=== PATIENT | female | born 1975 | race Caucasian/White ===

== ENCOUNTER 2016-03-24 10:02 | Outpatient (RCR) | payer MEDICARE, MEDICAID ==
[~2016-03-24 10:02] MED LIST: ALPR1T; ALPR1T PO; ASP81CT PO; ASPI-84; ASPI-983 PO; ATOR20TA66 PO; BUPR-168; CARI350T27; CEFD300C3 PO; CPR500T; CRS350T PO; DICY20TA57 PO; DIPH1TAB45; ENXP40I.4 SC; ESCI20TA2 PO; ESCI20TA45 PO; FAMO20TA13; FAMO20TA13 PO; FAMO20TA17; FAMO20TA5 PO; FLC1T; FLC1T PO; FOLI0.4T2 PO; HYDR-34 PO; LACT1CAP45 PO; LEVO750T9 PO; LISI-552 PO; LOVA20TA2; LVST20T PO; METO-333; METO-333 PO; METO25TA2; METO25TA2 PO; MTP25TSR; MULT-608 PO; OMG1KC PO; OXYC-471 PO; PHEN100C11 PO; PHN100C PO; PRM25T; PRX10T; PRX20T; TPR25T PO; VNL75T; WARF-48 PO; WARF7.5T; WARF7.5T PO; WRF5T; WRF5T PO; ZPR20C PO; [UNRECOGNIZED DRUG - CODE]
--- OUTSIDE RECORDS SUMMARY | 2016-03-24 10:07 | XMS REPORT | Continuity of Care Document ---
Author Author [facility] Organization [facility] Address Unknown Phone Unavailable Care Team Providers Care Order Desk Clerk Name Role Phone Lauren Cortez PCP [phone] Source Comments Some departments are not documenting in the electronic medical record. If you do not see the information that you expected, contact Release of Information in the Health Information Management department at [phone] for further assistance in locating additional records.[facility] Active Allergies and Adverse Reactions Allergen Noted Date Severity Reactions Comments Aripiprazole 07/14/2007 Panic attacks Prochlorperazine 07/14/2007 SHORTNESS OF BREATH, Edisylate SWELLING Current Medications Prescription Sig. Disp. Refills Start End Date Status Date COUMADIN PO 07/14/19 Active 08 METOPROLOL TARTRATE PO 07/14/19 Active 08 LOVASTATIN PO 07/14/19 Active 08 LEXAPRO PO 07/14/19 Active 08 PEPCID PO 07/14/19 Active 08 aspirin 81 mg chew tablet 07/14/19 Active 08 FOLIC ACID PO 07/14/19 Active 08 M-VIT PO 07/14/19 Active 08 escitalopram (LEXAPRO) 10 Take 1 Tab by mouth 30 0 07/19/19 Active mg tablet Daily. 08 escitalopram (LEXAPRO) 10 Take 1 Tab by mouth 30 0 20 Active mg tablet Daily. 08 mirtazapine (REMERON) 15 Take 1 Tab by mouth At 30 0 20 Active mg tablet Bedtime Daily. 08 Active Problems Problem Noted Date Generalized anxiety disorder 07/14/2007 Social History Tobacco Use Types Packs/Day Years Used Date Never Smoker Alcohol Use Drinks/Week oz/Week Comments Yes rare Last Filed Vital Signs Vital Sign Reading Time Taken Blood Pressure 121/71 07/19/2007 11:00 AM BENCH LOOM WEAVER Pulse 54 07/19/2007 11:00 AM BENCH LOOM WEAVER Temperature 36.6 C (97.9 F) 07/19/2007 11:00 AM BENCH LOOM WEAVER Respiratory Rate - - Height 1.62 m (5' 3.78") 07/14/2007 11:00 PM BENCH LOOM WEAVER Weight 77 kg (169 lb 12.1 oz) 07/14/2007 11:00 PM BENCH LOOM WEAVER Body Mass Index 29.34 07/14/2007 11:00 PM BENCH LOOM WEAVER Oxygen Saturation 97% 07/14/2007 6:15 PM BENCH LOOM WEAVER Plan of Care Health Maintenance Due Date Last Done Comments Physical (Comprehensive) 09/26/1983 Exam Pertussis Vaccine 09/26/1987 Tetanus Vaccine 1993 Cervical Cancer Screening 1997 Influenza Vaccine 01/24/2016 Results from Last 3 Months Not on file
[2016-03-24 10:18] LABS: INR 2.4 (0.8-1.4); PROTHROMBIN TIME PATIENT 26.3 SEC (12.2-14.7)
[2016-04-14] MEDS ORDERED: PHEN100C11 PO (10:54)
[2016-04-15] MEDS ORDERED: ASPI-983 PO (08:57)
[2016-04-15] MEDS ORDERED: APIX5TAB PO (08:57)
[2016-04-15] MEDS ORDERED: LEVE500T6 PO (08:57)
== END 2016-06-22 | disposition home or self-care (01) ==
LOC: LAB 10:02
PROVIDERS: ATTEND Internal Medicine Cardiovascular Disease
DX: D68.2 Hereditary deficiency of other clotting factors (principal); Z79.01 Long term (current) use of anticoagulants; Z79.899 Other long term (current) drug therapy
CPT/HCPCS: 36415; 85610

== ENCOUNTER 2016-08-03 09:39 | Emergency (ER) | payer MEDICARE, MEDICAID ==
[~2016-08-03] VITALS: Ht 157.5 cm; Wt 66.2 kg
[~2016-08-03 09:39] MED LIST changes: +APIX5TAB PO; +LEVE500T6 PO
--- OUTSIDE RECORDS SUMMARY | 2016-08-03 09:44 | XMS REPORT | Continuity of Care Document ---
Author Author [facility] Organization [facility] Address Unknown Phone Unavailable Care Team Providers Care Desolderer Name Role Phone Lauren Cortez PCP [phone] Source Comments Some departments are not documenting in the electronic medical record. If you do not see the information that you expected, contact Release of Information in the Health Information Management department at [phone] for further assistance in locating additional records.[facility] Active Allergies and Adverse Reactions Allergen [...] Taken Blood Pressure 121/71 07/19/2007 11:00 AM FOOD PHOTOGRAPHER Pulse 54 07/19/2007 11:00 AM FOOD PHOTOGRAPHER Temperature 36.6 C (97.9 F) 07/19/2007 11:00 AM FOOD PHOTOGRAPHER Respiratory Rate - - Height 1.62 m (5' 3.78") 07/14/2007 11:00 PM FOOD PHOTOGRAPHER Weight 77 kg (169 lb 12.1 oz) 07/14/2007 11:00 PM FOOD PHOTOGRAPHER Body Mass Index 29.34 07/14/2007 11:00 PM FOOD PHOTOGRAPHER Oxygen Saturation 97% 07/14/2007 6:15 PM FOOD PHOTOGRAPHER Plan of Care Health Maintenance Due Date Last Done Comments Physical (Comprehensive) 09/26/1983 Exam Pertussis Vaccine 09/26/1987 Tetanus Vaccine 1993 Cervical Cancer Screening 1997 Influenza Vaccine 01/24/2016 Results from Last 3 Months Not on file
[2016-08-03] MEDS ORDERED: ONDANSETRON 4 MG/2 ML (SDV) Z0FRAN IVP ONE ×2 (09:45→10:30)
[2016-08-03] MEDS ORDERED: ONDANSETRON 4 MG (ZOFRAN) ORAL DISSOLVE TAB ONE (09:58)
--- NOTE | 2016-08-03 09:58 | ED Headache ---
General Stated Complaint: HEADACHE/NAUSEA Source: patient, EMS History of Present Illness Time seen by provider: 09:41 Initial Comments PT ARRIVES VIA EMS FROM HOME PT STATES SHE FELT FINE WHEN SHE WOKE UP, THEN WAS HAVING A BOWEL MOVEMENT AND BEGAN TO HAVE A SEVERE HEADACHE FOLLOWED BY NAUSEA AND VOMITING--BEGAN APPROXIMATELY 1 HOUR AGO EMS REPORT ELEVATED BP AT 171/100 TOOK A CLONIDINE JUST PRIOR TO ARRIVAL HAS NOT TAKEN ANYTHING FOR HEADACHE NO DIZZINESS NO VISION CHANGES NO PARESTHESIAS OR MOTOR DEFICITS NO PALPITATIONS NO CHEST PAIN NO SHORTNESS OF BREATH NO HISTORY OF FREQUENT HEADACHES, BUT OCCASIONALLY HAS HAD HEADACHES LIKE THIS WITH BM'S AND HAD VASOVAGAL REACTION WITH SYNCOPE IN THE PAST. ALSO HAD SIMILAR WITH CT, BUT THIS IS DIFFERENT THAN WITH CT IN THAT SHE HAD OTHER SYMPTOMS WITH CT PT HAS HX OF HTN, CT, DVT AND IS CURRENTLY TAKING ELIQUIS. PCP: DR. BOOKER Allergies and Home Medications Allergies Coded Allergies: prochlorperazine (Unverified Allergy, Severe, TONGUE SWELLS, 07/10/06) metoclopramide (Verified Allergy, Unknown, 01/29/09) topiramate (Unverified Allergy, Unknown, 11/18/15) causes metabolic acidosis Home Medications Alprazolam 1 Mg Tablet 1 MG PO TID PRN PRN ANXIETY (Reported) TAKES 1/2 TO 1 (1MG) TABLET Apixaban 5 Mg Tablet #60 5 MG PO BID Prescribed by: ADELAIDA BOOKER on 04/15/16 0857 Atorvastatin Calcium 20 Mg Tablet 20 MG PO HS (Reported) Carisoprodol 350 Mg Tablet 350 MG PO BID PRN PRN MUSCLE SPASMS (Reported) Escitalopram Oxalate 20 Mg Tablet 20 MG PO HS (Reported) Famotidine 20 Mg Tablet 20 MG PO HS (Reported) Folic Acid 1 Mg Tablet 1 MG PO HS (Reported) Lamotrigine 100 Mg Tab.er.24 #30 (Reported) Levetiracetam 500 Mg Tablet #60 500 MG PO BID Prescribed by: ADELAIDA BOOKER on 04/15/16 0857 Metoprolol Tartrate 25 Mg Tablet 25 MG PO HS (Reported) Oxycodone HCl/Acetaminophen 1 Each Tablet 1 TAB PO Q6H PRN PRN SEVERE PAIN ( Reported) Constitutional: no symptoms reported Eyes: No Symptoms Reported Ears, Nose, Mouth, Throat: no symptoms reported Respiratory: no symptoms reported Cardiovascular: no symptoms reported Gastrointestinal: see HPI nausea vomiting Genitourinary: no symptoms reported Musculoskeletal: no symptoms reported Skin: no symptoms reported Psychiatric/Neurological: See HPI Headache Past Tsazomd-Aqruix-Lkxuyl Hx Patient Social History Alcohol Use: Occasionally Uses Recreational Drug Use: Yes Drug of Choice: MARIJUANA Smoking Status: Current Everyday Smoker (1 PPD) Type Used: Cigarettes 2nd Hand Smoke Exposure: Yes Recent Hopitalizations: Yes (just discharged 2 days ago for supratherapeutic INR) Immunizations Up To Date Tetanus Booster (TDap): Less than 5yrs Seasonal Allergies Seasonal Allergies: No Surgeries HX Surgeries: Yes (CARDIAC CATH X 2--2006 & 2010--NO INTERVENTION; LEFT SALPINGO-OOPHORECTOMY FOR TORSION; BILATERAL HERNIA SURGERY CHILD) Surgeries: Abdominal, Adenoidectomy, Cardiac, Oophorectomy, Tonsillectomy Respiratory Hx Respiratory Disorders: Yes Respiratory Disorders: Pneumonia Cardiovascular Hx Cardiac Disorders: Yes (hx blood clots; CT X 2-PER PT. CARDIAC CATHS X2 -- NO INTERVENTION) Cardiac Disorders: Coronary Artery Disease, Deep Vein Thrombosis, Heart Attack , Hypertension Neurological Hx Neurological Disorders: Yes Neurological Disorders: Seizure Disorder Reproductive System Hx Reproductive Disorders: Yes (HPV; 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) Female Reproductive Disorders: Polycystic Ovarian Dis Genitourinary Hx Genitourinary Disorders: Yes (uti) Genitourinary Disorders: Bladder Infection Gastrointestinal Hx Gastrointestinal Disorders: Yes (GI BLEED 04/13/16, ALL OTHER DISORDERS A CHILD) Gastrointestinal Disorders: Abdominal Hernia, Gastroesophageal Reflux, Gastrointestinal Bleed, Hepatitis Musculoskeletal Hx Musculoskeletal Disorders: Yes (STENOSIS) Musculoskeletal Disorders: Scoliosis, Chronic Back Pain Endocrine Hx Endocrine Disorders: No HEENT HX ENT Disorders: No Loss of Vision: Denies Hearing Impairment: Denies Cancer Hx Cancer: No Psychosocial Hx Psychiatric Problems: Yes Behavioral Health Disorders: Anxiety, Depression Integumentary HX Skin/Integumentary Disorder: No (BRUISING) Blood Transfusions Hx Blood Disorders: Yes (DVT; FACTOR 5 LEIDEN) Family Medical History Significant Family History: Heart Disease, Cancer, Hypertension Family Medial History: Family history: Cardiovascular disease 03 FATHER Family history: Coronary thrombosis 03 FATHER Family history: Diabetes mellitus 03 MOTHER Heart disease 03 FATHER History of - disorder 03 FATHER (FACTOR FIVE LEIDEN) Psychotic disorder 03 MOTHER (DEPRESSION) Physical Exam Vital Signs Vital Sign - Last 12Hours 08/03/16 09:39 Temp 96.2 Pulse 58 Resp 18 B/P 161/82 Pulse Ox 96 O2 Delivery Room Air Capillary Refill : General Appearance: WD/WN no apparent distress (RETCHING AND ANXIOUS ON ARRIVAL ) other (RETCHING, LOOKS UNCOMFORTABLE, ANXIOUS) HEENT: PERRL/EOMI normal ENT inspection Neck: non-tender full range of motion supple normal inspectionNo carotid bruit Cardiovascular: regular rate, rhythm no murmur Respiratory: normal breath sounds no respiratory distress no accessory muscle use Gastrointestinal: normal bowel sounds non tender soft no organomegaly Extremities: normal range of motion non-tender normal inspection no pedal edema no calf tenderness normal capillary refill Psychiatric: alert oriented x 3 Crainal Nerves: normal hearing normal speech PERRL Motor/Sensory: no motor deficit no sensory deficit no pronator drift Skin: normal color warm/dry Progress/Results/Core Measures Results/Orders Lab Results Laboratory Tests Test 08/03/16 10:15 Range/Units Activated Partial Thromboplast Time < 20 L 24-35 SEC Alanine Aminotransferase (ALT/SGPT) 14 0-55 U/L Albumin 4.0 3.2-4.5 G/DL Alkaline Phosphatase 69 40-136 U/L Amylase Level 47 25-125 U/L Anion Gap 14 5-14 MMOL/L Aspartate Amino Transf (AST/SGOT) 17 5-34 U/L BUN/Creatinine Ratio 12 Basophils # (Auto) 0.0 0.0-0.1 10^3/uL Basophils (%) (Auto) 0 0-10 % Blood Urea Nitrogen 10 7-18 MG/DL Calcium Level 9.0 8.5-10.1 MG/DL Carbon Dioxide Level 16 L 21-32 MMOL/L Chloride Level 112 H 98-107 MMOL/L Creatinine 0.81 0.60-1.30 MG/DL Eosinophils # (Auto) 0.1 0.0-0.3 10^3/uL Eosinophils (%) (Auto) 1 0-10 % Estimat Glomerular Filtration Rate > 60 Glucose Level 137 H 70-105 MG/DL Hematocrit 45 35-52 % Hemoglobin 15.4 11.5-16.0 G/DL INR Comment 1.0 0.8-1.4 Lipase 35 8-78 U/L Lymphocytes # (Auto) 1.9 1.0-4.0 X 10^3 Lymphocytes (%) (Auto) 18 12-44 % Magnesium Level 1.7 L 1.8-2.4 MG/DL Mean Corpuscular Hemoglobin 33 25-34 PG Mean Corpuscular Hemoglobin Concent 35 32-36 G/DL Mean Corpuscular Volume 94 80-99 FL Mean Platelet Volume 10.9 H 7.4-10.4 FL Monocytes # (Auto) 0.5 0.0-1.0 X 10^3 Monocytes (%) (Auto) 5 0-12 % Neutrophils # (Auto) 7.9 H 1.8-7.8 X 10^3 Neutrophils (%) (Auto) 76 H 42-75 % Platelet Count 217 130-400 10^3/uL Potassium Level 3.7 3.6-5.0 MMOL/L Prothrombin Time 12.4 12.2-14.7 SEC Red Blood Count 4.73 4.35-5.85 10^6/uL Red Cell Distribution Width 12.6 10.0-14.5 % Serum Test, Qualitative NEGATIVE NEGATIVE Sodium Level 142 135-145 MMOL/L Total Bilirubin 0.6 0.1-1.0 MG/DL Total Protein 7.1 6.4-8.2 G/DL Troponin I < 0.30 <0.30 NG/ML White Blood Count 10.4 4.3-11.0 10^3/uL My Orders Orders-KINGS FITZGERALD DO Saline Lock/Iv-Start (08/03/16 09:42) Ekg Tracing (08/03/16 09:42) Monitor-Rhythm Ecg Trace Only (08/03/16 09:42) Ct Head Wo (08/03/16 09:42) Amylase (08/03/16 09:42) Cbc With Automated Diff (08/03/16 09:42) Comprehensive Metabolic Panel (08/03/16 09:42) Hcg,Qualitative Serum (08/03/16 09:42) Lipase (08/03/16 09:42) Magnesium (08/03/16 09:42) Protime With Inr (08/03/16 09:42) Partial Thromboplastin Time (08/03/16 09:42) Troponin I (08/03/16 09:42) Ondansetron Injection (Zofran Injectio (08/03/16 09:45) Ondansetron Oral Dissolve Tab (Zofran (08/03/16 10:00) Ondansetron Oral Dissolve Tab (Zofran (08/03/16 09:58) Chest Pa/Lat (2 View) (08/03/16 10:18) Ondansetron Injection (Zofran Injectio (08/03/16 10:30) Fentanyl Injection (Sublimaze Injection (08/03/16 10:48) Medications Given in ED Current Medications Medications Dose Ordered Sig/Gerald Route Start Time Stop Time Status Last Admin Dose Admin Ondansetron HCl 4 mg ONCE ONCE IVP 08/03/16 10:30 08/03/16 10:31 DC 08/03/16 10:27 4 MG Ondansetron HCl 8 mg ONCE ONCE PO 08/03/16 10:00 08/03/16 10:01 DC 08/03/16 10:00 8 MG Vital Signs/I&O Vital Sign - Last 12Hours 08/03/16 08/03/16 09:39 10:58 Temp 96.2 Pulse 58 77 Resp 18 18 B/P 161/82 146/79 Pulse Ox 96 96 O2 Delivery Room Air Room Air Progress Note : Progress Note SYMPTOMS IMPROVING EVEN PRIOR TO BEING GIVEN ANY MEDICATIONS HEADACHE AND NAUSEA MUCH BETTER EVEN BEFORE GOING TO CT, ABLE TO SIT UP NOW-- COULD NOT SIT UP INITIALLY IT CAUSED HER HEAD TO HURT WORSE. ON RETURN FROM CT, PT IS SITTING UP AND SMILING, AND TALKATIVE, AND CONTINUES TO FEEL BETTER SYMPTOMS COMPLETELY RESOLVED AT DISMISSAL ECG Initial ECG Impression Time: 09:08 Initial ECG Rate: 51 Initial ECG Rhythm: Normal Sinus Initial ECG Impression: Normal Initial ECG Comparisson: Unchanged (EXCEPT T-WAVES NOW PROMINENT) Diagnostic Imaging Comments CXR--NO ACUTE PROCESS, PER RADIOLOGIST REPORT @ 1049 CT HEAD--NO ACUTE PROCESS, PER RADIOLOGIST REPORT @ 1053 Reviewed: Reviewed by Me Departure Communication Progress Notes 1105--DR. LOPEZ HERE TO SEE PT. HE DOES NOT FEEL THAT PT HAS ANY CARDIAC CONCERNS AT THIS TIME. HE WILL SEE PT IN OFFICE TOMORROW. PT AND FAMILY COMFORTABLE WITH THIS PLAN. Impression Impression: Primary Impression: Headache Disposition: 01 HOME, SELF-CARE Condition: Improved Departure-Patient Inst. Referrals: ADELAIDA BOOKER MD (PCP/Family) Primary Care Physician ARIEL LOPEZ MD Patient Instructions: Headache, Adult (DC) Add. Discharge Instructions: HOME, REST LOTS OF CLEAR LIQUIDS TAKE YOUR MEDICATIONS PRESCRIBED TYLENOL AND MOTRIN NEEDED FOR PAIN TAKE YOUR HOME ZOFRAN NEEDED FOR NAUSEA FOLLOW UP WITH DR. LOPEZ TOMORROW RETURN TO ER IF SYMPTOMS RETURN. KINGS FITZGERALD DO Aug 03, 2016 09:57
[2016-08-03] MEDS ORDERED: ONDANSETRON 4 MG (ZOFRAN) ORAL DISSOLVE TAB PO ONE (10:00)
[2016-08-03] MEDS ORDERED: LAMO100T65 (10:21)
[2016-08-03 10:26] LABS: BASOPHILS % (AUTO) 0 % (0-10); EOSINOPHILS # (AUTO) 0.1 10^3/uL (0.0-0.3); EOSINOPHILS % (AUTO) 1 % (0-10); LYMPHOCYTES # (AUTO) 1.9 X 10^3 (1.0-4.0); LYMPHOCYTES % (AUTO) 18 % (12-44); MEAN CORPUSCULAR HEMOGLOBIN 33 PG (25-34); MEAN CORPUSCULAR HGB CONC 35 G/DL (32-36); MEAN CORPUSCULAR VOLUME 94 FL (80-99); MEAN PLATELET VOLUME 10.9 FL (7.4-10.4); MONOCYTES # (AUTO) 0.5 X 10^3 (0.0-1.0); MONOCYTES % (AUTO) 5 % (0-12); NEUTROPHILS # (AUTO) 7.9 X 10^3 (1.8-7.8); NEUTROPHILS % (AUTO) 76 % (42-75); PLATELET COUNT 217 10^3/uL (130-400); RED BLOOD COUNT 4.73 10^6/uL (4.35-5.85); RED CELL DISTRIBUTION WIDTH 12.6 % (10.0-14.5); WHITE BLOOD COUNT 10.4 10^3/uL (4.3-11.0)
[2016-08-03 10:36] LABS: PARTIAL THROMBOPLASTIN TIME < 20 SEC (24-35); PROTHROMBIN TIME PATIENT 12.4 SEC (12.2-14.7)
[2016-08-03 10:44] LABS: ALANINE AMINOTRANSFERASE 14 U/L (0-55); AMYLASE 47 U/L (25-125); ANION GAP 14 MMOL/L (5-14); ASPARTATE AMINO TRANSFERASE 17 U/L (5-34); BILIRUBIN,TOTAL 0.6 MG/DL (0.1-1.0); BLOOD UREA NITROGEN 10 MG/DL (7-18); BUN/CREATININE RATIO 12; CARBON DIOXIDE 16 MMOL/L (21-32); CHLORIDE 112 MMOL/L (98-107); CREATININE SERUM 0.81 MG/DL (0.60-1.30); GFR ESTIMATED > 60; GLUCOSE 137 MG/DL (70-105); LIPASE 35 U/L (8-78); MAGNESIUM 1.7 MG/DL (1.8-2.4); POTASSIUM 3.7 MMOL/L (3.6-5.0); SODIUM 142 MMOL/L (135-145); TOTAL PROTEIN 7.1 G/DL (6.4-8.2)
--- NOTE | 2016-08-03 10:47 | Diagnostic Imaging Report ---
INDICATION: Nausea, headache, hypertension.. TECHNIQUE: Two view chest 10:57 AM CORRELATION STUDY: 04/13/2016 FINDINGS: The heart size, mediastinal configuration and pulmonary vasculature are within normal limits. The lungs are clear with no consolidating infiltrate. There is no significant pleural effusion or pneumothorax. Visualized osseous structures are unremarkable. IMPRESSION: 1. Negative two-view chest. Dictated by: Dictated on workstation # [id number]
[2016-08-03] MEDS ORDERED: fentaNYL INJECTION 100 MCG/2 ML AMP IVP STA (10:48)
[2016-08-03 10:49] LABS: TROPONIN I < 0.30 NG/ML (<0.30)
--- NOTE | 2016-08-03 10:49 | Diagnostic Imaging Report ---
PROCEDURE: CT head without contrast. TECHNIQUE: Multiple contiguous axial images were obtained through the brain without the use of intravenous contrast. INDICATION: Headache and nausea. test was negative. CT brain without contrast 08/03/2016. COMPARISON: 04/16/2016. FINDINGS: There is no evidence for acute hemorrhage or infarct. The brain is stable in appearance with no mass, mass effect or midline shift. There is no hydrocephalus. The calvarium is intact. No acute sinus disease appreciated. IMPRESSION: 1. No acute process. Dictated by: Dictated on workstation # [id number]
[2016-08-03 10:58] VITALS: BP 146/79
[2016-08-03 12:09] VITALS: BP 149/86
== END 2016-08-03 11:56 | disposition home or self-care (01) ==
LOC: EDUNIT# 09:39 → ER 09:40
DX: R51 Headache (principal); R11.2 Nausea with vomiting, unspecified; I10 Essential (primary) hypertension; I25.10 Atherosclerotic heart disease of native coronary artery without angina pectoris; I25.2 Old myocardial infarction; F17.210 Nicotine dependence, cigarettes, uncomplicated; Z79.899 Other long term (current) drug therapy
CPT/HCPCS: 36415; 70450; 71020; 80053; 82150; 83690; 83735; 84484; 84703; 85025; 85610; 85730; 93005; 93041; 96374; 96375

== ENCOUNTER → 2016-09-03 | Outpatient (CLI) | payer MEDICARE, MEDICAID ==
[~2016-09-03] MED LIST changes: +LAMO100T65
--- NOTE | 2016-09-04 08:41 | ECHOCARDIOGRAPHY REPORT ---
PROCEDURE PHYSICIAN: ARIEL LOPEZ DATE OF PROCEDURE: 09/03/2016 TWO DIMENSIONAL ECHOCARDIOGRAM REPORT PRIMARY PHYSICIAN: OTHER PHYSICIAN: REFERRING PHYSICIAN: Dr. Gibson ORDERING PHYSICIAN: INDICATION FOR THE PROCEDURE: Chest pain. MEASUREMENTS DERIVED VALUES LV DIAMETER (LAX) NORMALS NORMALS Diastolic 4.4 (3.6-5.2) Eject. Fract. 60% (60%+/-6%) Systolic (2.3-3.9) Diastolic Vol. % Shortening (0.22-0.42) Systolic Vol. Aortic Root IVS THICKNESS Diastolic 0.9 (0.6-1.1) LVPW THICKNESS Diastolic 0.9 (0.6-1.1) LA DIAMETER Systolic 2.9 (2.1-3.7) FINDINGS: 1. Technical quality is good. 2. The left ventricle is normal in size with normal contractility. Systolic function appeared to be normal. Estimated ejection fraction 60%. 3. The left atrium is normal in size. No clot or thrombus were seen within the left atrium. 4. The right atrium and right ventricle are normal in size. No clot or thrombus were seen within the right side. 5. Mitral valve is normal in morphology with mild mitral regurgitation noted by color Doppler flow. No mitral valve prolapse. No mitral valve stenosis. 6. Aortic valve is trileaflet with normal opening and closing pattern. No significant aortic stenosis or regurgitation was seen. 7. Tricuspid valve is normal in morphology with mild tricuspid regurgitation noted by color Doppler flow. Doppler across tricuspid valve estimated pulmonary artery pressure of 32+ right atrial pressure. 8. Pulmonic valve is functioning normally. 9. No pericardial effusion. IN CONCLUSION: 1. Normal left ventricular size and systolic function. Estimated ejection fraction 60%. 2. Mild mitral and tricuspid regurgitation. 3. Estimated pulmonary artery pressure of 40 mmHg. Job ID: [id number] Dictated Date: 09/03/2016 16:33:45 Equipment Hire Manager Date: 09/04/2016 08:37:49 / tbk
--- NOTE | 2016-09-04 08:47 | STRESS TEST ---
PROCEDURE PHYSICIAN: ARIEL LOPEZ DATE OF PROCEDURE: 09/03/2016 EXERCISE STRESS ECHOCARDIOGRAM REPORT: INDICATION: 1. Coronary artery disease. 2. Chest pain. BASELINE HEART RATE: 58 BASELINE BLOOD PRESSURE: 140/81 BASELINE EKG: Sinus rhythm with no ischemic changes. IN SUMMARY: The patient started exercising with a baseline heart rate, blood pressure, EKG mentioned above. Heart rate was increasing appropriately with her exercise. She was able to exercise for a total of 9 minutes and 30 seconds on standard Tenzin protocol, achieving maximum heart rate of 170, which is 94% of maximum expected heart rate. With peak exercise level, her blood pressure was 214/83. Early in recovery, within 30 seconds of recovery, the patient had a transient episode of bradycardia alternating with sinus tachycardia. Heart rate was ranging between 150 then dropping suddenly to 80. The patient had a short episode of junctional rhythm with heart rate 72. She felt extremely tired and continued to have transient episode of atrial versus sinus tachycardia. At minute 2 and 30 seconds, the patient had another episode of heart rate of 60 then she recovered. At the end of the test, her heart rate was 71. Blood pressure 170/88. She was feeling better. Echocardiographic images were reviewed acquired in the apical 4 chamber, apical 2 chamber, parasternal long axis, and parasternal short axis views. Review of the images showed normal left ventricular size with normal contractility with no ischemic changes. IN CONCLUSION: 1. Excellent exercise tolerance a total of 9 minutes 30 seconds on standard Tenzin protocol. Total of 10.1 METs, achieving 94% of maximum expected heart rate. Sudden drop in heart rate during recovery after 30 seconds of recovery with the heart rate dropping from 170 to 70 with the patient feeling tired, but no dizziness or lightheadedness. Continued to have alternating sinus bradycardia and sinus tachycardia early in recovery then continued with sinus rhythm. Had transient episode of escape junctional rhythm. 2. Hypertensive response to exercise returned to baseline during recovery. 3. The patient was instructed to discontinuing metoprolol and continue on lisinopril and monitoring her symptoms. Job ID: [id number] Dictated Date: 09/03/2016 16:37:06 Press Officer Date: 09/04/2016 08:41:36 / tbk
== END ==
LOC: CARD 08:35
PROVIDERS: ATTEND Internal Medicine Cardiovascular Disease
DX: I25.10 Atherosclerotic heart disease of native coronary artery without angina pectoris (principal); I65.23 Occlusion and stenosis of bilateral carotid arteries; D68.51 Activated protein C resistance; I10 Essential (primary) hypertension; E78.2 Mixed hyperlipidemia
CPT/HCPCS: 93306; 93351

== ENCOUNTER 2016-12-29 11:15 | Outpatient (RCR) | payer MEDICARE, MEDICAID | END 2017-02-05 11:59 | disposition home or self-care (01) | PROVIDERS: ATTEND Family Medicine | DX: M54.5 Low back pain (principal); M54.6 Pain in thoracic spine ==

== ENCOUNTER → 2017-01-30 | Outpatient (CLI) | payer MEDICARE, MEDICAID ==
--- NOTE | 2017-01-30 17:34 | Diagnostic Imaging Report ---
INDICATION: Chest pain. TECHNIQUE: PA and lateral views of the chest are obtained. COMPARISON: Comparison is made to study of 08/03/2016. FINDINGS: Heart size and pulmonary vascularity are within normal limits, and the lungs are clear, bilaterally. IMPRESSION: Unremarkable chest. Dictated on workstation # [id number]
== END ==
LOC: RAD 16:55
PROVIDERS: ATTEND Nurse Practitioner Family
DX: R07.89 Other chest pain (principal)
CPT/HCPCS: 71020

== ENCOUNTER → 2017-03-18 | Outpatient (CLI) | payer MEDICARE, MEDICAID ==
[2017-03-18 10:27] LABS: BASOPHILS % (AUTO) 1 % (0-10); EOSINOPHILS # (AUTO) 0.1 10^3/uL (0.0-0.3); EOSINOPHILS % (AUTO) 2 % (0-10); LYMPHOCYTES # (AUTO) 2.3 X 10^3 (1.0-4.0); LYMPHOCYTES % (AUTO) 29 % (12-44); MEAN CORPUSCULAR HEMOGLOBIN 34 PG (25-34); MEAN CORPUSCULAR HGB CONC 35 G/DL (32-36); MEAN CORPUSCULAR VOLUME 97 FL (80-99); MEAN PLATELET VOLUME 10.2 FL (7.4-10.4); MONOCYTES # (AUTO) 0.6 X 10^3 (0.0-1.0); MONOCYTES % (AUTO) 8 % (0-12); NEUTROPHILS # (AUTO) 4.7 X 10^3 (1.8-7.8); NEUTROPHILS % (AUTO) 60 % (42-75); PLATELET COUNT 246 10^3/uL (130-400); RED BLOOD COUNT 4.58 10^6/uL (4.35-5.85); RED CELL DISTRIBUTION WIDTH 12.5 % (10.0-14.5); WHITE BLOOD COUNT 7.8 10^3/uL (4.3-11.0)
[2017-03-18 10:48] LABS: ALANINE AMINOTRANSFERASE 12 U/L (0-55); ALBUMIN 4.4 GM/DL (3.2-4.5); ANION GAP 9 MMOL/L (5-14); ASPARTATE AMINO TRANSFERASE 18 U/L (5-34); BILIRUBIN,TOTAL 1.1 MG/DL (0.1-1.0); BLOOD UREA NITROGEN 8 MG/DL (7-18); BUN/CREATININE RATIO 10; CALCIUM 9.4 MG/DL (8.5-10.1); CARBON DIOXIDE 19 MMOL/L (21-32); CHLORIDE 110 MMOL/L (98-107); CHOLESTEROL 139 MG/DL (< 200); DIRECT LDL 73 MG/DL (1-129); GFR ESTIMATED > 60; GLUCOSE 100 MG/DL (70-105); POTASSIUM 4.2 MMOL/L (3.6-5.0); SODIUM 138 MMOL/L (135-145); TOTAL PROTEIN 8.1 GM/DL (6.4-8.2); TRIGLYCERIDES 118 MG/DL (<150); VLDL CHOLESTEROL 24 MG/DL (5-40)
== END ==
LOC: LAB 09:59
PROVIDERS: ATTEND Family Medicine
DX: I10 Essential (primary) hypertension (principal); Z79.899 Other long term (current) drug therapy
CPT/HCPCS: 36415; 80053; 80061; 84443; 85025

== ENCOUNTER 2017-04-05 13:15 | Emergency (ER) | payer MEDICARE, MEDICAID ==
[~2017-04-05] VITALS: Ht 157.5 cm; Wt 63.5 kg
--- OUTSIDE RECORDS SUMMARY | 2017-04-05 13:19 | XMS REPORT | Clinical Summary ---
Author Author [facility] Organization [facility] Address Unknown Phone Unavailable Care Team Providers Care Data Warehousing Engineer Name Role Phone PCP Unavailable Source Comments Some departments are not documenting in the electronic medical record. If you do not see the information that you expected, contact Release of Information in the Health Information Management department at [phone] for further assistance in locating additional records.[facility] Allergies Active Allergy Reactions Severity Noted Date Comments Aripiprazole 07/14/2007 Panic attacks Prochlorperazine SHORTNESS OF BREATH, 07/14/2007 Edisylate SWELLING Current Medications Prescription Sig. Disp. [...] 0 20 Active mg tablet Daily. 08 escitalopram (LEXAPRO) 10 Take 1 Tab by mouth 30 0 20 Active mg tablet Daily. 08 mirtazapine (REMERON) 15 Take 1 Tab by mouth At 30 0 20 Active mg tablet Bedtime Daily. 08 Active Problems Problem Noted Date Generalized anxiety disorder 07/14/2007 Family History Medical History Relation Name Comments Depression Maternal Grandfather Depression Mother Depression Sister Relation Name Status Comments Maternal Grandfather Mother Sister Social History Tobacco Use Types Packs/Day Years Used Date Never Smoker Alcohol Use Drinks/Week oz/Week Comments Yes rare Sex Assigned at Date Recorded Not on file Last Filed Vital Signs Vital Sign Reading Time Taken Blood Pressure 121/71 07/19/2007 11:00 AM PHLEBOTOMY SERVICES TECHNICIAN Pulse 54 07/19/2007 11:00 AM PHLEBOTOMY SERVICES TECHNICIAN Temperature 36.6 C (97.9 F) 07/19/2007 11:00 AM PHLEBOTOMY SERVICES TECHNICIAN Respiratory Rate - - Oxygen Saturation 97% 07/14/2007 6:15 PM PHLEBOTOMY SERVICES TECHNICIAN Inhaled Oxygen - - Concentration Weight 77 kg (169 lb 12.1 oz) 07/14/2007 11:00 PM PHLEBOTOMY SERVICES TECHNICIAN Height 162 cm (5' 3.78") 07/14/2007 11:00 PM PHLEBOTOMY SERVICES TECHNICIAN Body Mass Index 29.34 07/14/2007 11:00 PM PHLEBOTOMY SERVICES TECHNICIAN Plan of Treatment Health Maintenance Due Date Last Done Comments PHYSICAL (COMPREHENSIVE) 09/26/1983 EXAM PERTUSSIS VACCINE 09/26/1987 TETANUS VACCINE 1993 CERVICAL CANCER SCREENING 2006 BREAST CANCER SCREENING 2016 INFLUENZA VACCINE 12/23/2016 Results Not on filefrom Last 3 Months
--- OUTSIDE RECORDS SUMMARY | 2017-04-05 13:20 | XMS REPORT ---
Author Author EBONIE MORALES Organization [facility] Address [address] [place] [address] Care Team Providers Care Cage Fighter Name Role Phone EBONIE MORALES Unavailable PROBLEMS Type Condition ICD9-CM Code [id number] Code Onset Dates Condition Status SNOMED Code Problem Dysthymic disorder F34.1 Active 53516370 Problem Need for prophylactic vaccination and inoculation, Influenza V04.81 Active 931331403 Problem DTAP TEST V06.1 Active ALLERGIES Unknown Allergies SOCIAL HISTORY No smoking Hx information available PLAN OF CARE VITAL SIGNS MEDICATIONS Medication Instructions Dosage Frequency Start Date End Date Duration Status Multivitamin Multiple Vitamins 1 tablet by Oral route 1 time per day May, Active Folic Acid 1 mg 1 time per day May, Active Soma 350 mg May, Active Metoprolol Tartrate 25 mg take 1/2 tablet qAM and 1 tablet qPM Jan, Active Famotidine by Oral route Feb, Active Lexapro 20 mg 1 tablet by Oral route 1 time per day Dec, Active Ativan Active Lovastatin 10 mg 1 time per day May, Active Eliquis Active Lamictal Active RESULTS No Results PROCEDURES Procedure Date Ordered Related Diagnosis Body Site [facility] VISIT MENTAL HEALTH ESTAB PT Jun 16, 2016 Psychotherapy, patient &/family, 30 minutes, established patient Jun 16, 2016 IMMUNIZATIONS No Known Immunizations
--- NOTE | 2017-04-05 13:29 | ED Abdominal Pain ---
General Chief Complaint: Abdominal/GI Problems Stated Complaint: L SIDE ABD PAIN Source of Information: Patient Exam Limitations: No Limitations History of Present Illness Time Seen By Provider: 13:26 Initial Comments To ER with left-sided abdominal pain. This is been present since yesterday. No known injury or precipitating event. She did have a low-grade fever last night and does have chills today. No cough. Pain is worsened by deep breathing. No dysuria. No bowel changes. 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 Timing/Duration: 1-2 Days Severity/Quality: Moderate Location: [facility] Radiation: Chest Activities at Onset: None Allergies and Home Medications Allergies Coded Allergies: prochlorperazine (Unverified Allergy, Severe, TONGUE SWELLS, 07/10/06) metoclopramide (Verified Allergy, Unknown, 01/29/09) topiramate (Unverified Allergy, Unknown, 11/18/15) causes metabolic acidosis Home Medications Alprazolam 1 Mg Tablet, 1 MG PO TID PRN for ANXIETY, (Reported) TAKES 1/2 TO 1 (1MG) TABLET Apixaban 5 Mg Tablet, 5 MG PO BID, #60 Ref 11 Prescribed by: ADELAIDA GIBSON on 04/15/16 0857 Atorvastatin Calcium 20 Mg Tablet, 20 MG PO HS, (Reported) Carisoprodol 350 Mg Tablet, 350 MG PO BID PRN for MUSCLE SPASMS, (Reported) Escitalopram Oxalate 20 Mg Tablet, 20 MG PO HS, (Reported) Famotidine 20 Mg Tablet, 20 MG PO HS, (Reported) Folic Acid 1 Mg Tablet, 1 MG PO HS, (Reported) Lamotrigine 100 Mg Tab.er.24, #30 (Reported) Levetiracetam 500 Mg Tablet, 500 MG PO BID, #60 Ref 11 Prescribed by: ADELAIDA GIBSON on 04/15/16 0857 Metoprolol Tartrate 25 Mg Tablet, 25 MG PO HS, (Reported) Oxycodone HCl/Acetaminophen 1 Each Tablet, 1 TAB PO Q6H PRN for SEVERE PAIN, ( Reported) Review of Systems Constitutional: see HPI, chills, No fever EENTM: No Symptoms Reported Respiratory: See HPI Cardiovascular: See HPI, Chest Pain Gastrointestinal: No Symptoms Reported Genitourinary: No Symptoms Reported Musculoskeletal: no symptoms reported Skin: no symptoms reported Endocrine: No Symptoms Reported Past Dzqzfbl-Zmykfv-Hdtqot Hx Patient Social History Drug of Choice: MARIJUANA Type Used: Cigarettes 2nd Hand Smoke Exposure: Yes Recent Foreign Travel: No Contact w/Someone Who Travel: No Recent Hopitalizations: Yes (just discharged 2 days ago for supratherapeutic INR) Immunizations Up To Date Tetanus Booster (TDap): Less than 5yrs Seasonal Allergies Seasonal Allergies: No Surgeries Surgeries: Abdominal, Adenoidectomy, Cardiac, Oophorectomy, Tonsillectomy Respiratory Respiratory Disorders: Pneumonia Currently Using CPAP: No Currently Using BIPAP: No Cardiovascular Cardiac Disorders: Coronary Artery Disease, Deep Vein Thrombosis, Heart Attack , Hypertension Neurological Neurological Disorders: Seizure Disorder Reproductive System Hx Reproductive Disorders: Yes (HPV; 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) Female Reproductive Disorders: Polycystic Ovarian Dis Genitourinary Genitourinary Disorders: Bladder Infection Gastrointestinal Gastrointestinal Disorders: Abdominal Hernia, Gastroesophageal Reflux, Gastrointestinal Bleed, Hepatitis Musculoskeletal Musculoskeletal Disorders: Scoliosis, Chronic Back Pain HEENT Loss of Vision: Denies Hearing Impairment: Denies Psychosocial Behavioral Health Disorders: Anxiety, Depression Family Medical History Significant Family History: Heart Disease, Cancer, Hypertension Family Medial History: Family history: Cardiovascular disease 03 FATHER Family history: Coronary thrombosis 03 FATHER Family history: Diabetes mellitus 03 MOTHER Heart disease 03 FATHER History of - disorder 03 FATHER (FACTOR FIVE LEIDEN) Psychotic disorder 03 MOTHER (DEPRESSION) Physical Exam Vital Signs VS - Last 72 Hours, by Label 04/05/17 13:17 Temp 98.8 Pulse 66 Resp 18 B/P (MAP) 131/82 Pulse Ox 97 Capillary Refill : General Appearance: WD/WN, no apparent distress HEENT: PERRL/EOMI, normal ENT inspection Neck: non-tender, full range of motion Respiratory: normal breath sounds, no respiratory distress, no accessory muscle use Cardiovascular: regular rate, rhythm, no murmur Gastrointestinal: normal bowel sounds, soft, tenderness (ttp luq/llq) Extremities: normal range of motion, non-tender Neurologic/Psychiatric: alert, normal mood/affect, oriented x 3 Skin: normal color, warm/dry Progress/Results/Core Measures Results/Orders Lab Results Laboratory Tests Test 04/05/17 13:25 04/05/17 14:07 Range/Units White Blood Count 4.9 4.3-11.0 10^3/uL Red Blood Count 4.51 4.35-5.85 10^6/uL Hemoglobin 15.2 11.5-16.0 G/DL Hematocrit 43 35-52 % Mean Corpuscular Volume 95 80-99 FL Mean Corpuscular Hemoglobin 34 25-34 PG Mean Corpuscular Hemoglobin Concent 36 32-36 G/DL Red Cell Distribution Width 11.7 10.0-14.5 % Platelet Count 182 130-400 10^3/uL Mean Platelet Volume 10.1 7.4-10.4 FL Neutrophils (%) (Auto) 46 42-75 % Lymphocytes (%) (Auto) 37 12-44 % Monocytes (%) (Auto) 12 0-12 % Eosinophils (%) (Auto) 3 0-10 % Basophils (%) (Auto) 3 0-10 % Neutrophils # (Auto) 2.2 1.8-7.8 X 10^3 Lymphocytes # (Auto) 1.8 1.0-4.0 X 10^3 Monocytes # (Auto) 0.6 0.0-1.0 X 10^3 Eosinophils # (Auto) 0.2 0.0-0.3 10^3/uL Basophils # (Auto) 0.1 0.0-0.1 10^3/uL Sodium Level 138 135-145 MMOL/L Potassium Level 4.2 3.6-5.0 MMOL/L Chloride Level 106 98-107 MMOL/L Carbon Dioxide Level 20 L 21-32 MMOL/L Anion Gap 12 5-14 MMOL/L Blood Urea Nitrogen 10 7-18 MG/DL Creatinine 0.72 0.60-1.30 MG/DL Estimat Glomerular Filtration Rate > 60 BUN/Creatinine Ratio 14 Glucose Level 93 70-105 MG/DL Calcium Level 9.3 8.5-10.1 MG/DL Total Bilirubin 0.6 0.1-1.0 MG/DL Aspartate Amino Transf (AST/SGOT) 26 5-34 U/L Alanine Aminotransferase (ALT/SGPT) 17 0-55 U/L Alkaline Phosphatase 61 40-136 U/L Troponin I < 0.30 <0.30 NG/ML Total Protein 8.3 H 6.4-8.2 GM/DL Albumin 4.2 3.2-4.5 GM/DL Lipase 30 8-78 U/L Urine Color YELLOW Urine Clarity CLEAR Urine pH 6.5 5-9 Urine Specific [place] 1.015 L 1.016-1.022 Urine Protein 2+ H NEGATIVE Urine Glucose (UA) NEGATIVE NEGATIVE Urine Ketones 3+ H NEGATIVE Urine Nitrite NEGATIVE NEGATIVE Urine Bilirubin 1+ H NEGATIVE Urine Urobilinogen 4 H NORMAL MG/DL Urine Leukocyte Esterase 1+ H NEGATIVE Urine RBC (Auto) 1+ H NEGATIVE Urine RBC NONE /HPF Urine WBC 5-10 H /HPF Urine Squamous Epithelial Cells 5-10 /HPF Urine Crystals NONE /LPF Urine Bacteria TRACE /HPF Urine Casts NONE /LPF Urine Mucus SMALL H /LPF Urine Culture Indicated NO My Orders Orders - ALESSIA ANDERS APRN Cbc With Automated Diff (04/05/17 13:25) Comprehensive Metabolic Panel (04/05/17 13:25) Lipase (04/05/17 13:25) Ua Culture If Indicated (04/05/17 13:25) Saline Lock/Iv-Start (04/05/17 13:25) Chest Pa/Lat (2 View) (04/05/17 13:25) Ketorolac Injection (Toradol Injection) (04/05/17 13:30) Troponin I (04/05/17 13:29) Ct Chest/Abdomen/Pelvis W (04/05/17 14:32) Iohexol Injection (Omnipaque 350 Mg/Ml 1 (04/05/17 14:45) Ns (Ivpb) (Sodium Chloride 0.9% Ivpb Bag (04/05/17 14:45) Medications Given in ED Current Medications Medications Dose Ordered Sig/Gerald Route Start Time Stop Time Status Last Admin Dose Admin Iohexol 100 ml ONCE ONCE IV 04/05/17 14:45 04/05/17 14:46 DC 04/05/17 14:41 100 ML Ketorolac Tromethamine 30 mg ONCE ONCE IVP 04/05/17 13:30 04/05/17 13:31 DC 04/05/17 13:38 30 MG Sodium Chloride 100 ml ONCE ONCE IV 04/05/17 14:45 04/05/17 14:46 DC 04/05/17 14:41 80 ML Vital Signs/I&O Vital Sign - Last 12Hours 04/05/17 13:17 Temp 98.8 Pulse 66 Resp 18 B/P (MAP) 131/82 Pulse Ox 97 Diagnostic Imaging Diagonstic Imaging: Xray Plain Films/CT/US/NM/MRI: chest Comments NAME: MARLEE GUTIERREZ [facility] REC#: [id number] PT STATUS: REG ER : 1975 PHYSICIAN: ALESSIA ANDERS APRN ADMIT DATE: 04/05/17/ER Draft Date of Exam:04/05/17 CHEST PA/LAT (2 VIEW) CLINICAL INDICATION: Patient with pain radiating from left shoulder into back approximately three days. EXAM: Chest x-ray PA and lateral views. COMPARISONS: Chest x-ray dated 01/30/2017. FINDINGS: Lungs/pleura: Lungs are clear. There is no pneumothorax. There is no pleural effusion. Mediastinum: Unremarkable. Pulmonary vasculature: Unremarkable. Heart: Unremarkable. Bones/extrathoracic soft tissue: There are degenerative spurs involving the thoracic spine. IMPRESSION: There is no radiographic evidence of acute cardiopulmonary process. Dictated on workstation # [id number] Dict: 04/05/17 1355 Trans: 04/05/17 1403 AS6 [id number] Interpreted by: ANTONY LAL MD Electronically signed by: Departure Impression Impression: Primary Impression: Urinary tract infection Disposition: HOME, SELF-CARE Condition: Stable Departure-Patient Inst. Decision time for Depature: 15:04 Referrals: ADELAIDA GIBSON MD (PCP/Family) Primary Care Physician Patient Instructions: Urinary Tract Infection, Adult (DC) Add. Discharge Instructions: . Antibiotics as directed 2. Return to ER for any concerns 3. Follow-up with Dr. Gibson next week All discharge instructions reviewed with patient and/or family. Voiced understanding. Scripts Sulfamethoxazole/Trimethoprim (Bactrim Ds Tablet) 1 Each Tablet 1 EACH PO BID, #10 TAB Prov: ALESSIA ANDERS APRN 04/05/17 Images Torso/Trunk 1 - Tenderness ALESSIA ANDERS APRN Apr 05, 2017 13:29
[2017-04-05] MEDS ORDERED: KETOROLAC 30 MG/ML VIAL IVP ONE (13:30)
[2017-04-05 13:35] LABS: BASOPHILS # (AUTO) 0.1 10^3/uL (0.0-0.1); BASOPHILS % (AUTO) 3 % (0-10); EOSINOPHILS # (AUTO) 0.2 10^3/uL (0.0-0.3); EOSINOPHILS % (AUTO) 3 % (0-10); LYMPHOCYTES # (AUTO) 1.8 X 10^3 (1.0-4.0); LYMPHOCYTES % (AUTO) 37 % (12-44); MEAN CORPUSCULAR HEMOGLOBIN 34 PG (25-34); MEAN CORPUSCULAR HGB CONC 36 G/DL (32-36); MEAN CORPUSCULAR VOLUME 95 FL (80-99); MEAN PLATELET VOLUME 10.1 FL (7.4-10.4); MONOCYTES # (AUTO) 0.6 X 10^3 (0.0-1.0); MONOCYTES % (AUTO) 12 % (0-12); NEUTROPHILS # (AUTO) 2.2 X 10^3 (1.8-7.8); NEUTROPHILS % (AUTO) 46 % (42-75); PLATELET COUNT 182 10^3/uL (130-400); RED BLOOD COUNT 4.51 10^6/uL (4.35-5.85); RED CELL DISTRIBUTION WIDTH 11.7 % (10.0-14.5); WHITE BLOOD COUNT 4.9 10^3/uL (4.3-11.0)
[2017-04-05 13:55] LABS: ALANINE AMINOTRANSFERASE 17 U/L (0-55); ALBUMIN 4.2 GM/DL (3.2-4.5); ANION GAP 12 MMOL/L (5-14); ASPARTATE AMINO TRANSFERASE 26 U/L (5-34); BILIRUBIN,TOTAL 0.6 MG/DL (0.1-1.0); BLOOD UREA NITROGEN 10 MG/DL (7-18); BUN/CREATININE RATIO 14; CALCIUM 9.3 MG/DL (8.5-10.1); CARBON DIOXIDE 20 MMOL/L (21-32); CHLORIDE 106 MMOL/L (98-107); CREATININE SERUM 0.72 MG/DL (0.60-1.30); GFR ESTIMATED > 60; GLUCOSE 93 MG/DL (70-105); LIPASE 30 U/L (8-78); POTASSIUM 4.2 MMOL/L (3.6-5.0); SODIUM 138 MMOL/L (135-145); TOTAL PROTEIN 8.3 GM/DL (6.4-8.2)
[2017-04-05 14:01] LABS: TROPONIN I < 0.30 NG/ML (<0.30)
--- NOTE | 2017-04-05 14:03 | Diagnostic Imaging Report ---
CLINICAL INDICATION: Patient with pain radiating from left shoulder into back approximately three days. EXAM: Chest x-ray PA and lateral views. COMPARISONS: Chest x-ray dated 01/30/2017. FINDINGS: Lungs/pleura: Lungs are clear. There is no pneumothorax. There is no pleural effusion. Mediastinum: Unremarkable. Pulmonary vasculature: Unremarkable. Heart: Unremarkable. Bones/extrathoracic soft tissue: There are degenerative spurs involving the thoracic spine. IMPRESSION: There is no radiographic evidence of acute cardiopulmonary process. Dictated by: Dictated on workstation # [id number]
[2017-04-05 14:12] LABS: KETONES,URINE 3+ (NEGATIVE); LEUKOCYTE ESTERASE ,URINE 1+ (NEGATIVE); NITRITE,URINE NEGATIVE (NEGATIVE); PH,URINE 6.5 (5-9); PROTEIN,URINE 2+ (NEGATIVE); UROBILINOGEN,URINE 4 MG/DL (NORMAL)
[2017-04-05 14:29] LABS: BILIRUBIN,URINE 1+ (NEGATIVE)
[2017-04-05] MEDS ORDERED: NS 100 ML (IVPB) BAG IV ONE (14:45)
[2017-04-05] MEDS ORDERED: IOHEXOL 350 MG/ML 100 ML (OMNIPAQUE 350) VIAL IV ONE (14:45)
[2017-04-05] MEDS ORDERED: SULF1TAB35 PO (15:05)
--- NOTE | 2017-04-05 15:28 | Diagnostic Imaging Report ---
PROCEDURE: CT chest, abdomen, and pelvis with contrast. TECHNIQUE: Multiple contiguous axial images were obtained through the chest, abdomen, and pelvis after the administration of intravenous contrast. INDICATION: Back pain, abdominal pain, left shoulder pain. Chills and night sweats. COMPARISON is made with a chest radiograph from earlier the same day and with prior CT abdomen and pelvis from April 13, 2016. CORRELATION is also made with CT from April 07, 2016. FINDINGS: The lungs demonstrate no focal pulmonary infiltrates or evidence of consolidation. There is no effusion or pneumothorax. There is a small degree of residual parenchymal distortion near the left hilum with some associated calcifications which are significantly improved from the prior examination and suggest a prior post inflammatory process. There is no longer evidence of a significant left lower lobe bronchial narrowing. There are a few small calcifications present within the mediastinum which are stable from the prior examination. There is no recurrent mediastinal adenopathy. The aorta appears normal in caliber without aneurysm or dissection. On this nondedicated exam, there is no filling defect within the central pulmonary arteries. The liver demonstrates no evidence of a focal intrahepatic abnormality. The liver is of low density suggesting a component of steatosis. The main portal vein is patent. The gallbladder is nondistended. There is no radiodense gallstone or biliary dilatation. The spleen appears normal in size. The pancreas is unremarkable. There is no adrenal mass. The kidneys enhance normally and appear nonobstructed. The small and large bowel are normal in caliber without evidence of obstruction. There is moderate stool demonstrated throughout the colon. There is no abnormal small or large bowel mucosal thickening. There are no findings to suggest an appendicitis. The uterus is unremarkable. The right adnexa again demonstrates low-density lesions which appear different than on the prior examination and are likely new rather than persistence of the prior findings. The largest apparent cyst measures 2 cm. The left ovary is not evident. The urinary bladder is unremarkable. There are tiny perirectal of lymph nodes demonstrated near the mesorectal fascia. These are nonspecific. No other abnormal lymph nodes within the abdomen and pelvis are evident. There is no acute or suspicious osseous abnormality demonstrated. IMPRESSION: 1. Other than minimal scarring adjacent to the left hilum, the lungs now appear clear. Mediastinal and left hilar calcifications are unchanged from previous examination. This may reflect sequela of a previous granulomatous process. There is no recurrent pulmonary mass or mediastinal adenopathy evident. No acute process within the chest demonstrated. 2. CT of the abdomen and pelvis is remarkable only for small lymph nodes demonstrated within the fat about the rectum. While nonspecific, these are likely on an inflammatory basis. I would however, recommend followup and reassessment and if a persistent finding, colonoscopy may need to be considered. 3. There is no free air, free fluid or abscess. 4. Low-density right ovarian lesion is smaller than on previous examination and is most compatible with a right ovarian cyst. This measures 2 cm. Dictated by: Dictated on workstation # [id number]
[2017-04-05 15:42] VITALS: BP 127/72
== END 2017-04-05 15:42 | disposition home or self-care (01) ==
LOC: EDUNIT# 13:15 → ER 13:16
DX: N39.0 Urinary tract infection, site not specified (principal); I25.10 Atherosclerotic heart disease of native coronary artery without angina pectoris; I25.2 Old myocardial infarction; G40.909 Epilepsy, unspecified, not intractable, without status epilepticus; K21.9 Gastro-esophageal reflux disease without esophagitis; I10 Essential (primary) hypertension; M41.20 Other idiopathic scoliosis, site unspecified; F41.9 Anxiety disorder, unspecified; F32.9 Major depressive disorder, single episode, unspecified; Z82.49 Family history of ischemic heart disease and other diseases of the circulatory system; Z87.19 Personal history of other diseases of the digestive system; Z86.718 Personal history of other venous thrombosis and embolism; Z87.448 Personal history of other diseases of urinary system; Z79.01 Long term (current) use of anticoagulants; Z77.22 Contact with and (suspected) exposure to environmental tobacco smoke (acute) (chronic); Z90.89 Acquired absence of other organs; Z87.01 Personal history of pneumonia (recurrent)
CPT/HCPCS: 36415; 71020; 71260; 74177; 80053; 81000; 83690; 84484; 85025; 99282

== ENCOUNTER 2017-08-11 14:15 | Outpatient (RCR) | payer MEDICARE, MEDICAID ==
[~2017-08-11 14:15] MED LIST changes: +SULF1TAB35 PO
== END 2017-08-11 16:23 | disposition home or self-care (01) ==
PROVIDERS: ATTEND Family Medicine
DX: M25.512 Pain in left shoulder (principal)

== ENCOUNTER → 2017-09-17 | Outpatient (CLI) | payer MEDICARE, MEDICAID ==
--- NOTE | 2017-09-17 16:02 | Diagnostic Imaging Report ---
INDICATION: Chronic right pelvic pain. TECHNIQUE: Transabdominal and transvaginal pelvic sonography was performed. FINDINGS: The uterus measures 5.6 x 3.4 x 2.9 cm. No uterine mass is identified. The endometrium is 5 mm in thickness. The right ovary measures 3.1 x 2.1 x 1.7 cm. There is normal blood flow to the right ovary. The left ovary is surgically absent. No adnexal mass or free fluid is seen. IMPRESSION: Unremarkable transabdominal and transvaginal pelvic sonography. Dictated by: Dictated on workstation # [id number]
--- NOTE | 2017-09-17 19:29 | Diagnostic Imaging Report ---
INDICATION: Routine screening. COMPARISON: No prior mammograms are available for comparison. This is a baseline study. TECHNIQUE: Bilateral 3D digital tomographic views were obtained with [employer] and reviewed on a [employer] workstation. In addition, CAD - computer aided detection was utilized. FINDINGS: Scattered fibroglandular densities are identified bilaterally. There is a slightly nodular irregular density in the superior right breast at fey-ug-anvusebny depth. No corresponding density on the CC view is seen. Additional views are recommended. There are benign calcifications on the left. The axillae are unremarkable. IMPRESSION: Right breast density. Additional views including spot compression and mediolateral views are recommended for further evaluation. ACR BI-RADS Category 0: Incomplete. (Needs additional imaging evaluation). Result letter will be mailed to the patient. Note: At least 10% of breast cancer is not imaged by mammography. Dictated by: Dictated on workstation # [id number]
== END ==
LOC: RAD 14:27
PROVIDERS: ATTEND Obstetrics & Gynecology
DX: Z12.31 Encounter for screening mammogram for malignant neoplasm of breast (principal); N92.1 Excessive and frequent menstruation with irregular cycle
CPT/HCPCS: 76830; 76856; 77067

== ENCOUNTER → 2017-10-07 | Outpatient (CLI) | payer MEDICARE, MEDICAID ==
--- NOTE | 2017-10-07 19:39 | Diagnostic Imaging Report ---
INDICATION: Right breast density. The patient presents for additional views. Correlation is made with recent screening study from 09/17/2017. 2-D and 3-D unilateral right diagnostic mammography was performed. This included spot compression CC and mediolateral views as well as conventional mediolateral view. The current study was also evaluated with a Computer Aided Detection (CAD) system. Additional views show some persistent mild nodularity in the upper outer right breast approximately 7 cm from the nipple. Further evaluation of this area with ultrasound is recommended. No suspicious calcifications are seen. Remainder of the right breast is unremarkable. IMPRESSION: Persistent mild nodularity and increased density in upper outer right breast posterior depth. Further evaluation with ultrasound is recommended. ACR BI-RADS Category 0: Incomplete. (Needs additional imaging evaluation). Result letter will be mailed to the patient. Note: At least 10% of breast cancer is not imaged by mammography. Dictated by: Dictated on workstation # [id number]
--- NOTE | 2017-10-07 19:46 | Diagnostic Imaging Report ---
INDICATION: Asymmetry in the upper-outer right breast on recent mammogram. The study is performed for further evaluation. Correlation is made with diagnostic mammogram earlier the same day. FINDINGS: Sonographic interrogation of the upper-outer right breast was performed. No solid or cystic masses are seen. No sonographic abnormality is detected. IMPRESSION: No sonographic abnormality is seen. Even so, follow-up right mammogram in six months is recommended to confirm stability of the area of asymmetry in the upper-outer right breast. ACR BI-RADS Category 3: Probably benign findings. Dictated by: Dictated on workstation # [id number]
== END ==
LOC: RAD 14:09
PROVIDERS: ATTEND Obstetrics & Gynecology
DX: N63.11 Unspecified lump in the right breast, upper outer quadrant (principal)

== ENCOUNTER 2017-12-01 09:05 | Outpatient (CLI) | payer MEDICARE, MEDICAID ==
[~2017-12-01] VITALS: Ht 157.5 cm; Wt 63.0 kg
[~2017-12-01 09:05] MED LIST changes: -LAMO100T65; +LAMO100T65 PO
[2017-12-01] MEDS ORDERED: FLUV50TA3 PO (09:22)
[2017-12-01 09:23] VITALS: BP 100/60
[2017-12-01] MEDS ORDERED: LORA2TAB PO (09:50)
[2017-12-01] MEDS ORDERED: AMLO5TAB2 PO (09:50)
[2017-12-01] MEDS ORDERED: APIX2.5T PO (09:50)
[2017-12-01] MEDS ORDERED: LISI10TA2 PO (09:50)
== END 2017-12-01 10:00 | disposition home or self-care (01) ==
LOC: PREOP 09:05
PROVIDERS: ATTEND Obstetrics & Gynecology
DX: Z01.818 Encounter for other preprocedural examination (principal)
CPT/HCPCS: 87081

== ENCOUNTER 2017-12-10 06:02 | Day surgery (SDC) | payer MEDICARE, MEDICAID ==
[~2017-12-10] VITALS: Ht 157.5 cm; Wt 61.7 kg
[~2017-12-10 06:02] MED LIST changes: +AMLO5TAB2 PO; +APIX2.5T PO; +FLUV50TA3 PO; +LISI10TA2 PO; +LORA2TAB PO
[2017-12-10] MEDS ORDERED: LACTATED RINGERS 1,000 ML IV ONE (06:09)
--- OUTSIDE RECORDS SUMMARY | 2017-12-10 06:14 | XMS REPORT | Clinical Summary ---
Author Author [facility] Organization [facility] Address Unknown Phone Unavailable Care Team Providers Care Sample Shoe Inspector And Reworker Name Role Phone Lauren Cortez MD PCP Ashley Arguello RN Unavailable Unavailable Isaac Swan MD Unavailable Unavailable Source Comments Some departments are not documenting in the electronic medical record. If you do not see the information that you expected, contact Release of Information in the Health Information Management department at [phone] for further assistance in locating additional records.[facility] Allergies Active Allergy Reactions Severity Noted [...] Taken Blood Pressure 121/71 07/19/2007 11:00 AM SYSTEMS TEST ENGINEER Pulse 54 07/19/2007 11:00 AM SYSTEMS TEST ENGINEER Temperature 36.6 C (97.9 F) 07/19/2007 11:00 AM SYSTEMS TEST ENGINEER Respiratory Rate - - Oxygen Saturation 97% 07/14/2007 6:15 PM SYSTEMS TEST ENGINEER Inhaled Oxygen - - Concentration Weight 77 kg (169 lb 12.1 oz) 07/14/2007 11:00 PM SYSTEMS TEST ENGINEER Height 162 cm (5' 3.78") 07/14/2007 11:00 PM SYSTEMS TEST ENGINEER Body Mass Index 29.34 07/14/2007 11:00 PM SYSTEMS TEST ENGINEER Plan of Treatment Health Maintenance Due Date Last Done Comments PHYSICAL (COMPREHENSIVE) 09/26/1983 EXAM PERTUSSIS VACCINE 09/26/1987 HIV SCREENING 09/26/1991 TETANUS VACCINE 1993 CERVICAL CANCER SCREENING 2006 BREAST CANCER SCREENING 2016 INFLUENZA VACCINE 02/22/2018 Results Not on filefrom Last 3 Months
[2017-12-10 06:15] VITALS: BP 92/48
[2017-12-10] MEDS ORDERED: metroNIDAZOLE 500MG/100ML IVPB 100 ML IV ONE (06:15)
[2017-12-10] MEDS ORDERED: ceFAZolin INJECTION 1,000 MG in NS (IVPB) 50 ML IV ONE (06:15)
--- OUTSIDE RECORDS SUMMARY | 2017-12-10 06:16 | XMS REPORT | CCD ---
Author Author Virginia Aguilera MD, [facility] Address [address] [place] [address] Phone Care Team Providers Care Weight Tester Name Role Phone PP Unavailable CCM Unavailable Summary Purpose Interface Exchange Insurance Providers Payer name Policy type / Coverage type Covered republican ID Effective Begin Date Effective End Date WPS Medicare Part B Medicare Part B [id number] Unknown Unknown [employer] [facility] Medicare Part B [id number] Unknown Unknown Family history Mother Diagnosis Age At Onset kidney disease Unknown Depression Unknown Father Diagnosis Age At Onset Coronary Artery Disease Unknown Hyperlipidemia Unknown Bleeding disorders Unknown Hypertension Unknown Social History Social History Element Codes Description Effective Dates Marital status Unknown Single 10/26/2014 Number of children Unknown 0 10/26/[address]: 9956382 Former smoker 10/26/[address]: 700537042 Never drinks alcohol 10/26/2014 Allergies, Adverse Reactions, Alerts Allergies, Adverse Reactions, Alerts data not found Past Medical History Illness Codes Condition Status Onset Date Resolved Date Encounter for immunization ICD-9: V04.81 ICD-10: Z23 Active 03/11/2017 Unknown Essential (primary) hypertension ICD-9: 401.1 ICD-10: I10 Active 01/22/2016 Unknown Generalized anxiety disorder ICD-9: 300.00 ICD-10: F41.1 Active 10/25/2014 Unknown Low back pain ICD-9: 724.2 ICD-10: M54.5 Active 01/18/2015 Unknown Other depressive episodes ICD-9: 311 ICD-10: F32.8 Active 10/25/2014 Unknown Other generalized epilepsy and epileptic syndromes, not intractable, without status epilepticus ICD -9: 345.90 ICD-10: G40.409 Active 10/25/2014 Unknown Encounter for screening mammogram for malignant neoplasm of breast ICD-9: V76.12 ICD-10: Z12.31 Active 11/10/2016 Unknown Pain in thoracic spine ICD-9: 724.1 ICD-10: M54.6 Active 04/25/2015 Unknown Essential (primary) hypertension ICD-9: 401.9 ICD-10: I10 Active 10/25/2014 Unknown Restlessness and agitation ICD-9: 307.9 ICD-10: R45.1 Active 04/17/2016 Unknown Localized swelling, mass and lump, trunk ICD-9: 786.6 ICD-10: R22.2 Active 03/25/2016 Unknown Cough ICD-9: 786.2 ICD-10: R05 Active 03/18/2016 Unknown Pleurisy ICD-9: 511.0 ICD-10: R09.1 Active 03/18/2016 Unknown Cervicalgia ICD-9: 723.1 ICD-10: M54.2 Active 01/22/2016 Unknown Radiculopathy, cervicothoracic region ICD-9: 723.4 ICD-10: M54.13 Active 01/22/2016 Unknown Rash and other nonspecific skin eruption ICD-9: 782.1 ICD-10: R21 Active 10/22/2015 Unknown Generalized abdominal pain ICD-9: 789.07 ICD-10: R10.84 Active 06/14/2015 Unknown Gross hematuria ICD-9 : 599.71 ICD-10: R31.0 Active 06/14/2015 Unknown intermediate (current) use of antithrombotics/antiplatelets ICD-9: V58.63 ICD-10: Z79.02 Active 06/14/2015 Unknown Urinary tract infection, site not specified ICD-9: 599.0 ICD-10: N39.0 Active 06/14/2015 Unknown Lumbar spine pain ICD- 9: 724.2 Active 01/18/2015 Unknown Plantar fasciitis of right foot ICD-9: 728.71 Active 2014 Unknown Right knee pain ICD-9 : 719.46 Active 01/18/2015 Unknown Depression Unknown Active 10/26/2014 Unknown Factor V Unknown Active 10/26/2014 Unknown Hypertension Unknown Active 10/26/2014 Unknown Seizures Unknown Active 10/26/2014 Unknown Anxiety ICD-9: 300.00 Active 10/25/2014 Unknown Depression ICD-9: 311 Active 10/25/2014 Unknown ESSENTIAL HYPERTENSION ICD-9: 401.9 Active 10/25/2014 Unknown Factor 5 Leiden mutation, heterozygous ICD-9: 289.81 Active 07/2014 Unknown Seizure disorder ICD-9 : 345.90 Active 10/25/2014 Unknown Problems Condition Codes Effective Dates Condition Status Encounter for immunization ICD-9: V04.81 ICD-10: Z23 03/11/2017 Active Essential (primary) hypertension ICD-9: 401.1 ICD-10: I10 01/22/2016 Active Generalized anxiety disorder ICD-9: 300.00 ICD-10: F41.1 10/25/2014 Active Low back pain ICD-9: 724.2 ICD-10: M54.5 01/18/2015 Active Other depressive episodes ICD-9: 311 ICD-10: F32.8 10/25/2014 Active Other generalized epilepsy and epileptic syndromes, not intractable, without status epilepticus ICD -9: 345.90 ICD-10: G40.409 10/25/2014 Active Encounter for screening mammogram for malignant neoplasm of breast ICD-9: V76.12 ICD-10: Z12.31 11/10/2016 Active Pain in thoracic spine ICD-9: 724.1 ICD-10: M54.6 04/25/2015 Active Essential (primary) hypertension ICD-9: 401.9 ICD-10: I10 10/25/2014 Active Restlessness and agitation ICD-9: 307.9 ICD-10: R45.1 04/17/2016 Active Localized swelling, mass and lump, trunk ICD-9: 786.6 ICD-10: R22.2 03/25/2016 Active Cough ICD-9: 786.2 ICD-10: R05 03/18/2016 Active Pleurisy ICD-9: 511.0 ICD-10: R09.1 03/18/2016 Active Cervicalgia ICD-9: 723.1 ICD-10: M54.2 01/22/2016 Active Radiculopathy, cervicothoracic region ICD-9: 723.4 ICD-10: M54.13 01/22/2016 Active Rash and other nonspecific skin eruption ICD-9: 782.1 ICD-10: R21 10/22/2015 Active Generalized abdominal pain ICD-9: 789.07 ICD-10: R10.84 06/14/2015 Active Gross hematuria ICD-9 : 599.71 ICD-10: R31.0 06/14/2015 Active intermediate (current) use of antithrombotics/antiplatelets ICD-9: V58.63 ICD-10: Z79.02 06/14/2015 Active Urinary tract infection, site not specified ICD-9: 599.0 ICD-10: N39.0 06/14/2015 Active Lumbar spine pain ICD- 9: 724.2 01/18/2015 Active Plantar fasciitis of right foot ICD-9: 728.71 01/18/2015 Active Right knee pain ICD-9 : 719.46 01/18/2015 Active Depression Unknown 10/26/2014 Active Factor V Unknown 10/26/2014 Active Hypertension Unknown 10/26/2014 Active Seizures Unknown 10/26/2014 Active Anxiety ICD-9: 300.00 10/25/2014 Active Depression ICD-9: 311 10/25/2014 Active ESSENTIAL HYPERTENSION ICD-9: 401.9 10/25/2014 Active Factor 5 Leiden mutation, heterozygous ICD-9: 289.81 10/25/2014 Active Seizure disorder ICD-9 : 345.90 10/25/2014 Active Medications Medication Codes Instructions Start Date Stop Date Status Fill Instructions Lexapro 20 mg tablet RxNorm: 646304 TAKE ONE TABLET BY MOUTH DAILY 06/11/2017 12/07/2017 Active Ativan 1 mg tablet RxNorm: 623178 1-2 Tablet(s) PO TID as needed 06/02/2017 06/21/2017 Active Percocet 5 mg-325 mg tablet RxNorm: 2482409 1-2 Tablet(s) PO Q6 as needed for back pain 05/13/2017 05/23/2017 Inactive Percocet 5 mg-325 mg tablet RxNorm: 7143645 1-2 Tablet(s) PO Q6 as needed for back pain 04/08/2017 04/18/2017 Inactive Percocet 5 mg-325 mg tablet RxNorm: 9936104 1-2 Tablet(s) PO Q6 as needed for back pain 02/24/2017 03/06/2017 Inactive Lexapro 20 mg tablet RxNorm: 236821 TAKE ONE TABLET BY MOUTH DAILY 02/16/2017 06/10/2017 Inactive Percocet 5 mg-325 mg tablet RxNorm: 6745413 1-2 Tablet(s) PO Q6 as needed for back pain 01/07/2017 01/14/2017 Inactive Percocet 5 mg-325 mg tablet RxNorm: 6250846 1-2 Tablet(s) PO Q6 as needed for back pain 11/26/2016 12/03/2016 Inactive famotidine 20 mg tablet RxNorm: 510415 1 Tablet(s) PO daily No Stop Date Active Percocet 5 mg-325 mg tablet RxNorm: 5026670 1 Tablet(s) PO Q6 as needed for back pain 11/03/2016 11/10/2016 Inactive Ativan 1 mg tablet RxNorm: 149252 1-2 Tablet(s) PO TID as needed 09/22/2016 09/30/2016 Inactive Percocet 5 mg-325 mg tablet RxNorm: 5814658 1 Tablet(s) PO Q6 as needed for back pain 09/22/2016 09/29/2016 Inactive Lexapro 20 mg tablet RxNorm: 466451 TAKE ONE TABLET BY MOUTH DAILY 09/12/2016 02/08/2017 Inactive Percocet 5 mg-325 mg tablet RxNorm: 0756109 1 Tablet(s) PO Q6 as needed for back pain 08/21/2016 09/21/2016 Inactive Percocet 5 mg-325 mg tablet RxNorm: 8236077 1 Tablet(s) PO Q6 as needed for pain 07/21/2016 07/28/2016 Inactive Ativan 1 mg tablet RxNorm: 303763 1-2 Tablet(s) PO TID 201609/21/2016 Inactive Lamictal 25 mg tablet RxNorm: 803448 1 Tablet(s) PO BID 201606/15/2016 Inactive Flonase Allergy Relief 50 mcg/actuation nasal spray, suspension RxNorm: 7780427 1 [place] NASAL BID 05/27/20162016 Inactive Lamictal XR 50 mg tablet,extended release RxNorm: 305140 TAKE ONE TABLET BY MOUTH TWICE A DAY 05/20/2016 05/26/2016 Inactive Lamictal XR 25 mg tablet,extended release RxNorm: 321482 1 Tablet(s) PO BID 04/23/2016 05/26/2016 Inactive Trokendi XR 50 mg capsule, extended release RxNorm: 8284123 1 Capsule(s) PO daily 04/18/2016 04/17/2016 Inactive Lamictal XR 50 mg tablet,extended release RxNorm: 045193 1 Tablet(s) PO daily 04/18/2016 04/22/2016 Inactive Trokendi XR 50 mg capsule, extended release RxNorm: 3268401 1 Capsule(s) PO daily 04/18/2016 04/18/2016 Inactive Lamictal XR 50 mg tablet,extended release RxNorm: 202656 1 Tablet(s) PO daily 04/18/2016 04/17/2016 Inactive Ativan 1 mg tablet RxNorm: 020989 1-2 Tablet(s) PO TID 201506/01/2017 Inactive Lexapro 20 mg tablet RxNorm: 607416 Tablet(s) TAKE ONE TABLET BY MOUTH DAILY 04/16/2016 09/11/2016 Inactive Diflucan 150 mg tablet RxNorm: 053775 1 Tablet(s) PO daily 11/201504/06/2016 Inactive Diflucan 150 mg tablet RxNorm: 952467 1 Tablet(s) PO daily 11/201503/30/2016 Inactive Zofran 4 mg tablet RxNorm: 529448 1 Tablet(s) PO TID as needed nausea 03/26/2016 04/24/2016 Inactive Percocet 5 mg-325 mg tablet RxNorm: 5243348 1 Tablet(s) PO Q6 as needed for pain 03/19/2016 07/20/2016 Inactive clonidine HCl 0.1 mg tablet RxNorm: 204498 1 Tablet(s) PO BID 01/23/2016 01/23/2016 Inactive Percocet 5 mg-325 mg tablet RxNorm: 9828490 1-2 Tablet(s) PO Q6 as needed for pain 12/13/2015 12/27/2015 Inactive clonidine HCl 0.1 mg tablet RxNorm: 284666 1 Tablet(s) PO BID 11/22/2015 12/21/2015 Inactive Lexapro 20 mg tablet RxNorm: 540483 TAKE ONE TABLET BY MOUTH DAILY 11/06/2015 04/03/2016 Inactive Kenalog 40 mg/mL suspension for injection RxNorm: 4113033 Milliliter(s) Inj 10/23/2015 10/23/2015 Inactive Dilantin Kapseal 100 mg capsule RxNorm: 762926 TAKE THREE CAPSULES BY MOUTH EVERY NIGHT AT BEDTIME 08/08/2015 04/17/2016 Inactive Keflex 500 mg capsule RxNorm: 199823 1 Capsule(s) PO TID 201506/21/2015 Inactive Lexapro 20 mg tablet RxNorm: 606171 TAKE ONE TABLET BY MOUTH DAILY 05/07/2015 11/02/2015 Inactive metoprolol tartrate 25 mg tablet RxNorm: 860078 1 Tablet(s) PO BID 04/26/2015 11/09/2016 Inactive warfarin 5 mg tablet RxNorm: 952501 m and w; all other days takes 7.5 Tablet(s) PO daily 04/26/2015 04/22/2016 Inactive tramadol 50 mg tablet RxNorm: 453997 1-2 Tablet(s) PO Q6 as needed 04/09/2015 03/25/2016 Inactive Soma 350 mg tablet RxNorm: 281122 1 Tablet(s) PO Q6 as needed 04/04/2015 No Stop Date Active Xanax 1 mg tablet RxNorm: 438198 Tablet(s) PO daily as needed 01/09/2015 11/09/2016 Inactive Lexapro 20 mg tablet RxNorm: 085572 1 Tablet(s) PO daily 201404/06/2015 Inactive Dilantin Kapseal 100 mg capsule RxNorm: 518646 3 Capsule(s) PO QHS 12/04/2014 06/01/2015 Inactive Eliquis 5 mg tablet RxNorm: 9085432 1 Tablet(s) PO BID No Start Date Active lisinopril 10 mg tablet RxNorm: 904119 1 Tablet(s) PO daily No Start Date Active folic acid 1 mg tablet RxNorm: 932056 1 Tablet(s) PO BID No Start Date Active Norvasc 5 mg tablet RxNorm: 289365 1 Tablet(s) PO QAM No Start Date Active Lamictal XR 100 mg tablet,extended release RxNorm: 036126 1 Tablet(s) PO QHS - Started by Dr. New No Start Date Active warfarin 5 mg tablet RxNorm: 200927 m-f all other days takes 7.2 Tablet(s) PO No Start Date 04/25/2015 Inactive lisinopril 20 mg tablet RxNorm: 529266 1 Tablet(s) PO daily No Start Date 03/10/2017 Inactive tramadol 50 mg tablet RxNorm: 320114 1-2 Tablet(s) PO Q6 as needed No Start Date 04/08/2015 Inactive Soma 350 mg tablet RxNorm: 665121 1 Tablet(s) PO as needed No Start Date 04/03/2015 Inactive famotidine 20 mg tablet RxNorm: 564666 1 Tablet(s) PO BID No Start Date 11/09/2016 Inactive aspirin, buffered 81 mg tablet RxNorm: 375394 1 Tablet(s) PO daily No Start Date 03/10/2017 Inactive Xanax 1 mg tablet RxNorm: 225017 Tablet(s) PO as needed No Start Date 01/08/2015 Inactive metoprolol tartrate 25 mg tablet RxNorm: 742568 1/2 in am a 1 in pm Tablet(s) PO BID No Start Date 04/25/2015 Inactive Dilantin Kapseal 100 mg capsule RxNorm: 258628 3 Capsule(s) PO daily No Start Date 12/03/2014 Inactive lovastatin 20 mg tablet RxNorm: 058442 1 Tablet(s) PO daily No Start Date 03/10/2017 Inactive Lexapro 20 mg tablet RxNorm: 021120 1 Tablet(s) PO daily No Start Date 12/07/2014 Inactive Percocet 5 mg-325 mg tablet RxNorm: 1540702 1 Tablet(s) PO Q6 as needed for back pain No Start Date 08/20/2016 Inactive Medication Administered Medication Codes Instructions Start Date Status Kenalog 40 mg/mL suspension for injection RxNorm: 0353549 Milliliter 10/23/2015 No longer Active Immunizations Vaccine Codes Date Status Influenza CVX: 141 03/11/2017 completed Influenza CVX: 141 05/25/2014 completed Pneumococcal CVX: 33 05/25/2014 completed Assessments Condition Codes Effective Dates Other depressive episodes ICD-10: F32.8 ICD-9: 311 03/11/2017 Other generalized epilepsy and epileptic syndromes, not intractable, without status epilepticus ICD-10: G40.409 ICD-9: 345.90 03/11/2017 Low back pain ICD-10: M54.5 ICD-9: 724.2 03/11/2017 Encounter for immunization ICD-10: Z23 ICD-9: V04.81 03/11/2017 Essential (primary) hypertension ICD-10: I10 ICD-9: 401.1 03/11/2017 Generalized anxiety disorder ICD-10: F41.1 ICD-9: 300.00 03/11/2017 Pain in thoracic spine ICD-10: M54.6 ICD-9: 724.1 11/10/2016 Encounter for screening mammogram for malignant neoplasm of breast ICD-10: Z12.31 ICD-9: V76.12 11/10/2016 Essential (primary) hypertension ICD-10: I10 ICD-9: 401.9 04/23/2016 Restlessness and agitation ICD-10: R45.1 ICD-9: 307.9 04/18/2016 Localized swelling, mass and lump, trunk ICD-10: R22.2 ICD-9: 786.6 03/26/2016 Pleurisy ICD-10: R09.1 ICD-9: 511.0 03/19/2016 Cough ICD-10: R05 ICD-9: 786.2 03/19/2016 Radiculopathy, cervicothoracic region ICD-10: M54.13 ICD-9: 723.4 01/23/2016 Cervicalgia ICD-10: M54.2 ICD-9: 723.1 01/23/2016 Rash and other nonspecific skin eruption ICD-10: R21 ICD-9: 782.1 10/23/2015 intermediate (current) use of antithrombotics/antiplatelets ICD -10: Z79.02 ICD-9: V58.63 06/15/2015 Gross hematuria ICD-10: R31.0 ICD-9: 599.71 06/15/2015 Generalized abdominal pain ICD-10: R10.84 ICD-9: 789.07 06/15/2015 Urinary tract infection, site not specified ICD-10: N39.0 ICD-9: 599.0 06/15/2015 Plantar fasciitis of right foot ICD-9: 728.71 01/19/2015 Right knee pain ICD-9: 719.46 01/19/2015 Lumbar spine pain ICD-9: 724.2 2014 Seizure disorder ICD-9: 345.90 2014 Anxiety ICD-9: 300.00 10/26/2014 Factor 5 Leiden mutation, heterozygous ICD-9: 289.81 10/26/2014 ESSENTIAL HYPERTENSION ICD-9: 401.9 10/26 Depression ICD-9: 311 10/26/2014 Reason For Visit Reason For Visit Effective Dates Notes back pain 03/11/2017 thoracic pain that wraps around to rib pain. back pain 11/10/2016 thoracic pain that wraps around to rib pain. medication follow up 05/27/2016 back pain 04/23/2016 anxiety 04/18/2016 Hospital Follow Up 03/26/2016 chest pain/pressure 03/19/2016 hypertension 01/23/2016 Hospital Follow Up 11/22/2015 back pain 10/23/2015 pelvic pain 07/23/2015 pelvic pain 06/15/2015 back pain 04/26/2015 back pain 03/29/2015 foot pain 01/19/2015 depression 10/26/2014 she uses xanax prn. Results Observation Observation Code Item Item Code Result Date Urine Culture Ucult Preliminary No Growth Day 1 06/18/2015 Urine Culture Ucult Complete No Growth Day 2 06/18/2015 Dilantin Ord7 DILANTIN 6.9 UG/ML 06/15/2015 Cbc With Differential Ord2 WBC 8.06 K/ul 06/15/2015 Cbc With Differential Ord2 RBC 4.69 M/ul 06/15/2015 Cbc With Differential Ord2 HGB 15.6 g/dl 06/15/2015 Cbc With Differential Ord2 HCT 44.2 % 06/15/2015 Cbc With Differential Ord2 Neut% 58.7 % 06/15/2015 Cbc With Differential Ord2 Lymph% 30.0 % 06/15/2015 Cbc With Differential Ord2 MCV 94.2 fl 06/15/2015 Cbc With Differential Ord2 MCH 33.3 pg 06/15/2015 Cbc With Differential Ord2 [place]% 7.8 % 06/15/2015 Cbc With Differential Ord2 Eos% 3.3 % 06/15/2015 Cbc With Differential Ord2 MCHC 35.3 pg 06/15/2015 Cbc With Differential Ord2 PLT 292 K/ul 06/15/2015 Cbc With Differential Ord2 Baso% 0.2 % 06/15/2015 Cbc With Differential Ord2 RDW 12.8 % 06/15/2015 Cbc With Differential Ord2 Neut ABS# 4.72 K/ul 06/15/2015 Cbc With Differential Ord2 Lymph ABS# 2.42 K/ul 06/15/2015 Cbc With Differential Ord2 [place] ABS# 0.6 K/ul 06/15/2015 Cbc With Differential Ord2 Eos ABS# 0.3 K/ul 06/15/2015 Cbc With Differential Ord2 Baso ABS# 0.0 K/ul 06/15/2015 Cbc With Differential Ord2 New Analyzer Notice Please note new ref ranges starting 06-06-2015 due to implemntation of new five part differential hematolgy analyzer. 06/15/2015 Pt [id number] PT 26.0 seconds 06/15/2015 Pt [id number] INR 2.5 06/15/2015 Pt [id number] Low Intensity - 1.5-2.0 06/15/2015 Pt [id number] Mod intensity - 2.0-3.0 06/15/2015 Pt [id number] Hi intensity - 3.0-4.0 06/15/2015 Comp Metabolic You841 NA 136 mEq/L 06/15/2015 Comp Metabolic Eod937 K 4.1 mEq/L 06/15/2015 Comp Metabolic Qab225 CL 103 mEq/L 06/15/2015 Comp Metabolic Wxr653 CO2 23.0 mEq/L 06/15/2015 Comp Metabolic Sfm048 ANION GAP 14 06/15/2015 Comp Metabolic Yym924 GLUCOSE 88 mg/dL 06/15/2015 Comp Metabolic Raa931 Creat 0.6 mg/dL 06/15/2015 Comp Metabolic Qhn225 eGFR 114 ml/min/1.73m2 06/15/2015 Comp Metabolic Row234 BUN 10 mg/dL 06/15/2015 Comp Metabolic Icx281 B/C Ratio 16.1 Ratio 06/15/2015 Comp Metabolic Hhe238 CALCIUM 8.7 mg/dL 06/15/2015 Comp Metabolic Hil817 ALK PHOS 98 U/L 06/15/2015 Comp Metabolic Pct052 AST(SGOT) 20 U/L 06/15/2015 Comp Metabolic Znp391 ALT(SGPT) 21 U/L 06/15/2015 Comp Metabolic Yle510 BILI T 0.5 mg/dL 06/15/2015 Comp Metabolic Hug960 ALBUMIN 4.1 g/dL 06/15/2015 Comp Metabolic Gcn003 TPRO 7.0 g/dL 06/15/2015 Comp Metabolic Voi248 GLOB 2.9 g/dL 06/15/2015 Comp Metabolic Qag684 A/G Ratio 1.4 Ratio 06/15/2015 Comp Metabolic Dym185 Osmo 270 mOsmo 06/15/2015 Review of Systems System Result Effective Dates Constitutional No recent illness 2016 Constitutional No anorexia 03/11/2017 Constitutional No night sweats 2016 Constitutional No chills 03/11/2017 Constitutional No diaphoresis 03/11/2017 Constitutional No fatigue 03/11/2017 Constitutional No fever 03/11/2017 Constitutional No insomnia 03/11/2017 Constitutional No malaise 03/11/2017 Eyes No eye discharge 03/11/2017 Eyes No eye erythema 03/11/2017 Ears/Nose/Throat/Neck No dizziness 2016 Ears/Nose/Throat/Neck No headache 2016 Cardiovascular No chest pain/pressure Respiratory No cough 03/11/2017 Gastrointestinal No abdominal pain 2016 Gastrointestinal No constipation 2016 Gastrointestinal No diarrhea 03/11/2017 Genitourinary/Nephrology No dysuria 03/11 Musculoskeletal back pain 03/11/2017 Dermatologic No rash 03/11/2017 Neurologic No alteration of consciousness 03/11/2017 Neurologic neck pain 03/11/2017 Neurologic paresthesia 03/11/2017 Psychiatric No anxiety 03/11/2017 Psychiatric No depression 03/11/2017 Constitutional recent illness 11/10/2016 Constitutional No anorexia 11/10/2016 Constitutional No night sweats 2016 Constitutional No chills 11/10/2016 Constitutional No diaphoresis 11/10/2016 Constitutional fatigue 11/10/2016 Constitutional No fever 11/10/2016 Constitutional No insomnia 11/10/2016 Constitutional No malaise 11/10/2016 Eyes No eye discharge 11/10/2016 Eyes No eye erythema 11/10/2016 Ears/Nose/Throat/Neck No dizziness 2016 Ears/Nose/Throat/Neck No headache 2016 Cardiovascular No chest pain/pressure Respiratory cough 11/10/2016 Gastrointestinal No abdominal pain 2016 Gastrointestinal No constipation 2016 Gastrointestinal No diarrhea 11/10/2016 Genitourinary/Nephrology No dysuria 11/10 Musculoskeletal back pain 11/10/2016 Musculoskeletal neck pain 11/10/2016 Dermatologic No rash 11/10/2016 Neurologic No alteration of consciousness 11/10/2016 Neurologic neck pain 11/10/2016 Psychiatric anxiety 11/10/2016 Psychiatric depression 11/10/2016 Psychiatric disturbances of emotion 11/10 Constitutional recent illness 05/27/2016 Constitutional No anorexia 05/27/2016 Constitutional No night sweats 2016 Constitutional No chills 05/27/2016 Constitutional No diaphoresis 05/27/2016 Constitutional fatigue 05/27/2016 Constitutional No fever 05/27/2016 Constitutional No insomnia 05/27/2016 Constitutional No malaise 05/27/2016 Eyes No eye discharge 05/27/2016 Eyes No eye erythema 05/27/2016 Ears/Nose/Throat/Neck No dizziness 2016 Ears/Nose/Throat/Neck No headache 2016 Cardiovascular No chest pain/pressure 07/2016 Respiratory cough 05/27/2016 Gastrointestinal No abdominal pain 2016 Gastrointestinal No constipation 2016 Gastrointestinal No diarrhea 05/27/2016 Genitourinary/Nephrology No dysuria 05/27 Musculoskeletal back pain 05/27/2016 Musculoskeletal neck pain 05/27/2016 Dermatologic No rash 05/27/2016 Neurologic No alteration of consciousness 05/27/2016 Neurologic neck pain 05/27/2016 Psychiatric anxiety 05/27/2016 Psychiatric depression 05/27/2016 Psychiatric disturbances of emotion 05/27 Constitutional recent illness 04/23/2016 Constitutional No anorexia 04/23/2016 Constitutional No night sweats 2015 Constitutional No chills 04/23/2016 Constitutional No diaphoresis 04/23/2016 Constitutional fatigue 04/23/2016 Constitutional No fever 04/23/2016 Constitutional No insomnia 04/23/2016 Constitutional No malaise 04/23/2016 Eyes No eye discharge 04/23/2016 Eyes No eye erythema 04/23/2016 Ears/Nose/Throat/Neck No dizziness 2015 Ears/Nose/Throat/Neck No headache 2015 Cardiovascular No chest pain/pressure Respiratory cough 04/23/2016 Gastrointestinal No abdominal pain 2015 Gastrointestinal No constipation 2015 Gastrointestinal No diarrhea 04/23/2016 Genitourinary/Nephrology No dysuria 04/23 Musculoskeletal back pain 04/23/2016 Musculoskeletal neck pain 04/23/2016 Dermatologic No rash 04/23/2016 Neurologic No alteration of consciousness 04/23/2016 Neurologic neck pain 04/23/2016 Psychiatric anxiety 04/23/2016 Psychiatric depression 04/23/2016 Psychiatric disturbances of emotion 04/23 Constitutional recent illness 04/18/2016 Eyes No eye erythema 04/18/2016 Respiratory No cough 04/18/2016 Psychiatric anxiety 04/18/2016 Psychiatric depression 04/18/2016 Psychiatric psychosis 04/18/2016 Psychiatric disturbances of thinking Psychiatric disturbances of emotion 04/18 Constitutional recent illness 03/26/2016 Constitutional No anorexia 03/26/2016 Constitutional No night sweats 2015 Constitutional No chills 03/26/2016 Constitutional No diaphoresis 03/26/2016 Constitutional fatigue 03/26/2016 Constitutional No fever 03/26/2016 Constitutional No insomnia 03/26/2016 Constitutional No malaise 03/26/2016 Eyes No eye discharge 03/26/2016 Eyes No eye erythema 03/26/2016 Ears/Nose/Throat/Neck No dizziness 2015 Ears/Nose/Throat/Neck No headache 2015 Cardiovascular No chest pain/pressure 06/2015 Respiratory cough 03/26/2016 Gastrointestinal No abdominal pain 2015 Gastrointestinal No constipation 2015 Gastrointestinal No diarrhea 03/26/2016 Genitourinary/Nephrology No dysuria 03/26 Musculoskeletal back pain 03/26/2016 Musculoskeletal neck pain 03/26/2016 Dermatologic No rash 03/26/2016 Neurologic No alteration of consciousness 03/26/2016 Neurologic neck pain 03/26/2016 Psychiatric No anxiety 03/26/2016 Psychiatric No depression 03/26/2016 Constitutional recent illness 03/19/2016 Eyes No eye discharge 03/19/2016 Eyes No eye erythema 03/19/2016 Cardiovascular chest pain/pressure 2015 Respiratory cough 03/19/2016 Neurologic No alteration of consciousness 03/19/2016 Neurologic No mental status change 2015 Ears/Nose/Throat/Neck No nasal discharge 03/19/2016 Respiratory chest tightness 03/19/2016 Constitutional No recent illness 2015 Constitutional No anorexia 01/23/2016 Constitutional No night sweats 2015 Constitutional No chills 01/23/2016 Constitutional No diaphoresis 01/23/2016 Constitutional No fatigue 01/23/2016 Constitutional No fever 01/23/2016 Constitutional No insomnia 01/23/2016 Constitutional No malaise 01/23/2016 Eyes No eye discharge 01/23/2016 Eyes No eye erythema 01/23/2016 Ears/Nose/Throat/Neck No dizziness 2015 Ears/Nose/Throat/Neck No headache 2015 Cardiovascular No chest pain/pressure Respiratory No cough 01/23/2016 Gastrointestinal No abdominal pain 2015 Gastrointestinal No constipation 2015 Gastrointestinal No diarrhea 01/23/2016 Genitourinary/Nephrology No dysuria 01/22 Musculoskeletal back pain 01/23/2016 Musculoskeletal neck pain 01/23/2016 Dermatologic No rash 01/23/2016 Neurologic No alteration of consciousness 01/23/2016 Neurologic neck pain 01/23/2016 Psychiatric No anxiety 01/23/2016 Psychiatric No depression 01/23/2016 Constitutional No fever 11/22/2015 Eyes No eye discharge 11/22/2015 Eyes No eye erythema 11/22/2015 Cardiovascular No chest pain/pressure Respiratory No cough 11/22/2015 Neurologic No alteration of consciousness 11/22/2015 Psychiatric No anxiety 11/22/2015 Psychiatric No depression 11/22/2015 Constitutional No recent illness 2015 Ears/Nose/Throat/Neck No nasal allergies 11/22/2015 Ears/Nose/Throat/Neck No nasal discharge 11/22/2015 Cardiovascular No dyspnea 11/22/2015 Respiratory No dyspnea 11/22/2015 Dermatologic No rash 11/22/2015 Neurologic No mental status change 2015 Constitutional No recent illness 2015 Constitutional No anorexia 10/23/2015 Constitutional No night sweats 2015 Constitutional No chills 10/23/2015 Constitutional No diaphoresis 10/23/2015 Constitutional No fatigue 10/23/2015 Constitutional No fever 10/23/2015 Constitutional No insomnia 10/23/2015 Constitutional No malaise 10/23/2015 Eyes No eye discharge 10/23/2015 Eyes No eye erythema 10/23/2015 Ears/Nose/Throat/Neck No dizziness 2015 Ears/Nose/Throat/Neck No headache 2015 Cardiovascular No chest pain/pressure Respiratory No cough 10/23/2015 Gastrointestinal No abdominal pain 2015 Gastrointestinal No constipation 2015 Gastrointestinal No diarrhea 10/23/2015 Genitourinary/Nephrology No dysuria 10/22 Genitourinary/Nephrology pelvic pain Dermatologic No rash 10/23/2015 Neurologic No alteration of consciousness 10/23/2015 Neurologic neck pain 10/23/2015 Neurologic paresthesia 10/23/2015 Psychiatric No anxiety 10/23/2015 Psychiatric No depression 10/23/2015 Musculoskeletal back pain 10/23/2015 Constitutional No recent illness 2015 Constitutional No anorexia 07/23/2015 Constitutional No night sweats 2015 Constitutional No chills 07/23/2015 Constitutional No diaphoresis 07/23/2015 Constitutional No fatigue 07/23/2015 Constitutional No fever 07/23/2015 Constitutional No insomnia 07/23/2015 Constitutional No malaise 07/23/2015 Eyes No eye discharge 07/23/2015 Eyes No eye erythema 07/23/2015 Ears/Nose/Throat/Neck No dizziness 2015 Ears/Nose/Throat/Neck No headache 2015 Cardiovascular No chest pain/pressure Respiratory No cough 07/23/2015 Gastrointestinal No abdominal pain 2015 Gastrointestinal No constipation 2015 Gastrointestinal No diarrhea 07/23/2015 Genitourinary/Nephrology No dysuria Musculoskeletal back pain 07/23/2015 Musculoskeletal neck pain 07/23/2015 Dermatologic No rash 07/23/2015 Neurologic No alteration of consciousness 07/23/2015 Neurologic neck pain 07/23/2015 Neurologic paresthesia 07/23/2015 Psychiatric No anxiety 07/23/2015 Psychiatric No depression 07/23/2015 Genitourinary/Nephrology pelvic pain Genitourinary/Nephrology No urinary frequency 06/15/2015 Genitourinary/Nephrology No urinary incontinence 06/15/2015 Genitourinary/Nephrology No urinary retention/hesitancy 06/15/2015 Genitourinary/Nephrology No urinary urgency 06/15/2015 Genitourinary/Nephrology dysuria 2015 Genitourinary/Nephrology hematuria 2015 Constitutional No recent illness 2015 Constitutional No anorexia 06/15/2015 Constitutional No night sweats 2015 Constitutional No chills 06/15/2015 Constitutional No diaphoresis 06/15/2015 Constitutional fatigue 06/15/2015 Constitutional No fever 06/15/2015 Constitutional No insomnia 06/15/2015 Constitutional No malaise 06/15/2015 Constitutional No weight loss 06/15/2015 Constitutional No weight gain 06/15/2015 Constitutional No obesity 06/15/2015 Gastrointestinal nausea 06/15/2015 Gastrointestinal vomiting 06/15/2015 Cardiovascular near-syncope/dizziness Gastrointestinal constipation 06/15/2015 Gastrointestinal No diarrhea 06/15/2015 Respiratory No dyspnea 06/15/2015 Respiratory No dyspnea on exertion 2015 Respiratory No daytime hypersomnolence Respiratory No cough 06/15/2015 Ears/Nose/Throat/Neck headache 2015 Dermatologic rash 06/15/2015 Dermatologic No sores 06/15/2015 Psychiatric anxiety 06/15/2015 Psychiatric depression 06/15/2015 Eyes No vision change 06/15/2015 Musculoskeletal myalgias 06/15/2015 Musculoskeletal No muscle weakness 2015 Musculoskeletal No joint complaint 2015 Constitutional No recent illness 2014 Constitutional No anorexia 04/26/2015 Constitutional No night sweats 2014 Constitutional No chills 04/26/2015 Constitutional No diaphoresis 04/26/2015 Constitutional No fatigue 04/26/2015 Constitutional No fever 04/26/2015 Constitutional No insomnia 04/26/2015 Constitutional No malaise 04/26/2015 Eyes No eye discharge 04/26/2015 Eyes No eye erythema 04/26/2015 Ears/Nose/Throat/Neck No dizziness 2014 Ears/Nose/Throat/Neck No headache 2014 Cardiovascular No chest pain/pressure 07/2014 Respiratory No cough 04/26/2015 Gastrointestinal No abdominal pain 2014 Gastrointestinal No constipation 2014 Gastrointestinal No diarrhea 04/26/2015 Genitourinary/Nephrology No dysuria 04/26 Musculoskeletal back pain 04/26/2015 Musculoskeletal neck pain 04/26/2015 Dermatologic No rash 04/26/2015 Neurologic No alteration of consciousness 04/26/2015 Neurologic neck pain 04/26/2015 Neurologic paresthesia 04/26/2015 Dermatologic No rash 03/29/2015 Neurologic No alteration of consciousness 03/29/2015 Neurologic neck pain 03/29/2015 Neurologic paresthesia 03/29/2015 Musculoskeletal back pain 03/29/2015 Musculoskeletal neck pain 03/29/2015 Constitutional No recent illness 2014 Constitutional No anorexia 03/29/2015 Constitutional No night sweats 2014 Constitutional No chills 03/29/2015 Constitutional No diaphoresis 03/29/2015 Constitutional No fatigue 03/29/2015 Constitutional No fever 03/29/2015 Constitutional No insomnia 03/29/2015 Constitutional No malaise 03/29/2015 Constitutional No weight loss 03/29/2015 Constitutional No weight gain 03/29/2015 Eyes No eye discharge 03/29/2015 Eyes No eye erythema 03/29/2015 Ears/Nose/Throat/Neck No dizziness 2014 Ears/Nose/Throat/Neck No headache 2014 Cardiovascular No chest pain/pressure 09/2014 Respiratory No cough 03/29/2015 Gastrointestinal No abdominal pain 2014 Gastrointestinal No constipation 2014 Gastrointestinal No diarrhea 03/29/2015 Genitourinary/Nephrology No dysuria 03/29 Constitutional No recent illness 2014 Constitutional No anorexia 01/19/2015 Constitutional No night sweats 2014 Constitutional No chills 01/19/2015 Constitutional No diaphoresis 01/19/2015 Constitutional No fatigue 01/19/2015 Constitutional No fever 01/19/2015 Constitutional No insomnia 01/19/2015 Constitutional No malaise 01/19/2015 Constitutional No weight loss 01/19/2015 Constitutional No weight gain 01/19/2015 Constitutional No recent illness 2014 Constitutional No anorexia 10/26/2014 Constitutional No night sweats 2014 Constitutional No chills 10/26/2014 Constitutional No weight gain 10/26/2014 Constitutional No weight loss 10/26/2014 Constitutional No malaise 10/26/2014 Constitutional No insomnia 10/26/2014 Constitutional No fever 10/26/2014 Constitutional fatigue 10/26/2014 Constitutional No diaphoresis 10/26/2014 Eyes No eye discharge 10/26/2014 Eyes No eye erythema 10/26/2014 Ears/Nose/Throat/Neck dizziness 2014 Ears/Nose/Throat/Neck headache 2014 Ears/Nose/Throat/Neck No nasal discharge 10/26/2014 Cardiovascular No chest pain/pressure 08/2014 Cardiovascular No edema 10/26/2014 Cardiovascular No dyspnea 10/26/2014 Respiratory No chest congestion 2014 Respiratory No cough 10/26/2014 Gastrointestinal No abdominal pain 2014 Gastrointestinal No constipation 2014 Gastrointestinal No diarrhea 10/26/2014 Gastrointestinal No vomiting 10/26/2014 Gastrointestinal No nausea 10/26/2014 Genitourinary/Nephrology No dysuria 10/26 Genitourinary/Nephrology pelvic pain 08/2014 Musculoskeletal No joint complaint 2014 Dermatologic No rash 10/26/2014 Neurologic No alteration of consciousness 10/26/2014 Neurologic seizure 10/26/2014 Psychiatric anxiety 10/26/2014 Psychiatric depression 10/26/2014 Endocrine No dry or coarse skin 2014 Hematologic/Lymphatic abnormal bleeding and bruising 10/26/2014 Physical Exam Exam Name System Name Item Name Status Result Effective Dates Notes Full Exam - General 1994 Constitutional general appearance Development: well developed 03/11/2017 None Full Exam - General 1994 Constitutional general appearance Development: appears stated age 1003/11/2017 None Full Exam - General 1994 Constitutional general appearance Overall: well developed 03/11/2017 None Full Exam - General 1994 Constitutional general appearance Overall: in no acute distress 03/11/2017 None Full Exam - General 1994 Constitutional general appearance Overall: well nourished 03/11/2017 None Full Exam - General 1994 Constitutional general appearance Hygiene/Attention to Grooming: good hygiene 03/11/2017 None Full Exam - General 1994 Eyes conjunctiva /eyelids Overall: conjunctiva clear 03/11/2017 None Full Exam - General 1994 Eyes conjunctiva /eyelids Overall: cornea clear 03/11/2017 None Full Exam - General 1994 Eyes conjunctiva /eyelids Overall: eyelids normal 03/11/2017 None Full Exam - General 1994 Eyes pupils and irises Overall: pupils equal, round, reactive to light and accomodation 03/11/2017 None Full Exam - General 1994 Ears/Nose/Throat otoscopic exam Overall: external auditory canals clear 03/11/2017 None Full Exam - General 1994 Ears/Nose/Throat otoscopic exam Overall: tympanic membranes clear 03/11/2017 None Full Exam - General 1994 Ears/Nose/Throat lips/teeth/gingiva Overall: benign lips 03/11/2017 None Full Exam - General 1994 Ears/Nose/Throat lips/teeth/gingiva Overall: normal dentition 03/11/2017 None Full Exam - General 1994 Ears/Nose/Throat oral cavity/pharynx/larynx Overall: oral mucosa clear 03/11/2017 None Full Exam - General 1994 Ears/Nose/Throat oral cavity/pharynx/larynx Overall: oropharyngeal mucosa clear 03/11/2017 None Full Exam - General 1994 Ears/Nose/Throat oral cavity/pharynx/larynx Overall: hypopharynx benign 03/11/2017 None Full Exam - General 1994 Ears/Nose/Throat oral cavity/pharynx/larynx Overall: no masses 03/11/2017 None Full Exam - General 1994 Respiratory auscultation Overall: breath sounds clear bilaterally 03/11/2017 None Full Exam - General 1994 Respiratory respiratory effort/rhythm Overall: no retractions 03/11/2017 None Full Exam - General 1994 Respiratory respiratory effort/rhythm Overall: normal rate 03/11/2017 None Full Exam - General 1994 Cardiovascular extremities Overall: no clubbing 03/11/2017 None Full Exam - General 1994 Cardiovascular auscultation of heart Overall: regular rate 03/11/2017 None Full Exam - General 1994 Cardiovascular auscultation of heart Overall: normal heart sounds 03/11/2017 None Full Exam - General 1994 Abdomen abdominal exam Overall: no tenderness 03/11/2017 None Full Exam - General 1994 Abdomen abdominal exam Overall: normal bowel sounds 03/11/2017 None Full Exam - General 1994 Musculoskeletal lower extremity Palpation - knee: no effusion 03/11/2017 None Full Exam - General 1994 Musculoskeletal lower extremity Inspection - lower leg: normal appearance 03/11/2017 None Full Exam - General 1994 Musculoskeletal lower extremity Palpation - lower leg: normal on palpation 03/11/2017 None Full Exam - General 1994 Musculoskeletal spine, ribs and pelvis Posture: kyphosis 03/11/2017 None Full Exam - General 1994 Musculoskeletal spine, ribs and pelvis Spine: tender @ cervical spine 03/11/2017 None Full Exam - General 1994 Musculoskeletal gait and station Overall: normal gait 03/11/2017 None Full Exam - General 1994 Musculoskeletal gait and station Overall: normal station 03/11/2017 None Full Exam - General 1994 Integument inspection of skin Overall: few scattered moles, no gross abnormalities 03/11/2017 None Full Exam - General 1994 Neurologic deep tendon reflexes Overall: deep tendon reflexes intact 03/11/2017 None Full Exam - General 1994 Neurologic cranial nerves Overall: crainial nerves 2 - 12 grossly intact 03/11/2017 None Full Exam - General 1994 Psychiatric orientation/consciousness Overall: oriented to person, place and time 03/11/2017 None Full Exam - General 1994 Psychiatric mood and affect Overall: normal mood and affect 03/11/2017 None Full Exam - General 1994 Constitutional general appearance Development: well developed 11/10/2016 None Full Exam - General 1994 Constitutional general appearance Development: appears stated age 0611/10/2016 None Full Exam - General 1994 Constitutional general appearance Overall: well developed 11/10/2016 None Full Exam - General 1994 Constitutional general appearance Overall: in no acute distress 11/10/2016 None Full Exam - General 1994 Constitutional general appearance Overall: well nourished 11/10/2016 None Full Exam - General 1994 Constitutional general appearance Hygiene/Attention to Grooming: good hygiene 11/10/2016 None Full Exam - General 1994 Eyes conjunctiva /eyelids Overall: conjunctiva clear 11/10/2016 None Full Exam - General 1994 Eyes conjunctiva /eyelids Overall: cornea clear 11/10/2016 None Full Exam - General 1994 Eyes conjunctiva /eyelids Overall: eyelids normal 11/10/2016 None Full Exam - General 1994 Eyes pupils and irises Overall: pupils equal, round, reactive to light and accomodation 11/10/2016 None Full Exam - General 1994 Ears/Nose/Throat otoscopic exam Overall: external auditory canals clear 11/10/2016 None Full Exam - General 1994 Ears/Nose/Throat otoscopic exam Overall: tympanic membranes clear 11/10/2016 None Full Exam - General 1994 Ears/Nose/Throat lips/teeth/gingiva Overall: benign lips 11/10/2016 None Full Exam - General 1994 Ears/Nose/Throat lips/teeth/gingiva Overall: normal dentition 11/10/2016 None Full Exam - General 1994 Ears/Nose/Throat oral cavity/pharynx/larynx Overall: oral mucosa clear 11/10/2016 None Full Exam - General 1994 Ears/Nose/Throat oral cavity/pharynx/larynx Overall: oropharyngeal mucosa clear 11/10/2016 None Full Exam - General 1994 Ears/Nose/Throat oral cavity/pharynx/larynx Overall: hypopharynx benign 11/10/2016 None Full Exam - General 1994 Ears/Nose/Throat oral cavity/pharynx/larynx Overall: no masses 11/10/2016 None Full Exam - General 1994 Respiratory auscultation Overall: breath sounds clear bilaterally 11/10/2016 None Full Exam - General 1994 Respiratory respiratory effort/rhythm Overall: no retractions 11/10/2016 None Full Exam - General 1994 Respiratory respiratory effort/rhythm Overall: normal rate 11/10/2016 None Full Exam - General 1994 Cardiovascular extremities Overall: no clubbing 11/10/2016 None Full Exam - General 1994 Cardiovascular auscultation of heart Overall: regular rate 11/10/2016 None Full Exam - General 1994 Cardiovascular auscultation of heart Overall: normal heart sounds 11/10/2016 None Full Exam - General 1994 Abdomen abdominal exam Overall: no tenderness 11/10/2016 None Full Exam - General 1994 Abdomen abdominal exam Overall: normal bowel sounds 11/10/2016 None Full Exam - General 1994 Neurologic cranial nerves Overall: crainial nerves 2 - 12 grossly intact 11/10/2016 None Full Exam - General 1994 Psychiatric orientation/consciousness Overall: oriented to person, place and time 11/10/2016 None Full Exam - General 1994 Psychiatric mood and affect Mood: flat 11/10/2016 None Full Exam - General 1994 Psychiatric mood and affect Affect: flat 11/10/2016 None Full Exam - General 1994 Musculoskeletal spine, ribs and pelvis Spine: tender @ thoracic spine 11/10/2016 None Full Exam - General 1994 Musculoskeletal spine, ribs and pelvis Spine: tender @ lumbar spine 11/10/2016 None Full Exam - General 1994 Musculoskeletal spine, ribs and pelvis Spine: decreased extension 11/10/2016 None Full Exam - General 1994 Constitutional general appearance Development: well developed 05/27/2016 None Full Exam - General 1994 Constitutional general appearance Development: appears stated age 0105/27/2016 None Full Exam - General 1994 Constitutional general appearance Overall: well developed 05/27/2016 None Full Exam - General 1994 Constitutional general appearance Overall: in no acute distress 05/27/2016 None Full Exam - General 1994 Constitutional general appearance Overall: well nourished 05/27/2016 None Full Exam - General 1994 Constitutional general appearance Hygiene/Attention to Grooming: good hygiene 05/27/2016 None Full Exam - General 1994 Eyes conjunctiva /eyelids Overall: conjunctiva clear 05/27/2016 None Full Exam - General 1994 Eyes conjunctiva /eyelids Overall: cornea clear 05/27/2016 None Full Exam - General 1994 Eyes conjunctiva /eyelids Overall: eyelids normal 05/27/2016 None Full Exam - General 1994 Eyes pupils and irises Overall: pupils equal, round, reactive to light and accomodation 05/27/2016 None Full Exam - General 1994 Ears/Nose/Throat otoscopic exam Overall: external auditory canals clear 05/27/2016 None Full Exam - General 1994 Ears/Nose/Throat otoscopic exam Overall: tympanic membranes clear 05/27/2016 None Full Exam - General 1994 Ears/Nose/Throat lips/teeth/gingiva Overall: benign lips 05/27/2016 None Full Exam - General 1995 Ears/Nose/Throat lips/teeth/gingiva Overall: normal dentition 05/27/2016 None Full Exam - General 1994 Ears/Nose/Throat oral cavity/pharynx/larynx Overall: oral mucosa clear 05/27/2016 None Full Exam - General 1994 Ears/Nose/Throat oral cavity/pharynx/larynx Overall: oropharyngeal mucosa clear 05/27/2016 None Full Exam - General 1994 Ears/Nose/Throat oral cavity/pharynx/larynx Overall: hypopharynx benign 05/27/2016 None Full Exam - General 1994 Ears/Nose/Throat oral cavity/pharynx/larynx Overall: no masses 05/27/2016 None Full Exam - General 1994 Respiratory auscultation Overall: breath sounds clear bilaterally 05/27/2016 None Full Exam - General 1994 Respiratory respiratory effort/rhythm Overall: no retractions 05/27/2016 None Full Exam - General 1994 Respiratory respiratory effort/rhythm Overall: normal rate 05/27/2016 None Full Exam - General 1994 Cardiovascular extremities Overall: no clubbing 05/27/2016 None Full Exam - General 1994 Cardiovascular auscultation of heart Overall: regular rate 05/27/2016 None Full Exam - General 1994 Cardiovascular auscultation of heart Overall: normal heart sounds 05/27/2016 None Full Exam - General 1994 Abdomen abdominal exam Overall: no tenderness 05/27/2016 None Full Exam - General 1994 Abdomen abdominal exam Overall: normal bowel sounds 05/27/2016 None Full Exam - General 1994 Neurologic cranial nerves Overall: crainial nerves 2 - 12 grossly intact 05/27/2016 None Full Exam - General 1994 Psychiatric orientation/consciousness Overall: oriented to person, place and time 05/27/2016 None Full Exam - General 1994 Psychiatric mood and affect Mood: flat 05/27/2016 None Full Exam - General 1994 Psychiatric mood and affect Affect: flat 05/27/2016 None Full Exam - General 1994 Constitutional general appearance Development: well developed 04/23/2016 None Full Exam - General 1994 Constitutional general appearance Development: appears stated age 1104/23/2016 None Full Exam - General 1994 Constitutional general appearance Overall: well developed 04/23/2016 None Full Exam - General 1994 Constitutional general appearance Overall: in no acute distress 04/23/2016 None Full Exam - General 1994 Constitutional general appearance Overall: well nourished 04/23/2016 None Full Exam - General 1994 Constitutional general appearance Hygiene/Attention to Grooming: good hygiene 04/23/2016 None Full Exam - General 1994 Eyes conjunctiva /eyelids Overall: conjunctiva clear 04/23/2016 None Full Exam - General 1994 Eyes conjunctiva /eyelids Overall: cornea clear 04/23/2016 None Full Exam - General 1994 Eyes conjunctiva /eyelids Overall: eyelids normal 04/23/2016 None Full Exam - General 1994 Eyes pupils and irises Overall: pupils equal, round, reactive to light and accomodation 04/23/2016 None Full Exam - General 1994 Ears/Nose/Throat otoscopic exam Overall: external auditory canals clear 04/23/2016 None Full Exam - General 1994 Ears/Nose/Throat otoscopic exam Overall: tympanic membranes clear 04/23/2016 None Full Exam - General 1994 Ears/Nose/Throat lips/teeth/gingiva Overall: benign lips 04/23/2016 None Full Exam - General 1994 Ears/Nose/Throat lips/teeth/gingiva Overall: normal dentition 04/23/2016 None Full Exam - General 1994 Ears/Nose/Throat oral cavity/pharynx/larynx Overall: oral mucosa clear 04/23/2016 None Full Exam - General 1994 Ears/Nose/Throat oral cavity/pharynx/larynx Overall: oropharyngeal mucosa clear 04/23/2016 None Full Exam - General 1994 Ears/Nose/Throat oral cavity/pharynx/larynx Overall: hypopharynx benign 04/23/2016 None Full Exam - General 1994 Ears/Nose/Throat oral cavity/pharynx/larynx Overall: no masses 04/23/2016 None Full Exam - General 1994 Respiratory auscultation Overall: breath sounds clear bilaterally 04/23/2016 None Full Exam - General 1994 Respiratory respiratory effort/rhythm Overall: no retractions 04/23/2016 None Full Exam - General 1994 Respiratory respiratory effort/rhythm Overall: normal rate 04/23/2016 None Full Exam - General 1994 Cardiovascular extremities Overall: no clubbing 04/23/2016 None Full Exam - General 1994 Cardiovascular auscultation of heart Overall: regular rate 04/23/2016 None Full Exam - General 1994 Cardiovascular auscultation of heart Overall: normal heart sounds 04/23/2016 None Full Exam - General 1994 Abdomen abdominal exam Overall: no tenderness 04/23/2016 None Full Exam - General 1994 Abdomen abdominal exam Overall: normal bowel sounds 04/23/2016 None Full Exam - General 1994 Neurologic cranial nerves Overall: crainial nerves 2 - 12 grossly intact 04/23/2016 None Full Exam - General 1994 Psychiatric orientation/consciousness Overall: oriented to person, place and time 04/23/2016 None Full Exam - General 1994 Psychiatric mood and affect Mood: flat 04/23/2016 None Full Exam - General 1994 Psychiatric mood and affect Affect: flat 04/23/2016 None Full Exam - General 1994 Constitutional general appearance Evidence of Distress: in acute distress 04/18/2016 None Full Exam - General 1994 Constitutional general appearance Evidence of Distress: agitated 04/18/2016 None Full Exam - General 1994 Constitutional general appearance Evidence of Distress: anxious 04/18/2016 None Full Exam - General 1994 Neurologic gait Overall: no ataxia, no unsteadiness 04/18/2016 None Full Exam - General 1994 Psychiatric orientation/consciousness Overall: oriented to person, place and time 04/18/2016 None Full Exam - General 1994 Psychiatric behavior/psychomotor activity Behavior: agitation/restlessness 04/18/2016 None Full Exam - General 1994 Psychiatric mood and affect Mood: irritable 04/18/2016 None Full Exam - General 1994 Psychiatric mood and affect Mood: angry 04/18/2016 None Full Exam - General 1994 Psychiatric mood and affect Mood: labile mood 04/18/2016 None Full Exam - General 1994 Psychiatric mood and affect Appropriateness: inappropriate emotional responses 04/18/2016 None Full Exam - General 1994 Constitutional general appearance Development: well developed 03/26/2016 None Full Exam - General 1994 Constitutional general appearance Development: appears stated age 1103/26/2016 None Full Exam - General 1994 Constitutional general appearance Overall: well developed 03/26/2016 None Full Exam - General 1994 Constitutional general appearance Overall: in no acute distress 03/26/2016 None Full Exam - General 1994 Constitutional general appearance Overall: well nourished 03/26/2016 None Full Exam - General 1994 Constitutional general appearance Hygiene/Attention to Grooming: good hygiene 03/26/2016 None Full Exam - General 1994 Eyes conjunctiva /eyelids Overall: conjunctiva clear 03/26/2016 None Full Exam - General 1994 Eyes conjunctiva /eyelids Overall: cornea clear 03/26/2016 None Full Exam - General 1994 Eyes conjunctiva /eyelids Overall: eyelids normal 03/26/2016 None Full Exam - General 1994 Eyes pupils and irises Overall: pupils equal, round, reactive to light and accomodation 03/26/2016 None Full Exam - General 1994 Ears/Nose/Throat otoscopic exam Overall: external auditory canals clear 03/26/2016 None Full Exam - General 1994 Ears/Nose/Throat otoscopic exam Overall: tympanic membranes clear 03/26/2016 None Full Exam - General 1994 Ears/Nose/Throat lips/teeth/gingiva Overall: benign lips 03/26/2016 None Full Exam - General 1994 Ears/Nose/Throat lips/teeth/gingiva Overall: normal dentition 03/26/2016 None Full Exam - General 1994 Ears/Nose/Throat oral cavity/pharynx/larynx Overall: oral mucosa clear 03/26/2016 None Full Exam - General 1994 Ears/Nose/Throat oral cavity/pharynx/larynx Overall: oropharyngeal mucosa clear 03/26/2016 None Full Exam - General 1994 Ears/Nose/Throat oral cavity/pharynx/larynx Overall: hypopharynx benign 03/26/2016 None Full Exam - General 1994 Ears/Nose/Throat oral cavity/pharynx/larynx Overall: no masses 03/26/2016 None Full Exam - General 1994 Respiratory auscultation Overall: breath sounds clear bilaterally 03/26/2016 None Full Exam - General 1994 Respiratory respiratory effort/rhythm Overall: no retractions 03/26/2016 None Full Exam - General 1994 Respiratory respiratory effort/rhythm Overall: normal rate 03/26/2016 None Full Exam - General 1994 Cardiovascular extremities Overall: no clubbing 03/26/2016 None Full Exam - General 1994 Cardiovascular auscultation of heart Overall: regular rate 03/26/2016 None Full Exam - General 1994 Cardiovascular auscultation of heart Overall: normal heart sounds 03/26/2016 None Full Exam - General 1994 Abdomen abdominal exam Overall: no tenderness 03/26/2016 None Full Exam - General 1994 Abdomen abdominal exam Overall: normal bowel sounds 03/26/2016 None Full Exam - General 1994 Musculoskeletal spine, ribs and pelvis Posture: kyphosis 03/26/2016 None Full Exam - General 1994 Musculoskeletal gait and station Overall: normal gait 03/26/2016 None Full Exam - General 1994 Musculoskeletal gait and station Overall: normal station 03/26/2016 None Full Exam - General 1994 Neurologic cranial nerves Overall: crainial nerves 2 - 12 grossly intact 03/26/2016 None Full Exam - General 1994 Psychiatric orientation/consciousness Overall: oriented to person, place and time 03/26/2016 None Full Exam - General 1994 Psychiatric mood and affect Overall: normal mood and affect 03/26/2016 None Full Exam - General 1994 Constitutional general appearance Overall: well developed 03/19/2016 None Full Exam - General 1994 Constitutional general appearance Overall: well nourished 03/19/2016 None Full Exam - General 1994 Eyes conjunctiva /eyelids Overall: conjunctiva clear 03/19/2016 None Full Exam - General 1994 Eyes conjunctiva /eyelids Overall: cornea clear 03/19/2016 None Full Exam - General 1994 Eyes conjunctiva /eyelids Overall: eyelids normal 03/19/2016 None Full Exam - General 1994 Ears/Nose/Throat lips/teeth/gingiva Overall: benign lips 03/19/2016 None Full Exam - General 1994 Ears/Nose/Throat lips/teeth/gingiva Overall: normal dentition 03/19/2016 None Full Exam - General 1994 Respiratory auscultation Overall: breath sounds clear bilaterally 03/19/2016 None Full Exam - General 1994 Respiratory respiratory effort/rhythm Overall: no retractions 03/19/2016 None Full Exam - General 1994 Respiratory respiratory effort/rhythm Overall: normal rate 03/19/2016 None Full Exam - General 1994 Cardiovascular extremities Overall: no clubbing 03/19/2016 None Full Exam - General 1994 Cardiovascular auscultation of heart Overall: regular rate 03/19/2016 None Full Exam - General 1994 Cardiovascular auscultation of heart Overall: normal heart sounds 03/19/2016 None Full Exam - General 1994 Musculoskeletal spine, ribs and pelvis Posture: kyphosis 03/19/2016 None Full Exam - General 1994 Neurologic cranial nerves Overall: crainial nerves 2 - 12 grossly intact 03/19/2016 None Full Exam - General 1994 Psychiatric orientation/consciousness Overall: oriented to person, place and time 03/19/2016 None Full Exam - General 1994 Psychiatric mood and affect Overall: normal mood and affect 03/19/2016 None Full Exam - General 1994 Respiratory auscultation Diffuse: diminished 03/19/2016 None Full Exam - General 1994 Constitutional general appearance Development: well developed 01/23/2016 None Full Exam - General 1994 Constitutional general appearance Development: appears stated age 0801/23/2016 None Full Exam - General 1994 Constitutional general appearance Overall: well developed 01/23/2016 None Full Exam - General 1994 Constitutional general appearance Overall: in no acute distress 01/23/2016 None Full Exam - General 1994 Constitutional general appearance Overall: well nourished 01/23/2016 None Full Exam - General 1994 Constitutional general appearance Hygiene/Attention to Grooming: good hygiene 01/23/2016 None Full Exam - General 1994 Eyes conjunctiva /eyelids Overall: conjunctiva clear 01/23/2016 None Full Exam - General 1994 Eyes conjunctiva /eyelids Overall: cornea clear 01/23/2016 None Full Exam - General 1994 Eyes conjunctiva /eyelids Overall: eyelids normal 01/23/2016 None Full Exam - General 1994 Eyes pupils and irises Overall: pupils equal, round, reactive to light and accomodation 01/23/2016 None Full Exam - General 1994 Ears/Nose/Throat otoscopic exam Overall: external auditory canals clear 01/23/2016 None Full Exam - General 1994 Ears/Nose/Throat otoscopic exam Overall: tympanic membranes clear 01/23/2016 None Full Exam - General 1994 Ears/Nose/Throat lips/teeth/gingiva Overall: benign lips 01/23/2016 None Full Exam - General 1994 Ears/Nose/Throat lips/teeth/gingiva Overall: normal dentition 01/23/2016 None Full Exam - General 1994 Ears/Nose/Throat oral cavity/pharynx/larynx Overall: oral mucosa clear 01/23/2016 None Full Exam - General 1994 Ears/Nose/Throat oral cavity/pharynx/larynx Overall: oropharyngeal mucosa clear 01/23/2016 None Full Exam - General 1994 Ears/Nose/Throat oral cavity/pharynx/larynx Overall: hypopharynx benign 01/23/2016 None Full Exam - General 1994 Ears/Nose/Throat oral cavity/pharynx/larynx Overall: no masses 01/23/2016 None Full Exam - General 1994 Respiratory auscultation Overall: breath sounds clear bilaterally 01/23/2016 None Full Exam - General 1994 Respiratory respiratory effort/rhythm Overall: no retractions 01/23/2016 None Full Exam - General 1994 Respiratory respiratory effort/rhythm Overall: normal rate 01/23/2016 None Full Exam - General 1994 Cardiovascular extremities Overall: no clubbing 01/23/2016 None Full Exam - General 1994 Cardiovascular auscultation of heart Overall: regular rate 01/23/2016 None Full Exam - General 1994 Cardiovascular auscultation of heart Overall: normal heart sounds 01/23/2016 None Full Exam - General 1994 Abdomen abdominal exam Overall: no tenderness 01/23/2016 None Full Exam - General 1994 Abdomen abdominal exam Overall: normal bowel sounds 01/23/2016 None Full Exam - General 1994 Musculoskeletal lower extremity Palpation - knee: no effusion 01/23/2016 None Full Exam - General 1994 Musculoskeletal lower extremity Inspection - lower leg: normal appearance 01/23/2016 None Full Exam - General 1994 Musculoskeletal lower extremity Palpation - lower leg: normal on palpation 01/23/2016 None Full Exam - General 1994 Musculoskeletal spine, ribs and pelvis Posture: kyphosis 01/23/2016 None Full Exam - General 1994 Musculoskeletal spine, ribs and pelvis Spine: tender @ cervical spine 01/23/2016 None Full Exam - General 1994 Musculoskeletal gait and station Overall: normal gait 01/23/2016 None Full Exam - General 1994 Musculoskeletal gait and station Overall: normal station 01/23/2016 None Full Exam - General 1994 Integument inspection of skin Overall: few scattered moles, no gross abnormalities 01/23/2016 None Full Exam - General 1994 Neurologic deep tendon reflexes Overall: deep tendon reflexes intact 01/23/2016 None Full Exam - General 1994 Neurologic cranial nerves Overall: crainial nerves 2 - 12 grossly intact 01/23/2016 None Full Exam - General 1994 Psychiatric orientation/consciousness Overall: oriented to person, place and time 01/23/2016 None Full Exam - General 1994 Psychiatric mood and affect Overall: normal mood and affect 01/23/2016 None Full Exam - General 1994 Constitutional general appearance Overall: well developed 11/22/2015 None Full Exam - General 1994 Constitutional general appearance Overall: in no acute distress 11/22/2015 None Full Exam - General 1994 Constitutional general appearance Overall: well nourished 11/22/2015 None Full Exam - General 1994 Constitutional general appearance Hygiene/Attention to Grooming: good hygiene 11/22/2015 None Full Exam - General 1994 Eyes conjunctiva /eyelids Overall: conjunctiva clear 11/22/2015 None Full Exam - General 1994 Eyes conjunctiva /eyelids Overall: cornea clear 11/22/2015 None Full Exam - General 1994 Eyes conjunctiva /eyelids Overall: eyelids normal 11/22/2015 None Full Exam - General 1994 Eyes pupils and irises Overall: pupils equal, round, reactive to light and accomodation 11/22/2015 None Full Exam - General 1994 Ears/Nose/Throat lips/teeth/gingiva Overall: benign lips 11/22/2015 None Full Exam - General 1994 Ears/Nose/Throat lips/teeth/gingiva Overall: normal dentition 11/22/2015 None Full Exam - General 1994 Ears/Nose/Throat oral cavity/pharynx/larynx Overall: oral mucosa clear 11/22/2015 None Full Exam - General 1994 Respiratory auscultation Overall: breath sounds clear bilaterally 11/22/2015 None Full Exam - General 1994 Respiratory respiratory effort/rhythm Overall: no retractions 11/22/2015 None Full Exam - General 1994 Respiratory respiratory effort/rhythm Overall: normal rate 11/22/2015 None Full Exam - General 1994 Cardiovascular extremities Overall: no clubbing 11/22/2015 None Full Exam - General 1994 Cardiovascular auscultation of heart Overall: regular rate 11/22/2015 None Full Exam - General 1994 Cardiovascular auscultation of heart Overall: normal heart sounds 11/22/2015 None Full Exam - General 1994 Musculoskeletal spine, ribs and pelvis Posture: kyphosis 11/22/2015 None Full Exam - General 1994 Musculoskeletal gait and station Overall: normal gait 11/22/2015 None Full Exam - General 1994 Musculoskeletal gait and station Overall: normal station 11/22/2015 None Full Exam - General 1994 Neurologic cranial nerves Overall: crainial nerves 2 - 12 grossly intact 11/22/2015 None Full Exam - General 1994 Psychiatric orientation/consciousness Overall: oriented to person, place and time 11/22/2015 None Full Exam - General 1994 Psychiatric mood and affect Overall: normal mood and affect 11/22/2015 None Full Exam - General 1994 Constitutional general appearance Development: well developed 10/23/2015 None Full Exam - General 1994 Constitutional general appearance Development: appears stated age 0510/23/2015 None Full Exam - General 1994 Constitutional general appearance Overall: well developed 10/23/2015 None Full Exam - General 1994 Constitutional general appearance Overall: in no acute distress 10/23/2015 None Full Exam - General 1994 Constitutional general appearance Overall: well nourished 10/23/2015 None Full Exam - General 1994 Constitutional general appearance Hygiene/Attention to Grooming: good hygiene 10/23/2015 None Full Exam - General 1994 Eyes conjunctiva /eyelids Overall: conjunctiva clear 10/23/2015 None Full Exam - General 1994 Eyes conjunctiva /eyelids Overall: cornea clear 10/23/2015 None Full Exam - General 1994 Eyes conjunctiva /eyelids Overall: eyelids normal 10/23/2015 None Full Exam - General 1994 Eyes pupils and irises Overall: pupils equal, round, reactive to light and accomodation 10/23/2015 None Full Exam - General 1994 Ears/Nose/Throat otoscopic exam Overall: external auditory canals clear 10/23/2015 None Full Exam - General 1994 Ears/Nose/Throat otoscopic exam Overall: tympanic membranes clear 10/23/2015 None Full Exam - General 1994 Ears/Nose/Throat lips/teeth/gingiva Overall: benign lips 10/23/2015 None Full Exam - General 1994 Ears/Nose/Throat lips/teeth/gingiva Overall: normal dentition 10/23/2015 None Full Exam - General 1994 Ears/Nose/Throat oral cavity/pharynx/larynx Overall: oral mucosa clear 10/23/2015 None Full Exam - General 1994 Ears/Nose/Throat oral cavity/pharynx/larynx Overall: oropharyngeal mucosa clear 10/23/2015 None Full Exam - General 1994 Ears/Nose/Throat oral cavity/pharynx/larynx Overall: hypopharynx benign 10/23/2015 None Full Exam - General 1994 Ears/Nose/Throat oral cavity/pharynx/larynx Overall: no masses 10/23/2015 None Full Exam - General 1994 Respiratory auscultation Overall: breath sounds clear bilaterally 10/23/2015 None Full Exam - General 1994 Respiratory respiratory effort/rhythm Overall: no retractions 10/23/2015 None Full Exam - General 1994 Respiratory respiratory effort/rhythm Overall: normal rate 10/23/2015 None Full Exam - General 1994 Cardiovascular extremities Overall: no clubbing 10/23/2015 None Full Exam - General 1994 Cardiovascular auscultation of heart Overall: regular rate 10/23/2015 None Full Exam - General 1994 Cardiovascular auscultation of heart Overall: normal heart sounds 10/23/2015 None Full Exam - General 1994 Abdomen abdominal exam Overall: no tenderness 10/23/2015 None Full Exam - General 1994 Abdomen abdominal exam Overall: normal bowel sounds 10/23/2015 None Full Exam - General 1994 Musculoskeletal lower extremity Palpation - knee: no effusion 10/23/2015 None Full Exam - General 1994 Musculoskeletal lower extremity Inspection - lower leg: normal appearance 10/23/2015 None Full Exam - General 1994 Musculoskeletal lower extremity Palpation - lower leg: normal on palpation 10/23/2015 None Full Exam - General 1994 Musculoskeletal spine, ribs and pelvis Posture: kyphosis 10/23/2015 None Full Exam - General 1994 Musculoskeletal spine, ribs and pelvis Spine: tender @ cervical spine 10/23/2015 None Full Exam - General 1994 Musculoskeletal gait and station Overall: normal gait 10/23/2015 None Full Exam - General 1994 Musculoskeletal gait and station Overall: normal station 10/23/2015 None Full Exam - General 1994 Integument inspection of skin Overall: few scattered moles, no gross abnormalities 10/23/2015 None Full Exam - General 1994 Neurologic deep tendon reflexes Overall: deep tendon reflexes intact 10/23/2015 None Full Exam - General 1994 Neurologic cranial nerves Overall: crainial nerves 2 - 12 grossly intact 10/23/2015 None Full Exam - General 1994 Psychiatric orientation/consciousness Overall: oriented to person, place and time 10/23/2015 None Full Exam - General 1994 Psychiatric mood and affect Overall: normal mood and affect 10/23/2015 None Full Exam - General 1994 Constitutional general appearance Development: well developed 07/23/2015 None Full Exam - General 1994 Constitutional general appearance Development: appears stated age 0207/23/2015 None Full Exam - General 1994 Constitutional general appearance Overall: well developed 07/23/2015 None Full Exam - General 1994 Constitutional general appearance Overall: in no acute distress 07/23/2015 None Full Exam - General 1994 Constitutional general appearance Overall: well nourished 07/23/2015 None Full Exam - General 1994 Constitutional general appearance Hygiene/Attention to Grooming: good hygiene 07/23/2015 None Full Exam - General 1994 Eyes conjunctiva /eyelids Overall: conjunctiva clear 07/23/2015 None Full Exam - General 1994 Eyes conjunctiva /eyelids Overall: cornea clear 07/23/2015 None Full Exam - General 1994 Eyes conjunctiva /eyelids Overall: eyelids normal 07/23/2015 None Full Exam - General 1994 Eyes pupils and irises Overall: pupils equal, round, reactive to light and accomodation 07/23/2015 None Full Exam - General 1994 Ears/Nose/Throat otoscopic exam Overall: external auditory canals clear 07/23/2015 None Full Exam - General 1994 Ears/Nose/Throat otoscopic exam Overall: tympanic membranes clear 07/23/2015 None Full Exam - General 1994 Ears/Nose/Throat lips/teeth/gingiva Overall: benign lips 07/23/2015 None Full Exam - General 1994 Ears/Nose/Throat lips/teeth/gingiva Overall: normal dentition 07/23/2015 None Full Exam - General 1994 Ears/Nose/Throat oral cavity/pharynx/larynx Overall: oral mucosa clear 07/23/2015 None Full Exam - General 1994 Ears/Nose/Throat oral cavity/pharynx/larynx Overall: oropharyngeal mucosa clear 07/23/2015 None Full Exam - General 1994 Ears/Nose/Throat oral cavity/pharynx/larynx Overall: hypopharynx benign 07/23/2015 None Full Exam - General 1994 Ears/Nose/Throat oral cavity/pharynx/larynx Overall: no masses 07/23/2015 None Full Exam - General 1994 Respiratory auscultation Overall: breath sounds clear bilaterally 07/23/2015 None Full Exam - General 1994 Respiratory respiratory effort/rhythm Overall: no retractions 07/23/2015 None Full Exam - General 1994 Respiratory respiratory effort/rhythm Overall: normal rate 07/23/2015 None Full Exam - General 1994 Cardiovascular extremities Overall: no clubbing 07/23/2015 None Full Exam - General 1994 Cardiovascular auscultation of heart Overall: regular rate 07/23/2015 None Full Exam - General 1994 Cardiovascular auscultation of heart Overall: normal heart sounds 07/23/2015 None Full Exam - General 1994 Abdomen abdominal exam Overall: no tenderness 07/23/2015 None Full Exam - General 1994 Abdomen abdominal exam Overall: normal bowel sounds 07/23/2015 None Full Exam - General 1994 Musculoskeletal lower extremity Palpation - knee: no effusion 07/23/2015 None Full Exam - General 1994 Musculoskeletal lower extremity Inspection - lower leg: normal appearance 07/23/2015 None Full Exam - General 1994 Musculoskeletal lower extremity Palpation - lower leg: normal on palpation 07/23/2015 None Full Exam - General 1994 Musculoskeletal spine, ribs and pelvis Posture: kyphosis 07/23/2015 None Full Exam - General 1994 Musculoskeletal spine, ribs and pelvis Spine: tender @ cervical spine 07/23/2015 None Full Exam - General 1994 Musculoskeletal gait and station Overall: normal gait 07/23/2015 None Full Exam - General 1994 Musculoskeletal gait and station Overall: normal station 07/23/2015 None Full Exam - General 1994 Integument inspection of skin Overall: few scattered moles, no gross abnormalities 07/23/2015 None Full Exam - General 1994 Neurologic deep tendon reflexes Overall: deep tendon reflexes intact 07/23/2015 None Full Exam - General 1994 Neurologic cranial nerves Overall: crainial nerves 2 - 12 grossly intact 07/23/2015 None Full Exam - General 1994 Psychiatric orientation/consciousness Overall: oriented to person, place and time 07/23/2015 None Full Exam - General 1994 Psychiatric mood and affect Overall: normal mood and affect 07/23/2015 None Full Exam - General 1994 Constitutional general appearance Overall: well developed 06/15/2015 None Full Exam - General 1994 Constitutional general appearance Overall: in no acute distress 06/15/2015 None Full Exam - General 1994 Constitutional general appearance Overall: well nourished 06/15/2015 None Full Exam - General 1994 Eyes conjunctiva /eyelids Overall: conjunctiva clear 06/15/2015 None Full Exam - General 1994 Eyes pupils and irises Overall: pupils equal, round, reactive to light and accomodation 06/15/2015 None Full Exam - General 1994 Ears/Nose/Throat otoscopic exam Overall: external auditory canals clear 06/15/2015 None Full Exam - General 1994 Ears/Nose/Throat otoscopic exam Overall: tympanic membranes clear 06/15/2015 None Full Exam - General 1994 Ears/Nose/Throat oral cavity/pharynx/larynx Overall: oral mucosa clear 06/15/2015 None Full Exam - General 1994 Respiratory auscultation Overall: breath sounds clear bilaterally 06/15/2015 None Full Exam - General 1994 Respiratory respiratory effort/rhythm Overall: no retractions 06/15/2015 None Full Exam - General 1994 Respiratory respiratory effort/rhythm Overall: normal rate 06/15/2015 None Full Exam - General 1994 Cardiovascular extremities Overall: no clubbing 06/15/2015 None Full Exam - General 1994 Cardiovascular auscultation of heart Overall: regular rate 06/15/2015 None Full Exam - General 1994 Cardiovascular auscultation of heart Overall: normal heart sounds 06/15/2015 None Full Exam - General 1994 Cardiovascular auscultation of heart Overall: no murmurs 06/15/2015 None Full Exam - General 1994 Abdomen abdominal exam Overall: no tenderness 06/15/2015 None Full Exam - General 1994 Abdomen abdominal exam Overall: normal bowel sounds 06/15/2015 None Full Exam - General 1994 Lymphatic neck nodes Overall: anterior cervical chain benign 06/15/2015 None Full Exam - General 1994 Lymphatic neck nodes Overall: posterior cervical chain benign 06/15/2015 None Full Exam - General 1994 Musculoskeletal gait and station Overall: normal gait 06/15/2015 None Full Exam - General 1994 Musculoskeletal gait and station Overall: normal station 06/15/2015 None Full Exam - General 1994 Integument inspection of skin Overall: no rash, lesions 06/15/2015 None Full Exam - General 1994 Neurologic cranial nerves Overall: crainial nerves 2 - 12 grossly intact 06/15/2015 None Full Exam - General 1994 Psychiatric orientation/consciousness Overall: oriented to person, place and time 06/15/2015 None Full Exam - General 1994 Psychiatric mood and affect Mood: anxious 06/15/2015 tearful Full Exam - General 1994 Constitutional general appearance Overall: well developed 04/26/2015 None Full Exam - General 1994 Constitutional general appearance Overall: in no acute distress 04/26/2015 None Full Exam - General 1994 Constitutional general appearance Overall: well nourished 04/26/2015 None Full Exam - General 1994 Respiratory auscultation Overall: breath sounds clear bilaterally 04/26/2015 None Full Exam - General 1994 Respiratory respiratory effort/rhythm Overall: no retractions 04/26/2015 None Full Exam - General 1994 Respiratory respiratory effort/rhythm Overall: normal rate 04/26/2015 None Full Exam - General 1994 Cardiovascular auscultation of heart Overall: regular rate 04/26/2015 None Full Exam - General 1994 Cardiovascular auscultation of heart Overall: normal heart sounds 04/26/2015 None Full Exam - General 1994 Musculoskeletal lower extremity Palpation - knee: no effusion 04/26/2015 None Full Exam - General 1994 Musculoskeletal lower extremity Inspection - lower leg: normal appearance 04/26/2015 None Full Exam - General 1994 Musculoskeletal lower extremity Palpation - lower leg: normal on palpation 04/26/2015 None Full Exam - General 1994 Musculoskeletal spine, ribs and pelvis Posture: kyphosis 04/26/2015 None Full Exam - General 1994 Musculoskeletal spine, ribs and pelvis Spine: tender @ cervical spine 04/26/2015 None Full Exam - General 1994 Musculoskeletal gait and station Overall: normal gait 04/26/2015 None Full Exam - General 1994 Musculoskeletal gait and station Overall: normal station 04/26/2015 None Full Exam - General 1994 Psychiatric orientation/consciousness Overall: oriented to person, place and time 04/26/2015 None Full Exam - General 1994 Constitutional general appearance Development: appears stated age 1204/26/2015 None Full Exam - General 1994 Constitutional general appearance Development: well developed 04/26/2015 None Full Exam - General 1994 Constitutional general appearance Hygiene/Attention to Grooming: good hygiene 04/26/2015 None Full Exam - General 1994 Eyes conjunctiva /eyelids Overall: conjunctiva clear 04/26/2015 None Full Exam - General 1994 Eyes conjunctiva /eyelids Overall: cornea clear 04/26/2015 None Full Exam - General 1994 Eyes conjunctiva /eyelids Overall: eyelids normal 04/26/2015 None Full Exam - General 1994 Eyes pupils and irises Overall: pupils equal, round, reactive to light and accomodation 04/26/2015 None Full Exam - General 1994 Ears/Nose/Throat otoscopic exam Overall: external auditory canals clear 04/26/2015 None Full Exam - General 1994 Ears/Nose/Throat otoscopic exam Overall: tympanic membranes clear 04/26/2015 None Full Exam - General 1994 Ears/Nose/Throat lips/teeth/gingiva Overall: benign lips 04/26/2015 None Full Exam - General 1994 Ears/Nose/Throat lips/teeth/gingiva Overall: normal dentition 04/26/2015 None Full Exam - General 1994 Ears/Nose/Throat oral cavity/pharynx/larynx Overall: hypopharynx benign 04/26/2015 None Full Exam - General 1994 Ears/Nose/Throat oral cavity/pharynx/larynx Overall: no masses 04/26/2015 None Full Exam - General 1994 Ears/Nose/Throat oral cavity/pharynx/larynx Overall: oral mucosa clear 04/26/2015 None Full Exam - General 1994 Ears/Nose/Throat oral cavity/pharynx/larynx Overall: oropharyngeal mucosa clear 04/26/2015 None Full Exam - General 1994 Cardiovascular extremities Overall: no clubbing 04/26/2015 None Full Exam - General 1994 Abdomen abdominal exam Overall: no tenderness 04/26/2015 None Full Exam - General 1994 Abdomen abdominal exam Overall: normal bowel sounds 04/26/2015 None Full Exam - General 1994 Integument inspection of skin Overall: few scattered moles, no gross abnormalities 04/26/2015 None Full Exam - General 1994 Neurologic deep tendon reflexes Overall: deep tendon reflexes intact 04/26/2015 None Full Exam - General 1994 Neurologic cranial nerves Overall: crainial nerves 2 - 12 grossly intact 04/26/2015 None Full Exam - General 1994 Psychiatric mood and affect Overall: normal mood and affect 04/26/2015 None Full Exam - General 1994 Constitutional general appearance Overall: well developed 03/29/2015 None Full Exam - General 1994 Constitutional general appearance Overall: in no acute distress 03/29/2015 None Full Exam - General 1994 Constitutional general appearance Overall: well nourished 03/29/2015 None Full Exam - General 1994 Respiratory auscultation Overall: breath sounds clear bilaterally 03/29/2015 None Full Exam - General 1994 Respiratory respiratory effort/rhythm Overall: no retractions 03/29/2015 None Full Exam - General 1994 Respiratory respiratory effort/rhythm Overall: normal rate 03/29/2015 None Full Exam - General 1994 Cardiovascular auscultation of heart Overall: regular rate 03/29/2015 None Full Exam - General 1994 Cardiovascular auscultation of heart Overall: normal heart sounds 03/29/2015 None Full Exam - General 1994 Musculoskeletal lower extremity Palpation - knee: no effusion 03/29/2015 None Full Exam - General 1994 Musculoskeletal lower extremity Inspection - lower leg: normal appearance 03/29/2015 None Full Exam - General 1994 Musculoskeletal lower extremity Palpation - lower leg: normal on palpation 03/29/2015 None Full Exam - General 1994 Musculoskeletal gait and station Overall: normal gait 03/29/2015 None Full Exam - General 1994 Musculoskeletal gait and station Overall: normal station 03/29/2015 None Full Exam - General 1994 Psychiatric orientation/consciousness Overall: oriented to person, place and time 03/29/2015 None Full Exam - General 1994 Musculoskeletal spine, ribs and pelvis Posture: kyphosis 03/29/2015 None Full Exam - General 1994 Musculoskeletal spine, ribs and pelvis Spine: tender @ cervical spine 03/29/2015 None Full Exam - General 1994 Constitutional general appearance Overall: well developed 01/19/2015 None Full Exam - General 1994 Constitutional general appearance Overall: in no acute distress 01/19/2015 None Full Exam - General 1994 Constitutional general appearance Overall: well nourished 01/19/2015 None Full Exam - General 1994 Psychiatric orientation/consciousness Overall: oriented to person, place and time 01/19/2015 None Full Exam - General 1994 Respiratory auscultation Overall: breath sounds clear bilaterally 01/19/2015 None Full Exam - General 1994 Respiratory respiratory effort/rhythm Overall: no retractions 01/19/2015 None Full Exam - General 1994 Respiratory respiratory effort/rhythm Overall: normal rate 01/19/2015 None Full Exam - General 1994 Cardiovascular auscultation of heart Overall: regular rate 01/19/2015 None Full Exam - General 1994 Cardiovascular auscultation of heart Overall: normal heart sounds 01/19/2015 None Full Exam - General 1994 Musculoskeletal spine, ribs and pelvis Overall: spine benign 01/19/2015 None Full Exam - General 1994 Musculoskeletal gait and station Overall: normal gait 01/19/2015 None Full Exam - General 1994 Musculoskeletal gait and station Overall: normal station 01/19/2015 None Full Exam - General 1994 Musculoskeletal lower extremity Palpation - knee: no effusion 01/19/2015 None Full Exam - General 1994 Musculoskeletal lower extremity Inspection - lower leg: normal appearance 01/19/2015 None Full Exam - General 1994 Musculoskeletal lower extremity Palpation - lower leg: normal on palpation 01/19/2015 None Full Exam - General 1994 Musculoskeletal lower extremity Palpation - lower leg: tenderness at the calcaneus 01/19/2015 None Full Exam - General 1994 Musculoskeletal lower extremity Inspection - foot: callus 01/19/2015 None Full Exam - General 1994 Constitutional general appearance Overall: in no acute distress 10/26/2014 None Full Exam - General 1994 Constitutional general appearance Overall: well developed 10/26/2014 None Full Exam - General 1994 Constitutional general appearance Overall: well nourished 10/26/2014 None Full Exam - General 1994 Psychiatric orientation/consciousness Overall: oriented to person, place and time 10/26/2014 None Full Exam - General 1994 Psychiatric mood and affect Mood: anxious 10/26/2014 tearful Full Exam - General 1994 Neurologic cranial nerves Overall: crainial nerves 2 - 12 grossly intact 10/26/2014 None Full Exam - General 1994 Integument inspection of skin Overall: no rash, lesions 10/26/2014 None Full Exam - General 1994 Musculoskeletal gait and station Overall: normal station 10/26/2014 None Full Exam - General 1994 Musculoskeletal gait and station Overall: normal gait 10/26/2014 None Full Exam - General 1994 Lymphatic neck nodes Overall: anterior cervical chain benign 10/26/2014 None Full Exam - General 1994 Lymphatic neck nodes Overall: posterior cervical chain benign 10/26/2014 None Full Exam - General 1994 Abdomen abdominal exam Overall: no tenderness 10/26/2014 None Full Exam - General 1994 Abdomen abdominal exam Overall: normal bowel sounds 10/26/2014 None Full Exam - General 1994 Cardiovascular auscultation of heart Overall: regular rate 10/26/2014 None Full Exam - General 1994 Cardiovascular auscultation of heart Overall: normal heart sounds 10/26/2014 None Full Exam - General 1994 Cardiovascular auscultation of heart Overall: no murmurs 10/26/2014 None Full Exam - General 1994 Cardiovascular extremities Overall: no clubbing 10/26/2014 None Full Exam - General 1994 Respiratory auscultation Overall: breath sounds clear bilaterally 10/26/2014 None Full Exam - General 1994 Respiratory respiratory effort/rhythm Overall: normal rate 10/26/2014 None Full Exam - General 1994 Respiratory respiratory effort/rhythm Overall: no retractions 10/26/2014 None Full Exam - General 1994 Ears/Nose/Throat otoscopic exam Overall: external auditory canals clear 10/26/2014 None Full Exam - General 1994 Ears/Nose/Throat otoscopic exam Overall: tympanic membranes clear 10/26/2014 None Full Exam - General 1994 Ears/Nose/Throat oral cavity/pharynx/larynx Overall: oral mucosa clear 10/26/2014 None Full Exam - General 1994 Eyes conjunctiva /eyelids Overall: conjunctiva clear 10/26/2014 None Full Exam - General 1994 Eyes pupils and irises Overall: pupils equal, round, reactive to light and accomodation 10/26/2014 None Procedures Procedure Codes Date FLU VAC NO PRSV 4 SAMANTHA 3 YRS+ CPT-4: 08913 03/11/2017 ADMIN INFLUENZA VIRUS VAC CPT-4: G0008 03/11/2017 TRIAMCINOLONE ACET INJ NOS CPT-4: J3301 10/23/2015 THER/PROPH/DIAG INJ SC/IM CPT-4: 42765 10/23/2015 Vital Signs Date Vital 03/11/2017 Blood Pressure 1: 110/66 Code : 8480-6 BMI: 25.7 Code : 16933-2 Heart Rate 1 : 81 bpm Height: 5'3" SpO2: 97% Weight: 145 lbs 11/10/2016 Blood Pressure 1: 124/70 Code : 8480-6 BMI: 25.2 Code : 73766-0 Heart Rate 1 : 87 bpm Height: 5'3" SpO2: 97% Weight: 142 lbs 05/27/2016 Blood Pressure 1: 160/94 Code : 8480-6 Blood Pressure 1: 136/74 Code: 8480-6 BMI: 25.5 Code: 72884-8 Heart Rate 1: 80 bpm Height: 5'3" SpO2: 98% Weight: 144 lbs 04/23/2016 Blood Pressure 1: 122/78 Code : 8480-6 BMI: 25.9 Code : 22567-4 Heart Rate 1 : 107 bpm Height: 5'3" SpO2: 98% Weight: 146 lbs 04/18/2016 Height: Weight: 03/26/2016 Blood Pressure 1: 112/68 Code : 8480-6 BMI: 26.7 Code : 10793-5 Heart Rate 1 : 62 bpm Height: 5'3" SpO2: 94% Weight: 151 lbs 03/19/2016 Blood Pressure 1: 120/64 Code : 8480-6 BMI: 26.7 Code : 34155-8 Heart Rate 1 : 77 bpm Height: 5'3" SpO2: 97% Temperature: 36.7 (C) / 98.1 (F) Weight: 151 lbs 01/23/2016 Blood Pressure 1: 118/80 Code : 8480-6 BMI: 27.8 Code : 18359-1 Heart Rate 1 : 80 bpm Height: 5'3" SpO2: 98% Weight: 157 lbs 11/22/2015 Blood Pressure 1: 180/106 Code: 8480-6 BMI: 27.1 Code: 69913-0 Heart Rate 1: 98 bpm Height: 5'3" SpO2: 98% Weight: 153 lbs 10/23/2015 Blood Pressure 1: 132/88 Code : 8480-6 BMI: 31.0 Code : 96600-6 Heart Rate 1 : 75 bpm Height: 5' SpO2: 97% Weight: 158 lbs 8 oz 07/23/2015 Blood Pressure 1: 136/80 Code : 8480-6 BMI: 32.1 Code : 17053-6 Heart Rate 1 : 78 bpm Height: 5' SpO2: 97% Weight: 164 lbs 8 oz 06/15/2015 Blood Pressure 1: 142/94 Code : 8480-6 BMI: 32.4 Code : 58120-9 Heart Rate 1 : 100 bpm Height: 5' SpO2: 98% Weight: 166 lbs 04/26/2015 Blood Pressure 1: 120/80 Code : 8480-6 BMI: 34.2 Code : 84878-7 Heart Rate 1 : 68 bpm Height: 5' SpO2: 98% Weight: 175 lbs 03/29/2015 Blood Pressure 1: 138/70 Code : 8480-6 BMI: 34.4 Code : 77196-3 Heart Rate 1 : 61 bpm Height: 5' SpO2: 97% Weight: 176 lbs 01/19/2015 Blood Pressure 1: 122/82 Code : 8480-6 BMI: 34.6 Code : 85684-3 Heart Rate 1 : 62 bpm Height: 5' SpO2: 96% Weight: 177 lbs 10/26/2014 Blood Pressure 1: 132/88 Code : 8480-6 BMI: 32.1 Code : 32888-9 Heart Rate 1 : 68 bpm Height: 5'3" SpO2: 97% Weight: 181 lbs Functional Status No Functional Status data History of Present Illness Symptom Name Status Result Effective Date Notes back pain Location thoracic spine 03/11/2017 None back pain Location Cervical spine 03/11/2017 as the day goes on back pain Onset and Resolution ongoing 03/11/2017 None back pain Onset of Symptom years ago 03/11/2017 None back pain Limitation on Activities moderately limits activities 03/11/2017 None back pain Severity severe 03/11/2017 None back pain Pertinent Findings extremity numbness 03/11/2017 None back pain Pertinent Findings extremity weakness 03/11/2017 None back pain Pertinent Findings sleep disturbance 03/11/2017 None back pain Pertinent Findings weakness 03/11/2017 None hypertension Onset and Resolution ongoing 03/11/2017 None hypertension Onset of Symptom during adulthood 03/11/2017 None hypertension Alleviating Factors medication 03/11/2017 None hypertension Pertinent Findings Denies dizziness 03/11/2017 None hypertension Pertinent Findings Denies dyspnea 03/11/2017 None hypertension Pertinent Findings edema 03/11/2017 if she eats salty foods hypertension Quality primary hypertension 03/11/2017 None hypertension Blood Pressure Values not checking blood pressure at home 03/11/2017 None back pain Quality constant 03/11/2017 None hypertension Quality stable 03/11/2017 None back pain Location thoracic spine 11/10/2016 None back pain Location Cervical spine 11/10/2016 None back pain Quality intermittent 11/10/2016 None back pain Onset and Resolution ongoing 11/10/2016 None back pain Onset of Symptom years ago 11/10/2016 None back pain Limitation on Activities moderately limits activities 11/10/2016 None back pain Triggers no known associated factors 11/10/2016 None back pain Severity severe 11/10/2016 None back pain Pertinent Findings extremity numbness 11/10/2016 None back pain Pertinent Findings extremity weakness 11/10/2016 None back pain Pertinent Findings sleep disturbance 11/10/2016 None back pain Pertinent Findings weakness 11/10/2016 None hypertension Onset and Resolution ongoing 11/10/2016 None hypertension Onset of Symptom during adulthood 11/10/2016 None hypertension Blood Pressure Values patient checking blood pressure at home - did not bring in readings 11/10/2016 None hypertension Alleviating Factors medication 11/10/2016 None hypertension Pertinent Findings dizziness 11/10/2016 intermittently hypertension Pertinent Findings Denies dyspnea 11/10/2016 None hypertension Pertinent Findings Denies edema 11/10/2016 None medication follow up Location oral intake 05/27/2016 None medication follow up Additional Comments medication use 05/27/2016 None back pain Location thoracic spine 04/23/2016 None back pain Location Cervical spine 04/23/2016 None back pain Quality intermittent 04/23/2016 None back pain Onset and Resolution ongoing 04/23/2016 None back pain Onset of Symptom years ago 04/23/2016 None back pain Limitation on Activities moderately limits activities 04/23/2016 None back pain Triggers no known associated factors 04/23/2016 None back pain Severity severe 04/23/2016 None back pain Pertinent Findings extremity numbness 04/23/2016 None back pain Pertinent Findings extremity weakness 04/23/2016 None back pain Pertinent Findings sleep disturbance 04/23/2016 None back pain Pertinent Findings weakness 04/23/2016 None hypertension Onset and Resolution ongoing 04/23/2016 None hypertension Onset of Symptom during adulthood 04/23/2016 None hypertension Alleviating Factors medication 04/23/2016 None hypertension Pertinent Findings dizziness 04/23/2016 intermittently hypertension Pertinent Findings Denies dyspnea 04/23/2016 None hypertension Blood Pressure Values patient checking blood pressure at home - did not bring in readings 04/23/2016 None hypertension Pertinent Findings Denies edema 04/23/2016 None Hospital Follow Up Quality acute 04/23/2016 None anxiety Quality acute 04/18/2016 None anxiety Quality agitation 04/18/2016 None anxiety Quality worsening 04/18/2016 None anxiety Onset and Resolution sudden in onset 04/18/2016 None anxiety Limitation on Activities is incapacitating 04/18/2016 None anxiety Exacerbating Factors medication 04/18/2016 None Hospital Follow Up _ pneumonia 03/26/2016 None Hospital Follow Up Frequency of Episodes 1 weeks 03/26/2016 None Hospital Follow Up Alleviating Factors rest 03/26/2016 None Hospital Follow Up Alleviating Factors medication 03/26/2016 None Hospital Follow Up Pertinent Findings Denies fever 03/26/2016 None chest pain/pressure Location stabbing 03/19/2016 None chest pain/pressure Location on the left side of on the chest 03/19/2016 None chest pain/pressure Quality aching 03/19/2016 None chest pain/pressure Quality constant 03/19/2016 None chest pain/pressure Onset and Resolution sudden in onset 03/19/2016 None chest pain/pressure Onset of Symptom 5 days ago 03/19/2016 None cough Location in the throat 03/19/2016 None cough Quality dry None cough Quality constant 03/19/2016 None cough Onset and Resolution sudden in onset 03/19/2016 None cough Onset of Symptom 5 days ago 03/19/2016 None hypertension Quality constant 01/23/2016 None hypertension Onset and Resolution ongoing 01/23/2016 None hypertension Blood Pressure Values patient checking blood pressure at home - did not bring in readings 01/23/2016 None hypertension Pertinent Findings Denies dizziness 01/23/2016 None hypertension Pertinent Findings Denies dyspnea 01/23/2016 None hypertension Pertinent Findings Denies edema 01/23/2016 None Hospital Follow Up _ Other: hypertention 11/22/2015 None Hospital Follow Up Quality chronic illness 11/22/2015 None hypertension Quality constant 11/22/2015 None hypertension Onset and Resolution ongoing 11/22/2015 None back pain Location thoracic spine 10/23/2015 None back pain Location Cervical spine 10/23/2015 None back pain Onset and Resolution ongoing 10/23/2015 None back pain Onset of Symptom years ago 10/23/2015 None back pain Limitation on Activities moderately limits activities 10/23/2015 None back pain Triggers no known associated factors 10/23/2015 None back pain Severity severe 10/23/2015 None back pain Pertinent Findings extremity numbness 10/23/2015 None back pain Pertinent Findings extremity weakness 10/23/2015 None back pain Pertinent Findings sleep disturbance 10/23/2015 None back pain Pertinent Findings weakness 10/23/2015 None hypertension Onset and Resolution ongoing 10/23/2015 None hypertension Onset of Symptom during adulthood 10/23/2015 None hypertension Blood Pressure Values not checking blood pressure at home 10/23/2015 None hypertension Pertinent Findings Denies dizziness 10/23/2015 None hypertension Pertinent Findings Denies dyspnea 10/23/2015 None back pain Quality intermittent 10/23/2015 None back pain Frequency of Episodes decreasing 10/23/2015 None hypertension Alleviating Factors medication 10/23/2015 None rash Location-Major in a generalized area 10/23/2015 None rash Location-Major on the upper body 10/23/2015 None rash Location-Major on the lower body 10/23/2015 None rash Quality acute None rash Quality new 10/22 None rash Quality worsening 10/23/2015 None rash Quality pruritic 10/23/2015 None rash Color erythematous 10/23/2015 None rash Onset and Resolution sudden in onset 10/23/2015 None rash Onset of Symptom 2.5 weeks ago 10/23/2015 None rash Triggers no known triggers 10/23/2015 None pelvic pain Location on both sides 07/23/2015 None pelvic pain Quality aching 07/23/2015 None pelvic pain Quality dull 07/23/2015 None pelvic pain Quality sharp 07/23/2015 None pelvic pain Onset and Resolution sudden in onset 07/23/2015 None pelvic pain Frequency of Episodes daily 07/23/2015 None pelvic pain Onset and Resolution resolved 07/23/2015 None pelvic pain Location on both sides 06/15/2015 None pelvic pain Quality dull 06/15/2015 None pelvic pain Quality aching 06/15/2015 None pelvic pain Quality sharp 06/15/2015 None pelvic pain Onset and Resolution sudden in onset 06/15/2015 None pelvic pain Onset of Symptom 1 weeks ago 06/15/2015 None pelvic pain Limitation on Activities moderately limits activities 06/15/2015 None pelvic pain Frequency of Episodes daily 06/15/2015 None pelvic pain Pertinent Findings bladder pain 06/15/2015 None pelvic pain Pertinent Findings back pain 06/15/2015 None back pain Location thoracic spine 04/26/2015 None back pain Quality constant 04/26/2015 None back pain Quality worsening 04/26/2015 None back pain Onset and Resolution ongoing 04/26/2015 None back pain Onset of Symptom _ months ago 04/26/2015 None back pain Onset of Symptom _ years ago 04/26/2015 None back pain Limitation on Activities moderately limits activities 04/26/2015 None back pain Frequency of Episodes increasing 04/26/2015 None back pain Triggers no known associated factors 04/26/2015 None back pain Pertinent Findings extremity numbness 04/26/2015 None back pain Pertinent Findings extremity weakness 04/26/2015 None back pain Pertinent Findings sleep disturbance 04/26/2015 None back pain Pertinent Findings weakness 04/26/2015 None back pain Radiating down the right arm 04/26/2015 None back pain Severity severe 04/26/2015 None back pain Location Cervical spine 04/26/2015 None back pain Location thoracic spine 03/29/2015 None back pain Quality worsening 03/29/2015 None back pain Quality constant 03/29/2015 None back pain Onset and Resolution ongoing 03/29/2015 None back pain Pertinent Findings extremity numbness 03/29/2015 None back pain Pertinent Findings extremity weakness 03/29/2015 None back pain Pertinent Findings sleep disturbance 03/29/2015 None back pain Pertinent Findings weakness 03/29/2015 None back pain Onset of Symptom _ months ago 03/29/2015 None back pain Onset of Symptom _ years ago 03/29/2015 None back pain Limitation on Activities moderately limits activities 03/29/2015 None back pain Frequency of Episodes increasing 03/29/2015 None back pain Triggers no known associated factors 03/29/2015 None back pain Radiating does not radiate 03/29/2015 None foot pain Location on the right 01/19/2015 None foot pain Quality tingling 01/19/2015 None foot pain Quality numbness 01/19/2015 None foot pain Quality sharp pain 01/19/2015 None foot pain Quality intermittent 01/19/2015 None foot pain Timing of Episodes in the morning 01/19/2015 None foot pain Frequency of Episodes daily 01/19/2015 None foot pain Onset of Symptom 2 months ago 01/19/2015 None foot pain Mechanism of injury unknown 01/19/2015 None foot pain Pertinent Findings tingling 01/19/2015 None foot pain Pertinent Findings limping 01/19/2015 None foot pain Pertinent Findings pain with movement 01/19/2015 None knee pain Location on the right 01/19/2015 None knee pain Quality dull pain 01/19/2015 None knee pain Quality tenderness 01/19/2015 None knee pain Quality throbbing 01/19/2015 None knee pain Pertinent Findings limping 01/19/2015 None knee pain Pertinent Findings tingling 01/19/2015 None seizure Quality multiple event 10/26/2014 last seizure in February around [facility]. Seizures started as a teenager-Freshman in highschool seizure Onset and Resolution ongoing 10/26/2014 None seizure Onset of Symptom _ years ago 10/26/2014 None seizure Frequency of Episodes unchanged 10/26/2014 None seizure Pertinent Findings anxiety 10/26/2014 None seizure Pertinent Findings dizziness 10/26/2014 occ seizure Pertinent Findings Denies dyspnea 10/26/2014 None anxiety Quality intermittent 10/26/2014 None anxiety Onset and Resolution ongoing 10/26/2014 None anxiety Frequency of Episodes weekly 10/26/2014 None anxiety Frequency of Episodes daily 10/26/2014 None anxiety Pertinent Findings Denies dyspnea 10/26/2014 None anxiety Pertinent Findings Denies insomnia 10/26/2014 None anxiety Pertinent Findings syncope 10/26/2014 only with seizures depression Quality intermittent 10/26/2014 None depression Onset and Resolution ongoing 10/26/2014 None depression Pertinent Findings anxiety 10/26/2014 None depression Pertinent Findings Denies self -harm 10/26/2014 None hypertension Quality constant 10/26/2014 None hypertension Onset and Resolution ongoing 10/26/2014 None hypertension Blood Pressure Values not checking blood pressure at home 10/26/2014 has a machine if needed hypertension Pertinent Findings anxiety 10/26/2014 None hypertension Pertinent Findings dizziness 10/26/2014 only occ hypertension Pertinent Findings Denies dyspnea 10/26/2014 None depression Onset of Symptom during adulthood 10/26/2014 None depression Limitation on Activities does not limit activities 10/26/2014 None depression Frequency of Episodes unchanged 10/26/2014 None depression Significant Medical Conditions anxiety disorder 10/26/2014 None depression Triggers no known associated factors 10/26/2014 None depression Alleviating Factors medication 10/26/2014 None anxiety Significant Family History anxiety disorder 10/26/2014 None anxiety Significant Family History depression 10/26/2014 None anxiety Triggers stress 10/26/2014 None anxiety Onset of Symptom during childhood 10/26/2014 None anxiety Alleviating Factors medication 10/26/2014 None seizure Significant Medical Conditions known seizure disorder 10/26/2014 None seizure Significant Medications antiepileptic medications 10/26/2014 dilantin seizure Triggers no known associated factors 10/26/2014 None seizure Alleviating Factors medication 10/26/2014 None Advance Directives No Advance Directive data Encounters Encounter Performer Location Codes Date [id number]) [id number] EST. 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 PATIENT, LEVEL IV Diagnosis: Essential (primary) hypertension[ICD10: I10] Diagnosis: Generalized anxiety disorder[ICD10: F41.1] Diagnosis: Low back pain[ICD10: M54.5] Diagnosis: Pain in thoracic spine[ICD10: M54.6] Diagnosis: Encounter for screening mammogram for malignant neoplasm of breast[ ICD10: Z12.31] Libby Gibson MD, [facility] CPT-4: 35134 11/10/2016 [id number]) [id number] EST. PATIENT, LEVEL III Diagnosis: Essential (primary) hypertension[ICD10: I10] Diagnosis: Generalized anxiety disorder[ICD10: F41.1] Libby Gibson MD, [facility] CPT-4: 89507 05/27/2016 [id number]) [id number] EST. 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 PATIENT, LEVEL IV Diagnosis: Generalized anxiety disorder[ICD10: F41.1] Diagnosis: Other depressive episodes[ICD10: F32.8] Diagnosis: Restlessness and agitation[ICD10: R45.1] [facility] CPT-4: 12314 04/18/2016 ([id number]) 04881 EST. PATIENT, LEVEL III Diagnosis: Localized swelling, mass and lump, trunk[ICD10: R22.2] Libby Gibson MD [facility] CPT-4: 28472 03/26/2016 50910 EST. PATIENT, LEVEL III Diagnosis: Pleurisy[ICD10: R09.1] Diagnosis: Cough[ICD10: R05] Rosario Gibson MD [facility] CPT-4: 22912 03/19/2016 ([id number]) 92868 EST. PATIENT, LEVEL IV Diagnosis: Essential (primary) hypertension[ICD10: I10] Diagnosis: Cervicalgia[ICD10: M54.2] Diagnosis: Radiculopathy, cervicothoracic region[ICD10: M54.13] Libby Gibson MD, [facility] CPT-4: 86505 01/23/2016 87466 EST. PATIENT, LEVEL III Diagnosis: Essential (primary) hypertension[ICD10: I10] Rosario Gibson MD [facility] CPT-4: 34411 11/22/2015 ([id number]) 10848 EST. PATIENT, LEVEL III Diagnosis: Essential (primary) hypertension[ICD10: I10] Libby Gibson MD, [facility] CPT-4: 71029 10/23/2015 ([id number]) 64075 EST. PATIENT, LEVEL IV Diagnosis: Essential (primary) hypertension[ICD10: I10] Diagnosis: Low back pain[ICD10: M54.5] Diagnosis: Other depressive episodes[ICD10: F32.8] Libby Gibson MD [facility] CPT-4: 46549 07/23/2015 ([id number]) 97350 EST. 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 PATIENT, LEVEL IV Diagnosis: Cervicalgia[ICD10: M54.2] Diagnosis: Radiculopathy, cervicothoracic region[ICD10: M54.13] Diagnosis: Pain in thoracic spine[ICD10: M54.6] Libby Gibson MD, [facility] CPT-4: 07387 04/26/2015 ([id number]) 99420 EST. PATIENT, LEVEL III Diagnosis: Cervicalgia[ICD10: M54.2] Diagnosis: Pain in thoracic spine[ICD10: M54.6] Diagnosis: Radiculopathy, cervicothoracic region[ICD10: M54.13] Diagnosis: Low back pain[ICD10: M54.5] Virginia Gibson MD, [facility] CPT-4: 39061 03/29/2015 ([id number] 95849 EST. PATIENT, LEVEL III Diagnosis: Plantar fasciitis of right foot[ICD9: 728.71] Diagnosis: Lumbar spine pain[ICD9: 724.2] Diagnosis: Right knee pain[ICD9: 719.46] Virginia Gibson MD, [facility] CPT-4: 69013 01/19/2015 ([id number]) OFFICE VISIT, NEW - LEVEL 4 Diagnosis: ESSENTIAL HYPERTENSION[ICD9: 401.9] Diagnosis: Seizure disorder[ICD9: 345.90] Diagnosis: Factor 5 Leiden mutation, heterozygous[ICD9: 289.81] Diagnosis: Anxiety[ICD9: 300.00] Diagnosis: Depression[ICD9: 311] Virginia Gibson MD, [facility] CPT-4: 06664 10/26/2014 Plan of Care Planned Activity Notes Codes Status Date Visit Plan: Hypertension - well controlled - continue with current medications, continue with no added salt diet. Pt has been encouraged to exercise daily. The pt has been advised to call the office if there are any acute concerns about change in blood pressure readings at home. Pain - chronic of low back - I have recommended a referral to Dr. Osorio - for injections. Refilled muscle relaxers. Chronic Depression and anxiety - the pt has symptoms of chronic anxiety and depression that have been fairly well controlled since the last office visit. The pt has expected periods of exacerbation with abatement of the symptoms with change in situational exposure. No change in current medications. flu shot today 03/11/2017 Appointment: Libby Gibson WPtel: [address] [place], [place] [id number] (15 min) Moderate 03/11/2017 Patient Education: Patient Medication Summary Completed 03/11/2017 Patient Education: Obesity Completed 03/11/2017 Care Plan: Referral Order SNOMED-CT : [id number] Pending 03/11/2017 Visit Plan: Hypertension - well controlled - continue with current medications, continue with no added salt diet. Pt has been encouraged to exercise daily. The pt has been advised to call the office if there are any acute concerns about change in blood pressure readings at home. Back pain, Thoracic back pain, - referral to [facility] - at [facility] - see if pt can get in to be seen for therapy on her upper and lower back. Chronic Depression and anxiety - the pt has symptoms of chronic anxiety and depression that have been fairly well controlled since the last office visit. The pt has expected periods of exacerbation with abatement of the symptoms with change in situational exposure. No change in current medications. 11/10/2016 Appointment: Libby Gibson [facility]Ptel[id number] (15 min) Moderate 11/10/2016 Patient Education: Patient Medication Summary Completed 11/10/2016 Patient Education: Obesity Completed 11/10/2016 Care Plan: [facility] [place] [facility] 78016-4 Pending 11/10/2016 Appointment: Libby Gibson WPtel: [id number] (30 min) Complex 10/07/2016 Visit Plan: Hypertension - well controlled - continue with current medications, continue with no added salt diet. Pt has been encouraged to exercise daily. The pt has been advised to call the office if there are any acute concerns about change in blood pressure readings at home. Seizure disorder - Depression and Anxiety - continue with current medications - symptoms are significantly improved per patient report 05/27/2016 Appointment: Libby Gibson WPtel: [id number] (30 min) Complex 05/27/2016 Patient Education: Patient Medication Summary Completed 05/27/2016 Patient Education: Obesity Completed 05/27/2016 Visit Plan: Hypertension - well controlled - continue with current medications, continue with no added salt diet. Pt has been encouraged to exercise daily. The pt has been advised to call the office if there are any acute concerns about change in blood pressure readings at home. Depression and anxiety - Valerie reports that her depression episode related to the keppra seems to be resolved - she feels much better on the Lamictal. I have discussed her case with the patient and her mom - she had previously seen a psychiatrist -but with a shortage of any local psychiatrists, I have recommended that she needs to be seen by a psychiatrist at [facility] and we are making a referral to outpatient psychiatry. They understand that it will probably be several months before we can get Valerie in to be seen. Hx of seizure disorder - I have also recommended that with her history of seizures we need for her to have a relationship with a neurologist - they are okay with staying in the area for a neurologist and would like to be seen in [place]. I have recommended Dr. New at [facility] for further evaluation and to establish care. They understand that it will most-likely be several months before she is seen by neurology. 04/23/2016 Appointment: Libby Gibson WPtel: [facility] (15 min) Moderate 04/23/2016 Patient Education: Patient Medication Summary Completed 04/23/2016 Patient Education: Obesity Completed 04/23/2016 Patient Education: Hypertension Completed 04/23/2016 Visit Plan: The pt had recently been in the hospital with an INR of over 10. Dr. Escobedo manages her coumadin. Dr. Escobedo switched her to eliquis, therefore her dilantin was changed to keppra due to medication interactions. Pt's mother called the clinic this morning stating that Valerie was very agitated, anxious, and restless - spoke with Dr. Gibson on the phone and pt was to stop the keppra and start trokendi 50mg daily. Pt and her mother picked up samples and spoke to the pharmacy who told her not to take the trokendi because she had metabolic acidosis reaction in the past to topamax. Per other staff report the pt and her mother came to the office and demanded to speak to a nurse and did not wait in the lobby for a nurse to take her to the back but came back to the nurses desk and asked the nurses if they knew who she was. Pt was then taken to a room for a walk in appointment. Upon entering the room the pt was very agitated and upset stating that everyone in this office is an "imbecile and an idiot who is trying to kill her." I explained to her that the topamax was listed as an "other reaction" and that I was very sorry that it was sent. The patient wanted to know why Dr. Gibson ordered that medication, which I explained that it was an alternative to the keppra. I told her that I had called Dr. Gibson on her cell phone and that she was not able to access her chart. The pt stated that "doctors can pull records up on their phones". The pt and her mother were also very upset that she had been released from the hospital after adjusting her medications instead of being monitored. The pt's mother stated that Dr. Gibson had asked the patient why she was depressed which made them both very upset. Valerie said that when Dr. Gibson asked her about her depression she wanted to "slap her in the face". The pt's mother wanted her to be admitted today. I explained that medically she was stable and did not need to be admitted. The pt was very upset stating that "it is obviously all about money". Pt stated that she should just "stop her medication and so her mother could alaina for medical malpractice". The pt stated that she would "go to the ER to get another doctor." The pt's mother stated that Valerie has not slept and has been getting increasingly agitated. They agreed to the new orders to start Lamictal per Dr. Gibson. 04/18/2016 Patient Education: Patient Medication Summary Completed 04/18/2016 Visit Plan: Abnormal CT scan - planning on repeat scan to see if area on previous scan was truly a mass or just an atypical pneumonia. Finish out antibiotics as previously directed. call if having trouble pt to have PT/INR continued to be monitored by Dr. Escobedo 03/26/2016 Appointment: Libby Gibson WPtel: [address] [place] [id number] (15 min) Moderate 03/26/2016 Patient Education: Patient Medication Summary Completed 03/26/2016 Patient Education: Obesity Completed 03/26/2016 Visit Plan: Chest pain, cough - lung sounds clear, but diminished, will check chest x-ray - will treat as indicated. Pt is to notify clinic if symptoms do not improve, if they worsen, or with any questions or concerns. 03/19/2016 Appointment: Virginia Aguilera WPtel: [address] [phone] (30 min) Complex 03/19/2016 Patient Education: Patient Medication Summary Completed 03/19/2016 Patient Education: Obesity Completed 03/19/2016 Visit Plan: Hypertension - well controlled - continue with current medications, continue with no added salt diet. Pt has been encouraged to exercise daily. The pt has been advised to call the office if there are any acute concerns about change in blood pressure readings at home. Chronic Pain Syndrome - pt has chronic pain - has been maintained on current medications, has not sought out other medications, only uses PRN pain medications as directed , and understands the consequences of over-medication. Chronic Depression and anxiety - the pt has symptoms of chronic anxiety and depression that have been fairly well controlled since the last office visit. The pt has expected periods of exacerbation with abatement of the symptoms with change in situational exposure. No change in current medications. 01/23/2016 Patient Education: Patient Medication Summary Completed 01/23/2016 Patient Education: Obesity Completed 01/23/2016 Patient Education: .Cervicalgia Neck Pain Completed 01/23/2016 Visit Plan: Hypertension - uncontrolled - the patient's medications have been modified as documented in the visit note. The patient has been counseled to cut back on salt in diet for a no added salt diet, low fat diet, start an exercise program with low weight bearing exercises and higher aerobic activity for heart health. The patient is to check blood pressure readings as an outpatient and either fax, call, or email the readings to the office next week for practitioner to review. The pt is to call for acute concerns. 11/22/2015 Appointment: Rosario De La Rosa [facility] [address] [id number] (30 min) Complex 11/22/2015 Patient Education: Patient Medication Summary Completed 11/22/2015 Patient Education: Obesity Completed 11/22/2015 Visit Plan: Hypertension - well controlled - continue with current medications, continue with no added salt diet. Pt has been encouraged to exercise daily. The pt has been advised to call the office if there are any acute concerns about change in blood pressure readings at home. Rash - RX for injection - kenalog shot 10/23/2015 Patient Education: Patient Medication Summary Completed 10/23/2015 Patient Education: Obesity Completed 10/23/2015 Visit Plan: Hypertension - well controlled - continue with current medications, continue with no added salt diet. Pt has been encouraged to exercise daily. The pt has been advised to call the office if there are any acute concerns about change in blood pressure readings at home. Chronic Depression and anxiety - the pt has symptoms of chronic anxiety and depression that have been fairly well controlled since the last office visit. The pt has expected periods of exacerbation with abatement of the symptoms with change in situational exposure. No change in current medications. Chronic Pain Syndrome - pt has chronic pain - has been maintained on current medications, has not sought out other medications, only uses PRN pain medications as directed, and understands the consequences of over-medication. 07/23/2015 Patient Education: Patient Medication Summary Completed 07/23/2015 Patient Education: Hypertension Completed 07/23/2015 Visit Plan: Abdominal pain-mild and improved-likely due to constipation-check labs today-cld advance to bland as tolerated-ER over the weekend if pain worsens-continue adequate fluids Urinary Tract Infection- discussed natural and expected course of this diagnosis and to alert me if symptoms do not follow expected course, or if any worse. UA positive for infection today in the office-plan to send for culture and will call patient with results. RX sent to patient's pharmacy. Avoid tub baths, restrictive underwear, etc. Recommend patient start on probiotic while taking the antibiotic to prevent diarrhea. Patient verbalized understanding of plan. Chronic Anticoagulant use - Pt has been counseled about the anticoagulant, need for serial monitoring, and need for the pt to alert the physician as to any new bruising, or acute bleeding. Therapeutic goal for INR is between 2.0 and 3.5. 06/15/2015 Appointment: (15 min) Moderate 06/15/2015 Patient Education: Patient Medication Summary Completed 06/15/2015 Referral: External, Ordering Provider Referral Completed 05/22/2015 Visit Plan: Chronic Back pain - the patient was counseled to always first attempt to use modalities other than pain medication for alleviation of the muscle spasms and pain. The patient was also encouraged to continue with back exercises as previously directed. Pt is to use pain medication as directed. If pain medications are used inappropriately or early refills are requested, the patient understands that is a breech of trust/ contract and could result in the patient's termination from this medical practice. Referral to physical therapy/manipulation of her neck/upper back. 04/26/2015 Appointment: Libby Gibson WPtel: [address] [place], [place] [id number] (15 min) Moderate 04/26/2015 Patient Education: Patient Medication Summary Completed 04/26/2015 Patient Education: .Cervicalgia Neck Pain Completed 04/26/2015 Care Plan: Referral Order SNOMED-CT : [id number] Ordered 04/26/2015 Visit Plan: Cervical, thoracic, and lumbar back pain- worsening-numbness and tingling down right arm-will xray cervical and thoracic spine-plan for MRI of cervical, thoracic and lumbar spine if indicated and refer to technical applications specialist-patient wants to see Dr Hirsch if referred. 03/29/2015 Patient Education: Patient Medication Summary Completed 03/29/2015 Patient Education: .Cervicalgia Neck Pain Completed 03/29/2015 Visit Plan: Plantar fasciitis- pt was educated that this is an inflammatory process, need to stretch the foot and reduce inflammation by using a frozen bottle of water or a tennis ball on the bottom of the foot at least three times a day until the pain is improved. Right knee pain-low back pain-xray low back and knee to evaluate for acute abnormality-samples of pennsaid provided and instructed on use-consider referral for PT or MRI lumbar spine if symptoms do not improve- 01/19/2015 Appointment: (30 min) Complex 01/19/2015 Patient Education: Patient Medication Summary Completed 01/19/2015 Visit Plan: Hypertension - well controlled - continue with current medications, continue with no added salt diet. Pt has been encouraged to exercise daily. The pt has been advised to call the office if there are any acute concerns about change in blood pressure readings at home. History of seizures-check dilantin level Factor V Leiden-on coumadin-managed by Dr Esocbedo Chronic Depression and anxiety - the pt has symptoms of chronic anxiety and depression that have been fairly well controlled since the last office visit. The pt has expected periods of exacerbation with abatement of the symptoms with change in situational exposure. No change in current medications. 10/26/2014 Visit Plan: Hypertension - well controlled - continue with current medications, continue with no added salt diet. Pt has been encouraged to exercise daily. The pt has been advised to call the office if there are any acute concerns about change in blood pressure readings at home. History of seizures-check dilantin level Factor V Leiden-on coumadin-managed by Dr Escobedo Chronic Depression and anxiety - the pt has symptoms of chronic anxiety and depression that have been fairly well controlled since the last office visit. The pt has expected periods of exacerbation with abatement of the symptoms with change in situational exposure. No change in current medications. 10/26/2014 Appointment: (S) New Patient 10/26/2014 Patient Education: Patient Medication Summary Completed 10/26/2014 Patient Education: Hypertension Completed 10/26/2014 Care Plan: COMPLETE CBC AUTOMATED LOINC : 88742-5 Ordered 10/26/2014 Referral: [facility] Referral info faxed. They will call the patient to set up date/time. Completed Referral: External, Ordering Provider Referral Appointment Requested Referral: [facility] Referral Appointment Requested Instructions Comment talk to Dr. Miller about an endometrial ablation - . Hypertension - well controlled - continue with current medications, continue with no added salt diet. Pt has been encouraged to exercise daily. The pt has been advised to call the office if there are any acute concerns about change in blood pressure readings at home. Chronic Pain Syndrome - pt has chronic pain - has been maintained on current medications, has not sought out other medications, only uses PRN pain medications as directed, and understands the consequences of over-medication. Chronic Depression and anxiety - the pt has symptoms of chronic anxiety and depression that have been fairly well controlled since the last office visit. The pt has expected periods of exacerbation with abatement of the symptoms with change in situational exposure. No change in current medications. . Hypertension - well controlled - continue with current medications, continue with no added salt diet. Pt has been encouraged to exercise daily. The pt has been advised to call the office if there are any acute concerns about change in blood pressure readings at home. Depression and anxiety - Valerie reports that her depression episode related to the keppra seems to be resolved - she feels much better on the Lamictal. I have discussed her case with the patient and her mom - she had previously seen a psychiatrist -but with a shortage of any local psychiatrists, I have recommended that she needs to be seen by a psychiatrist at [facility] and we are making a referral to outpatient psychiatry. They understand that it will probably be several months before we can get Valerie in to be seen. Hx of seizure disorder - I have also recommended that with her history of seizures we need for her to have a relationship with a neurologist - they are okay with staying in the area for a neurologist and would like to be seen in [place]. I have recommended Dr. New at [facility] for further evaluation and to establish care. They understand that it will most-likely be several months before she is seen by neurology. . Hypertension - uncontrolled - the patient's medications have been modified as documented in the visit note. The patient has been counseled to cut back on salt in diet for a no added salt diet, low fat diet, start an exercise program with low weight bearing exercises and higher aerobic activity for heart health. The patient is to check blood pressure readings as an outpatient and either fax , call, or email the readings to the office next week for practitioner to review. The pt is to call for acute concerns. . Hypertension - well controlled - continue with current medications, continue with no added salt diet. Pt has been encouraged to exercise daily. The pt has been advised to call the office if there are any acute concerns about change in blood pressure readings at home. Back pain, Thoracic back pain, - referral to [facility] - at [facility] - see if pt can get in to be seen for therapy on her upper and lower back. Chronic Depression and anxiety - the pt has symptoms of chronic anxiety and depression that have been fairly well controlled since the last office visit. The pt has expected periods of exacerbation with abatement of the symptoms with change in situational exposure. No change in current medications. XRAY RIGHT KNEE AND FOOT, LUMBAR SPINE . Plantar fasciitis- pt was educated that this is an inflammatory process, need to stretch the foot and reduce inflammation by using a frozen bottle of water or a tennis ball on the bottom of the foot at least three times a day until the pain is improved. Right knee pain-low back pain-xray low back and knee to evaluate for acute abnormality-samples of pennsaid provided and instructed on use-consider referral for PT or MRI lumbar spine if symptoms do not improve- . Chronic Back pain - the patient was counseled to always first attempt to use modalities other than pain medication for alleviation of the muscle spasms and pain. The patient was also encouraged to continue with back exercises as previously directed. Pt is to use pain medication as directed. If pain medications are used inappropriately or early refills are requested, the patient understands that is a breech of trust/contract and could result in the patient's termination from this medical practice. Referral to physical therapy/manipulation of her neck/upper back. . Abdominal pain-mild and improved-likely due to constipation-check labs today-cld advance to bland as tolerated-ER over the weekend if pain worsens-continue adequate fluids Urinary Tract Infection-discussed natural and expected course of this diagnosis and to alert me if symptoms do not follow expected course, or if any worse. UA positive for infection today in the office-plan to send for culture and will call patient with results. RX sent to patient's pharmacy. Avoid tub baths, restrictive underwear, etc. Recommend patient start on probiotic while taking the antibiotic to prevent diarrhea. Patient verbalized understanding of plan. Chronic Anticoagulant use - Pt has been counseled about the anticoagulant, need for serial monitoring, and need for the pt to alert the physician as to any new bruising, or acute bleeding. Therapeutic goal for INR is between 2.0 and 3.5. . Hypertension - well controlled - continue with current medications, continue with no added salt diet. Pt has been encouraged to exercise daily. The pt has been advised to call the office if there are any acute concerns about change in blood pressure readings at home. Chronic Depression and anxiety - the pt has symptoms of chronic anxiety and depression that have been fairly well controlled since the last office visit. The pt has expected periods of exacerbation with abatement of the symptoms with change in situational exposure. No change in current medications. Chronic Pain Syndrome - pt has chronic pain - has been maintained on current medications, has not sought out other medications, only uses PRN pain medications as directed, and understands the consequences of over-medication. . Cervical, thoracic, and lumbar back pain-worsening- numbness and tingling down right arm-will xray cervical and thoracic spine-plan for MRI of cervical, thoracic and lumbar spine if indicated and refer to technical applications specialist-patient wants to see Dr Hirsch if referred. . Hypertension - well controlled - continue with current medications, continue with no added salt diet. Pt has been encouraged to exercise daily. The pt has been advised to call the office if there are any acute concerns about change in blood pressure readings at home. Seizure disorder - Depression and Anxiety - continue with current medications - symptoms are significantly improved per patient report . Hypertension - well controlled - continue with current medications, continue with no added salt diet. Pt has been encouraged to exercise daily. The pt has been advised to call the office if there are any acute concerns about change in blood pressure readings at home. Rash - RX for injection - kenalog shot . Hypertension - well controlled - continue with current medications, continue with no added salt diet. Pt has been encouraged to exercise daily. The pt has been advised to call the office if there are any acute concerns about change in blood pressure readings at home. Pain - chronic of low back - I have recommended a referral to Dr. Osorio - for injections. Refilled muscle relaxers. Chronic Depression and anxiety - the pt has symptoms of chronic anxiety and depression that have been fairly well controlled since the last office visit. The pt has expected periods of exacerbation with abatement of the symptoms with change in situational exposure. No change in current medications. flu shot today . Chest pain, cough - lung sounds clear, but diminished, will check chest x-ray - will treat as indicated. Pt is to notify clinic if symptoms do not improve, if they worsen, or with any questions or concerns. . The pt had recently been in the hospital with an INR of over 10. Dr. Ecsobedo manages her coumadin. Dr. Escobedo switched her to eliquis, therefore her dilantin was changed to keppra due to medication interactions. Pt 's mother called the clinic this morning stating that Valerie was very agitated, anxious, and restless - spoke with Dr. Gibson on the phone and pt was to stop the keppra and start trokendi 50mg daily. Pt and her mother picked up samples and spoke to the pharmacy who told her not to take the trokendi because she had metabolic acidosis reaction in the past to topamax. Per other staff report the pt and her mother came to the office and demanded to speak to a nurse and did not wait in the lobby for a nurse to take her to the back but came back to the nurses desk and asked the nurses if they knew who she was. Pt was then taken to a room for a walk in appointment. Upon entering the room the pt was very agitated and upset stating that everyone in this office is an "imbecile and an idiot who is trying to kill her." I explained to her that the topamax was listed as an "other reaction" and that I was very sorry that it was sent. The patient wanted to know why Dr. Gibson ordered that medication, which I explained that it was an alternative to the keppra. I told her that I had called Dr. Gibson on her cell phone and that she was not able to access her chart. The pt stated that "doctors can pull records up on their phones". The pt and her mother were also very upset that she had been released from the hospital after adjusting her medications instead of being monitored. The pt's mother stated that Dr. Gibson had asked the patient why she was depressed which made them both very upset. Valerie said that when Dr. Gibson asked her about her depression she wanted to "slap her in the face". The pt's mother wanted her to be admitted today. I explained that medically she was stable and did not need to be admitted. The pt was very upset stating that "it is obviously all about money". Pt stated that she should just "stop her medication and so her mother could alaina for medical malpractice". The pt stated that she would "go to the ER to get another doctor." The pt's mother stated that Valerie has not slept and has been getting increasingly agitated. They agreed to the new orders to start Lamictal per Dr. Gibson. . Abnormal CT scan - planning on repeat scan to see if area on previous scan was truly a mass or just an atypical pneumonia. Finish out antibiotics as previously directed. call if having trouble pt to have PT/INR continued to be monitored by Dr. Escobedo . Hypertension - well controlled - continue with current medications, continue with no added salt diet. Pt has been encouraged to exercise daily. The pt has been advised to call the office if there are any acute concerns about change in blood pressure readings at home. History of seizures-check dilantin level Factor V Leiden-on coumadin-managed by Dr Escobedo Chronic Depression and anxiety - the pt has symptoms of chronic anxiety and depression that have been fairly well controlled since the last office visit. The pt has expected periods of exacerbation with abatement of the symptoms with change in situational exposure. No change in current medications. . Hypertension - well controlled - continue with current medications, continue with no added salt diet. Pt has been encouraged to exercise daily. The pt has been advised to call the office if there are any acute concerns about change in blood pressure readings at home. History of seizures-check dilantin level Factor V Leiden-on coumadin-managed by Dr Escobedo Chronic Depression and anxiety - the pt has symptoms of chronic anxiety and depression that have been fairly well controlled since the last office visit. The pt has expected periods of exacerbation with abatement of the symptoms with change in situational exposure. No change in current medications.
--- OUTSIDE RECORDS SUMMARY | 2017-12-10 06:18 | XMS REPORT | CCD ---
Author Author Virginia Aguilera MD, [facility] Address [address] [place] [address] Phone Care Team Providers Care Cabana Attendant Name Role Phone PP Unavailable CCM Unavailable Summary Purpose Interface Exchange Insurance Providers Payer name Policy type / Coverage type Covered alliance party ID Effective Begin Date Effective End Date WPS Medicare Part B Medicare Part B [id number] Unknown Unknown [place] [employer] [facility] Medicare Part B [id number] Unknown Unknown Family history Mother Diagnosis Age At Onset kidney disease Unknown Depression Unknown Father Diagnosis Age At Onset Coronary Artery Disease Unknown Hyperlipidemia Unknown Bleeding disorders Unknown Hypertension Unknown Social History Social History Element Codes Description Effective Dates Marital status Unknown Single 10/26/2014 Number of children Unknown 0 10/26/[address]: 7999807 Former smoker 10/26/[address]: 492973483 Never drinks alcohol 10/26/2014 Allergies, Adverse Reactions, [...] : 599.71 ICD-10: R31.0 Active 06/14/2015 Unknown care home (current) use of antithrombotics/antiplatelets ICD-9: V58.63 ICD-10: [...] ICD-9 : 599.71 ICD-10: R31.0 06/14/2015 Active care home (current) use of antithrombotics/antiplatelets ICD-9: V58.63 ICD-10: [...] Start Date Stop Date Status Fill Instructions Percocet 5 mg-325 mg tablet RxNorm: 0829719 1-2 Tablet(s) PO Q6 as needed for back pain 06/15/2017 06/25/2017 Active Lexapro 20 mg tablet RxNorm: 233850 TAKE ONE TABLET BY MOUTH DAILY 06/11/2017 12/07/2017 Active Ativan 1 mg tablet RxNorm: 378812 1-2 Tablet(s) PO TID as needed 06/02/2017 06/21/2017 Active Percocet 5 mg-325 mg tablet RxNorm: 1346406 1-2 Tablet(s) PO Q6 as needed for back pain 05/13/2017 05/23/2017 Inactive Percocet 5 mg-325 mg tablet RxNorm: 4620838 1-2 Tablet(s) PO Q6 as needed for back pain 04/08/2017 04/18/2017 Inactive Percocet 5 mg-325 mg tablet RxNorm: 1179832 1-2 Tablet(s) PO Q6 as needed for back pain 02/24/2017 03/06/2017 Inactive Lexapro 20 mg tablet RxNorm: 630665 TAKE ONE TABLET BY MOUTH DAILY 02/16/2017 06/10/2017 Inactive Percocet 5 mg-325 mg tablet RxNorm: 2502857 1-2 Tablet(s) PO Q6 as needed for back pain 01/07/2017 01/14/2017 Inactive Percocet 5 mg-325 mg tablet RxNorm: 8832450 1-2 Tablet(s) PO Q6 as needed for back pain 11/26/2016 12/03/2016 Inactive famotidine 20 mg tablet RxNorm: 479859 1 Tablet(s) PO daily No Stop Date Active Percocet 5 mg-325 mg tablet RxNorm: 7061084 1 Tablet(s) PO Q6 as needed for back pain 11/03/2016 11/10/2016 Inactive Ativan 1 mg tablet RxNorm: 013688 1-2 Tablet(s) PO TID as needed 09/22/2016 09/30/2016 Inactive Percocet 5 mg-325 mg tablet RxNorm: 5895544 1 Tablet(s) PO Q6 as needed for back pain 09/22/2016 09/29/2016 Inactive Lexapro 20 mg tablet RxNorm: 803169 TAKE ONE TABLET BY MOUTH DAILY 09/12/2016 02/08/2017 Inactive Percocet 5 mg-325 mg tablet RxNorm: 3646720 1 Tablet(s) PO Q6 as needed for back pain 08/21/2016 09/21/2016 Inactive Percocet 5 mg-325 mg tablet RxNorm: 4280806 1 Tablet(s) PO Q6 as needed for pain 07/21/2016 07/28/2016 Inactive Ativan 1 mg tablet RxNorm: 403718 1-2 Tablet(s) PO TID 201609/21/2016 Inactive Lamictal 25 mg tablet RxNorm: 766402 1 Tablet(s) PO BID 201606/15/2016 Inactive Flonase Allergy Relief 50 mcg/actuation nasal spray, suspension RxNorm: 8101313 1 [place] NASAL BID 05/27/20162016 Inactive Lamictal XR 50 mg tablet,extended release RxNorm: 498705 TAKE ONE TABLET BY MOUTH TWICE A DAY 05/20/2016 05/26/2016 Inactive Lamictal XR 25 mg tablet,extended release RxNorm: 230451 1 Tablet(s) PO BID 04/23/2016 05/26/2016 Inactive Trokendi XR 50 mg capsule, extended release RxNorm: 0312713 1 Capsule(s) PO daily 04/18/2016 04/17/2016 Inactive Lamictal XR 50 mg tablet,extended release RxNorm: 251970 1 Tablet(s) PO daily 04/18/2016 04/22/2016 Inactive Trokendi XR 50 mg capsule, extended release RxNorm: 6699969 1 Capsule(s) PO daily 04/18/2016 04/18/2016 Inactive Lamictal XR 50 mg tablet,extended release RxNorm: 800594 1 Tablet(s) PO daily 04/18/2016 04/17/2016 Inactive Ativan 1 mg tablet RxNorm: 510351 1-2 Tablet(s) PO TID 201506/01/2017 Inactive Lexapro 20 mg tablet RxNorm: 847771 Tablet(s) TAKE ONE TABLET BY MOUTH DAILY 04/16/2016 09/11/2016 Inactive Diflucan 150 mg tablet RxNorm: 888842 1 Tablet(s) PO daily 11/201504/06/2016 Inactive Diflucan 150 mg tablet RxNorm: 193098 1 Tablet(s) PO daily 11/201503/30/2016 Inactive Zofran 4 mg tablet RxNorm: 257091 1 Tablet(s) PO TID as needed nausea 03/26/2016 04/24/2016 Inactive Percocet 5 mg-325 mg tablet RxNorm: 1925483 1 Tablet(s) PO Q6 as needed for pain 03/19/2016 07/20/2016 Inactive clonidine HCl 0.1 mg tablet RxNorm: 892800 1 Tablet(s) PO BID 01/23/2016 01/23/2016 Inactive Percocet 5 mg-325 mg tablet RxNorm: 7475888 1-2 Tablet(s) PO Q6 as needed for pain 12/13/2015 12/27/2015 Inactive clonidine HCl 0.1 mg tablet RxNorm: 778633 1 Tablet(s) PO BID 11/22/2015 12/21/2015 Inactive Lexapro 20 mg tablet RxNorm: 055773 TAKE ONE TABLET BY MOUTH DAILY 11/06/2015 04/03/2016 Inactive Kenalog 40 mg/mL suspension for injection RxNorm: 4821405 Milliliter(s) Inj 10/23/2015 10/23/2015 Inactive Dilantin Kapseal 100 mg capsule RxNorm: 516513 TAKE THREE CAPSULES BY MOUTH EVERY NIGHT AT BEDTIME 08/08/2015 04/17/2016 Inactive Keflex 500 mg capsule RxNorm: 879821 1 Capsule(s) PO TID 201506/21/2015 Inactive Lexapro 20 mg tablet RxNorm: 432614 TAKE ONE TABLET BY MOUTH DAILY 05/07/2015 11/02/2015 Inactive metoprolol tartrate 25 mg tablet RxNorm: 757842 1 Tablet(s) PO BID 04/26/2015 11/09/2016 Inactive warfarin 5 mg tablet RxNorm: 556537 m and w; all other days takes 7.5 Tablet(s) PO daily 04/26/2015 04/22/2016 Inactive tramadol 50 mg tablet RxNorm: 484199 1-2 Tablet(s) PO Q6 as needed 04/09/2015 03/25/2016 Inactive Soma 350 mg tablet RxNorm: 122280 1 Tablet(s) PO Q6 as needed 04/04/2015 No Stop Date Active Xanax 1 mg tablet RxNorm: 230169 Tablet(s) PO daily as needed 01/09/2015 11/09/2016 Inactive Lexapro 20 mg tablet RxNorm: 048977 1 Tablet(s) PO daily 201404/06/2015 Inactive Dilantin Kapseal 100 mg capsule RxNorm: 358191 3 Capsule(s) PO QHS 12/04/2014 06/01/2015 Inactive Eliquis 5 mg tablet RxNorm: 7571461 1 Tablet(s) PO BID No Start Date Active lisinopril 10 mg tablet RxNorm: 057780 1 Tablet(s) PO daily No Start Date Active folic acid 1 mg tablet RxNorm: 208414 1 Tablet(s) PO BID No Start Date Active Norvasc 5 mg tablet RxNorm: 240747 1 Tablet(s) PO QAM No Start Date Active Lamictal XR 100 mg tablet,extended release RxNorm: 412035 1 Tablet(s) PO QHS - Started by Dr. New No Start Date Active warfarin 5 mg tablet RxNorm: 651131 m-f all other days takes 7.2 Tablet(s) PO No Start Date 04/25/2015 Inactive lisinopril 20 mg tablet RxNorm: 056672 1 Tablet(s) PO daily No Start Date 03/10/2017 Inactive tramadol 50 mg tablet RxNorm: 101112 1-2 Tablet(s) PO Q6 as needed No Start Date 04/08/2015 Inactive Soma 350 mg tablet RxNorm: 651977 1 Tablet(s) PO as needed No Start Date 04/03/2015 Inactive famotidine 20 mg tablet RxNorm: 849945 1 Tablet(s) PO BID No Start Date 11/09/2016 Inactive aspirin, buffered 81 mg tablet RxNorm: 601091 1 Tablet(s) PO daily No Start Date 03/10/2017 Inactive Xanax 1 mg tablet RxNorm: 169182 Tablet(s) PO as needed No Start Date 01/08/2015 Inactive metoprolol tartrate 25 mg tablet RxNorm: 676184 1/2 in am a 1 in pm Tablet(s) PO BID No Start Date 04/25/2015 Inactive Dilantin Kapseal 100 mg capsule RxNorm: 744942 3 Capsule(s) PO daily No Start Date 12/03/2014 Inactive lovastatin 20 mg tablet RxNorm: 459586 1 Tablet(s) PO daily No Start Date 03/10/2017 Inactive Lexapro 20 mg tablet RxNorm: 043354 1 Tablet(s) PO daily No Start Date 12/07/2014 Inactive Percocet 5 mg-325 mg tablet RxNorm: 2763880 1 Tablet(s) PO Q6 as needed for back pain No Start Date 08/20/2016 Inactive Medication Administered Medication Codes Instructions Start Date Status Kenalog 40 mg/mL suspension for injection RxNorm: 0747160 Milliliter 10/23/2015 No longer Active Immunizations Vaccine [...] skin eruption ICD-10: R21 ICD-9: 782.1 10/23/2015 care home (current) use of antithrombotics/antiplatelets ICD -10: Z79.02 [...] 06/18/2015 Dilantin Ord7 DILANTIN 6.9 UG/ML 06/15/2015 Pt Cya4425 PT 26.0 seconds 06/15/2015 Pt Utg9137 INR 2.5 06/15/2015 Pt Unv6045 Low Intensity - 1.5-2.0 06/15/2015 Pt Lda4891 Mod intensity - 2.0-3.0 06/15/2015 Pt Gyx9100 Hi intensity - 3.0-4.0 06/15/2015 Cbc With Differential Ord2 WBC 8.06 K/ul 06/15/2015 Cbc With Differential Ord2 RBC 4.69 M/ul 06/15/2015 Cbc With Differential Ord2 HGB 15.6 g/dl 06/15/2015 Cbc With Differential Ord2 Neut% 58.7 % 06/15/2015 Cbc With Differential Ord2 HCT 44.2 % 06/15/2015 Cbc With Differential Ord2 MCV 94.2 fl 06/15/2015 Cbc With Differential Ord2 Lymph% 30.0 % 06/15/2015 Cbc With Differential Ord2 MCH 33.3 pg 06/15/2015 Cbc With Differential Ord2 Assumption% 7.8 % 06/15/2015 Cbc With Differential Ord2 [...] 2.42 K/ul 06/15/2015 Cbc With Differential Ord2 Assumption ABS# 0.6 K/ul 06/15/2015 Cbc With Differential Ord2 Eos ABS# 0.3 K/ul 06/15/2015 Cbc With Differential Ord2 Baso ABS# 0.0 K/ul 06/15/2015 Cbc With Differential Ord2 New Analyzer Notice Please note new ref ranges starting 06-06-2015 due to implemntation of new five part differential hematolgy analyzer. 06/15/2015 Comp Metabolic Hjx036 NA 136 mEq/L 06/15/2015 Comp Metabolic Snj663 K 4.1 mEq/L 06/15/2015 Comp Metabolic Vet565 CL 103 mEq/L 06/15/2015 Comp Metabolic Szk852 CO2 23.0 mEq/L 06/15/2015 Comp Metabolic Duz207 ANION GAP 14 06/15/2015 Comp Metabolic Why537 GLUCOSE 88 mg/dL 06/15/2015 Comp Metabolic Sby527 Creat 0.6 mg/dL 06/15/2015 Comp Metabolic Kuu060 eGFR 114 ml/min/1.73m2 06/15/2015 Comp Metabolic Osf063 BUN 10 mg/dL 06/15/2015 Comp Metabolic Jnu408 B/C Ratio 16.1 Ratio 06/15/2015 Comp Metabolic Qzh277 CALCIUM 8.7 mg/dL 06/15/2015 Comp Metabolic Pfb768 ALK PHOS 98 U/L 06/15/2015 Comp Metabolic Esm166 AST(SGOT) 20 U/L 06/15/2015 Comp Metabolic Ofq717 ALT(SGPT) 21 U/L 06/15/2015 Comp Metabolic Xgo752 BILI T 0.5 mg/dL 06/15/2015 Comp Metabolic Xrk452 ALBUMIN 4.1 g/dL 06/15/2015 Comp Metabolic Iuw011 TPRO 7.0 g/dL 06/15/2015 Comp Metabolic Drr906 GLOB 2.9 g/dL 06/15/2015 Comp Metabolic Bin632 A/G Ratio 1.4 Ratio 06/15/2015 Comp Metabolic Cuu302 Osmo 270 mOsmo 06/15/2015 Review of Systems [...] NO PRSV 4 SAMANTHA 3 YRS+ CPT-4: 05953 03/11/2017 ADMIN INFLUENZA VIRUS VAC CPT-4: G0008 03/11/2017 TRIAMCINOLONE ACET INJ NOS CPT-4: J3301 10/23/2015 THER/PROPH/DIAG INJ SC/IM CPT-4: 88616 10/23/2015 Vital Signs Date Vital 03/11/2017 Blood Pressure 1: 110/66 Code : 8480-6 BMI: 25.7 Code : 09017-2 Heart Rate 1 : 81 bpm Height: 5'3" SpO2: 97% Weight: 145 lbs 11/10/2016 Blood Pressure 1: 124/70 Code : 8480-6 BMI: 25.2 Code : 64527-9 Heart Rate 1 : 87 bpm Height: 5'3" SpO2: 97% Weight: 142 lbs 05/27/2016 Blood Pressure 1: 160/94 Code : 8480-6 Blood Pressure 1: 136/74 Code: 8480-6 BMI: 25.5 Code: 50948-1 Heart Rate 1: 80 bpm Height: 5'3" SpO2: 98% Weight: 144 lbs 04/23/2016 Blood Pressure 1: 122/78 Code : 8480-6 BMI: 25.9 Code : 39337-1 Heart Rate 1 : 107 bpm Height: 5'3" SpO2: 98% Weight: 146 lbs 04/18/2016 Height: Weight: 03/26/2016 Blood Pressure 1: 112/68 Code : 8480-6 BMI: 26.7 Code : 96771-1 Heart Rate 1 : 62 bpm Height: 5'3" SpO2: 94% Weight: 151 lbs 03/19/2016 Blood Pressure 1: 120/64 Code : 8480-6 BMI: 26.7 Code : 64925-1 Heart Rate 1 : 77 bpm Height: 5'3" SpO2: 97% Temperature: 36.7 (C) / 98.1 (F) Weight: 151 lbs 01/23/2016 Blood Pressure 1: 118/80 Code : 8480-6 BMI: 27.8 Code : 53061-7 Heart Rate 1 : 80 bpm Height: 5'3" SpO2: 98% Weight: 157 lbs 11/22/2015 Blood Pressure 1: 180/106 Code: 8480-6 BMI: 27.1 Code: 17223-2 Heart Rate 1: 98 bpm Height: 5'3" SpO2: 98% Weight: 153 lbs 10/23/2015 Blood Pressure 1: 132/88 Code : 8480-6 BMI: 31.0 Code : 74742-3 Heart Rate 1 : 75 bpm Height: 5' SpO2: 97% Weight: 158 lbs 8 oz 07/23/2015 Blood Pressure 1: 136/80 Code : 8480-6 BMI: 32.1 Code : 71609-2 Heart Rate 1 : 78 bpm Height: 5' SpO2: 97% Weight: 164 lbs 8 oz 06/15/2015 Blood Pressure 1: 142/94 Code : 8480-6 BMI: 32.4 Code : 81252-9 Heart Rate 1 : 100 bpm Height: 5' SpO2: 98% Weight: 166 lbs 04/26/2015 Blood Pressure 1: 120/80 Code : 8480-6 BMI: 34.2 Code : 86218-6 Heart Rate 1 : 68 bpm Height: 5' SpO2: 98% Weight: 175 lbs 03/29/2015 Blood Pressure 1: 138/70 Code : 8480-6 BMI: 34.4 Code : 12060-5 Heart Rate 1 : 61 bpm Height: 5' SpO2: 97% Weight: 176 lbs 01/19/2015 Blood Pressure 1: 122/82 Code : 8480-6 BMI: 34.6 Code : 20086-9 Heart Rate 1 : 62 bpm Height: 5' SpO2: 96% Weight: 177 lbs 10/26/2014 Blood Pressure 1: 132/88 Code : 8480-6 BMI: 32.1 Code : 15605-8 Heart Rate 1 : 68 bpm Height: [...] event 10/26/2014 last seizure in February around [facility]. 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 PATIENT, LEVEL IV Diagnosis: Essential (primary) hypertension[ICD10: I10] Diagnosis: Generalized anxiety disorder[ICD10: F41.1] Diagnosis: Low back pain[ICD10: M54.5] Diagnosis: Pain in thoracic spine[ICD10: M54.6] Diagnosis: Encounter for screening mammogram for malignant neoplasm of breast[ ICD10: Z12.31] Libby Gibson MD, [facility] CPT-4: 54116 11/10/2016 ([id number]) 12213 EST. PATIENT, LEVEL III Diagnosis: Essential (primary) hypertension[ICD10: I10] Diagnosis: Generalized anxiety disorder[ICD10: F41.1] Libby Gibson MD, [facility] CPT-4: 25603 05/27/2016 ([id number]) 31276 EST. 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 PATIENT, LEVEL IV Diagnosis: Generalized anxiety disorder[ICD10: F41.1] Diagnosis: Other depressive episodes[ICD10: F32.8] Diagnosis: Restlessness and agitation[ICD10: R45.1] Rosario Gibson MD [facility] CPT-4: 46692 04/18/2016 ([id number]) 39018 EST. PATIENT, LEVEL III Diagnosis: Localized swelling, mass and lump, trunk[ICD10: R22.2] Libby Gibson MD [facility] CPT-4: 11990 03/26/2016 60241 EST. PATIENT, LEVEL III Diagnosis: Pleurisy[ICD10: R09.1] Diagnosis: Cough[ICD10: R05] Rosario Gibson MD, [facility] CPT-4: 42653 03/19/2016 ([id number]) 46485 EST. PATIENT, LEVEL IV Diagnosis: Essential (primary) hypertension[ICD10: I10] Diagnosis: Cervicalgia[ICD10: M54.2] Diagnosis: Radiculopathy, cervicothoracic region[ICD10: M54.13] Libby Gibson MD, [facility] CPT-4: 91766 01/23/2016 41431 EST. PATIENT, LEVEL III Diagnosis: Essential (primary) hypertension[ICD10: I10] Rosario Gibson MD [facility] CPT-4: 90523 11/22/2015 ([id number]) 18141 EST. PATIENT, LEVEL III Diagnosis: Essential (primary) hypertension[ICD10: I10] Libby Gibson MD, [facility] CPT-4: 74509 10/23/2015 ([id number]) 96164 EST. PATIENT, LEVEL IV Diagnosis: Essential (primary) hypertension[ICD10: I10] Diagnosis: Low back pain[ICD10: M54.5] Diagnosis: Other depressive episodes[ICD10: F32.8] Libby Gibson MD [facility] CPT-4: 18508 07/23/2015 ([id number]) 67900 EST. PATIENT, LEVEL IV Diagnosis: Generalized abdominal pain[ICD10: R10.84] Diagnosis: Gross hematuria[ICD10: R31.0] Diagnosis: long term (current) use of antithrombotics/antiplatelets[ICD10: Z79.02] Diagnosis: Urinary tract infection, site not specified[ICD10: N39.0] Virginia Gibson MD , [facility] CPT-4: 78543 06/15/2015 ([id number]) 92022 EST. PATIENT, LEVEL IV Diagnosis: Cervicalgia[ICD10: M54.2] Diagnosis: Radiculopathy, cervicothoracic region[ICD10: M54.13] Diagnosis: Pain in thoracic spine[ICD10: M54.6] Libby Gibson MD, [facility] CPT-4: 62833 04/26/2015 ([id number]) 29315 EST. PATIENT, LEVEL III Diagnosis: Cervicalgia[ICD10: M54.2] Diagnosis: Pain in thoracic spine[ICD10: M54.6] Diagnosis: Radiculopathy, cervicothoracic region[ICD10: M54.13] Diagnosis: Low back pain[ICD10: M54.5] Virginia Gibson MD, [facility] CPT-4: 57156 03/29/2015 ([id number]) 65636 EST. PATIENT, LEVEL III Diagnosis: Plantar fasciitis of right foot[ICD9: 728.71] Diagnosis: Lumbar spine pain[ICD9: 724.2] Diagnosis: Right knee pain[ICD9: 719.46] Virginia Gibson MD, [facility] CPT-4: 24472 01/19/2015 ([id number]) OFFICE VISIT, NEW - LEVEL 4 Diagnosis: ESSENTIAL HYPERTENSION[ICD9: 401.9] Diagnosis: Seizure disorder[ICD9: 345.90] Diagnosis: Factor 5 Leiden mutation, heterozygous[ICD9: 289.81] Diagnosis: Anxiety[ICD9: 300.00] Diagnosis: Depression[ICD9: 311] Virginia Gibson MD, [facility] CPT-4: 88064 10/26/2014 Plan of Care Planned Activity Notes [...] shot today 03/11/2017 Appointment: Libby Gibson WPtel: [facility] (15 min) Moderate 03/11/2017 Patient Education: Patient Medication Summary Completed 03/11/2017 Patient Education: Obesity Completed 03/11/2017 Care Plan: Referral Order SNOMED-CT : 806751428 Pending 03/11/2017 Visit Plan: Hypertension - well controlled - continue with current medications, continue with no added salt diet. Pt has been encouraged to exercise daily. The pt has been advised to call the office if there are any acute concerns about change in blood pressure readings at home. Back pain, Thoracic back pain, - referral to [facility] - at [facility] - see if pt can get in [...] current medications. 11/10/2016 Appointment: Lib[facility] Gibson [facility]el[facility] (15 min) Moderate 11/10/2016 Patient Education: Patient Medication Summary Completed 11/10/2016 Patient Education: Obesity Completed 11/10/2016 Care Plan: SCREENINGMAMMOGRAPHYDIGITAL LOINC : 97737-7 Pending 11/10/2016 Appointment: Libby Gibson WPtel[facility] (30 min) Complex 10/07/2016 Visit Plan: Hypertension [...] patient report 05/27/2016 Appointment: Libby Gibson WPtel: [facility] (30 min) Complex 05/27/2016 Patient Education: Patient [...] to be seen by a psychiatrist at [facility] and we are making a referral to [...] and would like to be seen in [place]. I have recommended Dr. New at [facility] for further evaluation and to establish care. They understand that it will most-likely be several months before she is seen by neurology. 04/23/2016 Appointment: Libby Gibson WPtel: [address] [place], [place] [address] (15 min) Moderate 04/23/2016 Patient Education: Patient [...] Dr. Escobedo 03/26/2016 App[facility]ment: [facility] Gibson [facility]el[facility] [address] [facility] (15 min) Moderate 03/26/2016 Patient Education: Patient Medication Summary Completed 03/26/2016 Patient Education: Obesity Completed 03/26/2016 Visit Plan: Chest pain, cough - lung sounds clear, but diminished, will check chest x-ray - will treat as indicated. Pt is to notify clinic if symptoms do not improve, if they worsen, or with any questions or concerns. 03/19/2016 App[facility]ment[facility]il[facility] [address] [phone] [place] (30 min) Complex 03/19/2016 Patient Education: Patient [...] 11/22/2015 Appointment: Ros[facility] De La [facility] [address] [facility] [place] (30 min) Complex 11/22/2015 Patient Education: Patient [...] neck/upper back. 04/26/2015 Appointment: Libby Gibson WPtel: [address] [place] [address] (15 min) Moderate 04/26/2015 Patient Education: Patient Medication Summary Completed 04/26/2015 Patient Education: .Cervicalgia Neck Pain Completed 04/26/2015 Care Plan: Referral Order SNOMED-CT : [id number] Ordered 04/26/2015 Visit Plan: Cervical, thoracic, and lumbar back pain- worsening-numbness and tingling down right arm-will xray cervical and thoracic spine-plan for MRI of cervical, thoracic and lumbar spine if indicated and refer to it technical specialist-patient wants to see Dr Hirsch if [...] Care Plan: COMPLETE CBC AUTOMATED LOINC : 48499-9 Ordered 10/26/2014 Referral: [facility] Referral info faxed. They will call the patient to set up date/time. Completed Referral: External, Ordering Provider Referral Appointment Requested Referral: [facility] Referral Appointment Requested Instructions Comment talk to [...] to be seen by a psychiatrist at [facility] and we are making a referral to [...] and would like to be seen in [place]. I have recommended Dr. New at [facility] for further evaluation and to establish care. [...] pain, - referral to [facility] - [facility] - see if pt can [...] lumbar spine if indicated and refer to it technical specialist-patient wants to see Dr Hirsch if [...]
--- OUTSIDE RECORDS SUMMARY | 2017-12-10 06:26 | XMS REPORT | Continuity of Care Document ---
Author Author [facility] Address Unknown Phone Unavailable Allergies Active Description Code Type Severity Reaction Onset Reported/Identified Relationship to Patient Clinical Status Yes prochlorperazine [id number] Drug Allergy Severe TONGUE SWELLS 07/10/2006 Yes metoclopramide [id number] Drug Allergy Unknown N/A 01/29/2009 Yes Topamax Drug Allergy N/A N/A 10/31/2010 Yes Topamax Drug Allergy 10/31/2010 Yes Compazine Drug Allergy N/A N/A 06/20/2011 Yes Compazine Drug Allergy 06/20/2011 Yes Geodon Drug Allergy N/A N/A 10/04/2013 Yes topiramate [id number] Drug Allergy Unknown N/A 11/18/2015 Medications There is no data. Problems Date Dx Coded Attending Type Code Diagnosis Diagnosed By 04/23/1208 ADELAIDA BOOKER MD Ot M25.511 PAIN IN RIGHT SHOULDER 04/23/1208 ADELAIDA BOOKER MD Ot M25.611 STIFFNESS OF RIGHT SHOULDER, NOT ELSEWHE 04/23/1208 ADELAIDA BOOKER MD Ot M54.2 CERVICALGIA 04/23/1208 ADELAIDA BOOKER MD Ot M54.6 PAIN IN THORACIC SPINE 04/23/1622 ADELAIDA BOOKER MD Ot M25.512 PAIN IN LEFT SHOULDER 12/20/2007 AYSHA SAINI DO 296.30 MAJOR DEPRESSIVE AFFECTIVE DISORDER RECURRENT EPISODE UNSPECIFIED DEGREE 12/20/2007 AYSHA SAINI DO 300.00 AN ANXIETY UNSPEC 12/20/2007 AYSHA SAINI DO 296.30 MAJOR DEPRESSIVE AFFECTIVE DISORDER RECURRENT EPISODE UNSPECIFIED DEGREE 12/20/2007 AYSHA SAINI DO 300.00 AN ANXIETY UNSPEC 12/20/2007 KATYA NATHAN APRN 296.30 MAJOR DEPRESSIVE AFFECTIVE DISORDER RECURRENT EPISODE UNSPECIFIED DEGREE 12/20/2007 KATYA NATHAN APRN 300.00 AN ANXIETY UNSPEC 12/20/2007 JAC CORTES KATYA MCKEON 296.30 MAJOR DEPRESSIVE AFFECTIVE DISORDER RECURRENT EPISODE UNSPECIFIED DEGREE 12/20/2007 JAC CORTES KATYA MCKEON 300.00 AN ANXIETY UNSPEC 12/20/2007 ROBIN SAINI DO K 296.30 MAJOR DEPRESSIVE AFFECTIVE DISORDER RECURRENT EPISODE UNSPECIFIED DEGREE 12/20/2007 ROBIN SAINI DO K 300.00 AN ANXIETY UNSPEC 01/19/2008 AYSHA SAINI DO 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 01/19/2008 AYSHA SAINI DO 307.47 SI DYSSOMNIA NOS 01/19/2008 AYSHA SAINI DO 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 01/19/2008 AYSHA SAINI DO 307.47 SI DYSSOMNIA NOS 01/19/2008 JAC CORTES KATYA URIBEH 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 01/19/2008 JAC CORTES KATYA MCKEON 307.47 SI DYSSOMNIA NOS 01/19/2008 JAC CORTES KATYA MIKE 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 01/19/2008 JAC CORTES KATYA MCKEON 307.47 SI DYSSOMNIA NOS 01/19/2008 ROBIN SAINI DO 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 01/19/2008 ROBIN SAINI DO K 307.47 SI DYSSOMNIA NOS 03/21/2008 AYSHA SAINI DO V58.69 MEDICATION HIGH RISK 03/21/2008 AYSHA SAINI DO V58.69 MEDICATION HIGH RISK 03/21/2008 JAC CORTES KATYA MIKE V58.69 MEDICATION HIGH RISK 03/21/2008 JAC CORTES KATYA MIKE V58.69 MEDICATION HIGH RISK 03/21/2008 ROBIN SAINI DO V58.69 MEDICATION HIGH RISK 05/23/2008 AYSHA SAINI DO F 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 05/23/2008 AYSHA SAINI DO F 300.23 AN SOCIAL PHOBIA 05/23/2008 AYSHA SAINI DO F 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 05/23/2008 AYSHA SAINI DO F 300.23 AN SOCIAL PHOBIA 05/23/2008 KATYA NATHAN APRN 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 05/23/2008 NATHAN EPIDEMIOLOGY INTERNSHIPKATYA 300.23 AN SOCIAL PHOBIA 05/23/2008 NATHAN [employer]NSH[employer], KATYA MCKEON 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 05/23/2008 NATHAN [employer]NSH[employer], KATYA MCKEON 300.23 AN SOCIAL PHOBIA 05/23/2008 ROBIN SIANI DO 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 05/23/2008 ROBIN SAINI DO 300.23 AN SOCIAL PHOBIA 10/19/2008 AYSHA SAINI DO 300.4 MO DYSTHYMIC DISORDER 10/19/2008 AYSHA SAINI DO 300.4 MO DYSTHYMIC DISORDER 10/19/2008 NATHAN [employer]NSH[employer], KATYA MCKEON 300.4 MO DYSTHYMIC DISORDER 10/19/2008 NATHAN [employer]NSH[employer], KATYA MCKEON 300.4 MO DYSTHYMIC DISORDER 10/19/2008 ROBIN SAINI DO 300.4 MO DYSTHYMIC DISORDER 05/16/2009 AYSHA SAINI DO 301.6 PD DEPENDENT 05/16/2009 AYSHA SAINI DO 301.6 PD DEPENDENT 05/16/2009 NATHAN [employer], KATYA MCKEON 301.6 PD DEPENDENT 05/16/2009 NATHAN [employer]NS[employer], KATYA MCKEON 301.6 PD DEPENDENT 05/16/2009 ROBIN SAINI DO 301.6 PD DEPENDENT 08/21/2009 Ot V58.61 08/21/2009 Ot V58.69 08/21/2009 Ot V58.83 11/15/2009 AYSHA SAINI DO 296.32 MO DEPRESSIVE RECURRENT MODERATE 11/15/2009 AYSHA SAINI DO 296.32 MO DEPRESSIVE RECURRENT MODERATE 11/15/2009 NATHAN [employer]NSH[employer], KATYA MCKEON 296.32 MO DEPRESSIVE RECURRENT MODERATE 11/15/2009 NATHAN SOPHIA KATYA MCKEON 296.32 MO DEPRESSIVE RECURRENT MODERATE 11/15/2009 ROBIN SAINI DO 296.32 MO DEPRESSIVE RECURRENT MODERATE 02/11/2010 Ot V58.61 02/11/2010 Ot V58.83 05/06/2010 Ot 780.39 05/06/2010 Ot V58.61 05/06/2010 Ot V58.69 05/06/2010 Ot V71.4 05/13/2010 Ot 296.33 05/13/2010 Ot V58.61 05/13/2010 Ot V58.69 05/13/2010 Ot V58.83 09/22/2010 Ot 296.33 RECUR DEPR DISOR-SEVERE 09/22/2010 Ot V58.61 ANTICOAGULANTS,LT,CURRENT USE 09/22/2010 Ot V58.69 OTH MED,LT, CURRENT USE 09/22/2010 Ot V58.83 ENCOUNTER FOR THERAPEUTIC DRUG MONITORIN 10/30/2010 Ot 272.4 HYPERLIPIDEMIA NEC/NOS 10/30/2010 Ot 276.2 ACIDOSIS 10/30/2010 Ot 288.60 LEUKOCYTOSIS , UNSPECIFIED 10/30/2010 Ot 305.1 TOBACCO USE DISORDER 10/30/2010 Ot 311 DEPRESSIVE DISORDER NEC 10/30/2010 Ot 412 OLD MYOCARDIAL INFARCT 10/30/2010 Ot 414.00 CORON ATHEROSCLER NOS TYPE VESSEL, NATIV 10/30/2010 Ot 511.0 PLEURISY W/O EFFUS OR TB 10/30/2010 Ot 786.52 PAINFUL RESPIRATION 10/30/2010 Ot V58.61 ANTICOAGULANTS,LT,CURRENT USE 10/30/2010 Ot V58.69 OTH MED,LT, CURRENT USE 12/10/2010 Ot 300.4 DYSTHYMIC DISORDER 12/10/2010 Ot 305.1 TOBACCO USE DISORDER 12/10/2010 Ot 414.00 CORON ATHEROSCLER NOS TYPE VESSEL, NATIV 12/10/2010 Ot 786.09 RESPIRATORY ABNORM NEC 12/10/2010 Ot 786.59 CHEST PAIN NEC 12/10/2010 Ot V17.49 FAMILY HISTORY OF OTHER CARDIOVASCULAR D 12/10/2010 Ot V58.66 LONG-TERM ( CURRENT) USE OF ASPIRIN 12/10/2010 Ot V58.69 OTH MED,LT, CURRENT USE 01/08/2011 Ot 296.33 RECUR DEPR DISOR-SEVERE 01/08/2011 Ot V58.61 ANTICOAGULANTS,LT,CURRENT USE 01/08/2011 Ot V58.69 OTH MED,LT, CURRENT USE 01/08/2011 Ot V58.83 ENCOUNTER FOR THERAPEUTIC DRUG MONITORIN 03/14/2011 Ot 327.23 OBSTRUCTIVE SLEEP APNEA (ADULT) (PEDIATR 05/14/2011 Ot 296.33 RECUR DEPR DISOR-SEVERE 05/14/2011 Ot V58.61 ANTICOAGULANTS,LT,CURRENT USE 05/14/2011 Ot V58.69 OTH MED,LT, CURRENT USE 05/14/2011 Ot V58.83 ENCOUNTER FOR THERAPEUTIC DRUG MONITORIN 10/27/2011 Ot 296.33 RECUR DEPR DISOR-SEVERE 10/27/2011 Ot V58.61 ANTICOAGULANTS,LT,CURRENT USE 10/27/2011 Ot V58.69 OTH MED,LT, CURRENT USE 10/27/2011 Ot V58.83 ENCOUNTER FOR THERAPEUTIC DRUG MONITORIN 05/25/2012 Ot V58.61 ANTICOAGULANTS,LT,CURRENT USE 05/25/2012 Ot V58.83 ENCOUNTER FOR THERAPEUTIC DRUG MONITORIN 11/15/2012 ARIEL LOPEZ MD Ot V58.61 ANTICOAGULANTS,LT,CURRENT USE 11/15/2012 ARIEL LOPEZ MD Ot V58.69 OTH MED,LT,CURRENT USE 11/15/2012 ARIEL LOPEZ MD Ot V58.83 ENCOUNTER FOR THERAPEUTIC DRUG MONITORIN 03/15/2013 ARIEL LOPEZ MD Ot V58.61 ANTICOAGULANTS,LT,CURRENT USE 03/15/2013 ARIEL LOPEZ MD Ot V58.69 OTH MED,LT,CURRENT USE 03/15/2013 ARIEL LOPEZ MD Ot V58.83 ENCOUNTER FOR THERAPEUTIC DRUG MONITORIN 04/16/2013 NIKKY FREED MD Ot 272.4 HYPERLIPIDEMIA NEC/NOS 04/16/2013 NIKKY FREED MD Ot 276.8 HYPOPOTASSEMIA 04/16/2013 NIKKY FREED MD Ot 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 04/16/2013 NIKKY FREED MD Ot 305.1 TOBACCO USE DISORDER 04/16/2013 NIKKY FREED MD Ot 311 DEPRESSIVE DISORDER NEC 04/16/2013 NIKKY FREED MD Ot 345.90 EPILEPSY UNSPEC W/O MENTION INTRACTABLE 04/16/2013 NIKKY FREED MD Ot 412 OLD MYOCARDIAL INFARCT 04/16/2013 NIKKY FREED MD Ot 414.01 CORONARY ATHEROSCLEROSIS OF [place] CORON 04/16/2013 NIKKY FREED MD Ot 620.1 CORPUS LUTEUM CYST 04/16/2013 NIKKY FREED MD Ot 625.8 FEM GENITAL SYMPTOMS NEC 04/16/2013 NIKKY FREED MD Ot 789.03 ABDOMINAL PAIN, RIGHT LOWER QUADRANT 04/16/2013 NIKKY FREED MD Ot 795.39 OTHER NONSPEC POS CULTURE FINDINGS 04/16/2013 INKKY FREED MD Ot V03.82 PROPHYLACTIC VACC AGAINST STREPTOCOCCUS 04/16/2013 NIKKY FREED MD Ot V04.81 ND FOR PROPHYLACTIC VACCIN AND INOCULATI 11/22/2013 ARIEL LOPEZ MD Ot V58.61 ANTICOAGULANTS,LT,CURRENT USE 11/22/2013 ARIEL LOPEZ MD Ot V58.69 OTH MED,LT,CURRENT USE 11/22/2013 ARIEL LOPEZ MD Ot V58.83 ENCOUNTER FOR THERAPEUTIC DRUG MONITORIN 04/25/2014 ARIEL LOPEZ MD Ot V58.61 ANTICOAGULANTS,LT,CURRENT USE 04/25/2014 ARIEL LOPEZ MD Ot V58.69 OTH MED,LT,CURRENT USE 04/25/2014 AIREL LOPEZ MD Ot V58.83 ENCOUNTER FOR THERAPEUTIC DRUG MONITORIN 05/15/2014 NIKKY FREED MD Ot 789.03 06/06/2014 ROBIN SAINI DO V04.81 FLU SHOT 06/06/2014 ROBIN SAINI DO V06.1 TDAP DX 10/23/2014 Ot V58.69 10/23/2014 Ot V58.83 10/23/2014 Ot 272.4 10/23/2014 Ot 401.9 10/23/2014 Ot 414.01 10/23/2014 Ot 272.4 10/23/2014 Ot 296.33 10/23/2014 Ot V58.69 10/23/2014 Ot 780.2 10/23/2014 Ot V58.61 10/23/2014 Ot V58.69 10/23/2014 Ot 414.9 10/23/2014 Ot V58.61 10/23/2014 Ot V58.66 10/23/2014 Ot V58.69 10/23/2014 Ot 397.0 10/23/2014 Ot 424.0 10/23/2014 Ot 786.50 10/23/2014 Ot 272.4 10/23/2014 Ot 286.3 10/23/2014 Ot 401.9 10/23/2014 Ot 414.00 10/23/2014 Ot 780.79 10/23/2014 Ot 786.05 10/23/2014 Ot 794.39 10/23/2014 Ot V58.61 10/23/2014 Ot V58.69 10/23/2014 Ot V72.63 10/23/2014 Ot V72.81 10/23/2014 Ot 786.05 10/23/2014 Ot V58.61 10/23/2014 Ot V58.83 10/23/2014 Ot V58.61 10/23/2014 Ot V58.69 10/23/2014 Ot V58.83 10/23/2014 ABDIAZIZ PEDROZA, NIKKY Parish Ot 272.4 10/23/2014 ABDIAZIZ PEDROZA, NIKKY Parish Ot 401.9 10/23/2014 NHUNG GAN Ot 272.4 10/23/2014 ABDIAZIZ PEDROZA, NIKKY Parish Ot 789.00 10/23/2014 ABDIAZIZ PEDROZA, NIKKY Parish Ot 789.03 10/23/2014 JESSICA PEDROZA, ARIEL Farnsworth Ot V58.61 10/23/2014 JESSICA PEDROZA, ARIEL Farnsworth Ot V58.69 10/23/2014 JESSICA PEDROZA, ARIEL Farnsworth Ot V58.83 10/23/2014 JESSICA PEDROZA, ARIEL Farnsworth Ot V58.61 10/23/2014 JESSICA PEDROZA, ARIEL J Ot V58.69 10/23/2014 JESSICA PEDROZA, ARIEL J Ot V58.83 10/23/2014 JESSICA PEDROZA, ARIEL Farnsworth Ot V58.61 10/23/2014 JESSICA PEDROZA, ARIEL Farnsworth Ot V58.69 10/23/2014 JESSICA PEDROZA, ARIEL Farnsworth Ot V58.83 10/23/2014 JESSICA PEDROZA, ARIEL Farnsworth Ot V58.61 10/23/2014 JESSICA PEDROZA, ARIEL J Ot V58.69 10/23/2014 JESSICA PEDROZA, ARIEL J Ot V58.83 10/24/2014 JESSICA PEDROZA, ARIEL J Ot V58.61 10/24/2014 JESSICA PEDROZA, ARIEL J Ot V58.69 10/24/2014 JESSICA PEDROZA, ARIEL Farnsworth Ot V58.83 10/26/2014 JESSICA PEDROZA, ARIEL Farnsworth Ot V58.61 10/26/2014 JESSICA PEDROZA, ARIEL Farnsworth Ot V58.69 10/26/2014 JESSICA PEDROZA, ARIEL J Ot V58.83 12/14/2014 JESSICA PEDROZA, ARIEL Farnsworth Ot V58.61 12/14/2014 ARIEL LOPEZ MD Ot V58.69 12/14/2014 ARIEL LOPEZ MD Ot V58.83 12/25/2014 ARIEL LOPEZ MD Ot V58.61 12/25/2014 ARIEL LOPEZ MD Ot V58.69 12/25/2014 ARIEL LOPEZ MD Ot V58.83 01/21/2015 ARIEL LOPEZ MD Ot V58.61 ANTICOAGULANTS,LT,CURRENT USE 01/21/2015 ARIEL LOPEZ MD Ot V58.69 OTH MED,LT,CURRENT USE 01/21/2015 ARIEL LOPEZ MD Ot V58.83 ENCOUNTER FOR THERAPEUTIC DRUG MONITORIN 01/25/2015 Ot 272.4 01/25/2015 Ot 296.33 01/25/2015 Ot V58.69 01/25/2015 Ot 780.2 01/25/2015 Ot V58.61 01/25/2015 Ot V58.69 01/25/2015 Ot 414.9 01/25/2015 Ot V58.61 01/25/2015 Ot V58.66 01/25/2015 Ot V58.69 01/25/2015 Ot 397.0 01/25/2015 Ot 424.0 01/25/2015 Ot 786.50 01/25/2015 Ot 272.4 01/25/2015 Ot 286.3 01/25/2015 Ot 401.9 01/25/2015 Ot 414.00 01/25/2015 Ot 780.79 01/25/2015 Ot 786.05 01/25/2015 Ot 794.39 01/25/2015 Ot V58.61 01/25/2015 Ot V58.69 01/25/2015 Ot V72.63 01/25/2015 Ot V72.81 01/25/2015 Ot 786.05 01/25/2015 Ot V58.61 01/25/2015 Ot V58.83 01/25/2015 Ot V58.61 01/25/2015 Ot V58.69 01/25/2015 Ot V58.83 01/25/2015 NIKKY FREED MD Ot 272.4 01/25/2015 NIKKY FREED MD Ot 401.9 01/25/2015 NHUNG GAN Ot 272.4 01/25/2015 NIKKY FREED MD Ot 789.00 01/25/2015 ABDIAZIZ PEDROZA, NIKKY Parish Ot 789.03 01/25/2015 JESSICA PEDROZA, ARIEL Farnsworth Ot V58.61 01/25/2015 JESSICA PEDROZA, ARIEL Farnsworth Ot V58.69 01/25/2015 ARIEL LOPEZ MD Ot V58.83 01/25/2015 JESSICA PEDROZA, ARIEL Farnsworth Ot V58.61 01/25/2015 JESSICA PEDROZA, ARIEL Farnsworth Ot V58.69 01/25/2015 JESSICA PEDROZA, ARIEL Farnsworth Ot V58.83 01/26/2015 JESSICA PEDROZA, ARIEL Farnsworth Ot V58.61 01/26/2015 JESSICA PEDROZA, ARIEL Farnsworth Ot V58.69 01/26/2015 JESSICA PEDROZA, ARIEL Farnsworth Ot V58.83 01/30/2015 ARIEL LOPEZ MD Ot V58.61 01/30/2015 JESSICA PEDROZA, ARIEL Farnsworth Ot V58.69 01/30/2015 JESSICA PEDROZA, ARIEL Farnsworth Ot V58.83 02/14/2015 ADELAIDA BOOKER MD Ot 719.46 02/14/2015 ADELAIDA BOOKER MD Ot 724.5 02/14/2015 ADELAIDA BOOKER MD Ot 729.5 02/21/2015 ARIEL LOPEZ MD Ot V58.61 ANTICOAGULANTS,LT,CURRENT USE 02/21/2015 ARIEL LOPEZ MD Ot V58.69 OTH MED,LT,CURRENT USE 02/21/2015 ARIEL LOPEZ MD Ot V58.83 ENCOUNTER FOR THERAPEUTIC DRUG MONITORIN 02/27/2015 ADELAIDA BOOKER MD Ot 719.46 02/27/2015 ADELAIDA BOOKER MD Ot 724.5 02/27/2015 ADELAIDA BOOKER MD Ot 729.5 04/23/2015 CRYSTAL GARCIA BOARD OPERATOR Ot M54.2 04/23/2015 CRYSTAL GARCIA BOARD OPERATOR Ot M54.6 04/26/2015 CRYSTAL GARCIA BOARD OPERATOR Ot M50.20 04/26/2015 CRYSTAL GARCIA BOARD OPERATOR Ot M51.24 04/26/2015 Ot 272.4 04/26/2015 Ot 296.33 04/26/2015 Ot V58.69 04/26/2015 Ot 780.2 04/26/2015 Ot V58.61 04/26/2015 Ot V58.69 04/26/2015 Ot 414.9 04/26/2015 Ot V58.61 04/26/2015 Ot V58.66 04/26/2015 Ot V58.69 04/26/2015 Ot 397.0 04/26/2015 Ot 424.0 04/26/2015 Ot 786.50 04/26/2015 Ot 272.4 04/26/2015 Ot 286.3 04/26/2015 Ot 401.9 04/26/2015 Ot 414.00 04/26/2015 Ot 780.79 04/26/2015 Ot 786.05 04/26/2015 Ot 794.39 04/26/2015 Ot V58.61 04/26/2015 Ot V58.69 04/26/2015 Ot V72.63 04/26/2015 Ot V72.81 04/26/2015 Ot 786.05 04/26/2015 Ot V58.61 04/26/2015 Ot V58.83 04/26/2015 Ot V58.61 04/26/2015 Ot V58.69 04/26/2015 Ot V58.83 04/26/2015 ABDIAZIZ PEDROZA, NIKKY Parsih Ot 272.4 04/26/2015 ABDIAZIZ PEDROZA, NIKKY Parish Ot 401.9 04/26/2015 NHUNG GAN Ot 272.4 04/26/2015 ABDIAZIZ PEDROZA, NIKKY Parish Ot 789.00 04/26/2015 ABDIAZIZ PEDROZA, NIKKY Parish Ot 789.03 04/26/2015 ADE PEDROZA, ADELAIDA Gaines Ot 719.46 04/26/2015 ADE PEDROZA, ADELAIDA Gaines Ot 724.5 04/26/2015 ADE PEDROZA, ADELAIDA Gaines Ot 729.5 04/26/2015 ARIEL LOPEZ MD Ot V58.61 04/26/2015 ARIEL LOPEZ MD Ot V58.69 04/26/2015 ARIEL LOPEZ MD Ot V58.83 04/26/2015 ARIEL LOPEZ MD Ot E78.2 04/26/2015 ARIEL LOPEZ MD Ot I10 04/26/2015 ARIEL LOPEZ MD Ot I25.10 04/26/2015 ARIEL LOPEZ MD Ot I65.23 04/26/2015 CRYSTAL GARCIAP Ot M54.2 04/26/2015 CRYSTAL GARCIAP Ot M54.6 04/26/2015 CRYSTAL GARCIA BOARD OPERATOR Ot M50.20 04/26/2015 CRYSTAL GARCIAP Ot M51.24 05/02/2015 ARIEL LOPEZ MD Ot E78.2 05/02/2015 ARIEL LOPEZ MD Ot I10 05/02/2015 ARIEL LOPEZ MD Ot I25.10 05/02/2015 ARIEL LOPEZ MD Ot I65.23 05/07/2015 CRYSTAL GARCIAP Ot M54.2 05/07/2015 CRYSTAL GARCIAP Ot M54.6 05/07/2015 CRYSTAL GARCIAP Ot M50.20 05/07/2015 CRYSTAL GARCIAP Ot M51.24 05/14/2015 ARIEL LOPEZ MD Ot E78.2 05/14/2015 ARIEL LOPEZ MD Ot I10 05/14/2015 ARIEL LOPEZ MD Ot I25.10 05/14/2015 ARIEL LOPEZ MD Ot I65.23 05/22/2015 Ot 272.4 05/22/2015 Ot 296.33 05/22/2015 Ot V58.69 05/22/2015 Ot 780.2 05/22/2015 Ot V58.61 05/22/2015 Ot V58.69 05/22/2015 Ot 414.9 05/22/2015 Ot V58.61 05/22/2015 Ot V58.66 05/22/2015 Ot V58.69 05/22/2015 Ot 397.0 05/22/2015 Ot 424.0 05/22/2015 Ot 786.50 05/22/2015 Ot 272.4 05/22/2015 Ot 286.3 05/22/2015 Ot 401.9 05/22/2015 Ot 414.00 05/22/2015 Ot 780.79 05/22/2015 Ot 786.05 05/22/2015 Ot 794.39 05/22/2015 Ot V58.61 05/22/2015 Ot V58.69 05/22/2015 Ot V72.63 05/22/2015 Ot V72.81 05/22/2015 Ot 786.05 05/22/2015 Ot V58.61 05/22/2015 Ot V58.83 05/22/2015 Ot V58.61 05/22/2015 Ot V58.69 05/22/2015 Ot V58.83 05/22/2015 ABDIAZIZ PEDROZA, NIKKY Parish Ot 272.4 05/22/2015 ABDIAZIZ PEDROZA, NIKKY Parish Ot 401.9 05/22/2015 MANUEL BERTRAND NHUNG K Ot 272.4 05/22/2015 ABDIAZIZ PEDROZA, NIKKY Parish Ot 789.00 05/22/2015 ABDIAZIZ PEDROZA, NIKKY Parish Ot 789.03 05/22/2015 ADE PEDROZA, ADELAIDA Gaines Ot 719.46 05/22/2015 ADE PEDROZA, ADELAIDA Gaines Ot 724.5 05/22/2015 ADE PEDROZA, ADELAIDA Gaines Ot 729.5 05/22/2015 JESSICA PEDROZA, ARIEL Farnsworth Ot V58.61 05/22/2015 JESSICA PEDROZA, ARIEL Farnsworth Ot V58.69 05/22/2015 JESSICA PEDROZA, ARIEL J Ot V58.83 05/22/2015 JESSICA PEDROZA, ARIEL Farnsworth Ot E78.2 05/22/2015 JESSICA PEDROZA, ARIEL Farnsworth Ot I10 05/22/2015 JESSICA PEDROZA, ARIEL Farnsworth Ot I25.10 05/22/2015 JESSICA PEDROZA, ARIEL Farnsworth Ot I65.23 05/22/2015 CRYSTAL GARCIA BOARD OPERATOR Ot M54.2 05/22/2015 CRYSTAL GARCIA BOARD OPERATOR Ot M54.6 05/22/2015 CRYSTAL GARCIA BOARD OPERATOR Ot M50.20 05/22/2015 CRYSTAL GARCIA BOARD OPERATOR Ot M51.24 05/24/2015 ADE PEDROZA, ADELAIDA Gaines Ot M40.204 05/24/2015 ADE PEDROZA, ADELAIDA Gaines Ot M54.10 05/24/2015 ADELAIDA BOOKER MD Ot M54.2 05/24/2015 ADELAIDA BOOKER MD Ot M54.6 06/20/2015 ADELAIDA BOOKER MD Ot M40.204 06/20/2015 ADELAIDA BOOKER MD Ot M54.10 06/20/2015 ADE PEDROZA, ADELAIDA Gaines Ot M54.2 06/20/2015 ADE PEDROZA, ADELAIDA Gaines Ot M54.6 07/11/2015 Ot R31.9 07/19/2015 ADE PEDROZA, ADELAIDA Gaines Ot M40.204 07/19/2015 ADE PEDROZA, ADELAIDA Gaines Ot M54.10 07/19/2015 ADE PEDROZA, ADELAIDA Gaines Ot M54.2 07/19/2015 ADE PEDROZA, ADELAIDA Gaines Ot M54.6 07/20/2015 Ot R31.9 07/24/2015 Ot 272.4 07/24/2015 Ot 296.33 07/24/2015 Ot V58.69 07/24/2015 Ot 780.2 07/24/2015 Ot V58.61 07/24/2015 Ot V58.69 07/24/2015 Ot 414.9 07/24/2015 Ot V58.61 07/24/2015 Ot V58.66 07/24/2015 Ot V58.69 07/24/2015 Ot 397.0 07/24/2015 Ot 424.0 07/24/2015 Ot 786.50 07/24/2015 Ot 272.4 07/24/2015 Ot 286.3 07/24/2015 Ot 401.9 07/24/2015 Ot 414.00 07/24/2015 Ot 780.79 07/24/2015 Ot 786.05 07/24/2015 Ot 794.39 07/24/2015 Ot V58.61 07/24/2015 Ot V58.69 07/24/2015 Ot V72.63 07/24/2015 Ot V72.81 07/24/2015 Ot 786.05 07/24/2015 Ot V58.61 07/24/2015 Ot V58.83 07/24/2015 Ot V58.61 07/24/2015 Ot V58.69 07/24/2015 Ot V58.83 07/24/2015 ABDIAZIZ PEDROZA, NIKKY Parish Ot 272.4 07/24/2015 ABDIAZIZ PEDROZA, NIKKY Parish Ot 401.9 07/24/2015 NHUNG GAN Ot 272.4 07/24/2015 ABDIAZIZ PEDROZA, NIKKY Parish Ot 789.00 07/24/2015 ABDIAZIZ PEDROZA, NIKKY M Ot 789.03 07/24/2015 ADE PEDROZA, ADELAIDA Gaines Ot 719.46 07/24/2015 ADE PEDROZA, ADELAIDA Gaines Ot 724.5 07/24/2015 ADE PEDROZA, ADELAIDA Gaines Ot 729.5 07/24/2015 JESSICA PEDROZA, ARIEL Farnsworth Ot V58.61 07/24/2015 JESSICA PEDROZA, ARIEL Farnsworth Ot V58.69 07/24/2015 JESSICA PEDROZA, ARIEL Farnsworth Ot V58.83 07/24/2015 JESSICA PEDROZA, ARIEL Farnsworth Ot E78.2 07/24/2015 JESSICA PEDROZA, ARIEL Farnsworth Ot I10 07/24/2015 JESSICA PEDROZA, ARIEL Farnsworth Ot I25.10 07/24/2015 JESSICA PEDROZA, ARIEL Farnsworth Ot I65.23 07/24/2015 CRYSTAL GARCIA BOARD OPERATOR Ot M54.2 07/24/2015 CRYSTAL GARCIA BOARD OPERATOR Ot M54.6 07/24/2015 CRYSTAL GARCIA BOARD OPERATOR Ot M50.20 07/24/2015 CRYSTAL GARCIA BOARD OPERATOR Ot M51.24 07/24/2015 ADE PEDROZA, ADELAIDA Gaines Ot M40.204 07/24/2015 ADE PEDROZA, ADELAIDA Gaines Ot M54.10 07/24/2015 ADE PEDROZA, ADELAIDA Gaines Ot M54.2 07/24/2015 ADE PEDROZA, ADELAIDA Gaines Ot M54.6 07/24/2015 Ot R31.9 07/24/2015 JESSICA PEDROZA, ARIEL Farnsworth Ot V58.61 07/24/2015 JESSICA PEDROZA, ARIEL Farnsworth Ot V58.69 07/24/2015 JESSICA PEDROZA, ARIEL Farnsworth Ot V58.83 07/25/2015 ADE PEDROZA, ADELAIDA Gaines Ot M40.204 UNSPECIFIED KYPHOSIS, THORACIC REGION 07/25/2015 ADE PEDROZA, ADELAIDA Gaines Ot M54.10 RADICULOPATHY, SITE UNSPECIFIED 07/25/2015 ADE PEDROZA, ADELAIDA Gaines Ot M54.2 CERVICALGIA 07/25/2015 ADELAIDA BOOKER MD Ot M54.6 PAIN IN THORACIC SPINE 07/25/2015 ARIEL LOPEZ MD Ot V58.61 07/25/2015 ARIEL LOPEZ MD Ot V58.69 07/25/2015 ARIEL LOPEZ MD, Ot V58.83 08/14/2015 MILTON KUMARSHANAE S Ot N94.9 08/27/2015 PHILIPSHANAE VÁSQUEZ DO Ot N94.9 09/14/2015 ARIEL LOPEZ MD, Ot 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 09/14/2015 ARIEL LOPEZ MD, Ot Z79.01 MIDDLE OR INTERMEDIATE SCHOOL PRINCIPAL (CURRENT) USE OF ANTICOAGULANT 09/14/2015 ARIEL LOPEZ MD, Ot Z79.899 OTHER GROUP HOME (CURRENT) DRUG THERAPY 09/28/2015 ARIEL LOPEZ MD, Ot 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 09/28/2015 ARIEL LOPEZ MD, Ot Z79.01 GROUP HOME (CURRENT) USE OF ANTICOAGULANT 09/28/2015 ARIEL LOPEZ MD, Ot Z79.899 OTHER GROUP HOME (CURRENT) DRUG THERAPY 10/22/2015 ARIEL LOPEZ MD, Ot 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 10/22/2015 ARIEL LOPEZ MD, Ot Z79.01 MIDDLE OR INTERMEDIATE SCHOOL PRINCIPAL (CURRENT) USE OF ANTICOAGULANT 10/22/2015 ARIEL LOPEZ MD, Ot Z79.899 OTHER MIDDLE OR INTERMEDIATE SCHOOL PRINCIPAL (CURRENT) DRUG THERAPY 10/24/2015 NHUNG GAN Ot 272.4 HYPERLIPIDEMIA NEC/NOS 10/28/2015 ARIEL LOPEZ MD, Ot 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 10/28/2015 ARIEL LOPEZ MD, Ot Z79.01 MIDDLE OR INTERMEDIATE SCHOOL PRINCIPAL (CURRENT) USE OF ANTICOAGULANT 10/28/2015 ARIEL LOPEZ MD, Ot Z79.899 OTHER GROUP HOME (CURRENT) DRUG THERAPY 11/18/2015 Ot V58.61 ANTICOAGULANTS,LT,CURRENT USE 11/18/2015 Ot V58.83 ENCOUNTER FOR THERAPEUTIC DRUG MONITORIN 11/18/2015 Ot V58.61 ANTICOAGULANTS,LT,CURRENT USE 11/18/2015 Ot V58.69 OTH MED,LT, CURRENT USE 11/18/2015 Ot V58.83 ENCOUNTER FOR THERAPEUTIC DRUG MONITORIN 11/18/2015 ARIEL LOPEZ MD, Ot 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 11/18/2015 ARIEL LOPEZ MD, Ot Z79.01 MIDDLE OR INTERMEDIATE SCHOOL PRINCIPAL (CURRENT) USE OF ANTICOAGULANT 11/18/2015 ARIEL LOPEZ MD, Ot Z79.899 OTHER GROUP HOME (CURRENT) DRUG THERAPY 11/18/2015 WILLIAM SHELTON MD Ot F17.210 NICOTINE DEPENDENCE, CIGARETTES, UNCOMPL 11/18/2015 WILLIAM SHELTON MD Ot I10 ESSENTIAL (PRIMARY) HYPERTENSION 11/18/2015 WILLIAM SHELTON MD Ot R11.2 NAUSEA WITH VOMITING, UNSPECIFIED 11/18/2015 WILLIAM SHELTON MD Ot R51 HEADACHE 11/20/2015 WILLIAM SHELTON MD Ot I10 ESSENTIAL (PRIMARY) HYPERTENSION 11/20/2015 WILLIAM SHELTON MD Ot R11.2 NAUSEA WITH VOMITING, UNSPECIFIED 11/20/2015 WILLIAM SHELTON MD Ot R51 HEADACHE 11/20/2015 WILLIAM SHELTON MD Ot F17.210 NICOTINE DEPENDENCE, CIGARETTES, UNCOMPL 11/20/2015 WILLIAM SHELTON MD Ot I10 ESSENTIAL (PRIMARY) HYPERTENSION 11/20/2015 WILLIAM SHELTON MD Ot R11.2 NAUSEA WITH VOMITING, UNSPECIFIED 11/20/2015 WILLIAM SHELTON MD Ot R51 HEADACHE 11/22/2015 ARIEL LOPEZ MD Ot 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 11/22/2015 ARIEL LOPEZ MD Ot Z79.01 GROUP HOME (CURRENT) USE OF ANTICOAGULANT 11/22/2015 ARIEL LOPEZ MD Ot Z79.899 OTHER GROUP HOME (CURRENT) DRUG THERAPY 11/22/2015 TERESA SHETTY APRN Ot R63.4 ABNORMAL WEIGHT LOSS 11/23/2015 ARIEL LOPEZ MD Ot 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 11/23/2015 ARIEL LOPEZ MD Ot Z79.01 MIDDLE OR INTERMEDIATE SCHOOL PRINCIPAL (CURRENT) USE OF ANTICOAGULANT 11/23/2015 ARIEL LOPEZ MD Ot Z79.899 OTHER GROUP HOME (CURRENT) DRUG THERAPY 11/23/2015 ARIEL LOPEZ MD Ot 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 11/23/2015 ARIEL LOPEZ MD Ot Z79.01 GROUP HOME (CURRENT) USE OF ANTICOAGULANT 11/23/2015 ARIEL LOPEZ MD Ot Z79.899 OTHER GROUP HOME (CURRENT) DRUG THERAPY 11/23/2015 SENA, TERESA M EPIDEMIOLOGY INTERNSHIP Ot R07.9 CHEST PAIN, UNSPECIFIED 11/23/2015 TERESA SHETTY EPIDEMIOLOGY INTERNSHIP Ot R63.4 ABNORMAL WEIGHT LOSS 12/13/2015 TERESA SHETTY EPIDEMIOLOGY INTERNSHIP Ot R07.9 CHEST PAIN, UNSPECIFIED 12/13/2015 TERESA SHETTY EPIDEMIOLOGY INTERNSHIP Ot R63.4 ABNORMAL WEIGHT LOSS 12/21/2015 TERESA SHETTY EPIDEMIOLOGY INTERNSHIP Ot R07.9 CHEST PAIN, UNSPECIFIED 12/21/2015 TERESA SHETTY EPIDEMIOLOGY INTERNSHIP Ot R63.4 ABNORMAL WEIGHT LOSS 02/05/2016 Ot D68.51 ACTIVATED PROTEIN C RESISTANCE 02/05/2016 Ot E78.2 MIXED HYPERLIPIDEMIA 02/05/2016 Ot I10 ESSENTIAL ( PRIMARY) HYPERTENSION 02/05/2016 Ot I25.10 ATHSCL HEART DISEASE OF [place] CORONARY 02/05/2016 Ot I65.23 OCCLUSION AND STENOSIS OF [place] 02/06/2016 Ot 414.9 CHR ISCHEMIC HRT DIS NOS 02/06/2016 Ot V58.61 ANTICOAGULANTS,LT,CURRENT USE 02/06/2016 Ot V58.66 LONG-TERM ( CURRENT) USE OF ASPIRIN 02/06/2016 Ot V58.69 OTH MED,LT, CURRENT USE 02/06/2016 Ot 397.0 TRICUSPID VALVE DISEASE 02/06/2016 Ot 424.0 MITRAL VALVE DISORDER 02/06/2016 Ot 786.50 CHEST PAIN NOS 02/06/2016 Ot 272.4 HYPERLIPIDEMIA NEC/NOS 02/06/2016 Ot 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 02/06/2016 Ot 401.9 HYPERTENSION NOS 02/06/2016 Ot 414.00 CORON ATHEROSCLER NOS TYPE VESSEL, NATIV 02/06/2016 Ot 780.79 OTH MALAISE FATIGUE 02/06/2016 Ot 786.05 SHORTNESS OF BREATH 02/06/2016 Ot 794.39 ABN CARDIOVASC STUDY NEC 02/06/2016 Ot V58.61 ANTICOAGULANTS,LT,CURRENT USE 02/06/2016 Ot V58.69 OTH MED,LT, CURRENT USE 02/06/2016 Ot V72.63 PRE- PROCEDURAL LABORATORY EXAMINATION 02/06/2016 Ot V72.81 EXAM-PRE- OPERATIVE CARDIOVASCULAR 02/06/2016 Ot 786.05 SHORTNESS OF BREATH 02/06/2016 Ot V58.61 ANTICOAGULANTS,LT,CURRENT USE 02/06/2016 Ot V58.83 ENCOUNTER FOR THERAPEUTIC DRUG MONITORIN 02/06/2016 Ot V58.61 ANTICOAGULANTS,LT,CURRENT USE 02/06/2016 Ot V58.69 OTH MED,LT, CURRENT USE 02/06/2016 Ot V58.83 ENCOUNTER FOR THERAPEUTIC DRUG MONITORIN 02/06/2016 NIKKY RFEED MD Ot 272.4 HYPERLIPIDEMIA NEC/NOS 02/06/2016 NIKKY FREED MD Ot 401.9 HYPERTENSION NOS 02/06/2016 NHUNG GAN Ot 272.4 HYPERLIPIDEMIA NEC/NOS 02/06/2016 NIKKY FREED MD Ot 789.00 ABDOMINAL PAIN, UNSPECIFIED SITE 02/06/2016 NIKKY FREED MD Ot 789.03 ABDOMINAL PAIN, RIGHT LOWER QUADRANT 02/06/2016 ADE PEDROZA, ADELAIDA Gaines Ot 719.46 JOINT PAIN-L/LEG 02/06/2016 ADELAIDA BOOKER MD Ot 724.5 BACKACHE NOS 02/06/2016 ADELAIDA BOOKER MD Ot 729.5 PAIN IN LIMB 02/06/2016 ARIEL LOPEZ MD Ot E78.2 MIXED HYPERLIPIDEMIA 02/06/2016 ARIEL LOPEZ MD Ot I10 ESSENTIAL (PRIMARY) HYPERTENSION 02/06/2016 ARIEL LOPEZ MD Ot I25.10 ATHSCL HEART DISEASE OF [place] CORONARY 02/06/2016 ARIEL LOPEZ MD Ot I65.23 OCCLUSION AND STENOSIS OF [place] 02/06/2016 CRYSTAL GARCIAP Ot M54.2 CERVICALGIA 02/06/2016 CRYSTAL GARCIAP Ot M54.6 PAIN IN THORACIC SPINE 02/06/2016 CRYSTAL GARCIAP Ot M50.20 OTHER CERVICAL DISC DISPLACEMENT, UNSP C 02/06/2016 CRYSTAL GARCIAP Ot 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, 02/06/2016 Ot R31.9 HEMATURIA, UNSPECIFIED 02/06/2016 SHANAE ROSE DO Ot 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 02/06/2016 ARIEL LOPEZ MD Ot 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 02/06/2016 ARIEL LOPEZ MD Ot Z79.01 GROUP HOME (CURRENT) USE OF ANTICOAGULANT 02/06/2016 ARIEL LOPEZ MD, Ot Z79.899 OTHER MIDDLE OR INTERMEDIATE SCHOOL PRINCIPAL (CURRENT) DRUG THERAPY 02/06/2016 TERESA SHETTY APRN Ot R07.9 CHEST PAIN, UNSPECIFIED 02/06/2016 TERESA SHETTY APRN Ot R63.4 ABNORMAL WEIGHT LOSS 02/06/2016 Ot D68.51 ACTIVATED PROTEIN C RESISTANCE 02/06/2016 Ot E78.2 MIXED HYPERLIPIDEMIA 02/06/2016 Ot I10 ESSENTIAL ( PRIMARY) HYPERTENSION 02/06/2016 Ot I25.10 ATHSCL HEART DISEASE OF [place] CORONARY 02/06/2016 Ot I65.23 OCCLUSION AND STENOSIS OF [place] 02/14/2016 ADELAIDA BOOKER MD Ot M25.511 PAIN IN RIGHT SHOULDER 02/14/2016 ADELAIDA BOOKER MD Ot M25.611 STIFFNESS OF RIGHT SHOULDER, NOT ELSEWHE 02/14/2016 ADELAIDA BOOKER MD Ot M54.2 CERVICALGIA 02/14/2016 ADELAIDA BOOKER MD Ot M54.6 PAIN IN THORACIC SPINE 02/20/2016 ARIEL LOPEZ MD, Ot 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 02/20/2016 ARIEL LOPEZ MD Ot Z79.01 MIDDLE OR INTERMEDIATE SCHOOL PRINCIPAL (CURRENT) USE OF ANTICOAGULANT 02/20/2016 ARIEL LOPEZ MD, Ot Z79.899 OTHER MIDDLE OR INTERMEDIATE SCHOOL PRINCIPAL (CURRENT) DRUG THERAPY 02/21/2016 ARIEL LOPEZ MD, Ot 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 02/21/2016 ARIEL LOPEZ MD, Ot Z79.01 GROUP HOME (CURRENT) USE OF ANTICOAGULANT 02/21/2016 ARIEL LOPEZ MD, Ot Z79.899 OTHER MIDDLE OR INTERMEDIATE SCHOOL PRINCIPAL (CURRENT) DRUG THERAPY 02/25/2016 Ot D68.51 ACTIVATED PROTEIN C RESISTANCE 02/25/2016 Ot E78.2 MIXED HYPERLIPIDEMIA 02/25/2016 Ot I10 ESSENTIAL ( PRIMARY) HYPERTENSION 02/25/2016 Ot I25.10 ATHSCL HEART DISEASE OF [place] CORONARY 02/25/2016 Ot I65.23 OCCLUSION AND STENOSIS OF [place] 02/26/2016 ARIEL LOPEZ MD, Ot 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 02/26/2016 ARIEL LOPEZ MD, Ot Z79.01 GROUP HOME (CURRENT) USE OF ANTICOAGULANT 02/26/2016 ARIEL LOPEZ MD, Ot Z79.899 OTHER MIDDLE OR INTERMEDIATE SCHOOL PRINCIPAL (CURRENT) DRUG THERAPY 03/07/2016 Ot D68.51 ACTIVATED PROTEIN C RESISTANCE 03/07/2016 Ot E78.2 MIXED HYPERLIPIDEMIA 03/07/2016 Ot I10 ESSENTIAL ( PRIMARY) HYPERTENSION 03/07/2016 Ot I25.10 ATHSCL HEART DISEASE OF [place] CORONARY 03/07/2016 Ot I65.23 OCCLUSION AND STENOSIS OF [place] 03/20/2016 Ot 414.9 CHR ISCHEMIC HRT DIS NOS 03/20/2016 Ot V58.61 ANTICOAGULANTS,LT,CURRENT USE 03/20/2016 Ot V58.66 LONG-TERM ( CURRENT) USE OF ASPIRIN 03/20/2016 Ot V58.69 OTH MED,LT, CURRENT USE 03/20/2016 Ot 397.0 TRICUSPID VALVE DISEASE 03/20/2016 Ot 424.0 MITRAL VALVE DISORDER 03/20/2016 Ot 786.50 CHEST PAIN NOS 03/20/2016 Ot 272.4 HYPERLIPIDEMIA NEC/NOS 03/20/2016 Ot 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 03/20/2016 Ot 401.9 HYPERTENSION NOS 03/20/2016 Ot 414.00 CORON ATHEROSCLER NOS TYPE VESSEL, NATIV 03/20/2016 Ot 780.79 OTH MALAISE FATIGUE 03/20/2016 Ot 786.05 SHORTNESS OF BREATH 03/20/2016 Ot 794.39 ABN CARDIOVASC STUDY NEC 03/20/2016 Ot V58.61 ANTICOAGULANTS,LT,CURRENT USE 03/20/2016 Ot V58.69 OTH MED,LT, CURRENT USE 03/20/2016 Ot V72.63 PRE- PROCEDURAL LABORATORY EXAMINATION 03/20/2016 Ot V72.81 EXAM-PRE- OPERATIVE CARDIOVASCULAR 03/20/2016 Ot 786.05 SHORTNESS OF BREATH 03/20/2016 Ot V58.61 ANTICOAGULANTS,LT,CURRENT USE 03/20/2016 Ot V58.83 ENCOUNTER FOR THERAPEUTIC DRUG MONITORIN 03/20/2016 Ot V58.61 ANTICOAGULANTS,LT,CURRENT USE 03/20/2016 Ot V58.69 OTH MED,LT, CURRENT USE 03/20/2016 Ot V58.83 ENCOUNTER FOR THERAPEUTIC DRUG MONITORIN 03/20/2016 ABDIAZIZ PDEROZA, NIKKY Parish Ot 272.4 HYPERLIPIDEMIA NEC/NOS 03/20/2016 NIKKY FREED MD Ot 401.9 HYPERTENSION NOS 03/20/2016 REYNOSONHUNG BOND Ot 272.4 HYPERLIPIDEMIA NEC/NOS 03/20/2016 ABDIAZIZ PEDROZA, NIKKY Parish Ot 789.00 ABDOMINAL PAIN, UNSPECIFIED SITE 03/20/2016 ABDIAZIZ PEDROZA, NIKKY Parish Ot 789.03 ABDOMINAL PAIN, RIGHT LOWER QUADRANT 03/20/2016 ADELAIDA BOOKER MD Ot 719.46 JOINT PAIN-L/LEG 03/20/2016 ADELAIDA BOOKER MD Ot 724.5 BACKACHE NOS 03/20/2016 ADELADIA BOOKER MD Ot 729.5 PAIN IN LIMB 03/20/2016 ARIEL LOPEZ MD Ot E78.2 MIXED HYPERLIPIDEMIA 03/20/2016 ARIEL LOPEZ MD Ot I10 ESSENTIAL (PRIMARY) HYPERTENSION 03/20/2016 ARIEL LOPEZ MD Ot I25.10 ATHSCL HEART DISEASE OF [place] CORONARY 03/20/2016 ARIEL LOPEZ MD Ot I65.23 OCCLUSION AND STENOSIS OF [place] 03/20/2016 CRYSTAL GARCIA BOARD OPERATOR Ot M54.2 CERVICALGIA 03/20/2016 CRYSTAL GARCIA BOARD OPERATOR Ot M54.6 PAIN IN THORACIC SPINE 03/20/2016 CRYSTAL GARCIA BOARD OPERATOR Ot M50.20 OTHER CERVICAL DISC DISPLACEMENT, UNSP C 03/20/2016 CRYSTAL GARCIA BOARD OPERATOR Ot 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, 03/20/2016 Ot R31.9 HEMATURIA, UNSPECIFIED 03/20/2016 FENTHALIA DO, SHANAE S Ot 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 03/20/2016 TERESA SHETTY EPIDEMIOLOGY INTERNSHIP Ot R07.9 CHEST PAIN, UNSPECIFIED 03/20/2016 TERESA SHETTY EPIDEMIOLOGY INTERNSHIP Ot R63.4 ABNORMAL WEIGHT LOSS 03/20/2016 Ot D68.51 ACTIVATED PROTEIN C RESISTANCE 03/20/2016 Ot E78.2 MIXED HYPERLIPIDEMIA 03/20/2016 Ot I10 ESSENTIAL ( PRIMARY) HYPERTENSION 03/20/2016 Ot I25.10 ATHSCL HEART DISEASE OF [place] CORONARY 03/20/2016 Ot I65.23 OCCLUSION AND STENOSIS OF [place] 03/20/2016 ARIEL LOPEZ MD Ot 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 03/20/2016 ARIEL LOPEZ MD Ot Z79.01 MIDDLE OR INTERMEDIATE SCHOOL PRINCIPAL (CURRENT) USE OF ANTICOAGULANT 03/20/2016 ARIEL LOPEZ MD, Ot Z79.899 OTHER MIDDLE OR INTERMEDIATE SCHOOL PRINCIPAL (CURRENT) DRUG THERAPY 03/20/2016 ADELAIDA BOOKER MD Ot R05 COUGH 03/20/2016 ADELAIDA BOOKER MD Ot R06.02 SHORTNESS OF BREATH 03/21/2016 ADELAIDA BOOKER MD Ot 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 03/21/2016 ADELAIDA BOOKER MD Ot F17.210 NICOTINE DEPENDENCE, CIGARETTES, UNCOMPL 03/21/2016 ADELAIDA BOOKER MD Ot F32.9 MAJOR DEPRESSIVE DISORDER, SINGLE EPISOD 03/21/2016 ADELAIDA BOOKER MD Ot F41.9 ANXIETY DISORDER, UNSPECIFIED 03/21/2016 ADELAIDA BOOKER MD, Ot G40.909 EPILEPSY, UNSP, NOT INTRACTABLE, WITHOUT 03/21/2016 ADELAIDA BOOKER MD Ot I10 ESSENTIAL (PRIMARY) HYPERTENSION 03/21/2016 ADELAIDA BOOKER MD Ot I25.2 OLD MYOCARDIAL INFARCTION 03/21/2016 ADELAIDA BOOKER MD Ot J18.9 PNEUMONIA, UNSPECIFIED ORGANISM 03/21/2016 ADELAIDA BOOKER MD Ot R07.2 PRECORDIAL PAIN 03/21/2016 ADELAIDA BOOKER MD Ot R10.13 EPIGASTRIC PAIN 03/21/2016 ADELAIDA BOOKER MD Ot R91.8 OTHER NONSPECIFIC ABNORMAL FINDING OF [place] 03/21/2016 ADELAIDA BOOKER MD Ot Z86.718 PERSONAL HISTORY OF OTHER VENOUS THROMBO 03/25/2016 ARIEL LOPEZ MD, Ot 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 03/25/2016 ARIEL LOPEZ MD, Ot Z79.01 MIDDLE OR INTERMEDIATE SCHOOL PRINCIPAL (CURRENT) USE OF ANTICOAGULANT 03/25/2016 ARIEL LOPEZ MD, Ot Z79.899 OTHER GROUP HOME (CURRENT) DRUG THERAPY 04/01/2016 ARIEL LOPEZ MD, Ot 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 04/01/2016 ARIEL LOPEZ MD, Ot Z79.01 GROUP HOME (CURRENT) USE OF ANTICOAGULANT 04/01/2016 ARIEL LOPEZ MD, Ot Z79.899 OTHER GROUP HOME (CURRENT) DRUG THERAPY 04/01/2016 ARIEL LOPEZ MD, Ot 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 04/01/2016 ARIEL LOPEZ MD Ot Z79.01 GROUP HOME (CURRENT) USE OF ANTICOAGULANT 04/01/2016 ARIEL LOPEZ MD, Ot Z79.899 OTHER MIDDLE OR INTERMEDIATE SCHOOL PRINCIPAL (CURRENT) DRUG THERAPY 04/08/2016 ADELAIDA BOOKER MD, Ot R05 COUGH 04/08/2016 ADELAIDA BOOKER MD, Ot R06.02 SHORTNESS OF BREATH 04/09/2016 ADELAIDA BOOKER MD Ot R91.8 OTHER NONSPECIFIC ABNORMAL FINDING OF [place] 04/15/2016 ADELAIDA BOOKER MD, Ot 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 04/15/2016 ADELAIDA BOOKER MD, Ot 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 04/15/2016 ADELAIDA BOOKER MD, Ot E28.2 POLYCYSTIC OVARIAN SYNDROME 04/15/2016 ADELAIDA BOOKER MD, Ot F41.9 ANXIETY DISORDER, UNSPECIFIED 04/15/2016 ADELAIDA BOOKER MD Ot G40.909 EPILEPSY, UNSP, NOT INTRACTABLE, WITHOUT 04/15/2016 ADELAIDA BOOKER MD Ot I25.2 OLD MYOCARDIAL INFARCTION 04/15/2016 ADELAIDA BOOKER MD Ot I95.9 HYPOTENSION, UNSPECIFIED 04/15/2016 ADELAIDA BOOKER MD, Ot K21.9 GASTRO-ESOPHAGEAL REFLUX DISEASE WITHOUT 04/15/2016 ADELAIDA BOOKER MD Ot R10.31 RIGHT LOWER QUADRANT PAIN 04/15/2016 ADELAIDA BOOKER MD, Ot R10.32 LEFT LOWER QUADRANT PAIN 04/15/2016 ADELAIDA BOOKER MD, Ot R11.2 NAUSEA WITH VOMITING, UNSPECIFIED 04/15/2016 ADELAIDA BOOKER MD, Ot T45.515A ADVERSE EFFECT OF ANTICOAGULANTS, INITIA 04/15/2016 ADELAIDA BOOKER MD Ot Z86.718 PERSONAL HISTORY OF OTHER VENOUS THROMBO 04/15/2016 ADELAIDA BOOKER MD, Ot Z87.01 PERSONAL HISTORY OF PNEUMONIA (RECURRENT 04/16/2016 KINGS FITZGERALD DO Ot D68.51 ACTIVATED PROTEIN C RESISTANCE 04/16/2016 KINGS FITZGERALD DO Ot F17.210 NICOTINE DEPENDENCE, CIGARETTES, UNCOMPL 04/16/2016 KINGS FITZGERALD DO Ot R20.2 PARESTHESIA OF SKIN 04/16/2016 KINGS FITZGERALD DO Ot Z79.899 OTHER MIDDLE OR INTERMEDIATE SCHOOL PRINCIPAL (CURRENT) DRUG THERAPY 04/21/2016 ADELAIDA BOOKER MD Ot R05 COUGH 04/21/2016 ADELAIDA BOOKER MD Ot R06.02 SHORTNESS OF BREATH 04/22/2016 ADELAIDA BOOKER MD Ot D64.9 ANEMIA, UNSPECIFIED 04/23/2016 ARIEL LOPEZ MD, Ot 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 04/23/2016 ARIEL LOPEZ MD Ot Z79.01 GROUP HOME (CURRENT) USE OF ANTICOAGULANT 04/23/2016 ARIEL LOPEZ MD, Ot Z79.899 OTHER GROUP HOME (CURRENT) DRUG THERAPY 04/24/2016 ADELAIDA BOOKER MD, Ot D64.9 ANEMIA, UNSPECIFIED 04/25/2016 ARIEL LOPEZ MD, Ot 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 04/25/2016 AIREL LOPEZ MD, Ot Z79.01 GROUP HOME (CURRENT) USE OF ANTICOAGULANT 04/25/2016 ARIEL LOPEZ MD, Ot Z79.899 OTHER GROUP HOME (CURRENT) DRUG THERAPY 04/29/2016 ADELAIDA BOOKER MD Ot R91.8 OTHER NONSPECIFIC ABNORMAL FINDING OF [place] 05/09/2016 ADELAIDA BOOKER MD Ot D64.9 ANEMIA, UNSPECIFIED 05/09/2016 ADELAIDA BOOKER MD Ot R91.8 OTHER NONSPECIFIC ABNORMAL FINDING OF [place] 05/16/2016 ADELAIDA BOOKER MD Ot D64.9 ANEMIA, UNSPECIFIED 06/22/2016 ARIEL LOPEZ MD, Ot 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 06/22/2016 ARIEL LOPEZ MD, Ot Z79.01 GROUP HOME (CURRENT) USE OF ANTICOAGULANT 06/22/2016 ARIEL LOPEZ MD, Ot Z79.899 OTHER MIDDLE OR INTERMEDIATE SCHOOL PRINCIPAL (CURRENT) DRUG THERAPY 08/03/2016 KINGS FITZGERALD DO Ot F17.210 NICOTINE DEPENDENCE, CIGARETTES, UNCOMPL 08/03/2016 KNIGS FITZGERALD DO Ot I10 ESSENTIAL (PRIMARY) HYPERTENSION 08/03/2016 KINGS FITZGERALD DO Ot I25.10 ATHSCL HEART DISEASE OF [place] CORONARY 08/03/2016 KINGS FITZGERALD DO Ot I25.2 OLD MYOCARDIAL INFARCTION 08/03/2016 AMILCAR DO KINGS K Ot R11.2 NAUSEA WITH VOMITING, UNSPECIFIED 08/03/2016 AMILCAR DO, KINGS K Ot R51 HEADACHE 08/03/2016 AMILCAR SURYA KUMARA K Ot Z79.899 OTHER GROUP HOME (CURRENT) DRUG THERAPY 08/05/2016 AMILCAR SURYA KUMARA K Ot F17.210 NICOTINE DEPENDENCE, CIGARETTES, UNCOMPL 08/05/2016 AMILCAR DO, KINGS K Ot I10 ESSENTIAL (PRIMARY) HYPERTENSION 08/05/2016 AMILCAR DO, KINGS K Ot I25.10 ATHSCL HEART DISEASE OF [place] CORONARY 08/05/2016 AMILCAR DO KINGS K Ot I25.2 OLD MYOCARDIAL INFARCTION 08/05/2016 AMILCAR SURYA KUMARA K Ot R11.2 NAUSEA WITH VOMITING, UNSPECIFIED 08/05/2016 AMILCAR SURYA KUMARA K Ot R51 HEADACHE 08/05/2016 AMILCAR SURYA KUMARA K Ot Z79.899 OTHER MIDDLE OR INTERMEDIATE SCHOOL PRINCIPAL (CURRENT) DRUG THERAPY 09/05/2016 ARIEL LOPEZ MD Ot D68.51 ACTIVATED PROTEIN C RESISTANCE 09/05/2016 ARIEL LOPEZ MD Ot E78.2 MIXED HYPERLIPIDEMIA 09/05/2016 ARIEL LOPEZ MD Ot I10 ESSENTIAL (PRIMARY) HYPERTENSION 09/05/2016 ARIEL LOPEZ MD Ot I25.10 ATHSCL HEART DISEASE OF [place] CORONARY 09/05/2016 ARIEL LOPEZ MD Ot I65.23 OCCLUSION AND STENOSIS OF [place] 09/09/2016 ARIEL LOPEZ MD Ot D68.51 ACTIVATED PROTEIN C RESISTANCE 09/09/2016 ARIEL LOPEZ MD Ot E78.2 MIXED HYPERLIPIDEMIA 09/09/2016 ARIEL LOPEZ MD Ot I10 ESSENTIAL (PRIMARY) HYPERTENSION 09/09/2016 ARIEL LOPEZ MD Ot I25.10 ATHSCL HEART DISEASE OF [place] CORONARY 09/09/2016 ARIEL LOPEZ MD Ot I65.23 OCCLUSION AND STENOSIS OF [place] 10/13/2016 ARIEL LOPEZ MD Ot D68.51 ACTIVATED PROTEIN C RESISTANCE 10/13/2016 ARIEL LOPEZ MD Ot E78.2 MIXED HYPERLIPIDEMIA 10/13/2016 ARIEL LOPEZ MD Ot I10 ESSENTIAL (PRIMARY) HYPERTENSION 10/13/2016 ARIEL LOPEZ MD, Ot I25.10 ATHSCL HEART DISEASE OF [place] CORONARY 10/13/2016 ARIEL LOPEZ MD Ot I65.23 OCCLUSION AND STENOSIS OF [place] 10/22/2016 ARIEL LOPEZ MD Ot D68.51 ACTIVATED PROTEIN C RESISTANCE 10/22/2016 ARIEL LOPEZ MD Ot E78.2 MIXED HYPERLIPIDEMIA 10/22/2016 ARIEL LOPEZ MD Ot I10 ESSENTIAL (PRIMARY) HYPERTENSION 10/22/2016 ARIEL LOPEZ MD Ot I25.10 ATHSCL HEART DISEASE OF [place] CORONARY 10/22/2016 ARIEL LOPEZ MD Ot I65.23 OCCLUSION AND STENOSIS OF [place] 12/04/2016 ADE PEDROZA, ADELAIDA Gaines Ot M54.5 LOW BACK PAIN 12/04/2016 ADE PEDROZA, ADELAIDA Gaines Ot M54.6 PAIN IN THORACIC SPINE 12/16/2016 ADE PEDROZA, ADELAIDA Gaines Ot M54.5 LOW BACK PAIN 12/16/2016 ADE PEDROZA, ADELAIDA Gaines Ot M54.6 PAIN IN THORACIC SPINE 01/20/2017 ADE PEDROZA, ADELAIDA A Ot M54.5 LOW BACK PAIN 01/20/2017 ADE PEDROZA, ADELAIDA Gaines Ot M54.6 PAIN IN THORACIC SPINE 01/30/2017 ADE PEDROZA, ADELAIDA Gaines Ot M54.5 LOW BACK PAIN 01/30/2017 ADE PEDROZA, ADELAIDA Gaines Ot M54.6 PAIN IN THORACIC SPINE 02/13/2017 Ot R07.89 OTHER CHEST PAIN 02/20/2017 Ot R07.89 OTHER CHEST PAIN 02/27/2017 Ot R07.89 OTHER CHEST PAIN 04/05/2017 ALESSIA ANDERS APRN Ot F32.9 MAJOR DEPRESSIVE DISORDER, SINGLE EPISOD 04/05/2017 ALESSIA ANDERS APRN Ot F41.9 ANXIETY DISORDER, UNSPECIFIED 04/05/2017 ALESSIA ANDERS APRN Ot G40.909 EPILEPSY, UNSP, NOT INTRACTABLE, WITHOUT 04/05/2017 ALESSIA ANDERS APRN Ot I10 ESSENTIAL (PRIMARY) HYPERTENSION 04/05/2017 ALESSIA ANDERS APRN Ot I25.10 ATHSCL HEART DISEASE OF [place] CORONARY 04/05/2017 ALESSIA ANDERS APRN Ot I25.2 OLD MYOCARDIAL INFARCTION 04/05/2017 ALESSIA ANDERS APRN Ot K21.9 GASTRO-ESOPHAGEAL REFLUX DISEASE WITHOUT 04/05/2017 ALESSIA ANDERS APRN Ot M41.20 OTHER IDIOPATHIC SCOLIOSIS, SITE UNSPECI 04/05/2017 ALESSIA ANDERS APRN Ot N39.0 URINARY TRACT INFECTION, SITE NOT SPECIF 04/05/2017 ALESSIA ANDERS APRN Ot R10.12 LEFT UPPER QUADRANT PAIN 04/05/2017 ALESSIA ANDERS APRN Ot Z77.22 CNTCT W AND EXPSR TO ENVIRON TOBACCO SMO 04/05/2017 ALESSIA ANDERS APRN Ot Z79.01 MIDDLE OR INTERMEDIATE SCHOOL PRINCIPAL (CURRENT) USE OF ANTICOAGULANT 04/05/2017 ALESSIA ANDERS APRN Ot Z82.49 FAMILY HX OF ISCHEM HEART DIS AND OTH DI 04/05/2017 ALESSIA ANDERS APRN Ot Z86.718 PERSONAL HISTORY OF OTHER VENOUS THROMBO 04/05/2017 ALESSIA ANDERS APRN Ot Z87.01 PERSONAL HISTORY OF PNEUMONIA (RECURRENT 04/05/2017 ALESSIA ANDERS APRN Ot Z87.19 PERSONAL HISTORY OF OTHER DISEASES OF TH 04/05/2017 ALESSIA ANDERS APRN Ot Z87.448 PERSONAL HISTORY OF OTHER DISEASES OF UR 04/05/2017 ALESSIA ANDERS APRN Ot Z90.89 ACQUIRED ABSENCE OF OTHER ORGANS 04/07/2017 ALESSIA ANDERS APRN Ot F32.9 MAJOR DEPRESSIVE DISORDER, SINGLE EPISOD 04/07/2017 ALESSIA ANDERS APRN Ot F41.9 ANXIETY DISORDER, UNSPECIFIED 04/07/2017 ALESSIA ANDERS APRN Ot G40.909 EPILEPSY, UNSP, NOT INTRACTABLE, WITHOUT 04/07/2017 ALESSIA ANDERS APRN Ot I10 ESSENTIAL (PRIMARY) HYPERTENSION 04/07/2017 ALESSIA ANDERS APRN Ot I25.10 ATHSCL HEART DISEASE OF [place] CORONARY 04/07/2017 ALESSIA ANDERS APRN Ot I25.2 OLD MYOCARDIAL INFARCTION 04/07/2017 ALESSIA ANDERS APRN Ot K21.9 GASTRO-ESOPHAGEAL REFLUX DISEASE WITHOUT 04/07/2017 ALESSIA ANDERS APRN Ot M41.20 OTHER IDIOPATHIC SCOLIOSIS, SITE UNSPECI 04/07/2017 ALESSIA ANDERS APRN Ot N39.0 URINARY TRACT INFECTION, SITE NOT SPECIF 04/07/2017 ALESSIA ANDERS APRN Ot R10.12 LEFT UPPER QUADRANT PAIN 04/07/2017 ALESSIA ANDERS APRN Ot Z77.22 CNTCT W AND EXPSR TO ENVIRON TOBACCO SMO 04/07/2017 ALESSIA ANDERS APRN Ot Z79.01 GROUP HOME (CURRENT) USE OF ANTICOAGULANT 04/07/2017 ALESSIA ANDERS APRN Ot Z82.49 FAMILY HX OF ISCHEM HEART DIS AND OTH DI 04/07/2017 ALESSIA ANDERS APRN Ot Z86.718 PERSONAL HISTORY OF OTHER VENOUS THROMBO 04/07/2017 ALESSIA ANDERS EPIDEMIOLOGY INTERNSHIP Ot Z87.01 PERSONAL HISTORY OF PNEUMONIA (RECURRENT 04/07/2017 ALESSIA ANDESR APRN Ot Z87.19 PERSONAL HISTORY OF OTHER DISEASES OF TH 04/07/2017 ALESSIA ANDERS APRN Ot Z87.448 PERSONAL HISTORY OF OTHER DISEASES OF UR 04/07/2017 ALESSIA ANDERS APRN Ot Z90.89 ACQUIRED ABSENCE OF OTHER ORGANS 04/08/2017 ADELAIDA BOOKER MD Ot I10 ESSENTIAL (PRIMARY) HYPERTENSION 04/08/2017 ADELAIDA BOOKER MD Ot Z79.899 OTHER MIDDLE OR INTERMEDIATE SCHOOL PRINCIPAL (CURRENT) DRUG THERAPY 04/20/2017 ADELAIDA BOOKER MD Ot I10 ESSENTIAL (PRIMARY) HYPERTENSION 04/20/2017 ADELAIDA BOOKER MD Ot Z79.899 OTHER MIDDLE OR INTERMEDIATE SCHOOL PRINCIPAL (CURRENT) DRUG THERAPY 08/11/2017 ADELAIDA BOOKER MD Ot M25.512 PAIN IN LEFT SHOULDER 09/16/2017 SHANAE ROSE DO S Ot Z12.31 ENCNTR SCREEN MAMMOGRAM FOR MALIGNANT NE 09/17/2017 SHANAE ROSE DO S Ot Z12.31 ENCNTR SCREEN MAMMOGRAM FOR MALIGNANT NE 09/18/2017 SHANAE ROSE DO Ot N92.1 EXCESSIVE AND FREQUENT MENSTRUATION WITH 09/18/2017 SHANAE ROSE DO S Ot Z12.31 ENCNTR SCREEN MAMMOGRAM FOR MALIGNANT NE 10/07/2017 SHANAE ROSE DO S Ot N92.1 EXCESSIVE AND FREQUENT MENSTRUATION WITH 10/07/2017 SHANAE ROSE DO Ot Z12.31 ENCNTR SCREEN MAMMOGRAM FOR MALIGNANT NE 10/08/2017 SHANAE ROSE DO S Ot N63.11 UNSPECIFIED LUMP IN THE RIGHT BREAST, UP 10/16/2017 SHANAE ROSE DO Ot N92.1 EXCESSIVE AND FREQUENT MENSTRUATION WITH 10/16/2017 SHANAE ROSE DO Ot Z12.31 ENCNTR SCREEN MAMMOGRAM FOR MALIGNANT NE 10/27/2017 SHANAE ROSE DO Ot N63.11 UNSPECIFIED LUMP IN THE RIGHT BREAST, UP 11/06/2017 SHANAE ROSE DO Ot N63.11 UNSPECIFIED LUMP IN THE RIGHT BREAST, UP 12/02/2017 SHANAE ROSE DO Ot Z01.818 ENCOUNTER FOR OTHER PREPROCEDURAL EXAMIN 12/07/2017 SHANAE ROSE DO Ot Z01.818 ENCOUNTER FOR OTHER PREPROCEDURAL EXAMIN Procedures Code Description Performed By Performed On 65.41 04/15/2013 Results Test Result Range Complete blood count (CBC) with automated white blood cell (WBC) differential - 03/20/16 06:35 Blood leukocytes automated count (number/volume) 10.1 10*3/uL 4.3-11.0 Blood erythrocytes automated count (number/volume) 4.05 10*6/uL 4.35-5.85 Venous blood hemoglobin measurement (mass/volume) 14.0 g/dL 11.5-16.0 Blood hematocrit (volume fraction) 39 % 35-52 Automated erythrocyte mean corpuscular volume 96 [foz_us] 80-99 Automated erythrocyte mean corpuscular hemoglobin (mass per erythrocyte) 35 pg 25-34 Automated erythrocyte mean corpuscular hemoglobin concentration measurement ( mass/volume) 36 g/dL 32-36 Automated erythrocyte distribution width ratio 12.1 % 10.0-14.5 Automated blood platelet count (count/volume) 268 10*3/uL 130-400 Automated blood platelet mean volume measurement 10.0 [foz_us] 7.4-10.4 Automated blood neutrophils/100 leukocytes 68 % 42-75 Automated blood lymphocytes/100 leukocytes 20 % 12-44 Blood monocytes/100 leukocytes 9 % 0-12 Automated blood eosinophils/100 leukocytes 3 % 0-10 Automated blood basophils/100 leukocytes 0 % 0-10 Blood neutrophils automated count (number/volume) 6.9 10*3 1.8-7.8 Blood lymphocytes automated count (number/volume) 2.1 10*3 1.0-4.0 Blood monocytes automated count (number/volume) 0.9 10*3 0.0-1.0 Automated eosinophil count 0.3 10*3/uL 0.0-0.3 Automated blood basophil count (count/volume) 0.0 10*3/uL 0.0-0.1 PT panel in platelet poor plasma by coagulation assay - 03/20/16 06:35 Prothrombin time (PT) in platelet poor plasma by coagulation assay 27.6 s 12.2-14.7 INR in platelet poor plasma or blood by coagulation assay 2.6 0.8-1.4 Activated partial thromboplastin time (aPTT) in platelet poor plasma bycoagulation assay - 03/20/16 06:35 Activated partial thromboplastin time (aPTT) in platelet poor plasma bycoagulation assay 62 s 24-35 Comprehensive metabolic panel - 03/20/16 06:35 Serum or plasma sodium measurement (moles/volume) 138 mmol/L 135-145 Serum or plasma potassium measurement (moles/volume) 3.9 mmol/L 3.6-5.0 Serum or plasma chloride measurement (moles/volume) 107 mmol/L 98-107 Carbon dioxide 22 mmol/L 21-32 Serum or plasma anion gap determination (moles/volume) 9 mmol/L 5-14 Serum or plasma urea nitrogen measurement (mass/volume) 8 mg/dL 7-18 Serum or plasma creatinine measurement (mass/volume) 0.65 mg/dL 0.60-1.30 Serum or plasma urea nitrogen/creatinine mass ratio 12 NRG Serum or plasma creatinine measurement with calculation of estimated glomerular filtration rate > NRG Serum or plasma glucose measurement (mass/volume) 96 mg/dL 70-105 Serum or plasma calcium measurement (mass/volume) 8.6 mg/dL 8.5-10.1 Serum or plasma total bilirubin measurement (mass/volume) 0.5 mg/dL 0.1-1.0 Serum or plasma alkaline phosphatase measurement (enzymatic activity/volume) 91 U/L 40-136 Serum or plasma aspartate aminotransferase measurement (enzymatic activity/ volume) 18 U/L 5-34 Serum or plasma alanine aminotransferase measurement (enzymatic activity/volume ) 25 U/L 0-55 Serum or plasma protein measurement (mass/volume) 6.8 g/dL 6.4-8.2 Serum or plasma albumin measurement (mass/volume) 3.9 g/dL 3.2-4.5 Magnesium - 03/20/16 06:35 Magnesium 2.1 mg/dL 1.8-2.4 Serum or plasma troponin i.cardiac measurement (mass/volume) - 03/20/16 06:35 Serum or plasma troponin i.cardiac measurement (mass/volume) < ng/ mL <0.30 Myoglobin, serum - 03/20/16 06:35 Myoglobin, serum 27.2 ng/mL 10.0-92.0 Serum or plasma amylase measurement (enzymatic activity/volume) - 03/20/16 06: 35 Serum or plasma amylase measurement (enzymatic activity/volume) 39 U /L 25-125 Lipase - 03/20/16 06:35 Lipase 23 U/L 8-78 Serum or plasma phenytoin measurement (mass/volume) - 03/20/16 06:35 Serum or plasma phenytoin measurement (mass/volume) 5.2 ug/mL 10.0-20.0 Bacterial blood culture - 03/20/16 08:40 Bacterial blood culture NG NRG Bacterial blood culture - 03/20/16 08:54 Bacterial blood culture NG NRG Complete blood count (CBC) with automated white blood cell (WBC) differential - 03/21/16 08:10 Blood leukocytes automated count (number/volume) 7.0 10*3/uL 4.3-11.0 Blood erythrocytes automated count (number/volume) 3.56 10*6/uL 4.35-5.85 Venous blood hemoglobin measurement (mass/volume) 12.2 g/dL 11.5-16.0 Blood hematocrit (volume fraction) 34 % 35-52 Automated erythrocyte mean corpuscular volume 96 [foz_us] 80-99 Automated erythrocyte mean corpuscular hemoglobin (mass per erythrocyte) 34 pg 25-34 Automated erythrocyte mean corpuscular hemoglobin concentration measurement ( mass/volume) 36 g/dL 32-36 Automated erythrocyte distribution width ratio 11.9 % 10.0-14.5 Automated blood platelet count (count/volume) 247 10*3/uL 130-400 Automated blood platelet mean volume measurement 9.8 [foz_us] 7.4-10.4 Automated blood neutrophils/100 leukocytes 61 % 42-75 Automated blood lymphocytes/100 leukocytes 27 % 12-44 Blood monocytes/100 leukocytes 9 % 0-12 Automated blood eosinophils/100 leukocytes 3 % 0-10 Automated blood basophils/100 leukocytes 0 % 0-10 Blood neutrophils automated count (number/volume) 4.3 10*3 1.8-7.8 Blood lymphocytes automated count (number/volume) 1.9 10*3 1.0-4.0 Blood monocytes automated count (number/volume) 0.6 10*3 0.0-1.0 Automated eosinophil count 0.2 10*3/uL 0.0-0.3 Automated blood basophil count (count/volume) 0.0 10*3/uL 0.0-0.1 Lipid 1996 panel - 03/21/16 08:10 Serum or plasma triglyceride measurement (mass/volume) 72 mg/dL <150 Serum or plasma cholesterol measurement (mass/volume) 114 mg/dL < 200 Serum or plasma cholesterol in HDL measurement (mass/volume) 28 mg/ dL 40-60 Cholesterol in LDL [mass/volume] in serum or plasma by direct assay 60 mg/dL 1-129 Serum or plasma cholesterol in VLDL measurement (mass/volume) 14 mg/ dL 5-40 Comprehensive metabolic panel - 03/21/16 08:10 Serum or plasma sodium measurement (moles/volume) 138 mmol/L 135-145 Serum or plasma potassium measurement (moles/volume) 3.8 mmol/L 3.6-5.0 Serum or plasma chloride measurement (moles/volume) 110 mmol/L 98-107 Carbon dioxide 20 mmol/L 21-32 Serum or plasma anion gap determination (moles/volume) 8 mmol/L 5-14 Serum or plasma urea nitrogen measurement (mass/volume) 4 mg/dL 7-18 Serum or plasma creatinine measurement (mass/volume) 0.58 mg/dL 0.60-1.30 Serum or plasma urea nitrogen/creatinine mass ratio 7 NRG Serum or plasma creatinine measurement with calculation of estimated glomerular filtration rate > NRG Serum or plasma glucose measurement (mass/volume) 93 mg/dL 70-105 Serum or plasma calcium measurement (mass/volume) 8.2 mg/dL 8.5-10.1 Serum or plasma total bilirubin measurement (mass/volume) 0.2 mg/dL 0.1-1.0 Serum or plasma alkaline phosphatase measurement (enzymatic activity/volume) 78 U/L 40-136 Serum or plasma aspartate aminotransferase measurement (enzymatic activity/ volume) 17 U/L 5-34 Serum or plasma alanine aminotransferase measurement (enzymatic activity/volume ) 22 U/L 0-55 Serum or plasma protein measurement (mass/volume) 6.1 g/dL 6.4-8.2 Serum or plasma albumin measurement (mass/volume) 3.3 g/dL 3.2-4.5 PT panel in platelet poor plasma by coagulation assay - 03/21/16 08:10 Prothrombin time (PT) in platelet poor plasma by coagulation assay 31.7 s 12.2-14.7 INR in platelet poor plasma or blood by coagulation assay 3.1 0.8-1.4 Complete blood count (CBC) with automated white blood cell (WBC) differential - 04/13/16 12:23 Blood leukocytes automated count (number/volume) 18.3 10*3/uL 4.3-11.0 Blood erythrocytes automated count (number/volume) 4.96 10*6/uL 4.35-5.85 Venous blood hemoglobin measurement (mass/volume) 16.7 g/dL 11.5-16.0 Blood hematocrit (volume fraction) 46 % 35-52 Automated erythrocyte mean corpuscular volume 93 [foz_us] 80-99 Automated erythrocyte mean corpuscular hemoglobin (mass per erythrocyte) 34 pg 25-34 Automated erythrocyte mean corpuscular hemoglobin concentration measurement ( mass/volume) 36 g/dL 32-36 Automated erythrocyte distribution width ratio 11.9 % 10.0-14.5 Automated blood platelet count (count/volume) 281 10*3/uL 130-400 Automated blood platelet mean volume measurement 11.1 [foz_us] 7.4-10.4 Automated blood neutrophils/100 leukocytes 77 % 42-75 Automated blood lymphocytes/100 leukocytes 14 % 12-44 Blood monocytes/100 leukocytes 8 % 0-12 Automated blood eosinophils/100 leukocytes 0 % 0-10 Automated blood basophils/100 leukocytes 0 % 0-10 Blood neutrophils automated count (number/volume) 14.2 10*3 1.8-7.8 Blood lymphocytes automated count (number/volume) 2.6 10*3 1.0-4.0 Blood monocytes automated count (number/volume) 1.5 10*3 0.0-1.0 Automated eosinophil count 0.0 10*3/uL 0.0-0.3 Automated blood basophil count (count/volume) 0.0 10*3/uL 0.0-0.1 Whole blood basic metabolic panel - 04/13/16 12:23 Serum or plasma sodium measurement (moles/volume) 134 mmol/L 135-145 Serum or plasma potassium measurement (moles/volume) 3.7 mmol/L 3.6-5.0 Serum or plasma chloride measurement (moles/volume) 101 mmol/L 98-107 Carbon dioxide 17 mmol/L 21-32 Serum or plasma anion gap determination (moles/volume) 16 mmol/L 5-14 Serum or plasma urea nitrogen measurement (mass/volume) 11 mg/dL 7-18 Serum or plasma creatinine measurement (mass/volume) 0.76 mg/dL 0.60-1.30 Serum or plasma urea nitrogen/creatinine mass ratio 14 NRG Serum or plasma creatinine measurement with calculation of estimated glomerular filtration rate > NRG Serum or plasma glucose measurement (mass/volume) 150 mg/dL 70-105 Serum or plasma calcium measurement (mass/volume) 9.7 mg/dL 8.5-10.1 Blood manual differential performed detection - 04/13/16 12:23 Blood monocytes/100 leukocytes 5 % NRG Manual blood segmented neutrophils/100 leukocytes 81 % NRG Manual blood lymphocytes/100 leukocytes 12 % NRG Manual eosinophils/100 leukocytes in nose 2 % NRG Blood erythrocyte morphology finding identification NORMAL NRG PT panel in platelet poor plasma by coagulation assay - 04/13/16 12:23 Prothrombin time (PT) in platelet poor plasma by coagulation assay 85.2 s 12.2-14.7 INR in platelet poor plasma or blood by coagulation assay 10.6 0.8-1.4 Activated partial thromboplastin time (aPTT) in platelet poor plasma bycoagulation assay - 04/13/16 12:23 Activated partial thromboplastin time (aPTT) in platelet poor plasma bycoagulation assay 178 s 24-35 Blood lactic acid measurement (moles/volume) - 04/13/16 13:05 Blood lactic acid measurement (moles/volume) 1.6 mmol/L 0.5-2.0 Serum or plasma C reactive protein measurement (mass/volume) - 04/13/16 13:05 Serum or plasma C reactive protein measurement (mass/volume) 10.16 mg/dL 0.00-0.50 Bacterial blood culture - 04/13/16 13:05 Bacterial blood culture NG NRG Bacterial blood culture - 04/13/16 13:10 Bacterial blood culture NG NRG Urine beta human chorionic gonadotropin (hCG) measurement - 04/13/16 13:19 Urine beta human chorionic gonadotropin (hCG) measurement NEGATIVE NEGATIVE Complete urinalysis with reflex to culture - 04/13/16 13:19 Urine color determination RED NRG Urine clarity determination BLOODY NRG Urine pH measurement by test strip 6.5 5-9 Specific gravity of urine by test strip 1.015 1.016- 1.022 Urine protein assay by test strip, semi-quantitative 4+ NEGATIVE Urine glucose detection by automated test strip NEGATIVE NEGATIVE Erythrocytes detection in urine sediment by light microscopy 5+ NEGATIVE Urine ketones detection by automated test strip 3+ NEGATIVE Urine nitrite detection by test strip NEGATIVE NEGATIVE Urine total bilirubin detection by test strip NEGATIVE NEGATIVE Urine urobilinogen measurement by automated test strip (mass/volume) NORMAL NORMAL Urine leukocyte esterase detection by dipstick NEGATIVE NEGATIVE Automated urine sediment erythrocyte count by microscopy (number/high power field) TNTC NRG Automated urine sediment leukocyte count by microscopy (number/high power field ) [HPF] NRG Bacteria detection in urine sediment by light microscopy NEGATIVE NRG Squamous epithelial cells detection in urine sediment by light microscopy 10-25 NRG Crystals detection in urine sediment by light microscopy NONE NRG Casts detection in urine sediment by light microscopy NONE NRG Mucus detection in urine sediment by light microscopy NEGATIVE NRG Complete urinalysis with reflex to culture NO NRG FRESH FROZEN PLASMA - 04/13/16 13:54 FRESH FROZEN PLASMA PRSMD TRFSD 04/13/16 1552 NRG Blood type T Indirect antibody screen panel - 04/13/16 13:54 ABO+Rh group AP NRG Transfusion band number [id number] NRG Blood group antibody screen NEGATIVE NRG Whole blood hemoglobin and hematocrit panel - 04/13/16 19:33 Venous blood hemoglobin measurement (mass/volume) 13.4 g/dL 11.5-16.0 Blood hematocrit (volume fraction) 37 % 35-52 Whole blood hemoglobin and hematocrit panel - 04/14/16 00:20 Venous blood hemoglobin measurement (mass/volume) 13.1 g/dL 11.5-16.0 Blood hematocrit (volume fraction) 37 % 35-52 Complete blood count (CBC) with automated white blood cell (WBC) differential - 04/14/16 04:40 Blood leukocytes automated count (number/volume) 9.2 10*3/uL 4.3-11.0 Blood erythrocytes automated count (number/volume) 3.63 10*6/uL 4.35-5.85 Venous blood hemoglobin measurement (mass/volume) 12.3 g/dL 11.5-16.0 Blood hematocrit (volume fraction) 35 % 35-52 Automated erythrocyte mean corpuscular volume 96 [foz_us] 80-99 Automated erythrocyte mean corpuscular hemoglobin (mass per erythrocyte) 34 pg 25-34 Automated erythrocyte mean corpuscular hemoglobin concentration measurement ( mass/volume) 35 g/dL 32-36 Automated erythrocyte distribution width ratio 11.4 % 10.0-14.5 Automated blood platelet count (count/volume) 170 10*3/uL 130-400 Automated blood platelet mean volume measurement 10.7 [foz_us] 7.4-10.4 Automated blood neutrophils/100 leukocytes 53 % 42-75 Automated blood lymphocytes/100 leukocytes 36 % 12-44 Blood monocytes/100 leukocytes 10 % 0-12 Automated blood eosinophils/100 leukocytes 1 % 0-10 Automated blood basophils/100 leukocytes 0 % 0-10 Blood neutrophils automated count (number/volume) 4.8 10*3 1.8-7.8 Blood lymphocytes automated count (number/volume) 3.3 10*3 1.0-4.0 Blood monocytes automated count (number/volume) 0.9 10*3 0.0-1.0 Automated eosinophil count 0.1 10*3/uL 0.0-0.3 Automated blood basophil count (count/volume) 0.0 10*3/uL 0.0-0.1 PT panel in platelet poor plasma by coagulation assay - 04/14/16 04:40 Prothrombin time (PT) in platelet poor plasma by coagulation assay 13.7 s 12.2-14.7 INR in platelet poor plasma or blood by coagulation assay 1.1 0.8-1.4 Comprehensive metabolic panel - 04/14/16 04:40 Serum or plasma sodium measurement (moles/volume) 136 mmol/L 135-145 Serum or plasma potassium measurement (moles/volume) 3.7 mmol/L 3.6-5.0 Serum or plasma chloride measurement (moles/volume) 105 mmol/L 98-107 Carbon dioxide 21 mmol/L 21-32 Serum or plasma anion gap determination (moles/volume) 10 mmol/L 5-14 Serum or plasma urea nitrogen measurement (mass/volume) 14 mg/dL 7-18 Serum or plasma creatinine measurement (mass/volume) 0.65 mg/dL 0.60-1.30 Serum or plasma urea nitrogen/creatinine mass ratio 22 NRG Serum or plasma creatinine measurement with calculation of estimated glomerular filtration rate > NRG Serum or plasma glucose measurement (mass/volume) 82 mg/dL 70-105 Serum or plasma calcium measurement (mass/volume) 8.4 mg/dL 8.5-10.1 Serum or plasma total bilirubin measurement (mass/volume) 1.2 mg/dL 0.1-1.0 Serum or plasma alkaline phosphatase measurement (enzymatic activity/volume) 70 U/L 40-136 Serum or plasma aspartate aminotransferase measurement (enzymatic activity/ volume) 25 U/L 5-34 Serum or plasma alanine aminotransferase measurement (enzymatic activity/volume ) 21 U/L 0-55 Serum or plasma protein measurement (mass/volume) 6.2 g/dL 6.4-8.2 Serum or plasma albumin measurement (mass/volume) 3.6 g/dL 3.2-4.5 Serum or plasma phosphate measurement (mass/volume) - 04/14/16 04:40 Serum or plasma phosphate measurement (mass/volume) 3.2 mg/dL 2.3-4.7 Magnesium - 04/14/16 04:40 Magnesium 2.0 mg/dL 1.8-2.4 Whole blood hemoglobin and hematocrit panel - 04/14/16 08:25 Venous blood hemoglobin measurement (mass/volume) 11.1 g/dL 11.5-16.0 Blood hematocrit (volume fraction) 31 % 35-52 Methicillin resistant Staphylococcus aureus (MRSA) screening culture - 09:00 Methicillin resistant Staphylococcus aureus (MRSA) screening culture NEG [facility] Whole blood hemoglobin and hematocrit panel - 04/14/16 16:00 Venous blood hemoglobin measurement (mass/volume) 10.8 g/dL 11.5-16.0 Blood hematocrit (volume fraction) 31 % 35-52 Automated blood complete blood count (hemogram) panel - 04/15/16 05:05 Blood leukocytes automated count (number/volume) 6.6 10*3/uL 4.3-11.0 Blood erythrocytes automated count (number/volume) 3.29 10*6/uL 4.35-5.85 Venous blood hemoglobin measurement (mass/volume) 11.2 g/dL 11.5-16.0 Blood hematocrit (volume fraction) 32 % 35-52 Automated erythrocyte mean corpuscular volume 96 [foz_us] 80-99 Automated erythrocyte mean corpuscular hemoglobin (mass per erythrocyte) 34 pg 25-34 Automated erythrocyte mean corpuscular hemoglobin concentration measurement ( mass/volume) 35 g/dL 32-36 Automated erythrocyte distribution width ratio 11.4 % 10.0-14.5 Automated blood platelet count (count/volume) 145 10*3/uL 130-400 Automated blood platelet mean volume measurement 10.2 [foz_us] 7.4-10.4 Comprehensive metabolic panel - 04/15/16 05:05 Serum or plasma sodium measurement (moles/volume) 138 mmol/L 135-145 Serum or plasma potassium measurement (moles/volume) 3.5 mmol/L 3.6-5.0 Serum or plasma chloride measurement (moles/volume) 108 mmol/L 98-107 Carbon dioxide 21 mmol/L 21-32 Serum or plasma anion gap determination (moles/volume) 9 mmol/L 5-14 Serum or plasma urea nitrogen measurement (mass/volume) 11 mg/dL 7-18 Serum or plasma creatinine measurement (mass/volume) 0.62 mg/dL 0.60-1.30 Serum or plasma urea nitrogen/creatinine mass ratio 18 NRG Serum or plasma creatinine measurement with calculation of estimated glomerular filtration rate > NRG Serum or plasma glucose measurement (mass/volume) 94 mg/dL 70-105 Serum or plasma calcium measurement (mass/volume) 8.2 mg/dL 8.5-10.1 Serum or plasma total bilirubin measurement (mass/volume) 0.3 mg/dL 0.1-1.0 Serum or plasma alkaline phosphatase measurement (enzymatic activity/volume) 67 U/L 40-136 Serum or plasma aspartate aminotransferase measurement (enzymatic activity/ volume) 22 U/L 5-34 Serum or plasma alanine aminotransferase measurement (enzymatic activity/volume ) 18 U/L 0-55 Serum or plasma protein measurement (mass/volume) 5.6 g/dL 6.4-8.2 Serum or plasma albumin measurement (mass/volume) 3.2 g/dL 3.2-4.5 Complete blood count (CBC) with automated white blood cell (WBC) differential - 04/16/16 21:26 Blood leukocytes automated count (number/volume) 7.8 10*3/uL 4.3-11.0 Blood erythrocytes automated count (number/volume) 3.16 10*6/uL 4.35-5.85 Venous blood hemoglobin measurement (mass/volume) 10.8 g/dL 11.5-16.0 Blood hematocrit (volume fraction) 30 % 35-52 Automated erythrocyte mean corpuscular volume 96 [foz_us] 80-99 Automated erythrocyte mean corpuscular hemoglobin (mass per erythrocyte) 34 pg 25-34 Automated erythrocyte mean corpuscular hemoglobin concentration measurement ( mass/volume) 36 g/dL 32-36 Automated erythrocyte distribution width ratio 11.2 % 10.0-14.5 Automated blood platelet count (count/volume) 169 10*3/uL 130-400 Automated blood platelet mean volume measurement 10.6 [foz_us] 7.4-10.4 Automated blood neutrophils/100 leukocytes 54 % 42-75 Automated blood lymphocytes/100 leukocytes 35 % 12-44 Blood monocytes/100 leukocytes 7 % 0-12 Automated blood eosinophils/100 leukocytes 4 % 0-10 Automated blood basophils/100 leukocytes 0 % 0-10 Blood neutrophils automated count (number/volume) 4.2 10*3 1.8-7.8 Blood lymphocytes automated count (number/volume) 2.7 10*3 1.0-4.0 Blood monocytes automated count (number/volume) 0.6 10*3 0.0-1.0 Automated eosinophil count 0.3 10*3/uL 0.0-0.3 Automated blood basophil count (count/volume) 0.0 10*3/uL 0.0-0.1 PT panel in platelet poor plasma by coagulation assay - 04/16/16 21:26 Prothrombin time (PT) in platelet poor plasma by coagulation assay 13.2 s 12.2-14.7 INR in platelet poor plasma or blood by coagulation assay 1.0 0.8-1.4 Activated partial thromboplastin time (aPTT) in platelet poor plasma bycoagulation assay - 04/16/16 21:26 Activated partial thromboplastin time (aPTT) in platelet poor plasma bycoagulation assay 26 s 24-35 Serum or plasma choriogonadotropin ( test) detection - 04/16/16 21:26 Serum or plasma choriogonadotropin ( test) detection NEGATIVE NEGATIVE Comprehensive metabolic panel - 04/16/16 21:26 Serum or plasma sodium measurement (moles/volume) 140 mmol/L 135-145 Serum or plasma potassium measurement (moles/volume) 3.7 mmol/L 3.6-5.0 Serum or plasma chloride measurement (moles/volume) 109 mmol/L 98-107 Carbon dioxide 22 mmol/L 21-32 Serum or plasma anion gap determination (moles/volume) 9 mmol/L 5-14 Serum or plasma urea nitrogen measurement (mass/volume) 9 mg/dL 7-18 Serum or plasma creatinine measurement (mass/volume) 0.65 mg/dL 0.60-1.30 Serum or plasma urea nitrogen/creatinine mass ratio 14 NRG Serum or plasma creatinine measurement with calculation of estimated glomerular filtration rate > NRG Serum or plasma glucose measurement (mass/volume) 93 mg/dL 70-105 Serum or plasma calcium measurement (mass/volume) 8.4 mg/dL 8.5-10.1 Serum or plasma total bilirubin measurement (mass/volume) 0.3 mg/dL 0.1-1.0 Serum or plasma alkaline phosphatase measurement (enzymatic activity/volume) 69 U/L 40-136 Serum or plasma aspartate aminotransferase measurement (enzymatic activity/ volume) 20 U/L 5-34 Serum or plasma alanine aminotransferase measurement (enzymatic activity/volume ) 19 U/L 0-55 Serum or plasma protein measurement (mass/volume) 5.8 g/dL 6.4-8.2 Serum or plasma albumin measurement (mass/volume) 3.4 g/dL 3.2-4.5 Magnesium - 04/16/16 21:26 Magnesium 2.2 mg/dL 1.8-2.4 Serum or plasma thyrotropin measurement by detection limit <=0.05 miu/l (units/ volume) - 04/16/16 21:26 Serum or plasma thyrotropin measurement by detection limit <=0.05 miu/l (units/ volume) 1.94 u[iU]/mL 0.35-4.94 Complete blood count (CBC) with automated white blood cell (WBC) differential - 04/18/16 15:59 Blood leukocytes automated count (number/volume) 7.0 10*3/uL 4.3-11.0 Blood erythrocytes automated count (number/volume) 3.57 10*6/uL 4.35-5.85 Venous blood hemoglobin measurement (mass/volume) 12.1 g/dL 11.5-16.0 Blood hematocrit (volume fraction) 34 % 35-52 Automated erythrocyte mean corpuscular volume 94 [foz_us] 80-99 Automated erythrocyte mean corpuscular hemoglobin (mass per erythrocyte) 34 pg 25-34 Automated erythrocyte mean corpuscular hemoglobin concentration measurement ( mass/volume) 36 g/dL 32-36 Automated erythrocyte distribution width ratio 11.2 % 10.0-14.5 Automated blood platelet count (count/volume) 217 10*3/uL 130-400 Automated blood platelet mean volume measurement 10.6 [foz_us] 7.4-10.4 Automated blood neutrophils/100 leukocytes 52 % 42-75 Automated blood lymphocytes/100 leukocytes 39 % 12-44 Blood monocytes/100 leukocytes 7 % 0-12 Automated blood eosinophils/100 leukocytes 3 % 0-10 Automated blood basophils/100 leukocytes 0 % 0-10 Blood neutrophils automated count (number/volume) 3.6 10*3 1.8-7.8 Blood lymphocytes automated count (number/volume) 2.7 10*3 1.0-4.0 Blood monocytes automated count (number/volume) 0.5 10*3 0.0-1.0 Automated eosinophil count 0.2 10*3/uL 0.0-0.3 Automated blood basophil count (count/volume) 0.0 10*3/uL 0.0-0.1 Complete blood count (CBC) with automated white blood cell (WBC) differential - 08/03/16 10:15 Blood leukocytes automated count (number/volume) 10.4 10*3/uL 4.3-11.0 Blood erythrocytes automated count (number/volume) 4.73 10*6/uL 4.35-5.85 Venous blood hemoglobin measurement (mass/volume) 15.4 g/dL 11.5-16.0 Blood hematocrit (volume fraction) 45 % 35-52 Automated erythrocyte mean corpuscular volume 94 [foz_us] 80-99 Automated erythrocyte mean corpuscular hemoglobin (mass per erythrocyte) 33 pg 25-34 Automated erythrocyte mean corpuscular hemoglobin concentration measurement ( mass/volume) 35 g/dL 32-36 Automated erythrocyte distribution width ratio 12.6 % 10.0-14.5 Automated blood platelet count (count/volume) 217 10*3/uL 130-400 Automated blood platelet mean volume measurement 10.9 [foz_us] 7.4-10.4 Automated blood neutrophils/100 leukocytes 76 % 42-75 Automated blood lymphocytes/100 leukocytes 18 % 12-44 Blood monocytes/100 leukocytes 5 % 0-12 Automated blood eosinophils/100 leukocytes 1 % 0-10 Automated blood basophils/100 leukocytes 0 % 0-10 Blood neutrophils automated count (number/volume) 7.9 10*3 1.8-7.8 Blood lymphocytes automated count (number/volume) 1.9 10*3 1.0-4.0 Blood monocytes automated count (number/volume) 0.5 10*3 0.0-1.0 Automated eosinophil count 0.1 10*3/uL 0.0-0.3 Automated blood basophil count (count/volume) 0.0 10*3/uL 0.0-0.1 Serum or plasma choriogonadotropin ( test) detection - 08/03/16 10:15 Serum or plasma choriogonadotropin ( test) detection NEGATIVE NEGATIVE PT panel in platelet poor plasma by coagulation assay - 08/03/16 10:15 Prothrombin time (PT) in platelet poor plasma by coagulation assay 12.4 s 12.2-14.7 INR in platelet poor plasma or blood by coagulation assay 1.0 0.8-1.4 Activated partial thromboplastin time (aPTT) in platelet poor plasma bycoagulation assay - 08/03/16 10:15 Activated partial thromboplastin time (aPTT) in platelet poor plasma bycoagulation assay < s 24-35 Comprehensive metabolic panel - 08/03/16 10:15 Serum or plasma sodium measurement (moles/volume) 142 mmol/L 135-145 Serum or plasma potassium measurement (moles/volume) 3.7 mmol/L 3.6-5.0 Serum or plasma chloride measurement (moles/volume) 112 mmol/L 98-107 Carbon dioxide 16 mmol/L 21-32 Serum or plasma anion gap determination (moles/volume) 14 mmol/L 5-14 Serum or plasma urea nitrogen measurement (mass/volume) 10 mg/dL 7-18 Serum or plasma creatinine measurement (mass/volume) 0.81 mg/dL 0.60-1.30 Serum or plasma urea nitrogen/creatinine mass ratio 12 NRG Serum or plasma creatinine measurement with calculation of estimated glomerular filtration rate > NRG Serum or plasma glucose measurement (mass/volume) 137 mg/dL 70-105 Serum or plasma calcium measurement (mass/volume) 9.0 mg/dL 8.5-10.1 Serum or plasma total bilirubin measurement (mass/volume) 0.6 mg/dL 0.1-1.0 Serum or plasma alkaline phosphatase measurement (enzymatic activity/volume) 69 U/L 40-136 Serum or plasma aspartate aminotransferase measurement (enzymatic activity/ volume) 17 U/L 5-34 Serum or plasma alanine aminotransferase measurement (enzymatic activity/volume ) 14 U/L 0-55 Serum or plasma protein measurement (mass/volume) 7.1 g/dL 6.4-8.2 Serum or plasma albumin measurement (mass/volume) 4.0 g/dL 3.2-4.5 Magnesium - 08/03/16 10:15 Magnesium 1.7 mg/dL 1.8-2.4 Serum or plasma troponin i.cardiac measurement (mass/volume) - 08/03/16 10:15 Serum or plasma troponin i.cardiac measurement (mass/volume) < ng/ mL <0.30 Serum or plasma amylase measurement (enzymatic activity/volume) - 08/03/16 10: 15 Serum or plasma amylase measurement (enzymatic activity/volume) 47 U /L 25-125 Lipase - 08/03/16 10:15 Lipase 35 U/L 8-78 Complete blood count (CBC) with automated white blood cell (WBC) differential - 03/18/17 10:20 Blood leukocytes automated count (number/volume) 7.8 10*3/uL 4.3-11.0 Blood erythrocytes automated count (number/volume) 4.58 10*6/uL 4.35-5.85 Venous blood hemoglobin measurement (mass/volume) 15.6 g/dL 11.5-16.0 Blood hematocrit (volume fraction) 45 % 35-52 Automated erythrocyte mean corpuscular volume 97 [foz_us] 80-99 Automated erythrocyte mean corpuscular hemoglobin (mass per erythrocyte) 34 pg 25-34 Automated erythrocyte mean corpuscular hemoglobin concentration measurement ( mass/volume) 35 g/dL 32-36 Automated erythrocyte distribution width ratio 12.5 % 10.0-14.5 Automated blood platelet count (count/volume) 246 10*3/uL 130-400 Automated blood platelet mean volume measurement 10.2 [foz_us] 7.4-10.4 Automated blood neutrophils/100 leukocytes 60 % 42-75 Automated blood lymphocytes/100 leukocytes 29 % 12-44 Blood monocytes/100 leukocytes 8 % 0-12 Automated blood eosinophils/100 leukocytes 2 % 0-10 Automated blood basophils/100 leukocytes 1 % 0-10 Blood neutrophils automated count (number/volume) 4.7 10*3 1.8-7.8 Blood lymphocytes automated count (number/volume) 2.3 10*3 1.0-4.0 Blood monocytes automated count (number/volume) 0.6 10*3 0.0-1.0 Automated eosinophil count 0.1 10*3/uL 0.0-0.3 Automated blood basophil count (count/volume) 0.0 10*3/uL 0.0-0.1 Comprehensive metabolic panel - 03/18/17 10:20 Serum or plasma sodium measurement (moles/volume) 138 mmol/L 135-145 Serum or plasma potassium measurement (moles/volume) 4.2 mmol/L 3.6-5.0 Serum or plasma chloride measurement (moles/volume) 110 mmol/L 98-107 Carbon dioxide 19 mmol/L 21-32 Serum or plasma anion gap determination (moles/volume) 9 mmol/L 5-14 Serum or plasma urea nitrogen measurement (mass/volume) 8 mg/dL 7-18 Serum or plasma creatinine measurement (mass/volume) 0.80 mg/dL 0.60-1.30 Serum or plasma urea nitrogen/creatinine mass ratio 10 NRG Serum or plasma creatinine measurement with calculation of estimated glomerular filtration rate > NRG Serum or plasma glucose measurement (mass/volume) 100 mg/dL 70-105 Serum or plasma calcium measurement (mass/volume) 9.4 mg/dL 8.5-10.1 Serum or plasma total bilirubin measurement (mass/volume) 1.1 mg/dL 0.1-1.0 Serum or plasma alkaline phosphatase measurement (enzymatic activity/volume) 56 U/L 40-136 Serum or plasma aspartate aminotransferase measurement (enzymatic activity/ volume) 18 U/L 5-34 Serum or plasma alanine aminotransferase measurement (enzymatic activity/volume ) 12 U/L 0-55 Serum or plasma protein measurement (mass/volume) 8.1 g/dL 6.4-8.2 Serum or plasma albumin measurement (mass/volume) 4.4 g/dL 3.2-4.5 Lipid 1996 panel - 03/18/17 10:20 Serum or plasma triglyceride measurement (mass/volume) 118 mg/dL <150 Serum or plasma cholesterol measurement (mass/volume) 139 mg/dL < 200 Serum or plasma cholesterol in HDL measurement (mass/volume) 43 mg/ dL 40-60 Cholesterol in LDL [mass/volume] in serum or plasma by direct assay 73 mg/dL 1-129 Serum or plasma cholesterol in VLDL measurement (mass/volume) 24 mg/ dL 5-40 THYROID STIMULATING HORMONE - 03/18/17 10:20 THYROID STIMULATING HORMONE 0.80 u[iU]/mL 0.35-4.94 Complete blood count (CBC) with automated white blood cell (WBC) differential - 04/05/17 13:25 Blood leukocytes automated count (number/volume) 4.9 10*3/uL 4.3-11.0 Blood erythrocytes automated count (number/volume) 4.51 10*6/uL 4.35-5.85 Venous blood hemoglobin measurement (mass/volume) 15.2 g/dL 11.5-16.0 Blood hematocrit (volume fraction) 43 % 35-52 Automated erythrocyte mean corpuscular volume 95 [foz_us] 80-99 Automated erythrocyte mean corpuscular hemoglobin (mass per erythrocyte) 34 pg 25-34 Automated erythrocyte mean corpuscular hemoglobin concentration measurement ( mass/volume) 36 g/dL 32-36 Automated erythrocyte distribution width ratio 11.7 % 10.0-14.5 Automated blood platelet count (count/volume) 182 10*3/uL 130-400 Automated blood platelet mean volume measurement 10.1 [foz_us] 7.4-10.4 Automated blood neutrophils/100 leukocytes 46 % 42-75 Automated blood lymphocytes/100 leukocytes 37 % 12-44 Blood monocytes/100 leukocytes 12 % 0-12 Automated blood eosinophils/100 leukocytes 3 % 0-10 Automated blood basophils/100 leukocytes 3 % 0-10 Blood neutrophils automated count (number/volume) 2.2 10*3 1.8-7.8 Blood lymphocytes automated count (number/volume) 1.8 10*3 1.0-4.0 Blood monocytes automated count (number/volume) 0.6 10*3 0.0-1.0 Automated eosinophil count 0.2 10*3/uL 0.0-0.3 Automated blood basophil count (count/volume) 0.1 10*3/uL 0.0-0.1 Comprehensive metabolic panel - 04/05/17 13:25 Serum or plasma sodium measurement (moles/volume) 138 mmol/L 135-145 Serum or plasma potassium measurement (moles/volume) 4.2 mmol/L 3.6-5.0 Serum or plasma chloride measurement (moles/volume) 106 mmol/L 98-107 Carbon dioxide 20 mmol/L 21-32 Serum or plasma anion gap determination (moles/volume) 12 mmol/L 5-14 Serum or plasma urea nitrogen measurement (mass/volume) 10 mg/dL 7-18 Serum or plasma creatinine measurement (mass/volume) 0.72 mg/dL 0.60-1.30 Serum or plasma urea nitrogen/creatinine mass ratio 14 NRG Serum or plasma creatinine measurement with calculation of estimated glomerular filtration rate > NRG Serum or plasma glucose measurement (mass/volume) 93 mg/dL 70-105 Serum or plasma calcium measurement (mass/volume) 9.3 mg/dL 8.5-10.1 Serum or plasma total bilirubin measurement (mass/volume) 0.6 mg/dL 0.1-1.0 Serum or plasma alkaline phosphatase measurement (enzymatic activity/volume) 61 U/L 40-136 Serum or plasma aspartate aminotransferase measurement (enzymatic activity/ volume) 26 U/L 5-34 Serum or plasma alanine aminotransferase measurement (enzymatic activity/volume ) 17 U/L 0-55 Serum or plasma protein measurement (mass/volume) 8.3 g/dL 6.4-8.2 Serum or plasma albumin measurement (mass/volume) 4.2 g/dL 3.2-4.5 Serum or plasma troponin i.cardiac measurement (mass/volume) - 04/05/17 13:25 Serum or plasma troponin i.cardiac measurement (mass/volume) < ng/ mL <0.30 Lipase - 04/05/17 13:25 Lipase 30 U/L 8-78 Complete urinalysis with reflex to culture - 04/05/17 14:07 Urine color determination YELLOW NRG Urine clarity determination CLEAR NRG Urine pH measurement by test strip 6.5 5-9 Specific gravity of urine by test strip 1.015 1.016- 1.022 Urine protein assay by test strip, semi-quantitative 2+ NEGATIVE Urine glucose detection by automated test strip NEGATIVE NEGATIVE Erythrocytes detection in urine sediment by light microscopy 1+ NEGATIVE Urine ketones detection by automated test strip 3+ NEGATIVE Urine nitrite detection by test strip NEGATIVE NEGATIVE Urine total bilirubin detection by test strip 1+ NEGATIVE Urine urobilinogen measurement by automated test strip (mass/volume) 4 mg/dL NORMAL Urine leukocyte esterase detection by dipstick 1+ NEGATIVE Automated urine sediment erythrocyte count by microscopy (number/high power field) NONE NRG Automated urine sediment leukocyte count by microscopy (number/high power field ) [HPF] NRG Bacteria detection in urine sediment by light microscopy TRACE NRG Squamous epithelial cells detection in urine sediment by light microscopy 5-10 NRG Crystals detection in urine sediment by light microscopy NONE NRG Casts detection in urine sediment by light microscopy NONE NRG Mucus detection in urine sediment by light microscopy SMALL NRG Complete urinalysis with reflex to culture NO NRG Methicillin resistant Staphylococcus aureus (MRSA) screening culture - 09:35 Methicillin resistant Staphylococcus aureus (MRSA) screening culture NEG NRG Encounters ACCT No. Visit Date/Time Discharge Status Pt. Type Provider Facility Loc./Unit Complaint [id number] 06/06/2014 09:18:00 06/06/2014 23:59:59 CLS Outpatient ROBIN SAINI DO [id number] 01/04/2014 14:55:00 01/04/2014 23:59:59 CLS Outpatient KATYA NATHAN APRN [id number] 08/03/2013 11:44:00 08/03/2013 23:59:59 CLS Outpatient KATYA NATHAN APRN [id number] 01/27/2013 16:02:00 01/27/2013 23:59:59 CLS Outpatient AYSHA SAINI DO [id number] 02/26/2012 13:57:00 02/26/2012 23:59:59 CLS Outpatient AYSHA SAINI DO [id number] 04/08/2017 14:51:17 04/08/2017 23:59:59 CLS Outpatient [id number] 01/26/2015 04:44:40 ACT Document Registration [id number] 12/01/2017 09:05:00 12/01/2017 10:00:00 DIS Outpatient SHANAE ROSE DO [facility] PREOP CHRONIC PELVIC PAIN ,FACTOR V LEIDEN [id number] 10/07/2017 14:09:00 10/07/2017 23:59:59 CLS Outpatient SHANAE ROSE DO [facility] RAD R92.8 ABN MAMMO [id number] 09/17/2017 14:27:00 09/17/2017 23:59:59 CLS Outpatient SHANAE ROSE DO [facility] RAD SCREENING [id number] 08/11/2017 14:15:00 08/11/2017 16:23:00 DIS Outpatient ADELAIDA BOOKER MD [facility] REHAB L SHOULDER PAIN WITH ROTATOR CUFF INFLAMMATION [id number] 04/05/2017 13:16:00 04/05/2017 15:42:00 DIS Emergency MARTITAALESSIA [employer]Y [employer] [facility] ER L SIDE ABD PAIN [id number] 03/18/2017 09:59:00 03/18/2017 23:59:59 CLS Outpatient ADELAIDA BOOKER MD [facility] LAB I10, Z79.899 [id number] 12/29/2016 11:15:00 02/05/2017 11:59:00 DIS Outpatient ADELAIDA BOOKER MD [facility] REHAB LBP; THORACIC PAIN [id number] 11/10/2016 11:49:00 11/10/2016 23:59:59 CLS Preadmit ADELAIDA BOOKER MD [facility] RAD SCREENING Z12.31 [id number] 09/03/2016 08:35:00 09/03/2016 23:59:59 CLS Outpatient ARIEL LOPEZ MD [facility] CARD CAD,CAROTID STENOSIS [id number] 08/03/2016 09:40:00 08/03/2016 11:56:00 DIS Emergency KINGS FITZGERALD DO [facility] ER HEADACHE/NAUSEA [id number] 06/23/2016 00:09:00 06/23/2016 23:59:59 CLS Preadmit ARIEL LOPEZ MD [facility] LAB COUMIDIN,THERAPY,MED MGMT [id number] 03/24/2016 10:02:00 06/22/2016 00:01:00 DIS Outpatient ARIEL LOPEZ MD [facility] LAB COUMIDIN,THERAPY,MED MGMT [id number] 04/18/2016 15:27:00 04/18/2016 23:59:59 CLS Outpatient ADELIADA BOOKER MD [facility] LAB ANEMIA [id number] 04/16/2016 20:47:00 04/16/2016 22:28:00 DIS Emergency KINGS FITZGERALD DO [facility] ER FACIAL NUMBNESS [id number] 04/13/2016 16:25:00 04/15/2016 09:20:00 DIS Inpatient ADELAIDA BOOKER MD [facility] ICU SUPRATHERAPRUTIC INR; HEMATURIA; HEMATEMESIS [id number] 04/07/2016 08:51:00 04/07/2016 23:59:59 CLS Outpatient ADELAIDA BOOKER MD [facility] RAD LUNG MASS [id number] 03/20/2016 08:51:00 03/21/2016 10:40:00 DIS Inpatient ADELAIDA BOOKER MD [facility] 4TH POST OBSTRUCTIVE PNA LLL [id number] 03/19/2016 09:36:00 03/19/2016 23:59:59 CLS Outpatient ADELAIDA BOOKER MD [facility] RAD SOB,COUGH [id number] 02/12/2016 10:51:00 02/20/2016 00:01:00 DIS Outpatient ARIEL LOPEZ MD [facility] LAB COUMIDIN,THERAPY,MED MGMT [id number] 02/14/2016 11:16:00 02/14/2016 12:09:00 DIS Outpatient ADELAIDA BOOKER MD [facility] REHAB MID BACK/NECK/ SHOULDER PAIN AND STIFFNESS [id number] 11/22/2015 13:32:00 11/22/2015 23:59:59 CLS Outpatient TERESA SHETTY APRN [facility] LAB CHEST PAIN, ABN WEIGHT LOSS [id number] 11/18/2015 20:25:00 11/18/2015 22:38:00 DIS Emergency WILLIAM SHELTON MD [facility] ER HEADACHE/ELEVATED BP/ LOW HEART RATE [id number] 07/24/2015 12:20:00 10/22/2015 00:01:00 DIS Outpatient ARIEL LOPEZ MD [facility] LAB COUMIDIN,THERAPY,MED MGMT [id number] 07/25/2015 08:59:00 07/25/2015 10:05:00 DIS Outpatient ADELAIDA BOOKER MD [facility] REHAB NECK AND UPPER BACK PAIN,KYPHOSIS,RADICULOPATHY [id number] 07/24/2015 11:41:00 07/24/2015 23:59:59 CLS Outpatient SHANAE ROSE DO S [facility] RAD ACUTE PELVIC PAIN [id number] 04/09/2015 07:47:00 04/09/2015 23:59:59 CLS Outpatient ARIEL LOPEZ MD [facility] CARD CAD,LEIF,HLP,HTN [id number] 04/06/2015 14:31:00 04/06/2015 23:59:59 CLS Outpatient CRYSTAL GARCIA BOARD OPERATOR [facility] RAD NECK THORACIC LUMBAR BACK PAIN [id number] 03/29/2015 15:06:00 03/29/2015 23:59:59 CLS Outpatient CRYSTAL GARCIA [facility] RAD NECK PAIN,THORACIC BACK PAIN [id number] 01/25/2015 10:17:00 02/21/2015 00:01:00 DIS Outpatient ARIEL LOPEZ MD [facility] LAB COUMIDIN,THERAPY,MED MGMT [id number] 01/25/2015 10:22:00 01/25/2015 23:59:59 CLS Outpatient ADELAIDA BOOKER MD [facility] RAD KNEE PAIN,BACK PAIN, HEEL PAIN [id number] 11/27/2014 09:14:00 01/21/2015 00:01:00 DIS Outpatient ARIEL LOPEZ MD [facility] LAB COUMIDIN,THERAPY,MED MGMT [id number] 03/21/2014 09:51:00 04/25/2014 00:01:00 DIS Outpatient ARIEL LOPEZ MD [facility] LAB COUMIDIN,THERAPY,MED MGMT [id number] 03/29/2014 12:56:00 03/29/2014 23:59:59 CLS Outpatient NIKKY FREED MD [facility] RAD RLQ PAIN [id number] 01/25/2014 11:41:00 01/25/2014 23:59:59 CLS Outpatient NIKKY FREED MD [facility] RAD ABD PAIN [id number] 08/24/2013 09:10:00 11/22/2013 00:01:00 DIS Outpatient ARIEL LOPEZ MD [facility] LAB COUMIDIN,THERAPY,MED MGMT [id number] 04/14/2013 10:39:00 04/16/2013 12:00:00 DIS Inpatient NIKKY FREED MD [facility] SURGICAL ABD PAIN [id number] 03/14/2013 08:42:00 03/15/2013 00:01:00 DIS Outpatient ARIEL LOPEZ MD [facility] LAB COUMIDIN,THERAPY,MED MGMT [id number] 03/14/2013 08:38:00 03/14/2013 23:59:59 CLS Outpatient NHUNG GAN [facility] LAB HYPERLIPIDEMIA [id number] 03/14/2013 08:32:00 03/14/2013 23:59:59 CLS Outpatient NIKKY FREED MD [facility] LAB [id number] 09/21/2012 10:10:00 11/15/2012 00:01:00 DIS Outpatient ARIEL LOPEZ MD [facility] LAB MED MANGEMENT [id number] 12/10/2017 07:30:00 SHANAE Graevs DO [facility] SDC CHRONIC PELVIC PAIN,FACTOR V LEIDEN [id number] 01/30/2017 16:55:00 Document Registration [id number] 01/30/2016 07:48:00 Document Registration [id number] 06/21/2015 16:15:00 Document Registration [id number] 10/23/2014 08:43:00 Document Registration [id number] 10/23/2014 08:42:00 Document Registration [id number] 10/23/2014 08:42:00 Document Registration [id number] 10/23/2014 08:42:00 Document Registration [id number] 10/23/2014 08:42:00 Document Registration [id number] 10/23/2014 08:42:00 Document Registration [id number] 08/17/2012 00:00:00 Document Registration [id number] 04/11/2012 14:28:00 Document Registration [id number] 09/22/2011 12:16:00 Document Registration [id number] 03/13/2011 21:26:00 Document Registration [id number] 02/13/2011 13:07:00 Document Registration [id number] 01/13/2011 14:34:00 Document Registration [id number] 12/10/2010 07:00:00 Document Registration [id number] 12/09/2010 08:57:00 Document Registration [id number] 12/03/2010 06:20:00 Document Registration [id number] 11/28/2010 09:10:00 Document Registration [id number] 10/28/2010 20:45:00 Document Registration [id number] 07/09/2010 13:30:00 Document Registration [id number] 03/13/2010 06:22:00 Document Registration [id number] 03/13/2010 06:16:00 Document Registration [id number] 03/13/2010 06:12:00 Document Registration [id number] 01/07/2010 13:51:00 Document Registration [id number] 08/08/2009 13:32:00 Document Registration [id number] 07/10/2009 08:12:00 Document Registration
[2017-12-10 06:38] LABS: BASOPHILS % (AUTO) 0 % (0-10); EOSINOPHILS # (AUTO) 0.2 10^3/uL (0.0-0.3); EOSINOPHILS % (AUTO) 2 % (0-10); HEMATOCRIT 39 % (35-52); HEMOGLOBIN 13.5 G/DL (11.5-16.0); LYMPHOCYTES # (AUTO) 2.4 X 10^3 (1.0-4.0); LYMPHOCYTES % (AUTO) 33 % (12-44); MEAN CORPUSCULAR HEMOGLOBIN 34 PG (25-34); MEAN CORPUSCULAR HGB CONC 35 G/DL (32-36); MEAN CORPUSCULAR VOLUME 98 FL (80-99); MEAN PLATELET VOLUME 9.9 FL (7.4-10.4); MONOCYTES # (AUTO) 0.6 X 10^3 (0.0-1.0); MONOCYTES % (AUTO) 9 % (0-12); NEUTROPHILS # (AUTO) 4.1 X 10^3 (1.8-7.8); NEUTROPHILS % (AUTO) 56 % (42-75); PLATELET COUNT 250 10^3/uL (130-400); RED BLOOD COUNT 3.95 10^6/uL (4.35-5.85); RED CELL DISTRIBUTION WIDTH 11.8 % (10.0-14.5); WHITE BLOOD COUNT 7.3 10^3/uL (4.3-11.0)
[2017-12-10] MEDS ORDERED: BUPIVACAINE 0.25% 30 ML (SENSORCAINE) VIAL ONE (06:54)
[2017-12-10] MEDS ORDERED: fentaNYL INJECTION 100 MCG/2 ML AMP ONE ×2 (07:00→08:22)
[2017-12-10] MEDS ORDERED: MIDAZOLAM 10 MG/2 ML (VERSED) VIAL ONE (07:00)
[2017-12-10] MEDS ORDERED: ESCI20TA PO (07:03)
[2017-12-10] MEDS ORDERED: proPOfol 200 MG/20 ML (DIPRIVAN) VIAL IV ONE (07:14)
--- NOTE | 2017-12-10 07:27 | Progress Note-Pre Operative ---
Pre-Operative Progress Note H&P Reviewed The H&P was reviewed, patient examined and no changes noted. Date Seen by Provider: Dec 10, 2017 Time Seen by Provider: 07:00 Date H&P Reviewed: Dec 10, 2017 Time H&P Reviewed: 07:10 Pre-Operative Diagnosis: CPP, Menorrhagia, Factor V Leiden SHANAE ROSE DO Dec 10, 2017 7:26 am
[2017-12-10] MEDS: LACTATED RINGERS 1,000 ML IV PRN ×2 (07:30→08:21)
[2017-12-10] MEDS ORDERED: LIDOCAINE PF 2% 5 ML (XYLOCAINE) VIAL ONE (08:12)
[2017-12-10] MEDS ORDERED: DEXAMETHASONE 10 MG/ML (DECADRON) 1 ML VIAL ONE (08:12)
[2017-12-10] MEDS ORDERED: ONDANSETRON 4 MG/2 ML (SDV) Z0FRAN ONE (08:12)
[2017-12-10] MEDS ORDERED: GLYCOPYRROLATE 0.2 MG/ML (ROBINUL) 2 ML VIAL ONE ×2 (08:12→08:35)
[2017-12-10] MEDS ORDERED: SEVOFLURANE (ULTANE) 15 ML INHAL SOLN ONE ×2 (08:13→08:51)
[2017-12-10] MEDS ORDERED: LACTATED RINGERS 1,000 ML IV SCH (08:33)
[2017-12-10] MEDS ORDERED: IBUP-844 PO (08:39)
[2017-12-10] MEDS ORDERED: HYDR-34 PO (08:39)
[2017-12-10] MEDS ORDERED: DOCU100C37 PO (08:39)
[2017-12-10] MEDS ORDERED: SIME80TA16 PO (08:39)
--- NOTE | 2017-12-10 08:41 | Discharge Inst-Women's Service ---
Discharge Inst-Women's Serv Depart Medication/Instructions New, Converted or Re-Newed RX: RX on Chart Consults/Follow Up Additional Follow Up: Yes Orders/Referrals Dr. Miller in 7-10 days and in 8 weeks Activity Activity: Activity as Tolerated Driving Instructions: No Driving for 1 Week NO SMOKING: NO SMOKING Nothing Inside Vagina: No Douching, No [place], No Tampons Diet Discharge Diet: No Restrictions Symptoms to Report to : Bleeding Excessive, Pain Increased, Fever Over 101 Degrees F, Vaginal Bleeding Increase, Questions/Concerns For Any Problems or Questions: Contact Your Physician Skin/Wound Care Infection Signs and Symptoms: Increased Redness, Foul Odor of Wound, Increased Drainage, Skin Itchy or Has a Rash, Increased Swelling, Temperature Above 101 F Operative Area Clean and Dry: Keep Incision Clean/Dry Stitches/Derek/Dermabond: Dermabond, Care of Stitches Bathing Instructions: SHANAE Morales DO Dec 10, 2017 08:41
--- NOTE | 2017-12-10 08:43 | Progress Note-Post Operative ---
Post-Operative Progess Note Surgeon (s)/Incinerator Plant Laborer (s) Surgeon SHANAE ROSE DO Incinerator Plant Laborer: Shelby Calderon Pre-Operative Diagnosis CPP, Menorrhagia, Factor V Leiden Post-Operative Diagnosis same Procedure & Operative Findings Date of Procedure 12/10/17 Procedure Performed/Findings RATLH w/ tubes Anesthesia Type GETA Estimated Blood Loss Estimated blood loss (mL): min Specimens/Packing Specimens Removed uterus and tubes SHANAE ROSE DO Dec 10, 2017 08:43
[2017-12-10] MEDS ORDERED: KETOROLAC 30 MG/ML VIAL ONE (08:45)
[2017-12-10] MEDS ORDERED: HYDROcodone/APAP 7.5 MG/325 MG (LORTAB, LORCET PLUS) TABLET PO PRN (08:45)
[2017-12-10] MEDS ORDERED: ZOLPIDEM 5 MG (AMBIEN) TAB PO PRN (08:45)
[2017-12-10] MEDS ORDERED: DOCUSATE SODIUM 100 MG (COLACE) CAP PO PRN (08:45)
[2017-12-10] MEDS ORDERED: ANTACID SUSP 30 ML UDC (MYLANTA) PO PRN (08:45)
[2017-12-10] MEDS ORDERED: CHLORASEPTIC LOZENGE MM PRN (08:45)
[2017-12-10] MEDS ORDERED: ONDANSETRON 4 MG/2 ML (SDV) Z0FRAN IV PRN (08:45)
[2017-12-10] MEDS ORDERED: SIMETHICONE 80 MG (MYLICON) CHEW PO PRN (08:45)
[2017-12-10] MEDS ORDERED: LORazepam INJ 2 MG/ML (ATIVAN) VIAL IVP PRN (08:45)
[2017-12-10] MEDS ORDERED: ROCURONIUM 10 MG/ML 5 ML SYRINGE IV ONE (08:51)
[2017-12-10] MEDS ORDERED: NEOSTIGMINE 1 MG/ML 5 ML SYRINGE ONE (08:51)
[2017-12-10] MEDS: KETOROLAC 30 MG/ML VIAL IV PRN ×2 (08:59→15:26)
[2017-12-10] MEDS ORDERED: ONDANSETRON 4 MG/2 ML (SDV) Z0FRAN IVP PRN (09:00)
[2017-12-10] MEDS ORDERED: HYDROmorphone 1 MG/ML (DILAUDID) 1 ML SYRINGE IV PRN (09:00)
[2017-12-10] MEDS ORDERED: morphine INJ 10 MG/ML 1ML (SYR OR VIAL) ONE (09:09)
[2017-12-10] MEDS: morphine INJ 10 MG/ML 1ML (SYR OR VIAL) IVP PRN ×2 (09:15→09:21)
[2017-12-10 09:57] VITALS: BP 105/65
[2017-12-10] MEDS ORDERED: HYDROcodone/APAP 7.5 MG/325 MG (LORTAB, LORCET PLUS) TABLET PO ONE (11:44)
[2017-12-10 12:39] VITALS: BP 108/70
[2017-12-10 15:00] VITALS: BP 111/64
[2017-12-10 17:00] VITALS: BP 111/64
--- NOTE | 2017-12-10 18:35 | OPERATIVE REPORT ---
DATE OF SERVICE: PREOPERATIVE DIAGNOSES: 1. A 42-year-old female with chronic pelvic pain. 2. Menorrhagia. 3. Factor V Leiden. POSTOPERATIVE DIAGNOSES: 1. A 42-year-old female with chronic pelvic pain. 2. Menorrhagia. 3. Factor V Leiden. PROCEDURE: Robotic-assisted total laparoscopic hysterectomy with bilateral salpingectomy. SURGEON: Richardson Miller DO SHIP CEILER: KECIA Paz ANESTHESIA: General endotracheal. ESTIMATED BLOOD LOSS: Minimal. URINE OUTPUT 20 mL clear at the end of the procedure. FLUIDS: 2 liters lactated Ringer solution. FINDINGS: A grossly normal appearing uterus and bilateral fallopian tubes, absent of the left ovary, the right ovary is multicystic, but grossly normal appearing. SPECIMENS SENT: Uterus, bilateral fallopian tubes. INDICATIONS FOR PROCEDURE: This 42-year-old female is a longstanding patient of [facility] that has been dealing with chronic pelvic pain for quite some time. We have tried more conservative measures dealing with her pelvic pain that have been unsuccessful. We are limited somewhat by our treatment methods as the patient has factor V Leiden and a history of thromboembolic disease in the past and has been on Eliquis. We discussed proceeding with hysterectomy. The patient is actually very adamant and wishes to proceed. Risks of the procedure were discussed with the patient in detail including risks of bleeding, infection, damage to surrounding structures including, but not limited to bowel, bladder, ureter, kidneys, postoperative and preoperative expectations as well as postoperative recovery time and expectations discussed with the patient in detail. Risks from anesthesia and even were also discussed and possible need for reoperation. After all of her questions were answered, consent was obtained in the preoperative area and the patient was taken to the operating room. OPERATIVE REPORT IN DETAIL: Once in the operating room, general anesthesia was found to be adequate. She was placed in dorsal lithotomy position, prepped and draped in normal sterile fashion. A Rose catheter was placed using sterile technique. A timeout was performed. A weighted speculum was inserted in the patient's vagina. A right angle retractor was used to visualize the cervix, which was grasped at 12 o'clock position using a long Allis clamp. I then placed an 0 Vicryl suture through the anterior lip of the cervix and used this as my retraction point removing the Allis clamp. I then gently sound the uterine cavity, depth was found to be 6 to 7 cm. I then gently dilated the cervix using Hegar dilators to allow placement of my EDDIE uterine manipulator, which I selected a 6 cm EDDIE uterine manipulator tip and a 3 cm colpotomy ring. Once this was advanced into the uterus, the balloon was deployed and the colpotomy ring was advanced around the vaginal fornix. I was able to appreciate excellent bimanual manipulation on abdominal examination. I then performed a change of gloves and took my attention to the abdomen where infraumbilically I infiltrated the area using 0.25% Marcaine to make an 8 mm incision and directed Veress needle through the incision until intraperitoneal placement was confirmed using a saline drop test. I then proceeded with insufflation using CO2 gas and opening pressure of 4 mmHg was noted. I proceeded to a maximum pressure of 15 mmHg, at which point I removed the Veress needle and introduced an 8 mm blunt da Dale camera trocar. Once this was in place, I was able to confirm intraperitoneal placement using the da Dale laparoscope. I then had the patient placed in steep Trendelenburg and I was able to visualize all my findings as described above. I placed two lateral trocars approximately 8 cm lateral to my infraumbilical trocar. The skin was infiltrated using 0.25% Marcaine, 8 mm incisions were made and the trocars were placed under direct visualization of the laparoscope. Once these were in place, I brought in the da Dale robot and docked in the appropriate fashion. I placed the da Dale vessel sealer in the left hand and the monopolar randa in the right hand. On the left side, there was the absence of the ovary, so I started by disconnecting the fallopian tube from the mesosalpinx and then grasped the round ligament, bipolar cauterized this and transected this using the vessel sealer. This was all done with the vessel sealer to cauterize and transect as I go. Then, I was able to grasp the entire broad ligament, bipolar cauterized and transected this down to the level of the lower uterine segment, at which point I the anterior and posterior leaflets of the broad ligament. The anterior leaflet was taken around to the anterior vaginal fornix exposing the anterior vaginal fornix cup of the EDDIE uterine manipulator. The posterior leaflet was taken around to the posterior vaginal fornix. This allows me to skeletonize the uterine vessels laterally, which were bipolar cauterized and transected using the vessel sealer. On the right side, the ovary was present, so I started at the uteroovarian ligament. I bipolar cauterized and transected this using the vessel sealer. I created a window in the mesosalpinx using the monopolar randa. I then took this down the mesosalpinx using the vessel sealer transecting the fallopian tube from its surrounding blood supply. I then grasped the round ligament, bipolar cauterized and transected this using the vessel sealer. I then was able to grasp the entire broad ligament. I bipolar cauterized and transected this using the vessel sealer down to the level of the lower uterine segment, which in similar fashion I the anterior and posterior leaflets. The anterior leaflet was taken around to my anterior vaginal fornix dissection. The posterior leaflet was taken around to the posterior vaginal fornix dissection. This allowed me to skeletonize the uterine vessels laterally, which I bipolar cauterized and transected using the vessel sealer. I then created a colpotomy at the 12 o'clock position using monopolar randa and took this circumferentially around the vaginal cuff amputating the cervix away from the vaginal fornix. The entire specimen was then removed through the vagina. I then closed the lateral vaginal apices of the vaginal cuff using 2-0 Vicryl suture in a [id number] fashion, colposuspending them to the uterosacral ligaments. I then closed the remainder of the vaginal fornix using 2-0 V-Loc in a running fashion. There was no active bleeding noted from any of my dissection planes after this was completed. I then undocked the da Dale robot and proceeded with the remainder of the case laparoscopically by copiously irrigating the pelvis using normal saline. Once again, no active bleeding was noted from any of my dissection planes. I placed FloSeal hemostatic agent over all my planes of dissection. I had the patient taken out of steep Trendelenburg where I removed the lateral trocars under direct visualization of the laparoscope. The infraumbilical trocar was then left in place to release insufflation and to introduce 10 mL of 0.25% Marcaine for postoperative pain management. I then removed this trocar as well. Skin was then reapproximated using 4-0 Monocryl in interrupted subcuticular stitches. Dermabond was applied to the incision and Band-Aids were placed over these. Rose catheter was left in place. The patient tolerated the procedure well and was taken to recovery area in stable condition. Lap and sponge counts were correct at the end of the procedure. Instrument count was correct as well. One gram of Ancef and 500 mg of Flagyl were given preoperatively for infection prophylaxis. Job ID: [id number] DocumentID: [id number] Dictated Date: 12/10/2017 10:07:22 Pathology Laboratory Aides Teacher Date: 12/10/2017 18:34:11 Dictated By: DO CHARLEEN ARTEAGA
[2017-12-11] MEDS ORDERED: IBUPROFEN 600 MG (MOTRIN) TAB PO PRN (01:15)
--- NOTE | 2017-12-11 14:38 | Anesthesia-General Post-Op ---
General Post Op Complications Complications None Follow Up Care/Instructions Patient Instructions None needed. Anesthesia/Patient Condition Patient Condition Patient is doing well, no complaints, stable vital signs, no apparent adverse anesthesia problems. No complications reported per nursing. ALIDA PAYNE CRNA Dec 11, 2017 14:38
== END 2017-12-10 17:00 | disposition home or self-care (01) ==
LOC: SDC 06:02 → WS 09:50 → SDC 17:00
PROVIDERS: ATTEND Obstetrics & Gynecology
DX: R10.2 Pelvic and perineal pain (principal); N92.0 Excessive and frequent menstruation with regular cycle; N72 Inflammatory disease of cervix uteri; D68.2 Hereditary deficiency of other clotting factors; I10 Essential (primary) hypertension; R56.9 Unspecified convulsions; F17.210 Nicotine dependence, cigarettes, uncomplicated; Z79.01 Long term (current) use of anticoagulants; Z79.899 Other long term (current) drug therapy
CPT/HCPCS: 36415; 84703; 85025; 86850; 86900; 86901; 94664

== ENCOUNTER 2017-12-13 21:19 | Emergency (ER) | payer MEDICARE, MEDICAID ==
[~2017-12-13 21:19] MED LIST changes: +DOCU100C37 PO; +ESCI20TA PO; +IBUP-844 PO; +SIME80TA16 PO
--- OUTSIDE RECORDS SUMMARY | 2017-12-13 21:24 | XMS REPORT | Clinical Summary ---
Author Author [facility] Organization [facility] Address Unknown Phone Unavailable Care Team Providers Care Data Librarian Name Role Phone Lauren Cortez MD PCP Ashley Arguello RN Unavailable Unavailable Isaac Swan MD Unavailable Unavailable Source Comments Some departments are not documenting in the electronic medical record. If you do not see the information that you expected, contact Release of Information in the Health Information Management department at [phone] for further assistance in locating additional records.[facility] Allergies Active Allergy Reactions Severity Noted Date [...] Taken Blood Pressure 121/71 07/19/2007 11:00 AM [employer] IN[employer] Pulse 54 07/19/2007 11:00 AM [employer] Temperature 36.6 C (97.9 F) 07/19/2007 11:00 AM [employer] INST[employer]ER Respiratory Rate - - Oxygen Saturation 97% 07/14/2007 6:15 PM [employer] Inhaled Oxygen - - Concentration Weight 77 kg (169 lb 12.1 oz) 07/14/2007 11:00 PM [employer] Height 162 cm (5' 3.78") 07/14/2007 11:00 PM [employer] Body Mass Index 29.34 07/14/2007 11:00 PM [employer] Plan of Treatment Health Maintenance Due Date Last Done Comments PHYSICAL (COMPREHENSIVE) 09/26/1983 EXAM PERTUSSIS VACCINE 09/26/1987 HIV SCREENING 09/26/1991 TETANUS VACCINE 1993 CERVICAL CANCER SCREENING 2006 BREAST CANCER SCREENING 2016 INFLUENZA VACCINE 02/22/2018 Results Not on filefrom Last 3 Months
--- OUTSIDE RECORDS SUMMARY | 2017-12-13 21:35 | XMS REPORT | Continuity of Care Document ---
Author Author [facility] Ctr of [facility] Ctr of [facility] Address Unknown Phone Unavailable Allergies Active Description Code Type Severity Reaction Onset Reported/Identified Relationship to Patient Clinical Status Yes prochlorperazine [id number] Drug Allergy Severe TONGUE SWELLS 07/10/2006 Yes metoclopramide [id number] Drug Allergy Unknown N/A 01/29/2009 Yes Topamax Drug Allergy N/A N/A 10/31/2010 Yes Topamax Drug Allergy 10/31/2010 Yes Compazine Drug Allergy N/A N/A 06/20/2011 Yes Compazine Drug Allergy 06/20/2011 Yes Geodon Drug Allergy N/A N/A 10/04/2013 Yes topiramate [id number] Drug Allergy Unknown N/A 11/18/2015 Medications There [...] 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 05/23/2008 NATHAN EQUIPMENT INSTALLERKATYA 300.23 AN SOCIAL PHOBIA 05/23/2008 NATHAN EQUIPMENT INSTALLER, KATYA MCKEON 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 05/23/2008 NATHAN EQUIPMENT INSTALLER, KATYA MCKEON 300.23 AN SOCIAL PHOBIA 05/23/2008 ROBIN SAINI DO 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 05/23/2008 ROBIN SAINI DO 300.23 AN SOCIAL PHOBIA 10/19/2008 ASYHA SAINI DO 300.4 MO DYSTHYMIC DISORDER 10/19/2008 AYSHA SAINI DO 300.4 MO DYSTHYMIC DISORDER 10/19/2008 NATHAN EQUIPMENT INSTALLER, KATYA MCKEON 300.4 MO DYSTHYMIC DISORDER 10/19/2008 NATHAN EQUIPMENT INSTALLER, KATYA MCKEON 300.4 MO DYSTHYMIC DISORDER 10/19/2008 ROBIN SAINI DO 300.4 MO DYSTHYMIC DISORDER 05/16/2009 AYSHA SAINI DO 301.6 PD DEPENDENT 05/16/2009 AYSHA SAINI DO 301.6 PD DEPENDENT 05/16/2009 NATHAN EQUIPMENT INSTALLER, KATYA MCKEON 301.6 PD DEPENDENT 05/16/2009 NATHAN EQUIPMENT INSTALLER, KATYA MCKEON 301.6 PD DEPENDENT 05/16/2009 ROBIN SAINI DO 301.6 PD DEPENDENT 08/21/2009 Ot V58.61 08/21/2009 Ot V58.69 08/21/2009 Ot V58.83 11/15/2009 AYSHA SAINI DO 296.32 MO DEPRESSIVE RECURRENT MODERATE 11/15/2009 AYSHA SAINI DO 296.32 MO DEPRESSIVE RECURRENT MODERATE 11/15/2009 NATHAN EQUIPMENT INSTALLER, KATYA MCKEON 296.32 MO DEPRESSIVE RECURRENT MODERATE [...] FREED MD Ot 414.01 CORONARY ATHEROSCLEROSIS OF [place] CORON 04/16/2013 NIKKY FREED MD Ot 620.1 CORPUS LUTEUM CYST 04/16/2013 NIKKY FREED MD Ot 625.8 FEM GENITAL SYMPTOMS NEC 04/16/2013 NIKKY FREED MD Ot 789.03 ABDOMINAL PAIN, RIGHT LOWER QUADRANT 04/16/2013 NIKKY FREED MD Ot 795.39 OTHER NONSPEC POS CULTURE FINDINGS 04/16/2013 NIKKY FREED MD Ot V03.82 PROPHYLACTIC VACC AGAINST [...] MD Ot V58.69 OTH MED,LT,CURRENT USE 04/25/2014 ARIEL LOPEZ MD Ot V58.83 ENCOUNTER FOR [...] PEDROZA, NIKKY [place] Ot 789.03 01/25/2015 JESSICA PEDROAZ, ARIEL Farnsworth Ot V58.61 01/25/2015 JESSICA PEDROZA, ARIEL Farnsworth Ot V58.69 01/25/2015 ARIEL OLPEZ MD Ot V58.83 01/25/2015 JESSICA PEDROZA, ARIEL Farnsworth Ot V58.61 01/25/2015 JESSICA PEDROZA, ARIEL Farnsworth Ot V58.69 01/25/2015 JESSICA PEDROZA, ARIEL Farnsworth Ot V58.83 01/26/2015 JESSICA PEDROZA, ARIEL Farnsworth Ot V58.61 01/26/2015 JESSICA PEDROZA, ARIEL Farnsworth Ot V58.69 01/26/2015 JESSICA PEDROZA, ARIEL Farnsworth Ot V58.83 01/30/2015 AREIL LOPEZ MD Ot V58.61 01/30/2015 JESSICA PEDROZA, [...] BOOKER MD Ot 729.5 04/23/2015 CRYSTAL GARCIA WELDING LEAD BURNER Ot M54.2 04/23/2015 CRYSTAL GARCIA WELDING LEAD BURNER Ot M54.6 04/26/2015 CRYSTAL GARCIA WELDING LEAD BURNER Ot M50.20 04/26/2015 CRYSTAL GARCIA WELDING LEAD BURNER Ot M51.24 04/26/2015 Ot 272.4 04/26/2015 Ot [...] 04/26/2015 Ot V58.83 04/26/2015 ABDIAZIZ PEDROZA, NIKKY Parish Ot 272.4 04/26/2015 ABDIAZIZ PEDROZA, NIKKY [place] Ot 401.9 04/26/2015 NHUNG GAN Ot 272.4 04/26/2015 ABDIAZIZ PEDROZA, NIKKY Parish Ot 789.00 04/26/2015 ABDIAZIZ PEDROZA, NIKKY Parish Ot 789.03 04/26/2015 ADE PEDROZA, ADELAIDA Gaines Ot 719.46 04/26/2015 ADE PEDROZA, ADELAIDA Gaines Ot 724.5 04/26/2015 ADE PEDROZA, ADELAIDA Gaiens Ot 729.5 04/26/2015 ARIEL LOPEZ MD Ot V58.61 04/26/2015 ARIEL LOPEZ MD Ot V58.69 04/26/2015 ARIEL LOPEZ MD Ot V58.83 04/26/2015 ARIEL LOPEZ MD Ot E78.2 04/26/2015 ARIEL LOPEZ MD Ot I10 04/26/2015 ARIEL LOPEZ MD Ot I25.10 04/26/2015 ARIEL LOPEZ MD Ot I65.23 04/26/2015 CRYSTAL GARCIAP Ot M54.2 04/26/2015 CRYSTAL GARCIAP Ot M54.6 04/26/2015 CRYSTAL GARCIA WELDING LEAD BURNER Ot M50.20 04/26/2015 CRYSTAL GARCIAP Ot M51.24 [...] ARIEL Farnsworth Ot I65.23 05/22/2015 CRYSTAL GARCIA WELDING LEAD BURNER Ot M54.2 05/22/2015 CRYSTAL GARCIA WELDING LEAD BURNER Ot M54.6 05/22/2015 CRYSTAL GARCIA WELDING LEAD BURNER Ot M50.20 05/22/2015 CRYSTAL GARCIA WELDING LEAD BURNER Ot M51.24 05/24/2015 ADE PEDROZA, ADELAIDA Gaines [...] ARIEL Farnsworth Ot I65.23 07/24/2015 CRYSTAL GARCIA WELDING LEAD BURNER Ot M54.2 07/24/2015 CRYSTAL GARCIA WELDING LEAD BURNER Ot M54.6 07/24/2015 CRYSTAL GARCIA WELDING LEAD BURNER Ot M50.20 07/24/2015 CRYSTAL GARCIA WELDING LEAD BURNER Ot M51.24 07/24/2015 ADE PEDROZA, ADELAIDA Gaines [...] CLOTTING 09/14/2015 ARIEL LOPEZ MD, Ot Z79.01 LUBE ATTENDANT (CURRENT) USE OF ANTICOAGULANT 09/14/2015 ARIEL LOPEZ MD, Ot Z79.899 OTHER INTERMEDIATE (CURRENT) DRUG THERAPY 09/28/2015 ARIEL LOPEZ MD, Ot 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 09/28/2015 ARIEL LOPEZ MD, Ot Z79.01 INTERMEDIATE (CURRENT) USE OF ANTICOAGULANT 09/28/2015 ARIEL LOPEZ MD, Ot Z79.899 OTHER INTERMEDIATE (CURRENT) DRUG THERAPY 10/22/2015 ARIEL LOPEZ MD, Ot 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 10/22/2015 ARIEL LOPEZ MD, Ot Z79.01 LUBE ATTENDANT (CURRENT) USE OF ANTICOAGULANT 10/22/2015 ARIEL LOPEZ MD, Ot Z79.899 OTHER LUBE ATTENDANT (CURRENT) DRUG THERAPY 10/24/2015 NHUNG GAN Ot 272.4 HYPERLIPIDEMIA NEC/NOS 10/28/2015 ARIEL LOPEZ MD, Ot 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 10/28/2015 ARIEL LOPEZ MD, Ot Z79.01 LUBE ATTENDANT (CURRENT) USE OF ANTICOAGULANT 10/28/2015 ARIEL LOPEZ MD, Ot Z79.899 OTHER INTERMEDIATE (CURRENT) DRUG THERAPY 11/18/2015 Ot V58.61 ANTICOAGULANTS,LT,CURRENT USE 11/18/2015 Ot V58.83 ENCOUNTER FOR THERAPEUTIC DRUG MONITORIN 11/18/2015 Ot V58.61 ANTICOAGULANTS,LT,CURRENT USE 11/18/2015 Ot V58.69 OTH MED,LT, CURRENT USE 11/18/2015 Ot V58.83 ENCOUNTER FOR THERAPEUTIC DRUG MONITORIN 11/18/2015 ARIEL LOPEZ MD, Ot 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 11/18/2015 ARIEL LOPEZ MD, Ot Z79.01 LUBE ATTENDANT (CURRENT) USE OF ANTICOAGULANT 11/18/2015 ARIEL LOPEZ MD, Ot Z79.899 OTHER INTERMEDIATE (CURRENT) DRUG THERAPY 11/18/2015 WILLIAM SHELTON MD [...] F17.210 NICOTINE DEPENDENCE, CIGARETTES, UNCOMPL 11/20/2015 WILLIAM HSELTON MD Ot I10 ESSENTIAL (PRIMARY) HYPERTENSION 11/20/2015 WILLIAM SHELTON MD Ot R11.2 NAUSEA WITH VOMITING, UNSPECIFIED 11/20/2015 WILLIAM SHELTON MD Ot R51 HEADACHE 11/22/2015 ARIEL LOPEZ MD Ot 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 11/22/2015 ARIEL LOPEZ MD Ot Z79.01 INTERMEDIATE (CURRENT) USE OF ANTICOAGULANT 11/22/2015 ARIEL LOPEZ MD Ot Z79.899 OTHER INTERMEDIATE (CURRENT) DRUG THERAPY 11/22/2015 TERESA SHETTY APRN Ot R63.4 ABNORMAL WEIGHT LOSS 11/23/2015 ARIEL LOPEZ MD Ot 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 11/23/2015 ARIEL LOPEZ MD Ot Z79.01 LUBE ATTENDANT (CURRENT) USE OF ANTICOAGULANT 11/23/2015 ARIEL LOPEZ MD Ot Z79.899 OTHER INTERMEDIATE (CURRENT) DRUG THERAPY 11/23/2015 ARIEL LOPEZ MD Ot 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 11/23/2015 ARIEL LOPEZ MD Ot Z79.01 INTERMEDIATE (CURRENT) USE OF ANTICOAGULANT 11/23/2015 ARIEL LOPEZ MD Ot Z79.899 OTHER INTERMEDIATE (CURRENT) DRUG THERAPY 11/23/2015 SENA, TERESA M EQUIPMENT INSTALLER Ot R07.9 CHEST PAIN, UNSPECIFIED 11/23/2015 TERESA SHETTY EQUIPMENT INSTALLER Ot R63.4 ABNORMAL WEIGHT LOSS 12/13/2015 TERESA SHETTY EQUIPMENT INSTALLER Ot R07.9 CHEST PAIN, UNSPECIFIED 12/13/2015 TERESA SHETTY EQUIPMENT INSTALLER Ot R63.4 ABNORMAL WEIGHT LOSS 12/21/2015 TERESA SHETTY EQUIPMENT INSTALLER Ot R07.9 CHEST PAIN, UNSPECIFIED 12/21/2015 TERESA SHETTY EQUIPMENT INSTALLER Ot R63.4 ABNORMAL WEIGHT LOSS 02/05/2016 Ot D68.51 ACTIVATED PROTEIN C RESISTANCE 02/05/2016 Ot E78.2 MIXED HYPERLIPIDEMIA 02/05/2016 Ot I10 ESSENTIAL ( PRIMARY) HYPERTENSION 02/05/2016 Ot I25.10 ATHSCL HEART DISEASE OF [place] CORONARY 02/05/2016 Ot I65.23 OCCLUSION AND STENOSIS [...] ENCOUNTER FOR THERAPEUTIC DRUG MONITORIN 02/06/2016 NIKKY FREED MD Ot 272.4 HYPERLIPIDEMIA NEC/NOS 02/06/2016 NIKKY [...] MD Ot I25.10 ATHSCL HEART DISEASE OF [place] CORONARY 02/06/2016 ARIEL LOPEZ MD Ot I65.23 [...] CLOTTING 02/06/2016 ARIEL LOPEZ MD Ot Z79.01 INTERMEDIATE (CURRENT) USE OF ANTICOAGULANT 02/06/2016 ARIEL LOPEZ MD, Ot Z79.899 OTHER LUBE ATTENDANT (CURRENT) DRUG THERAPY 02/06/2016 TERESA SHETTY APRN Ot R07.9 CHEST PAIN, UNSPECIFIED 02/06/2016 TERESA SHETTY APRN Ot R63.4 ABNORMAL WEIGHT LOSS 02/06/2016 Ot D68.51 ACTIVATED PROTEIN C RESISTANCE 02/06/2016 Ot E78.2 MIXED HYPERLIPIDEMIA 02/06/2016 Ot I10 ESSENTIAL ( PRIMARY) HYPERTENSION 02/06/2016 Ot I25.10 ATHSCL HEART DISEASE OF [place] CORONARY 02/06/2016 Ot I65.23 OCCLUSION AND STENOSIS [...] CLOTTING 02/20/2016 ARIEL LOPEZ MD Ot Z79.01 LUBE ATTENDANT (CURRENT) USE OF ANTICOAGULANT 02/20/2016 ARIEL LOPEZ MD, Ot Z79.899 OTHER LUBE ATTENDANT (CURRENT) DRUG THERAPY 02/21/2016 ARIEL LOPEZ MD, Ot 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 02/21/2016 ARIEL LOPEZ MD, Ot Z79.01 INTERMEDIATE (CURRENT) USE OF ANTICOAGULANT 02/21/2016 ARIEL LOPEZ MD, Ot Z79.899 OTHER LUBE ATTENDANT (CURRENT) DRUG THERAPY 02/25/2016 Ot D68.51 ACTIVATED PROTEIN C RESISTANCE 02/25/2016 Ot E78.2 MIXED HYPERLIPIDEMIA 02/25/2016 Ot I10 ESSENTIAL ( PRIMARY) HYPERTENSION 02/25/2016 Ot I25.10 ATHSCL HEART DISEASE OF [place] CORONARY 02/25/2016 Ot I65.23 OCCLUSION AND STENOSIS OF [place] 02/26/2016 ARIEL LOPEZ MD, Ot 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 02/26/2016 ARIEL LOPEZ MD, Ot Z79.01 INTERMEDIATE (CURRENT) USE OF ANTICOAGULANT 02/26/2016 ARIEL LOPEZ MD, Ot Z79.899 OTHER LUBE ATTENDANT (CURRENT) DRUG THERAPY 03/07/2016 Ot D68.51 ACTIVATED PROTEIN C RESISTANCE 03/07/2016 Ot E78.2 MIXED HYPERLIPIDEMIA 03/07/2016 Ot I10 ESSENTIAL ( PRIMARY) HYPERTENSION 03/07/2016 Ot I25.10 ATHSCL HEART DISEASE OF [place] CORONARY 03/07/2016 Ot I65.23 OCCLUSION AND STENOSIS [...] ENCOUNTER FOR THERAPEUTIC DRUG MONITORIN 03/20/2016 ABDIAZIZ PEDROZA, NIKKY Parish Ot 272.4 HYPERLIPIDEMIA NEC/NOS 03/20/2016 NIKKY FREED MD Ot 401.9 HYPERTENSION NOS 03/20/2016 REYNOSONHUNG BOND Ot 272.4 HYPERLIPIDEMIA NEC/NOS 03/20/2016 ABDIAZIZ PEDROZA, NIKKY Parish Ot 789.00 ABDOMINAL PAIN, UNSPECIFIED SITE 03/20/2016 ABDIAZIZ PEDROZA, NIKKY Parish Ot 789.03 ABDOMINAL PAIN, RIGHT LOWER QUADRANT 03/20/2016 ADELAIDA BOOKER MD Ot 719.46 JOINT PAIN-L/LEG 03/20/2016 ADELAIDA BOOKER MD Ot 724.5 BACKACHE NOS 03/20/2016 ADELAIDA BOOKER MD Ot 729.5 PAIN IN LIMB 03/20/2016 ARIEL LOPEZ MD Ot E78.2 MIXED HYPERLIPIDEMIA 03/20/2016 ARIEL LOPEZ MD Ot I10 ESSENTIAL (PRIMARY) HYPERTENSION 03/20/2016 ARIEL LOPEZ MD Ot I25.10 ATHSCL HEART DISEASE OF [place] CORONARY 03/20/2016 ARIEL LOPEZ MD Ot I65.23 OCCLUSION AND STENOSIS OF [place] 03/20/2016 CRYSTAL GARCIA WELDING LEAD BURNER Ot M54.2 CERVICALGIA 03/20/2016 CRYSTAL GARCIA WELDING LEAD BURNER Ot M54.6 PAIN IN THORACIC SPINE 03/20/2016 CRYSTAL GARCIA WELDING LEAD BURNER Ot M50.20 OTHER CERVICAL DISC DISPLACEMENT, UNSP C 03/20/2016 CRYSTAL GARCIA WELDING LEAD BURNER Ot 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, 03/20/2016 Ot R31.9 HEMATURIA, UNSPECIFIED 03/20/2016 FENTHALIA DO, SHANAE S Ot 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 03/20/2016 TERESA SHETTY EQUIPMENT INSTALLER Ot R07.9 CHEST PAIN, UNSPECIFIED 03/20/2016 TERESA SHETTY EQUIPMENT INSTALLER Ot R63.4 ABNORMAL WEIGHT LOSS 03/20/2016 Ot D68.51 ACTIVATED PROTEIN C RESISTANCE 03/20/2016 Ot E78.2 MIXED HYPERLIPIDEMIA 03/20/2016 Ot I10 ESSENTIAL ( PRIMARY) HYPERTENSION 03/20/2016 Ot I25.10 ATHSCL HEART DISEASE OF [place] CORONARY 03/20/2016 Ot I65.23 OCCLUSION AND STENOSIS OF [place] 03/20/2016 ARIEL LOPEZ MD Ot 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 03/20/2016 ARIEL LOPEZ MD Ot Z79.01 LUBE ATTENDANT (CURRENT) USE OF ANTICOAGULANT 03/20/2016 ARIEL LOPEZ MD, Ot Z79.899 OTHER LUBE ATTENDANT (CURRENT) DRUG THERAPY 03/20/2016 ADELAIDA BOOKER MD [...] CLOTTING 03/25/2016 ARIEL LOPEZ MD, Ot Z79.01 LUBE ATTENDANT (CURRENT) USE OF ANTICOAGULANT 03/25/2016 ARIEL LOPEZ MD, Ot Z79.899 OTHER INTERMEDIATE (CURRENT) DRUG THERAPY 04/01/2016 ARIEL LOPEZ MD, Ot 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 04/01/2016 ARIEL LOPEZ MD, Ot Z79.01 INTERMEDIATE (CURRENT) USE OF ANTICOAGULANT 04/01/2016 ARIEL LOPEZ MD, Ot Z79.899 OTHER INTERMEDIATE (CURRENT) DRUG THERAPY 04/01/2016 ARIEL LOPEZ MD, Ot 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 04/01/2016 ARIEL LOPEZ MD Ot Z79.01 INTERMEDIATE (CURRENT) USE OF ANTICOAGULANT 04/01/2016 ARIEL LOPEZ MD, Ot Z79.899 OTHER LUBE ATTENDANT (CURRENT) DRUG THERAPY 04/08/2016 ADELAIDA BOOKER MD, [...] D68.51 ACTIVATED PROTEIN C RESISTANCE 04/16/2016 KINGS FITZGEARLD DO Ot F17.210 NICOTINE DEPENDENCE, CIGARETTES, UNCOMPL 04/16/2016 KINGS FITZGERALD DO Ot R20.2 PARESTHESIA OF SKIN 04/16/2016 KINGS FITZGERALD DO Ot Z79.899 OTHER LUBE ATTENDANT (CURRENT) DRUG THERAPY 04/21/2016 ADELAIDA BOOKER MD Ot R05 COUGH 04/21/2016 ADELAIDA BOOKER MD Ot R06.02 SHORTNESS OF BREATH 04/22/2016 ADELAIDA BOOKER MD Ot D64.9 ANEMIA, UNSPECIFIED 04/23/2016 ARIEL LOPEZ MD, Ot 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 04/23/2016 ARIEL LOPEZ MD Ot Z79.01 INTERMEDIATE (CURRENT) USE OF ANTICOAGULANT 04/23/2016 ARIEL LOPEZ MD, Ot Z79.899 OTHER INTERMEDIATE (CURRENT) DRUG THERAPY 04/24/2016 ADELAIDA BOOKER MD, Ot D64.9 ANEMIA, UNSPECIFIED 04/25/2016 ARIEL LOPEZ MD, Ot 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 04/25/2016 ARIEL LOPEZ MD, Ot Z79.01 INTERMEDIATE (CURRENT) USE OF ANTICOAGULANT 04/25/2016 ARIEL LOPEZ MD, Ot Z79.899 OTHER INTERMEDIATE (CURRENT) DRUG THERAPY 04/29/2016 ADELAIDA BOOKER MD Ot R91.8 OTHER NONSPECIFIC ABNORMAL FINDING OF [place] 05/09/2016 ADELAIDA BOOKER MD Ot D64.9 ANEMIA, UNSPECIFIED 05/09/2016 ADELAIDA BOOKER MD Ot R91.8 OTHER NONSPECIFIC ABNORMAL FINDING OF [place] 05/16/2016 ADELAIDA BOOKER MD Ot D64.9 ANEMIA, UNSPECIFIED 06/22/2016 ARIEL LOPEZ MD, Ot 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 06/22/2016 ARIEL LOPEZ MD, Ot Z79.01 INTERMEDIATE (CURRENT) USE OF ANTICOAGULANT 06/22/2016 ARIEL LOPEZ MD, Ot Z79.899 OTHER LUBE ATTENDANT (CURRENT) DRUG THERAPY 08/03/2016 KINGS FITZGERALD DO Ot F17.210 NICOTINE DEPENDENCE, CIGARETTES, UNCOMPL 08/03/2016 KINGS FITZGERALD DO Ot I10 ESSENTIAL (PRIMARY) HYPERTENSION 08/03/2016 KINGS FITZGERALD DO Ot I25.10 ATHSCL HEART DISEASE OF [place] CORONARY 08/03/2016 KINGS FITZGERALD DO Ot I25.2 OLD MYOCARDIAL INFARCTION 08/03/2016 AMILCAR DO KINGS K Ot R11.2 NAUSEA WITH VOMITING, UNSPECIFIED 08/03/2016 AMILCAR DO, KINGS K Ot R51 HEADACHE 08/03/2016 AMILCAR SURYA KUMARA K Ot Z79.899 OTHER INTERMEDIATE (CURRENT) DRUG THERAPY 08/05/2016 AMILCAR SURYA KUMARA K Ot F17.210 NICOTINE DEPENDENCE, CIGARETTES, UNCOMPL 08/05/2016 AMILCAR DO, KINGS K Ot I10 ESSENTIAL (PRIMARY) HYPERTENSION 08/05/2016 AMILCAR DO, KINGS K Ot I25.10 ATHSCL HEART DISEASE OF [place] CORONARY 08/05/2016 AMILCAR DO KINGS K Ot I25.2 OLD MYOCARDIAL INFARCTION 08/05/2016 AMILCAR SURYA KUMARA K Ot R11.2 NAUSEA WITH VOMITING, UNSPECIFIED 08/05/2016 AMILCAR SURYA KUMARA K Ot R51 HEADACHE 08/05/2016 AMILCAR SURYA KUMARA K Ot Z79.899 OTHER LUBE ATTENDANT (CURRENT) DRUG THERAPY 09/05/2016 ARIEL LOPEZ MD Ot D68.51 ACTIVATED PROTEIN C RESISTANCE 09/05/2016 ARIEL LOPEZ MD Ot E78.2 MIXED HYPERLIPIDEMIA 09/05/2016 ARIEL LOPEZ MD Ot I10 ESSENTIAL (PRIMARY) HYPERTENSION 09/05/2016 ARIEL LOPEZ MD Ot I25.10 ATHSCL HEART DISEASE OF [place] CORONARY 09/05/2016 ARIEL LOPEZ MD Ot I65.23 OCCLUSION AND STENOSIS OF [place] 09/09/2016 ARIEL LOPEZ MD Ot D68.51 ACTIVATED PROTEIN C RESISTANCE 09/09/2016 ARIEL LOPEZ MD Ot E78.2 MIXED HYPERLIPIDEMIA 09/09/2016 ARIEL LOPEZ MD Ot I10 ESSENTIAL (PRIMARY) HYPERTENSION 09/09/2016 ARIEL LOPEZ MD Ot I25.10 ATHSCL HEART DISEASE OF [place] CORONARY 09/09/2016 ARIEL LOPEZ MD Ot I65.23 OCCLUSION AND STENOSIS OF [place] 10/13/2016 ARIEL LOPEZ MD Ot D68.51 ACTIVATED PROTEIN C RESISTANCE 10/13/2016 ARIEL LOPEZ MD Ot E78.2 MIXED HYPERLIPIDEMIA 10/13/2016 ARIEL LOPEZ MD Ot I10 ESSENTIAL (PRIMARY) HYPERTENSION 10/13/2016 ARIEL LOPEZ MD, Ot I25.10 ATHSCL HEART DISEASE OF [place] CORONARY 10/13/2016 ARIEL LOPEZ MD Ot I65.23 OCCLUSION AND STENOSIS OF [place] 10/22/2016 ARIEL LOPEZ MD Ot D68.51 ACTIVATED PROTEIN C RESISTANCE 10/22/2016 ARIEL LOPEZ MD Ot E78.2 MIXED HYPERLIPIDEMIA 10/22/2016 ARIEL LOPEZ MD Ot I10 ESSENTIAL (PRIMARY) HYPERTENSION 10/22/2016 ARIEL LOPEZ MD Ot I25.10 ATHSCL HEART DISEASE OF [place] CORONARY 10/22/2016 ARIEL LOPEZ MD Ot I65.23 [...] APRN Ot I25.10 ATHSCL HEART DISEASE OF [place] CORONARY 04/05/2017 ALESSIA ANDERS APRN Ot I25.2 [...] SMO 04/05/2017 ALESSIA ANDERS APRN Ot Z79.01 LUBE ATTENDANT (CURRENT) USE OF ANTICOAGULANT 04/05/2017 ALESSIA ANDERS [...] F32.9 MAJOR DEPRESSIVE DISORDER, SINGLE EPISOD 04/07/2017 LAESSIA ANDERS APRN Ot F41.9 ANXIETY DISORDER, UNSPECIFIED 04/07/2017 ALESSIA ANDERS APRN Ot G40.909 EPILEPSY, UNSP, NOT INTRACTABLE, WITHOUT 04/07/2017 ALESSIA ANDERS APRN Ot I10 ESSENTIAL (PRIMARY) HYPERTENSION 04/07/2017 ALESSIA ANDERS APRN Ot I25.10 ATHSCL HEART DISEASE OF [place] CORONARY 04/07/2017 ALESSIA ANDERS APRN Ot I25.2 [...] SMO 04/07/2017 ALESSIA ANDERS APRN Ot Z79.01 INTERMEDIATE (CURRENT) USE OF ANTICOAGULANT 04/07/2017 ALESSIA ANDERS APRN Ot Z82.49 FAMILY HX OF ISCHEM HEART DIS AND OTH DI 04/07/2017 ALESSIA ANDERS APRN Ot Z86.718 PERSONAL HISTORY OF OTHER VENOUS THROMBO 04/07/2017 ALESSIA ANDERS EQUIPMENT INSTALLER Ot Z87.01 PERSONAL HISTORY OF PNEUMONIA (RECURRENT 04/07/2017 ALESSIA ANDERS APRN Ot Z87.19 PERSONAL HISTORY OF OTHER DISEASES OF TH 04/07/2017 ALESSIA ANDERS APRN Ot Z87.448 PERSONAL HISTORY OF OTHER DISEASES OF UR 04/07/2017 ALESSIA ANDERS APRN Ot Z90.89 ACQUIRED ABSENCE OF OTHER ORGANS 04/08/2017 ADELAIDA BOOKER MD Ot I10 ESSENTIAL (PRIMARY) HYPERTENSION 04/08/2017 ADELAIDA BOOKER MD Ot Z79.899 OTHER LUBE ATTENDANT (CURRENT) DRUG THERAPY 04/20/2017 ADELAIDA BOOKER MD Ot I10 ESSENTIAL (PRIMARY) HYPERTENSION 04/20/2017 ADELAIDA BOOKER MD Ot Z79.899 OTHER LUBE ATTENDANT (CURRENT) DRUG THERAPY 08/11/2017 ADELAIDA BOOKER MD [...] ABO+Rh group AP NRG Transfusion band number [id number] NRG Blood group antibody screen NEGATIVE NRG [...] resistant Staphylococcus aureus (MRSA) screening culture NEG [facility] Whole blood hemoglobin and hematocrit [...] Staphylococcus aureus (MRSA) screening culture NEG NRG Urine beta human chorionic gonadotropin (hCG) measurement - 12/10/17 06:10 Urine beta human chorionic gonadotropin (hCG) measurement NEGATIVE NEGATIVE Complete blood count (CBC) with automated white blood cell (WBC) differential - 12/10/17 06:30 Blood leukocytes automated count (number/volume) 7.3 10*3/uL 4.3-11.0 Blood erythrocytes automated count (number/volume) 3.95 10*6/uL 4.35-5.85 Venous blood hemoglobin measurement (mass/volume) 13.5 g/dL 11.5-16.0 Blood hematocrit (volume fraction) 39 % 35-52 Automated erythrocyte mean corpuscular volume 98 [foz_us] 80-99 Automated erythrocyte mean corpuscular hemoglobin (mass per erythrocyte) 34 pg 25-34 Automated erythrocyte mean corpuscular hemoglobin concentration measurement ( mass/volume) 35 g/dL 32-36 Automated erythrocyte distribution width ratio 11.8 % 10.0-14.5 Automated blood platelet count (count/volume) 250 10*3/uL 130-400 Automated blood platelet mean volume measurement 9.9 [foz_us] 7.4-10.4 Automated blood neutrophils/100 leukocytes 56 % 42-75 Automated blood lymphocytes/100 leukocytes 33 % 12-44 Blood monocytes/100 leukocytes 9 % 0-12 Automated blood eosinophils/100 leukocytes 2 % 0-10 Automated blood basophils/100 leukocytes 0 % 0-10 Blood neutrophils automated count (number/volume) 4.1 10*3 1.8-7.8 Blood lymphocytes automated count (number/volume) 2.4 10*3 1.0-4.0 Blood monocytes automated count (number/volume) 0.6 10*3 0.0-1.0 Automated eosinophil count 0.2 10*3/uL 0.0-0.3 Automated blood basophil count (count/volume) 0.0 10*3/uL 0.0-0.1 Blood type T Indirect antibody screen panel - 12/10/17 06:30 ABO+Rh group AP NRG Transfusion band number [id number] NRG Blood group antibody screen NEGATIVE NRG Encounters ACCT No. Visit Date/Time Discharge Status Pt. Type Provider Facility Loc./Unit Complaint [id number] 06/06/2014 09:18:00 06/06/2014 23:59:59 [facility] Outpatient SAINI ROBIN KUMAR Rubén [id number] 01/04/2014 14:55:00 01/04/2014 23:59:59 [facility] Outpatient JAC CORTES KATYA MCKEON [id number] 08/03/2013 11:44:00 08/03/2013 23:59:59 [facility]patient JAC CORTESKATYA [id number] 01/27/2013 16:02:00 01/27/2013 23:59:59 [facility] Outpatient AYSHA SAINI DO [id number] 02/26/2012 13:57:00 02/26/2012 23:59:59 [facility] Outpatient AYSHA SAINI DO [id number] 04/08/2017 14:51:17 04/08/2017 23:59:59 [facility] Outpatient [id number] 01/26/2015 04:44:40 ACT Document Registration [id number] 12/10/2017 07:30:00 12/10/2017 23:59:59 CLS Preadmit SHANAE ROSE DO Via [facility] CHRONIC PELVIC PAIN, FACTOR V LEIDEN [id number] 12/01/2017 09:05:00 12/01/2017 10:00:00 DIS Outpatient SHANAE ROSE DO [facility] PREOP CHRONIC PELVIC PAIN ,FACTOR V LEIDEN [id number] 10/07/2017 14:09:00 10/07/2017 23:59:59 [facility] Outpatient SHANAE ROSE DO [facility] RAD R92.8 ABN MAMMO [id number] 09/17/2017 14:27:00 09/17/2017 23:59:59 [facility] Outpatient SHANAE ROSE DO [facility] RAD SCREENING [id number] 08/11/2017 14:15:00 08/11/2017 16:23:00 DIS Outpatient ADELAIAD BOOKER MD Via [facility] REHAB L SHOULDER PAIN WITH ROTATOR CUFF INFLAMMATION [id number] 04/05/2017 13:16:00 04/05/2017 15:42:00 DIS Emergency MARTITAALESSIA 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 [facility] ER L SIDE ABD PAIN [id number] 03/18/2017 09:59:00 03/18/2017 23:59:59 [facility] Outpatient ADELAIDA BOOKER MD Via [facility] LAB I10, Z79.899 [id number] 12/29/2016 11:15:00 02/05/2017 11:59:00 DIS Outpatient ADELAIDA BOOKER MD [facility] REHAB LBP; THORACIC PAIN [id number] 11/10/2016 11:49:00 11/10/2016 23:59:59 CLS Preadmit ADELAIDA BOOKER MD Via [facility] RAD SCREENING Z12.31 [id number] 09/03/2016 08:35:00 09/03/2016 23:59:59 [facility] Outpatient ARIEL LOPEZ MD [facility] CARD CAD,CAROTID STENOSIS [id number] 08/03/2016 09:40:00 08/03/2016 11:56:00 DIS Emergency KINGS FITZGERALD DO Via [facility] ER HEADACHE/NAUSEA [id number] 06/23/2016 00:09:00 06/23/2016 23:59:59 CLS Preadmit ARIEL LOPEZ MD Via [facility] LAB COUMIDIN,THERAPY,MED MGMT [id number] 03/24/2016 10:02:00 06/22/2016 00:01:00 DIS Outpatient ARIEL LOPEZ MD [facility] LAB COUMIDIN,THERAPY,MED MGMT [id number] 04/18/2016 15:27:00 04/18/2016 23:59:59 CLS Outpatient ADELAIDA BOOKER MD [facility] LAB ANEMIA [id number] 04/16/2016 20:47:00 04/16/2016 22:28:00 DIS Emergency KINGS FITZGERALD DO Via [facility] ER FACIAL NUMBNESS [id number] 04/13/2016 16:25:00 04/15/2016 09:20:00 DIS Inpatient ADELAIDA BOOKER MD Via [facility] ICU SUPRATHERAPRUTIC INR; HEMATURIA; HEMATEMESIS [id number] 04/07/2016 08:51:00 04/07/2016 23:59:59 CLS Outpatient ADELAIDA BOOKER MD [facility] RAD LUNG MASS [id number] 03/20/2016 08:51:00 03/21/2016 10:40:00 DIS Inpatient ADELAIDA BOOKER MD Via [facility] 4TH POST OBSTRUCTIVE PNA LLL [id number] 03/19/2016 09:36:00 03/19/2016 23:59:59 CLS Outpatient ADELAIDA BOOKER MD Via [facility] RAD SOB,COUGH [id number] 02/12/2016 10:51:00 02/20/2016 00:01:00 DIS Outpatient ARIEL LOPEZ MD Via [facility] LAB COUMIDIN,THERAPY,MED MGMT [id number] 02/14/2016 11:16:00 02/14/2016 12:09:00 DIS Outpatient ADELAIDA BOOKER MD [facility] REHAB MID BACK/NECK/ SHOULDER PAIN AND STIFFNESS [id number] 11/22/2015 13:32:00 11/22/2015 23:59:59 CLS Outpatient TERESA SHETTY APRN [facility] LAB CHEST PAIN, ABN WEIGHT LOSS [id number] 11/18/2015 20:25:00 11/18/2015 22:38:00 DIS Emergency WILLIAM SHELTON MD [facility] ER HEADACHE/ELEVATED BP/ LOW HEART RATE [id number] 07/24/2015 12:20:00 10/22/2015 00:01:00 DIS Outpatient ARIEL LOPEZ MD [facility] LAB COUMIDIN,THERAPY,MED MGMT [id number] 07/25/2015 08:59:00 07/25/2015 10:05:00 DIS Outpatient ADELAIDA BOOKER MD [facility] REHAB NECK AND UPPER BACK PAIN,KYPHOSIS,RADICULOPATHY [id number] 07/24/2015 11:41:00 07/24/2015 23:59:59 CLS Outpatient SHANAE ROSE DO S [facility] RAD ACUTE PELVIC PAIN [id number] 04/09/2015 07:47:00 04/09/2015 23:59:59 CLS Outpatient ARIEL LOPEZ MD [facility] CARD CAD,LEIF,HLP,HTN [id number] 04/06/2015 14:31:00 04/06/2015 23:59:59 CLS Outpatient CRYSTAL GARCIA WELDING LEAD BURNER [facility] RAD NECK THORACIC LUMBAR BACK PAIN [id number] 03/29/2015 15:06:00 03/29/2015 23:59:59 CLS Outpatient CRYSTAL GARCIA [facility] RAD NECK PAIN,THORACIC BACK PAIN [id number] 01/25/2015 10:17:00 02/21/2015 00:01:00 DIS Outpatient ARIEL LOPEZ MD [facility] LAB COUMIDIN,THERAPY,MED MGMT [id number] 01/25/2015 10:22:00 01/25/2015 23:59:59 CLS Outpatient ADELAIDA BOOKER MD [facility] RAD KNEE PAIN,BACK PAIN, HEEL PAIN [id number] 11/27/2014 09:14:00 01/21/2015 00:01:00 DIS Outpatient ARIEL LOPEZ MD [facility] LAB COUMIDIN,THERAPY,MED MGMT [id number] 03/21/2014 09:51:00 04/25/2014 00:01:00 DIS Outpatient ARIEL LOPEZ MD [facility] LAB COUMIDIN,THERAPY,MED MGMT [id number] 03/29/2014 12:56:00 03/29/2014 23:59:59 CLS Outpatient NIKKY FREED MD [facility] RAD RLQ PAIN [id number] 01/25/2014 11:41:00 01/25/2014 23:59:59 CLS Outpatient NIKKY FREED MD [facility] RAD ABD PAIN [id number] 08/24/2013 09:10:00 11/22/2013 00:01:00 DIS Outpatient ARIEL LOPEZ MD [facility] LAB COUMIDIN,THERAPY,MED MGMT [id number] 04/14/2013 10:39:00 04/16/2013 12:00:00 DIS Inpatient NIKKY FREED MD [facility] SURGICAL ABD PAIN [id number] 03/14/2013 08:42:00 03/15/2013 00:01:00 DIS Outpatient ARIEL LOPEZ MD [facility] LAB COUMIDIN,THERAPY,MED MGMT [id number] 03/14/2013 08:38:00 03/14/2013 23:59:59 CLS Outpatient NHUNG GAN [facility] LAB HYPERLIPIDEMIA [id number] 03/14/2013 08:32:00 03/14/2013 23:59:59 CLS Outpatient NIKKY FREED MD [facility] LAB [id number] 09/21/2012 10:10:00 11/15/2012 00:01:00 DIS Outpatient ARIEL LOPEZ MD [facility] LAB MED MANGEMENT [id number] 01/30/2017 16:55:00 Document Registration [id number] 01/30/2016 07:48:00 Document Registration [id number] 06/21/2015 16:15:00 Document Registration [id number] 10/23/2014 08:43:00 Document Registration [id number] 10/23/2014 08:42:00 Document Registration [id number] 10/23/2014 08:42:00 Document Registration [id number] 10/23/2014 08:42:00 Document Registration [id number] 10/23/2014 08:42:00 Document Registration [id number] 10/23/2014 08:42:00 Document Registration [id number] 08/17/2012 00:00:00 Document Registration [id number] 04/11/2012 14:28:00 Document Registration [id number] 09/22/2011 12:16:00 Document Registration [id number] 03/13/2011 21:26:00 Document Registration [id number] 02/13/2011 13:07:00 Document Registration [id number] 01/13/2011 14:34:00 Document Registration [id number] 12/10/2010 07:00:00 Document Registration [id number] 12/09/2010 08:57:00 Document Registration [id number] 12/03/2010 06:20:00 Document Registration [id number] 11/28/2010 09:10:00 Document Registration [id number] 10/28/2010 20:45:00 Document Registration [id number] 07/09/2010 13:30:00 Document Registration [id number] 03/13/2010 06:22:00 Document Registration [id number] 03/13/2010 06:16:00 Document Registration [id number] 03/13/2010 06:12:00 Document Registration [id number] 01/07/2010 13:51:00 Document Registration [id number] 08/08/2009 13:32:00 Document Registration [id number] 07/10/2009 08:12:00 Document Registration
[2017-12-13 22:20] LABS: BASOPHILS % (AUTO) 0 % (0-10); EOSINOPHILS # (AUTO) 0.1 10^3/uL (0.0-0.3); EOSINOPHILS % (AUTO) 1 % (0-10); HEMATOCRIT 38 % (35-52); HEMOGLOBIN 13.8 G/DL (11.5-16.0); LYMPHOCYTES # (AUTO) 1.8 X 10^3 (1.0-4.0); LYMPHOCYTES % (AUTO) 16 % (12-44); MEAN CORPUSCULAR HEMOGLOBIN 35 PG (25-34); MEAN CORPUSCULAR HGB CONC 37 G/DL (32-36); MEAN CORPUSCULAR VOLUME 96 FL (80-99); MEAN PLATELET VOLUME 10.3 FL (7.4-10.4); MONOCYTES # (AUTO) 1.1 X 10^3 (0.0-1.0); MONOCYTES % (AUTO) 10 % (0-12); NEUTROPHILS # (AUTO) 7.9 X 10^3 (1.8-7.8); NEUTROPHILS % (AUTO) 73 % (42-75); PLATELET COUNT 209 10^3/uL (130-400); RED BLOOD COUNT 3.93 10^6/uL (4.35-5.85); RED CELL DISTRIBUTION WIDTH 11.4 % (10.0-14.5); WHITE BLOOD COUNT 10.8 10^3/uL (4.3-11.0)
[2017-12-13] MEDS ORDERED: KETOROLAC 30 MG/ML VIAL IVP STA (22:35)
[2017-12-13] MEDS ORDERED: LACTATED RINGERS 1,000 ML IV ONE (22:35)
[2017-12-13 22:48] LABS: ALANINE AMINOTRANSFERASE 6 U/L (0-55); ALBUMIN 3.9 GM/DL (3.2-4.5); ALKALINE PHOSPHATASE 51 U/L (40-136); BILIRUBIN,TOTAL 1.1 MG/DL (0.1-1.0); BUN/CREATININE RATIO 15; CALCIUM 9.2 MG/DL (8.5-10.1); CARBON DIOXIDE 20 MMOL/L (21-32); CHLORIDE 105 MMOL/L (98-107); CREATININE SERUM 0.82 MG/DL (0.60-1.30); GFR ESTIMATED > 60; GLUCOSE 94 MG/DL (70-105); POTASSIUM 3.8 MMOL/L (3.6-5.0); SODIUM 136 MMOL/L (135-145); TOTAL PROTEIN 6.7 GM/DL (6.4-8.2)
[2017-12-13] MEDS ORDERED: NS 250 ML (IVPB) BAG IV ONE (23:45)
[2017-12-13] MEDS ORDERED: IOHEXOL 350 MG/ML 100 ML (OMNIPAQUE 350) VIAL IV ONE (23:45)
[2017-12-14] MEDS ORDERED: fentaNYL INJECTION 100 MCG/2 ML AMP IVP STA (00:31)
[2017-12-14 00:38] LABS: BILIRUBIN,URINE NEGATIVE (NEGATIVE); CLARITY,URINE CLEAR; COLOR,URINE YELLOW; GLUCOSE, URINE (UA) NEGATIVE (NEGATIVE); KETONES,URINE NEGATIVE (NEGATIVE); LEUKOCYTE ESTERASE ,URINE 1+ (NEGATIVE); NITRITE,URINE NEGATIVE (NEGATIVE); PH,URINE 7 (5-9); PROTEIN,URINE 2+ (NEGATIVE); UROBILINOGEN,URINE NORMAL (NORMAL)
[2017-12-14 00:46] LABS: BACTERIA,URINE TRACE /HPF; WBC,URINE RARE /HPF
[2017-12-14] MEDS ORDERED: RX-NITROFURANTOIN 100 MG (MACROBID) CAP PPK#2 PO STA (01:04)
[2017-12-14] MEDS ORDERED: PHEN-640 PO (01:07)
[2017-12-14] MEDS ORDERED: NITR-65 PO (01:07)
--- NOTE | 2017-12-14 01:07 | ED Abdominal Pain ---
General Chief Complaint: -Female Stated Complaint: FEVER,HYSTERECTOMY THURSDAY,PAIN,BLOOD THINNERS Source of Information: Patient Exam Limitations: No Limitations History of Present Illness Date Seen by Provider: Dec 13, 2017 Time Seen by Provider: 22:10 Initial Comments PT ARRIVES VIA POV FROM HOME PT HAD ROBOTIC-ASSISTED VAGINAL HYSTERECTOMY BY DR. ROSE ON Thursday. WENT HOME THE SAME DAY PT HAS HAD INCREASED PAIN SINCE YESTERDAY AFTERNOON VOMITED X 1 THIS MORNING DUE TO PAIN PAIN IS ALL ACROSS MID AND LOWER ABDOMEN PT HAD 1 PERCOCET 7.5/325 AT 1300 AND TOOK 2 PERCOCET 1 1/2 HOURS AGO--HAS NOT TAKEN ANYTHING ELSE FOR PAIN TODAY PT STATES SHE HAS BEEN IN BED ASLEEP ALL DAY--WOKE UP 1 1/2 HOURS AGO IN PAIN, AND THEN CAME HERE BECAUSE PAIN IS NOT BETTER PT HAS NOT HAD ANYTHING TO EAT OR DRINK AT ALL TODAY PT HAS BEEN VOIDING NORMAL AMOUNTS, LAST VOID WAS AT 2030 TONIGHT AND VOIDED ON ARRIVAL, WHILE STILL IN LOBBY PT STATES SHE DOES HAVE MILD PAIN AT END OF VOIDING PT IS PASSING GAS AND STOOL--STOOL WAS FORMED AND LAST ONE WAS LIQUID--HAS BEEN TAKING STOOL SOFTENERS SINCE SURGERY PT FELT WARM THIS EVENING AND TEMP WAS 99.7 AT HOME PRIOR TO ARRIVAL C/O CHILLS C/O DIZZINESS NO VAGINAL BLEEDING OR INCISIONAL BLEEDING PT IS ON ELIQUIS FOR HISTORY 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 ROSE OR SHIP JOINER FOR THIS PROBLEM HAS FOLLOW UP APPOINTMENT THIS WEEK PCP: DR. BOOKER RN URGENT CARE: DR. 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 Allergies and Home Medications Allergies Coded Allergies: prochlorperazine (Unverified Allergy, Severe, TONGUE SWELLS, 07/10/06) metoclopramide (Verified Allergy, Unknown, 01/29/09) topiramate (Unverified Allergy, Unknown, 11/18/15) causes metabolic acidosis aripiprazole (Unverified Adverse Reaction, Unknown, 12/10/17) levetiracetam (Unverified Adverse Reaction, Unknown, 12/10/17) Home Medications Amlodipine Besylate 5 Mg Tablet, 5 MG PO DAILY, (Reported) Apixaban 2.5 Mg Tablet, 2.5 MG PO BID, (Reported) Atorvastatin Calcium 20 Mg Tablet, 20 MG PO HS, (Reported) Docusate Sodium 100 Mg Capsule, 100 MG PO BID PRN for CONSTIPATION-1ST LINE Prescribed by: SHANAE ROSE on 12/10/17838 Escitalopram Oxalate 20 Mg Tablet, 20 MG PO DAILY, (Reported) Famotidine 20 Mg Tablet, 20 MG PO HS, (Reported) Hydrocodone Bit/Acetaminophen 1 Ea Tablet, 2 EA PO Q6H PRN for Pain-See Instructions Prescribed by: SHANAE ROSE on 12/10/17838 Ibuprofen 600 Mg Tablet, 600 MG PO Q6H PRN for PAIN-MODERATE Prescribed by: SHANAE ROSE on 12/10/17838 Lamotrigine 100 Mg Tab.er.24, 100 MG PO HS, (Reported) Lisinopril 10 Mg Tablet, 10 MG PO DAILY, (Reported) Lorazepam 2 Mg Tablet, 2-4 MG PO TID PRN for ANXIETY, (Reported) TAKE 1-2 (2MG) TABS Nitrofurantoin Monohyd/M-Cryst 100 Mg Capsule, 100 MG PO BID Prescribed by: KINGS FITZGERALD on 12/14/17106 Phenazopyridine HCl 200 Mg Tablet, 1 TAB PO TID Prescribed by: KINGS FITZGERALD on 12/14/17106 Simethicone 80 Mg Tab.chew, 40 MG PO TID PRN for INDIGESTION 2ND LINE Prescribed by: SHANAE ROSE on 12/10/17838 Patient Home Medication List Home Medication List Reviewed: Yes Review of Systems Constitutional: see HPI, chills, dizziness, fever, malaise, weakness EENTM: No Symptoms Reported Respiratory: No Symptoms Reported Cardiovascular: No Symptoms Reported Gastrointestinal: See HPI, Abdominal Pain; Denies Constipated; Diarrhea, Nausea , Poor Appetite, Poor Fluid Intake, Vomiting Genitourinary: See HPI Musculoskeletal: no symptoms reported Skin: no symptoms reported Psychiatric/Neurological: No Symptoms Reported Endocrine: No Symptoms Reported Hematologic/Lymphatic: See HPI Past Gmsypoa-Alagth-Kqjwoq Hx Patient Social History Alcohol Use: Denies Use Recreational Drug Use: No Drug of Choice: MARIJUANA Type Used: Cigarettes 2nd Hand Smoke Exposure: Yes Recent Foreign Travel: No Contact w/Someone Who Travel: No Recent Hopitalizations: No Physical Abuse: No Sexual Abuse: No Immunizations Up To Date Tetanus Booster (TDap): Less than 5yrs Seasonal Allergies Seasonal Allergies: No Past Medical History Surgeries: Yes (CARDIAC CATH--NO INTERVENTION; LEFT SALPINGO-OOPHORECTOMY 5 YEARS AGO FOR TORSION; ROBOTIC ASSIST LAPAROSCOPIC VAGINAL HYST WITH REMOVAL OF RIGHT OVARY 12/10/[address] ROSE. ) Abdominal, Adenoidectomy, Cardiac, Hysterectomy, Oophorectomy, Tonsillectomy Respiratory: Yes Pneumonia Currently Using CPAP: No Currently Using BIPAP: No Cardiac: Yes (hx blood clots; [place] X 2-PER PT-DUE TO FACTOR 5 LEIDEN MUTATION. 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 Sexually Transmitted Disease: Yes (HPV) Genitourinary: Yes Bladder Infection Gastrointestinal: Yes (GI BLEED 04/13/16, ALL OTHER DISORDERS A CHILD) Abdominal Hernia, Gastroesophageal Reflux, Gastrointestinal Bleed, Hepatitis Musculoskeletal: Yes (STENOSIS) Scoliosis, Chronic Back Pain Endocrine: No Loss of Vision: Denies Hearing Impairment: Denies Cancer: No Psychosocial: Yes Anxiety, Depression Nursing Suicide Risk Score: 0 Integumentary: No (BRUISING) Blood Disorders: Yes (DVT; FACTOR 5 LEIDEN) Family Medical History Family history: Cardiovascular disease 03 FATHER Family history: Coronary thrombosis 03 FATHER Family history: Diabetes mellitus 03 MOTHER Heart disease 03 FATHER History of - disorder 03 FATHER (FACTOR FIVE LEIDEN) Psychotic disorder 03 MOTHER (DEPRESSION) Heart Disease, Cancer, Hypertension Physical Exam Vital Signs Vital Signs - First Documented 12/14/17 01:22 Pulse 86 Resp 14 B/P (MAP) 122/74 Pulse Ox 98 O2 Delivery Room Air Capillary Refill : Height/Weight/BMI Height: 5'2.00" Weight: 136lbs. 0.0oz. 61.066013mf; 24.9 BMI Method:Stated General Appearance: WD/WN, no apparent distress Neck: normal inspection Respiratory: normal breath sounds, no respiratory distress, no accessory muscle use Cardiovascular: regular rate, rhythm, no murmur Gastrointestinal: normal bowel sounds, no pulsatile mass, tenderness (DIFFUSE TENDERNESS, BUT MOST TENDER IN LOWER ABDOMEN/SUPRAPUBIC AREA. 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, no motor/sensory deficits, alert, normal mood/affect, oriented x 3 Skin: normal color, warm/dry Progress/Results/Core Measures Results/Orders Lab Results Laboratory Tests Test 12/13/17 22:00 12/14/17 00:29 Range/Units White Blood Count 10.8 4.3-11.0 10^3/uL Red Blood Count 3.93 L 4.35-5.85 10^6/uL Hemoglobin 13.8 11.5-16.0 G/DL Hematocrit 38 35-52 % Mean Corpuscular Volume 96 80-99 FL Mean Corpuscular Hemoglobin 35 H 25-34 PG Mean Corpuscular Hemoglobin Concent 37 H 32-36 G/DL Red Cell Distribution Width 11.4 10.0-14.5 % Platelet Count 209 130-400 10^3/uL Mean Platelet Volume 10.3 7.4-10.4 FL Neutrophils (%) (Auto) 73 42-75 % Lymphocytes (%) (Auto) 16 12-44 % Monocytes (%) (Auto) 10 0-12 % Eosinophils (%) (Auto) 1 0-10 % Basophils (%) (Auto) 0 0-10 % Neutrophils # (Auto) 7.9 H 1.8-7.8 X 10^3 Lymphocytes # (Auto) 1.8 1.0-4.0 X 10^3 Monocytes # (Auto) 1.1 H 0.0-1.0 X 10^3 Eosinophils # (Auto) 0.1 0.0-0.3 10^3/uL Basophils # (Auto) 0.0 0.0-0.1 10^3/uL Sodium Level 136 135-145 MMOL/L Potassium Level 3.8 3.6-5.0 MMOL/L Chloride Level 105 98-107 MMOL/L Carbon Dioxide Level 20 L 21-32 MMOL/L Anion Gap 11 5-14 MMOL/L Blood Urea Nitrogen 12 7-18 MG/DL Creatinine 0.82 0.60-1.30 MG/DL Estimat Glomerular Filtration Rate > 60 BUN/Creatinine Ratio 15 Glucose Level 94 70-105 MG/DL Calcium Level 9.2 8.5-10.1 MG/DL Total Bilirubin 1.1 H 0.1-1.0 MG/DL Aspartate Amino Transf (AST/SGOT) 11 5-34 U/L Alanine Aminotransferase (ALT/SGPT) 6 0-55 U/L Alkaline Phosphatase 51 40-136 U/L Total Protein 6.7 6.4-8.2 GM/DL Albumin 3.9 3.2-4.5 GM/DL Urine Color YELLOW Urine Clarity CLEAR Urine pH 7 5-9 Urine Specific Tyler 1.010 L 1.016-1.022 Urine Protein 2+ H NEGATIVE Urine Glucose (UA) NEGATIVE NEGATIVE Urine Ketones NEGATIVE NEGATIVE Urine Nitrite NEGATIVE NEGATIVE Urine Bilirubin NEGATIVE NEGATIVE Urine Urobilinogen NORMAL NORMAL MG/DL Urine Leukocyte Esterase 1+ H NEGATIVE Urine RBC (Auto) 2+ H NEGATIVE Urine RBC 2-5 H /HPF Urine WBC RARE /HPF Urine Squamous Epithelial Cells 2-5 /HPF Urine Crystals NONE /LPF Urine Bacteria TRACE /HPF Urine Casts NONE /LPF Urine Mucus NEGATIVE /LPF Urine Culture Indicated NO My Orders Orders - KINGS FITZGERALD DO Cbc With Automated Diff (12/13/17 22:10) Comprehensive Metabolic Panel (12/13/17 22:10) Lactic Acid Analyzer (12/13/17 22:10) Ua Culture If Indicated (12/13/17 22:10) Blood Culture (12/13/17 22:10) Saline Lock/Iv-Start (12/13/17 22:35) Lactated Ringers (Lr 1000 Ml Iv Solution (12/13/17 22:35) Ketorolac Injection (Toradol Injection) (12/13/17 22:35) Ct Abdomen/Pelvis W (12/13/17 22:53) Iohexol Injection (Omnipaque 350 Mg/Ml 1 (12/13/17 23:45) Ns (Ivpb) (Sodium Chloride 0.9%) (12/13/17 23:45) Fentanyl Injection (Sublimaze Injection (12/14/17 00:31) Urine Culture (12/14/17 01:03) Rx-Nitrofurantoin [place] (Rx-Macrobid) (12/14/17 01:04) Phenazopyridine Tablet (Pyridium Tablet) (12/14/17 01:15) Medications Given in ED Current Medications Medications Dose Ordered Sig/Gerald Route Start Time Stop Time Status Last Admin Dose Admin Iohexol 100 ml ONCE ONCE IV 12/13/17 23:45 12/13/17 23:46 DC 12/13/17 23:39 100 ML Lactated Ringer's 1,000 ml @ 0 mls/hr Q0M ONCE IV 12/13/17 22:35 12/13/17 22:37 DC 12/13/17 22:44 0 MLS/HR Phenazopyridine HCl 200 mg ONCE ONCE PO 12/14/17 01:15 12/14/17 01:16 DC 12/14/17 01:17 200 MG Sodium Chloride 250 ml ONCE ONCE IV 12/13/17 23:45 12/13/17 23:46 DC 12/13/17 23:39 80 ML Vital Signs/I&O 12/14/17 01:22 Pulse 86 Resp 14 B/P (MAP) 122/74 Pulse Ox 98 O2 Delivery Room Air Progress Progress Note : Progress Note PAIN IMPROVED AT DISMISSAL Diagnostic Imaging Comments CT ABDOMEN/PELVIS--NORMAL POST OP FREE AIR. NO ABNORMAL FLUID COLLECTION AND OTHERWISE NO ACUTE PROCESS--PER [facility] VIA FAX @ 3112 Reviewed: Reviewed by Me Departure Impression Primary Impression: Post-op pain Additional Impression: UTI (urinary tract infection) Disposition: 01 HOME, SELF-CARE Condition: Improved Departure-Patient Inst. Referrals: ADELAIDA BOOKER MD (PCP/Family) Primary Care Physician SHANAE ROSE DO Patient Instructions: Postoperative Pain (DC), Urinary Tract Infection, Adult ( DC) Add. Discharge Instructions: LOTS OF CLEAR LIQUIDS TAKE YOUR PAIN MEDICATION PRESCRIBED TAKE ZOFRAN NEEDED FOR NAUSEA AVOID CONSTIPATION FOLLOW UP WITH DR. ROSE THIS WEEK SCHEDULED RETURN TO ER IF WORSE All discharge instructions reviewed with patient and/or family. Voiced understanding. Scripts Phenazopyridine HCl (Pyridium) 200 Mg Tablet 1 TAB PO TID for BLADDER DISCOMFORT, #15 TAB Prov: KINGS FITZGERALD DO 12/14/17 Nitrofurantoin Monohyd/M-Cryst (Macrobid 100 mg Capsule) 100 Mg Capsule 100 MG PO BID, #20 CAP Prov: SURYA FITZGERALDA K DO 12/14/17 KINGS FITZGERALD DO Dec 14, 2017 01:07
[2017-12-14] MEDS ORDERED: PHENAZOPYRIDINE 100 MG (PYRIDIUM) TABLET PO ONE (01:15)
[2017-12-14 01:22] VITALS: BP 122/74
--- NOTE | 2017-12-14 07:03 | Diagnostic Imaging Report ---
PROCEDURE: CT abdomen and pelvis with contrast. TECHNIQUE: Multiple contiguous axial images were obtained through the abdomen and pelvis after administration of intravenous contrast. INDICATION: Abdominal pain, recent hysterectomy. Study compared 04/05/2017. There is a moderate amount of intra- and extraperitoneal extraluminal gas within the abdomen and pelvis as well as dissecting into the anterior lower thoracic mediastinum. No basilar pneumothorax. This is not an unexpected finding given the recent surgery. Trace amount of low-density pelvic free fluid without evidence for its loculation. There is fluid within the lumen of the large bowel without substantial large bowel gas. This can be seen in diarrhea or other hypermotile state. No loculated collection. Mild hepatic steatosis. The spleen, adrenals and pancreas unremarkable. The gallbladder unremarkable. The kidneys unobstructed. No arterial obstruction. Urinary bladder had an unremarkable appearance. IMPRESSION: Extraluminal gas, not unexpected given the surgical time course. Increased fluid load in the large bowel may reflect a diarrheal or hypermotile state. Trace free fluid without contrast extravasation or obvious complexity. No loculated collection or abscess and no convincing evidence for substantial hemorrhage. Intact urinary bladder I agree with preliminary. Dictated by: Dictated on workstation # [id number]
== END 2017-12-14 01:23 | disposition home or self-care (01) ==
LOC: EDUNIT# 21:19 → ER 21:21
DX: G89.18 Other acute postprocedural pain (principal); N39.0 Urinary tract infection, site not specified; I25.2 Old myocardial infarction; I25.10 Atherosclerotic heart disease of native coronary artery without angina pectoris; E78.00 Pure hypercholesterolemia, unspecified; I10 Essential (primary) hypertension; G40.909 Epilepsy, unspecified, not intractable, without status epilepticus; K21.9 Gastro-esophageal reflux disease without esophagitis; F41.9 Anxiety disorder, unspecified; F32.9 Major depressive disorder, single episode, unspecified; Z87.19 Personal history of other diseases of the digestive system; Z86.718 Personal history of other venous thrombosis and embolism; Z82.49 Family history of ischemic heart disease and other diseases of the circulatory system; Z87.448 Personal history of other diseases of urinary system; Z90.710 Acquired absence of both cervix and uterus; Z88.8 Allergy status to other drugs, medicaments and biological substances; Z79.01 Long term (current) use of anticoagulants; Z77.22 Contact with and (suspected) exposure to environmental tobacco smoke (acute) (chronic); Z90.89 Acquired absence of other organs; Z87.01 Personal history of pneumonia (recurrent)
CPT/HCPCS: 36415; 74177; 80053; 81000; 85025; 87088; 96361; 96374; 96375

== ENCOUNTER → 2018-01-04 | Outpatient (CLI) | payer MEDICARE, MEDICAID ==
[~2018-01-04] MED LIST changes: +NITR-65 PO; +PHEN-640 PO
--- NOTE | 2018-01-04 16:41 | Diagnostic Imaging Report ---
INDICATION: Constipation KUB at 4:17 PM FINDINGS: There is some stool in the rectum and scattered stool in the colon. The volume still does not appear to be excessive. Bowel gas pattern is normal. There are no pathologic masses or opacifications. IMPRESSION: Mild fecal stasis. Dictated by: Dictated on workstation # [id number]
== END ==
LOC: RAD 15:46
PROVIDERS: ATTEND Nurse Practitioner Family
DX: K59.00 Constipation, unspecified (principal)
CPT/HCPCS: 74018

== ENCOUNTER → 2018-01-29 | Outpatient (CLI) | payer MEDICARE, MEDICAID ==
[~2018-01-29] MED LIST changes: -AMLO5TAB2 PO; +AMLO5TAB7 PO
--- NOTE | 2018-01-29 17:39 | Diagnostic Imaging Report ---
PROCEDURE: MR imaging of the brain without contrast. TECHNIQUE: Multiplanar, multisequence MR imaging of the brain was performed without contrast. INDICATION: 42-year-old female with severe confusion, severe short term memory loss, and ataxia. COMPARISONS: CT head 08/03/2016. FINDINGS: Midline structures are not displaced. The lateral, third, and fourth ventricles are normal in size, shape, and anatomic position. There is no evidence of mass, mass effect, hydrocephalus, or hemorrhage. Le-white differentiation is normal. There is no sulcal effacement. A few scattered nonspecific white matter changes are seen. There are no areas of diffusion restriction or diffusion signal abnormalities to suggest an acute or subacute ischemic injury. There are no abnormal extra-axial fluid collections or hemorrhage. Petrous apices as well as the seventh and eighth nerve complexes are grossly normal. The semicircular canals and cochlea show normal signal. Visualized vascular flow voids are unremarkable. Craniovertebral junction is normal. The sellar and suprasellar regions are normal. Sinuses, orbits, and mastoid air cells are unremarkable. IMPRESSION: Essentially unremarkable nonenhanced MRI brain. Dictated by: Dictated on workstation # [id number]
== END ==
LOC: RAD 16:13
PROVIDERS: ATTEND Nurse Practitioner Family
DX: R41.0 Disorientation, unspecified (principal); R41.3 Other amnesia; R27.0 Ataxia, unspecified; Z86.73 Personal history of transient ischemic attack (TIA), and cerebral infarction without residual deficits
CPT/HCPCS: 70551

== ENCOUNTER 2018-02-04 11:50 | Emergency (ER) | payer MEDICARE, MEDICAID ==
[~2018-02-04] VITALS: Ht 165.1 cm; Wt 79.4 kg
[2018-02-04 12:11] LABS: BASOPHILS % (AUTO) 0 % (0-10); EOSINOPHILS # (AUTO) 0.1 10^3/uL (0.0-0.3); EOSINOPHILS % (AUTO) 2 % (0-10); HEMATOCRIT 38 % (35-52); HEMOGLOBIN 13.6 G/DL (11.5-16.0); LYMPHOCYTES # (AUTO) 2.6 X 10^3 (1.0-4.0); LYMPHOCYTES % (AUTO) 32 % (12-44); MEAN CORPUSCULAR HEMOGLOBIN 34 PG (25-34); MEAN CORPUSCULAR HGB CONC 35 G/DL (32-36); MEAN CORPUSCULAR VOLUME 95 FL (80-99); MEAN PLATELET VOLUME 10.3 FL (7.4-10.4); MONOCYTES # (AUTO) 0.7 X 10^3 (0.0-1.0); MONOCYTES % (AUTO) 9 % (0-12); NEUTROPHILS # (AUTO) 4.7 X 10^3 (1.8-7.8); NEUTROPHILS % (AUTO) 58 % (42-75); PLATELET COUNT 272 10^3/uL (130-400); RED BLOOD COUNT 4.05 10^6/uL (4.35-5.85); RED CELL DISTRIBUTION WIDTH 12.1 % (10.0-14.5); WHITE BLOOD COUNT 8.1 10^3/uL (4.3-11.0)
[2018-02-04 12:27] LABS: ALANINE AMINOTRANSFERASE 17 U/L (0-55); ALKALINE PHOSPHATASE 56 U/L (40-136); BILIRUBIN,TOTAL 0.6 MG/DL (0.1-1.0); BUN/CREATININE RATIO 8; CARBON DIOXIDE 20 MMOL/L (21-32); CHLORIDE 107 MMOL/L (98-107); CREATININE SERUM 0.72 MG/DL (0.60-1.30); GFR ESTIMATED > 60; GLUCOSE 77 MG/DL (70-105); POTASSIUM 4.5 MMOL/L (3.6-5.0); SODIUM 136 MMOL/L (135-145); TOTAL PROTEIN 6.5 GM/DL (6.4-8.2)
[2018-02-04 12:41] LABS: BILIRUBIN,URINE NEGATIVE (NEGATIVE); CLARITY,URINE CLEAR; COLOR,URINE YELLOW; GLUCOSE, URINE (UA) NEGATIVE (NEGATIVE); KETONES,URINE NEGATIVE (NEGATIVE); LEUKOCYTE ESTERASE ,URINE NEGATIVE (NEGATIVE); NITRITE,URINE NEGATIVE (NEGATIVE); PH,URINE 8 (5-9); PROTEIN,URINE NEGATIVE (NEGATIVE); UROBILINOGEN,URINE NORMAL (NORMAL)
--- NOTE | 2018-02-04 12:42 | ED General ---
General Chief Complaint: Dizziness/Syncope Stated Complaint: LOW BP/DIZZY Source of Information: Patient, Family Exam Limitations: No Limitations History of Present Illness Date Seen by Provider: Feb 04, 2018 Time Seen by Provider: 12:39 Initial Comments To ER per EMS to come in by family with reports of near syncope, lightheadedness and general fatigue. This began last night, worse this morning. Heart rate dropped to 52 and she states that her blood pressure was very low. She couldn't stay awake. She denied chest pain or shortness of breath. She's had about 6 of these episodes over the past 3 months and has been increasingly forgetful since she had been placed on a combination of Luvox and Lexapro. The Luvox was stopped and the Lexapro was stopped suddenly on Thursday of this week ( today being ). She also had her Lamictal dose increased last night. At this point she states she is feeling better. Timing/Duration: 1-2 Days Severity: Moderate Associated Systoms: No Chest Pain, No Cough, No Diaphoresis, No Fever/Chills, No Nausea/Vomiting Allergies and Home Medications Allergies Coded Allergies: prochlorperazine (Unverified Allergy, Severe, TONGUE SWELLS, 07/10/06) metoclopramide (Verified Allergy, Unknown, 01/29/09) topiramate (Unverified Allergy, Unknown, 11/18/15) causes metabolic acidosis aripiprazole (Unverified Adverse Reaction, Unknown, 12/10/17) levetiracetam (Unverified Adverse Reaction, Unknown, 12/10/17) Home Medications Amlodipine Besylate 5 Mg Tablet, 5 MG PO DAILY, (Reported) Apixaban 2.5 Mg Tablet, 2.5 MG PO BID, (Reported) Atorvastatin Calcium 20 Mg Tablet, 20 MG PO HS, (Reported) Docusate Sodium 100 Mg Capsule, 100 MG PO BID PRN for CONSTIPATION-1ST LINE Prescribed by: SHANAE ROSE on 12/10/17 0839 Escitalopram Oxalate 20 Mg Tablet, 20 MG PO DAILY, (Reported) Famotidine 20 Mg Tablet, 20 MG PO HS, (Reported) Hydrocodone Bit/Acetaminophen 1 Ea Tablet, 2 EA PO Q6H PRN for Pain-See Instructions Prescribed by: SHANAE ROSE on 12/10/17 0839 Ibuprofen 600 Mg Tablet, 600 MG PO Q6H PRN for PAIN-MODERATE Prescribed by: SHANAE ROSE on 12/10/17838 Lamotrigine 100 Mg Tab.er.24, 100 MG PO HS, (Reported) Lisinopril 10 Mg Tablet, 10 MG PO DAILY, (Reported) Lorazepam 2 Mg Tablet, 2-4 MG PO TID PRN for ANXIETY, (Reported) TAKE 1-2 (2MG) TABS Nitrofurantoin Monohyd/M-Cryst 100 Mg Capsule, 100 MG PO BID Prescribed by: KINGS FITZGERALD on 12/14/17106 Phenazopyridine HCl 200 Mg Tablet, 1 TAB PO TID Prescribed by: KINGS FITZGERALD on 12/14/17106 Simethicone 80 Mg Tab.chew, 40 MG PO TID PRN for INDIGESTION 2ND LINE Prescribed by: SHANAE ROSE on 12/10/17838 Patient Home Medication List Home Medication List Reviewed: Yes Review of Systems Review of Systems Constitutional: see HPI EENTM: see HPI Respiratory: see HPI; No cough, No phlegm, No short of breath Cardiovascular: no symptoms reported Genitourinary: no symptoms reported Musculoskeletal: no symptoms reported Skin: no symptoms reported Psychiatric/Neurological: No Symptoms Reported Past Rzyxqgo-[id number]-Sqtpca Hx Patient Social History Alcohol Use: Occasionally Uses Recreational Drug Use: No Drug of Choice: MARIJUANA Smoking Status: Current Everyday Smoker Type Used: Cigarettes 2nd Hand Smoke Exposure: Yes Recent Hopitalizations: No Immunizations Up To Date Tetanus Booster (TDap): Less than 5yrs Seasonal Allergies Seasonal Allergies: No Past Medical History Surgeries: Yes Abdominal, Adenoidectomy, Cardiac, Hysterectomy, Oophorectomy, Tonsillectomy Respiratory: Yes Pneumonia Currently Using CPAP: No Currently Using BIPAP: No Cardiac: Yes Coronary Artery Disease, Deep Vein Thrombosis, Heart Attack, High Cholesterol, Hypertension Neurological: Yes ("NON-EPILEPTIC SEIZURES" PER PT) Seizure Disorder Reproductive Disorders: Yes (HPV; OVARIAN TORSION/LEFT S.O.) Female Reproductive Disorders: Menstrual Problems, Ovarian Cyst, 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 Sexually Transmitted Disease: Yes (HPV) Genitourinary: Yes Bladder Infection Gastrointestinal: Yes (GI BLEED 04/13/16, ALL OTHER DISORDERS A CHILD) Abdominal Hernia, Gastroesophageal Reflux, Gastrointestinal Bleed, Hepatitis Musculoskeletal: Yes (STENOSIS) Scoliosis, Chronic Back Pain Endocrine: No Loss of Vision: Denies Hearing Impairment: Denies Cancer: No Psychosocial: Yes Anxiety, Depression Integumentary: No (BRUISING) Blood Disorders: Yes (DVT; FACTOR 5 LEIDEN) Family Medical History Family history: Cardiovascular disease 03 FATHER Family history: Coronary thrombosis 03 FATHER Family history: Diabetes mellitus 03 MOTHER Heart disease 03 FATHER History of - disorder 03 FATHER (FACTOR FIVE LEIDEN) Psychotic disorder 03 MOTHER (DEPRESSION) Heart Disease, Cancer, Hypertension Physical Exam Vital Signs Vital Signs - First Documented 02/04/18 12:19 Temp 96.7 Pulse 61 Resp 18 B/P (MAP) 127/74 (91) Pulse Ox 99 O2 Delivery Room Air Capillary Refill : Height, Weight, BMI Height: 5'2.00" Weight: 136lbs. 0.0oz. [id number]; 24.9 BMI Method:Stated General Appearance: No Apparent Distress, WD/WN, Other (alert and oriented GCS 15.) HEENT: PERRL/EOMI, TMs Normal Neck: Full Range of Motion, Normal Inspection Respiratory: Normal Breath Sounds, No Accessory Muscle Use, No Respiratory Distress Cardiovascular: Normal Peripheral Pulses, Other (bradycardia with a rate of 50- 58 sinus no ectopy normal intervals) Gastrointestinal: Normal Bowel Sounds, Non Tender, Soft Extremity: Normal Capillary Refill, Normal Inspection Neurologic/Psychiatric: Alert, Oriented x3, No Motor/Sensory Deficits Skin: Normal Color, Warm/Dry Progress/Results/Core Measures Suspected Sepsis SIRS Temperature: Pulse: Respiratory Rate: Laboratory Tests 02/04/18 12:00: White Blood Count 8.1 Blood Pressure / Mean: Laboratory Tests 02/04/18 12:00: Creatinine 0.72, Platelet Count 272, Total Bilirubin 0.6 Results/Orders Lab Results Laboratory Tests Test 02/04/18 12:00 02/04/18 12:29 Range/Units White Blood Count 8.1 4.3-11.0 10^3/uL Red Blood Count 4.05 L 4.35-5.85 10^6/uL Hemoglobin 13.6 11.5-16.0 G/DL Hematocrit 38 35-52 % Mean Corpuscular Volume 95 80-99 FL Mean Corpuscular Hemoglobin 34 25-34 PG Mean Corpuscular Hemoglobin Concent 35 32-36 G/DL Red Cell Distribution Width 12.1 10.0-14.5 % Platelet Count 272 130-400 10^3/uL Mean Platelet Volume 10.3 7.4-10.4 FL Neutrophils (%) (Auto) 58 42-75 % Lymphocytes (%) (Auto) 32 12-44 % Monocytes (%) (Auto) 9 0-12 % Eosinophils (%) (Auto) 2 0-10 % Basophils (%) (Auto) 0 0-10 % Neutrophils # (Auto) 4.7 1.8-7.8 X 10^3 Lymphocytes # (Auto) 2.6 1.0-4.0 X 10^3 Monocytes # (Auto) 0.7 0.0-1.0 X 10^3 Eosinophils # (Auto) 0.1 0.0-0.3 10^3/uL Basophils # (Auto) 0.0 0.0-0.1 10^3/uL Sodium Level 136 135-145 MMOL/L Potassium Level 4.5 3.6-5.0 MMOL/L Chloride Level 107 98-107 MMOL/L Carbon Dioxide Level 20 L 21-32 MMOL/L Anion Gap 9 5-14 MMOL/L Blood Urea Nitrogen 6 L 7-18 MG/DL Creatinine 0.72 0.60-1.30 MG/DL Estimat Glomerular Filtration Rate > 60 BUN/Creatinine Ratio 8 Glucose Level 77 70-105 MG/DL Calcium Level 9.0 8.5-10.1 MG/DL Corrected Calcium 9.0 8.5-10.1 MG/DL Total Bilirubin 0.6 0.1-1.0 MG/DL Aspartate Amino Transf (AST/SGOT) 26 5-34 U/L Alanine Aminotransferase (ALT/SGPT) 17 0-55 U/L Alkaline Phosphatase 56 40-136 U/L Troponin I < 0.30 <0.30 NG/ML Total Protein 6.5 6.4-8.2 GM/DL Albumin 4.0 3.2-4.5 GM/DL Urine Color YELLOW Urine Clarity CLEAR Urine pH 8 5-9 Urine Specific [place] 1.010 L 1.016-1.022 Urine Protein NEGATIVE NEGATIVE Urine Glucose (UA) NEGATIVE NEGATIVE Urine Ketones NEGATIVE NEGATIVE Urine Nitrite NEGATIVE NEGATIVE Urine Bilirubin NEGATIVE NEGATIVE Urine Urobilinogen NORMAL NORMAL MG/DL Urine Leukocyte Esterase NEGATIVE NEGATIVE Urine RBC (Auto) NEGATIVE NEGATIVE Urine RBC NONE /HPF Urine WBC NONE /HPF Urine Squamous Epithelial Cells NONE /HPF Urine Crystals NONE /LPF Urine Bacteria NEGATIVE /HPF Urine Casts NONE /LPF Urine Mucus NEGATIVE /LPF Urine Culture Indicated NO Urine Opiates Screen NEGATIVE NEGATIVE Urine Oxycodone Screen NEGATIVE NEGATIVE Urine Methadone Screen NEGATIVE NEGATIVE Urine Propoxyphene Screen NEGATIVE NEGATIVE Urine Barbiturates Screen NEGATIVE NEGATIVE Ur Tricyclic Antidepressants Screen NEGATIVE NEGATIVE Urine Phencyclidine Screen NEGATIVE NEGATIVE Urine Amphetamines Screen NEGATIVE NEGATIVE Urine Methamphetamines Screen NEGATIVE NEGATIVE Urine Benzodiazepines Screen POSITIVE H NEGATIVE Urine Cocaine Screen NEGATIVE NEGATIVE Urine Cannabinoids Screen POSITIVE H NEGATIVE My Orders Orders - ALESSIA ANDERS APRN Cbc With Automated Diff (02/04/18 12:05) Comprehensive Metabolic Panel (02/04/18 12:05) Ua Culture If Indicated (02/04/18 12:05) Iv Heplock-Insert (Order) (02/04/18 12:05) Ekg Tracing (02/04/18 12:05) Troponin I (02/04/18 12:05) Chest 1 View, Ap/Pa Only (02/04/18 12:05) Urine Bedside (02/04/18 12:05) Drug Screen Stat (Urine) (02/04/18 12:27) Ct Head Wo (02/04/18 12:42) Ns Iv 500 Ml (Sodium Chloride 0.9%) (02/04/18 13:30) Vital Signs/I&O 02/04/18 12:19 Temp 96.7 Pulse 61 Resp 18 B/P (MAP) 127/74 (91) Pulse Ox 99 O2 Delivery Room Air Capillary Refill : Departure Communication (Admissions) She did have an unremarkable MRI brain here 5 days ago. Impression Primary Impression: Near syncope Disposition: 01 HOME, SELF-CARE Condition: Stable Departure-Patient Inst. Decision time for Depature: 13:10 Referrals: ADELAIDA GIBSON MD (PCP/Family) Primary Care Physician Patient Instructions: Syncope (Fainting) (DC) Add. Discharge Instructions: 1. Follow-up Dr. Gibson 2. Return to ER for any concerns All discharge instructions reviewed with patient and/or family. Voiced understanding. Copy Copies To 1: ADELAIDA GIBSON MD; ARIEL LOPEZ MD, PETER J APRN Feb 04, 2018 12:41
[2018-02-04 12:47] LABS: BACTERIA,URINE NEGATIVE /HPF
--- NOTE | 2018-02-04 12:49 | Diagnostic Imaging Report ---
INDICATION: Hypotension and syncope and dizziness. Frontal chest obtained at 12:32 p.m. Heart and mediastinal silhouette are normal in appearance. The lungs are clear. There is no pneumothorax or pleural fluid. IMPRESSION: Negative chest. Dictated by: Dictated on workstation # [id number]
[2018-02-04 13:03] LABS: AMPHETAMINE SCREEN, URINE NEGATIVE (NEGATIVE); BARBITURATE SCREEN URINE NEGATIVE (NEGATIVE); BENZODIAZEPINES SCREEN URINE POSITIVE (NEGATIVE); CANNABINOID SCREEN, URINE POSITIVE (NEGATIVE); COCAINE SCREEN URINE NEGATIVE (NEGATIVE); METHADONE STAT NEGATIVE (NEGATIVE); METHAMPHETAMINE SCREEN URINE S NEGATIVE (NEGATIVE); OPIATE SCREEN URINE NEGATIVE (NEGATIVE); OXYCODONE STAT NEGATIVE (NEGATIVE); PROPOXYPHENE STAT NEGATIVE (NEGATIVE); TRICYCLIC ANTIDEPRESSANTS SCRE NEGATIVE (NEGATIVE)
[2018-02-04] MEDS ORDERED: NS IV 500 ML 500 ML IV SCH (13:30)
[2018-02-04 13:35] VITALS: BP 128/71
--- OUTSIDE RECORDS SUMMARY | 2018-02-04 13:48 | XMS REPORT | CCD ---
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 Role Phone PP Unavailable CCM Unavailable Summary Purpose Interface Exchange Insurance Providers Payer name Policy type / Coverage type Covered republican ID Effective Begin Date Effective End Date WPS Medicare Part B Medicare Part B [id number] Unknown Unknown [employer] [facility] Medicare Part B [id number] Unknown Unknown Family history Mother Diagnosis Age At Onset kidney disease Unknown Depression Unknown Father Diagnosis Age At Onset Coronary Artery Disease Unknown Hyperlipidemia Unknown Bleeding disorders Unknown Hypertension Unknown Social History Social History Element Codes Description Effective Dates Marital status Unknown Single 10/26/2014 Number of children Unknown 0 10/26/[address]: 6190118 Former smoker 10/26/[address]: 199097857 Never drinks alcohol 10/26/2014 Allergies, Adverse Reactions, Alerts Substance Reaction Codes Entered Date Inactivated Date Status * OTHER REACTION - SEE ANSWER BOX [place]- extreme agitation, restlessness Unknown 04/23/2016 No Inactive Date Active Topamax RxNorm: 12250 04/18/2016 No Inactive Date Active Compazine RxNorm: 8706 10/26/2014 No Inactive Date Active Past Medical History Illness Codes Condition Status Onset Date Resolved Date Bipolar disorder, current episode depressed, severe, without psychotic features ICD-9: 296.53 ICD-10: F31.4 Active 12/23/2017 Unknown Slow transit constipation ICD-9: 564.01 ICD-10: K59.01 Active 01/05/2018 Unknown Generalized anxiety disorder ICD-9: 300.00 ICD-10: F41.1 Active 10/25/2014 Unknown Major depressive disorder, single episode, moderate ICD-9: 296.22 ICD-10: F32.1 Active 11/30/2017 Unknown Other depressive episodes ICD-9: 311 ICD-10: F32.8 Active 10/25/2014 Unknown Essential (primary) hypertension ICD-9: 401.1 ICD-10: I10 Active 01/22/2016 Unknown Fever, unspecified ICD -9: 780.60 ICD-10: R50.9 Active 10/13/2017 Unknown 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 ICD-10: D68.8 Active 07/16/2017 Unknown Pain in left shoulder ICD-9: 719.41 ICD-10: M25.512 Active 07/16/2017 Unknown Encounter for immunization ICD-9: V04.81 ICD-10: Z23 Active 03/11/2017 Unknown Low back pain ICD-9: 724.2 ICD-10: M54.5 Active 01/18/2015 Unknown Other generalized epilepsy and epileptic syndromes, [...] : 599.71 ICD-10: R31.0 Active 06/14/2015 Unknown halfway (current) use of antithrombotics/antiplatelets ICD-9: V58.63 ICD-10: [...] Problems Condition Codes Effective Dates Condition Status Bipolar disorder, current episode depressed, severe, without psychotic features ICD-9: 296.53 ICD-10: F31.4 12/23/2017 Active Slow transit constipation ICD-9: 564.01 ICD-10: K59.01 01/05/2018 Active Generalized anxiety disorder ICD-9: 300.00 ICD-10: F41.1 10/25/2014 Active Major depressive disorder, single episode, moderate ICD-9: 296.22 ICD-10: F32.1 11/30/2017 Active Other depressive episodes ICD-9: 311 ICD-10: F32.8 10/25/2014 Active Essential (primary) hypertension ICD-9: 401.1 ICD-10: I10 01/22/2016 Active Fever, unspecified ICD -9: 780.60 ICD-10: R50.9 10/13/2017 Active 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 ICD-10: D68.8 07/16/2017 Active Pain in left shoulder ICD-9: 719.41 ICD-10: M25.512 07/16/2017 Active Encounter for immunization ICD-9: V04.81 ICD-10: Z23 03/11/2017 Active Low back pain ICD-9: 724.2 ICD-10: M54.5 01/18/2015 Active Other generalized epilepsy and epileptic syndromes, [...] ICD-9 : 599.71 ICD-10: R31.0 06/14/2015 Active 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 ICD-9: V58.63 ICD-10: [...] Start Date Stop Date Status Fill Instructions Zofran ODT 4 mg disintegrating tablet RxNorm: 928441 1 Tablet(s) PO TID as needed 12/23/2017 01/19/2018 Active alprazolam 2 mg tablet RxNorm: 648837 1-2 Tablet(s) PO TID as needed 12/23/2017 01/21/2018 Active Lexapro 10 mg tablet RxNorm: 901066 1 Tablet(s) PO daily 201707/18/2018 Active fluvoxamine 50 mg tablet RxNorm: 199562 1 Tablet(s) PO BID 07/18/2018 Active Lexapro 20 mg tablet RxNorm: 326157 1 Tablet(s) PO daily 201712/20/2017 Inactive buspirone 10 mg tablet RxNorm: 473021 1 Tablet(s) PO daily 04/05/2018 Active BuSpar 10 mg tablet RxNorm: 118158 1 Tablet(s) PO daily 201712/06/2017 Inactive Lexapro 20 mg tablet RxNorm: 082282 1 Tablet(s) PO daily 201712/10/2017 Inactive Lexapro 20 mg tablet RxNorm: 509108 1.5 Tablet(s) PO daily 12/06/2017 Inactive fluvoxamine 50 mg tablet RxNorm: 889947 1 Tablet(s) PO BID 01/201812/06/2017 Inactive Soma 350 mg tablet RxNorm: 636564 1 Tablet(s) PO Q6 as needed 11/24/2017 No Stop Date Active alprazolam 2 mg tablet RxNorm: 002054 1-2 Tablet(s) PO TID as needed 11/12/2017 12/11/2017 Inactive Lexapro 20 mg tablet RxNorm: 768906 1.5 Tablet(s) PO daily 11/29/2017 Inactive nicotine 14 mg/24 hr daily transdermal patch RxNorm: 461907 1 TD daily 11/05/2017 01/03/2018 Inactive nicotine 14 mg/24 hr daily transdermal patch RxNorm: 875335 1 TD daily 11/05/2017 11/04/2017 Inactive Percocet 5 mg-325 mg tablet RxNorm: 6105051 1-2 Tablet(s) PO Q6 as needed for back pain 10/30/2017 11/09/2017 Inactive Ativan 1 mg tablet RxNorm: 320885 1-2 Tablet(s) PO TID as needed 10/30/2017 11/11/2017 Inactive cefdinir 300 mg capsule RxNorm: 807955 1 Capsule(s) PO BID 10/19/2017 Inactive cefdinir 300 mg capsule RxNorm: 832819 1 Capsule(s) PO BID 10/12/2017 Inactive Percocet 5 mg-325 mg tablet RxNorm: 6198678 1-2 Tablet(s) PO Q6 as needed for back pain 09/28/2017 10/08/2017 Inactive Percocet 5 mg-325 mg tablet RxNorm: 5855644 1-2 Tablet(s) PO Q6 as needed for back pain 09/28/2017 10/08/2017 Inactive Percocet 5 mg-325 mg tablet RxNorm: 3661625 1-2 Tablet(s) PO Q6 as needed for back pain 08/21/2017 08/31/2017 Inactive Ativan 1 mg tablet RxNorm: 874534 1-2 Tablet(s) PO TID as needed 08/20/2017 10/17/2017 Inactive Percocet 5 mg-325 mg tablet RxNorm: 7710974 1-2 Tablet(s) PO Q6 as needed for back pain 06/15/2017 06/25/2017 Inactive Lexapro 20 mg tablet RxNorm: 153499 TAKE ONE TABLET BY MOUTH DAILY 06/11/2017 11/11/2017 Inactive Ativan 1 mg tablet RxNorm: 062474 1-2 Tablet(s) PO TID as needed 06/02/2017 06/21/2017 Inactive Percocet 5 mg-325 mg tablet RxNorm: 2633855 1-2 Tablet(s) PO Q6 as needed for back pain 05/13/2017 05/23/2017 Inactive Percocet 5 mg-325 mg tablet RxNorm: 7841179 1-2 Tablet(s) PO Q6 as needed for back pain 04/08/2017 04/18/2017 Inactive Percocet 5 mg-325 mg tablet RxNorm: 3393260 1-2 Tablet(s) PO Q6 as needed for back pain 02/24/2017 03/06/2017 Inactive Lexapro 20 mg tablet RxNorm: 106558 TAKE ONE TABLET BY MOUTH DAILY 02/16/2017 06/10/2017 Inactive Percocet 5 mg-325 mg tablet RxNorm: 9745785 1-2 Tablet(s) PO Q6 as needed for back pain 01/07/2017 01/14/2017 Inactive Percocet 5 mg-325 mg tablet RxNorm: 0130383 1-2 Tablet(s) PO Q6 as needed for back pain 11/26/2016 12/03/2016 Inactive famotidine 20 mg tablet RxNorm: 294404 1 Tablet(s) PO daily No Stop Date Active Percocet 5 mg-325 mg tablet RxNorm: 8697941 1 Tablet(s) PO Q6 as needed for back pain 11/03/2016 11/10/2016 Inactive Percocet 5 mg-325 mg tablet RxNorm: 8390810 1 Tablet(s) PO Q6 as needed for back pain 09/22/2016 09/29/2016 Inactive Ativan 1 mg tablet RxNorm: 293511 1-2 Tablet(s) PO TID as needed 09/22/2016 10/29/2017 Inactive Lexapro 20 mg tablet RxNorm: 128171 TAKE ONE TABLET BY MOUTH DAILY 09/12/2016 02/08/2017 Inactive Percocet 5 mg-325 mg tablet RxNorm: 1560345 1 Tablet(s) PO Q6 as needed for back pain 08/21/2016 09/21/2016 Inactive Percocet 5 mg-325 mg tablet RxNorm: 6334954 1 Tablet(s) PO Q6 as needed for pain 07/21/2016 07/28/2016 Inactive Ativan 1 mg tablet RxNorm: 674722 1-2 Tablet(s) PO TID 201609/21/2016 Inactive Lamictal 25 mg tablet RxNorm: 069874 1 Tablet(s) PO BID 201606/15/2016 Inactive Flonase Allergy Relief 50 mcg/actuation nasal spray, suspension RxNorm: 7144281 1 [facility] NASAL BID 05/27/20162016 Inactive Lamictal XR 50 mg tablet,extended release RxNorm: 947041 TAKE ONE TABLET BY MOUTH TWICE A DAY 05/20/2016 05/26/2016 Inactive Lamictal XR 25 mg tablet,extended release RxNorm: 906323 1 Tablet(s) PO BID 04/23/2016 05/26/2016 Inactive Trokendi XR 50 mg capsule, extended release RxNorm: 1053825 1 Capsule(s) PO daily 04/18/2016 04/17/2016 Inactive Lamictal XR 50 mg tablet,extended release RxNorm: 912741 1 Tablet(s) PO daily 04/18/2016 04/22/2016 Inactive Trokendi XR 50 mg capsule, extended release RxNorm: 8552090 1 Capsule(s) PO daily 04/18/2016 04/18/2016 Inactive Lamictal XR 50 mg tablet,extended release RxNorm: 102768 1 Tablet(s) PO daily 04/18/2016 04/17/2016 Inactive Ativan 1 mg tablet RxNorm: 369824 1-2 Tablet(s) PO TID 201506/01/2017 Inactive Lexapro 20 mg tablet RxNorm: 164686 Tablet(s) TAKE ONE TABLET BY MOUTH DAILY 04/16/2016 09/11/2016 Inactive Diflucan 150 mg tablet RxNorm: 920209 1 Tablet(s) PO daily 11/201504/06/2016 Inactive Diflucan 150 mg tablet RxNorm: 830645 1 Tablet(s) PO daily 11/201503/30/2016 Inactive Zofran 4 mg tablet RxNorm: 573275 1 Tablet(s) PO TID as needed nausea 03/26/2016 04/24/2016 Inactive Percocet 5 mg-325 mg tablet RxNorm: 9125903 1 Tablet(s) PO Q6 as needed for pain 03/19/2016 07/20/2016 Inactive clonidine HCl 0.1 mg tablet RxNorm: 963319 1 Tablet(s) PO BID 01/23/2016 01/23/2016 Inactive Percocet 5 mg-325 mg tablet RxNorm: 8125894 1-2 Tablet(s) PO Q6 as needed for pain 12/13/2015 12/27/2015 Inactive clonidine HCl 0.1 mg tablet RxNorm: 015157 1 Tablet(s) PO BID 11/22/2015 12/21/2015 Inactive Lexapro 20 mg tablet RxNorm: 996957 TAKE ONE TABLET BY MOUTH DAILY 11/06/2015 04/03/2016 Inactive Kenalog 40 mg/mL suspension for injection RxNorm: 1345114 Milliliter(s) Inj 10/23/2015 10/23/2015 Inactive Dilantin Kapseal 100 mg capsule RxNorm: 295625 TAKE THREE CAPSULES BY MOUTH EVERY NIGHT AT BEDTIME 08/08/2015 04/17/2016 Inactive Keflex 500 mg capsule RxNorm: 557041 1 Capsule(s) PO TID 201506/21/2015 Inactive Lexapro 20 mg tablet RxNorm: 890574 TAKE ONE TABLET BY MOUTH DAILY 05/07/2015 11/02/2015 Inactive metoprolol tartrate 25 mg tablet RxNorm: 584278 1 Tablet(s) PO BID 04/26/2015 11/09/2016 Inactive warfarin 5 mg tablet RxNorm: 390293 m and w; all other days takes 7.5 Tablet(s) PO daily 04/26/2015 04/22/2016 Inactive tramadol 50 mg tablet RxNorm: 843783 1-2 Tablet(s) PO Q6 as needed 04/09/2015 03/25/2016 Inactive Soma 350 mg tablet RxNorm: 263660 1 Tablet(s) PO Q6 as needed 04/04/2015 11/23/2017 Inactive Xanax 1 mg tablet RxNorm: 464707 Tablet(s) PO daily as needed 01/09/2015 11/09/2016 Inactive Lexapro 20 mg tablet RxNorm: 131062 1 Tablet(s) PO daily 201404/06/2015 Inactive Dilantin Kapseal 100 mg capsule RxNorm: 362918 3 Capsule(s) PO QHS 12/04/2014 06/01/2015 Inactive Eliquis 5 mg tablet RxNorm: 0786192 1 Tablet(s) PO BID No Start Date Active lisinopril 10 mg tablet RxNorm: 205403 1 Tablet(s) PO daily No Start Date Active folic acid 1 mg tablet RxNorm: 516313 1 Tablet(s) PO BID No Start Date Active Norvasc 5 mg tablet RxNorm: 305166 1 Tablet(s) PO QAM No Start Date Active Lamictal XR 100 mg tablet,extended release RxNorm: 640510 1 Tablet(s) PO QHS - Started by Dr. New No Start Date Active warfarin 5 mg tablet RxNorm: 153522 m-f all other days takes 7.2 Tablet(s) PO No Start Date 04/25/2015 Inactive lisinopril 20 mg tablet RxNorm: 209271 1 Tablet(s) PO daily No Start Date 03/10/2017 Inactive tramadol 50 mg tablet RxNorm: 980646 1-2 Tablet(s) PO Q6 as needed No Start Date 04/08/2015 Inactive Soma 350 mg tablet RxNorm: 041795 1 Tablet(s) PO as needed No Start Date 04/03/2015 Inactive famotidine 20 mg tablet RxNorm: 456891 1 Tablet(s) PO BID No Start Date 11/09/2016 Inactive aspirin, buffered 81 mg tablet RxNorm: 339366 1 Tablet(s) PO daily No Start Date 03/10/2017 Inactive Xanax 1 mg tablet RxNorm: 738732 Tablet(s) PO as needed No Start Date 01/08/2015 Inactive metoprolol tartrate 25 mg tablet RxNorm: 356790 1/2 in am a 1 in pm Tablet(s) PO BID No Start Date 04/25/2015 Inactive Dilantin Kapseal 100 mg capsule RxNorm: 316396 3 Capsule(s) PO daily No Start Date 12/03/2014 Inactive lovastatin 20 mg tablet RxNorm: 122984 1 Tablet(s) PO daily No Start Date 03/10/2017 Inactive Lexapro 20 mg tablet RxNorm: 285818 1 Tablet(s) PO daily No Start Date 12/07/2014 Inactive Percocet 5 mg-325 mg tablet RxNorm: 9965119 1 Tablet(s) PO Q6 as needed for back pain No Start Date 08/20/2016 Inactive Medication Administered Medication Codes Instructions Start Date Status Kenalog 40 mg/mL suspension for injection RxNorm: 9458534 Milliliter 10/23/2015 No longer Active Immunizations Vaccine Codes Date Status Influenza CVX: 141 03/11/2017 completed Influenza CVX: 141 05/25/2014 completed Pneumococcal CVX: 33 05/25/2014 completed Assessments Condition Codes Effective Dates Bipolar disorder, current episode depressed, severe, without psychotic features ICD-10: F31.4 ICD-9: 296.53 01/05/2018 Slow transit constipation ICD-10: K59.01 ICD-9: 564.01 01/05/2018 Major depressive disorder, single episode, moderate ICD-10: F32.1 ICD-9: 296.22 11/30/2017 Generalized anxiety disorder ICD-10: F41.1 ICD-9: 300.00 11/30/2017 Essential (primary) hypertension ICD-10: I10 ICD-9: 401.1 11/12/2017 Fever, unspecified ICD-10: R50.9 ICD-9: 780.60 10/13/2017 Pain in left shoulder ICD-10: M25.512 ICD-9: 719.41 07/16/2017 Other specified coagulation defects ICD-10: D68.8 ICD-9: 289.81 07/16/2017 Other depressive episodes ICD-10: F32.8 ICD-9: 311 03/11/2017 Other generalized epilepsy and epileptic syndromes, not intractable, without status epilepticus ICD-10: G40.409 ICD-9: 345.90 03/11/2017 Low back pain ICD-10: M54.5 ICD-9: 724.2 03/11/2017 Encounter for immunization ICD-10: Z23 ICD-9: V04.81 03/11/2017 Pain in thoracic spine ICD-10: M54.6 [...] skin eruption ICD-10: R21 ICD-9: 782.1 10/23/2015 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 back pain 07/16/2017 thoracic pain that wraps around to rib pain. back pain 03/11/2017 thoracic pain that wraps [...] Observation Code Item Item Code Result Date Quick Strep [id number] Quick Strep Negative 10/13/2017 Urine Culture Ucult Complete No Growth Day 2 06/18/2015 Urine Culture Ucult Preliminary No Growth Day 1 06/18/2015 Dilantin Ord7 DILANTIN 6.9 UG/ML 06/15/2015 Pt [id number] PT 26.0 seconds 06/15/2015 Pt [id number] INR 2.5 06/15/2015 Pt Sfx9838 Low Intensity - 1.5-2.0 06/15/2015 Pt Bwd9252 Mod intensity - 2.0-3.0 06/15/2015 Pt Zaf9888 Hi intensity - 3.0-4.0 06/15/2015 Cbc With Differential Ord2 WBC 8.06 K/ul 06/15/2015 Cbc With Differential Ord2 RBC 4.69 M/ul 06/15/2015 Cbc With Differential Ord2 HGB 15.6 g/dl 06/15/2015 Cbc With Differential Ord2 Neut% 58.7 % 06/15/2015 Cbc With Differential Ord2 HCT 44.2 % 06/15/2015 Cbc With Differential Ord2 Lymph% 30.0 % 06/15/2015 Cbc With Differential Ord2 MCV 94.2 fl 06/15/2015 Cbc With Differential Ord2 [place]% 7.8 % 06/15/2015 Cbc With Differential Ord2 MCH 33.3 pg 06/15/2015 Cbc With Differential Ord2 MCHC 35.3 pg 06/15/2015 Cbc With Differential Ord2 Eos% 3.3 % 06/15/2015 Cbc With Differential Ord2 Baso% 0.2 % 06/15/2015 Cbc With Differential Ord2 PLT 292 K/ul 06/15/2015 Cbc With Differential Ord2 RDW 12.8 % 06/15/2015 Cbc With Differential Ord2 Neut ABS# 4.72 K/ul 06/15/2015 Cbc With Differential Ord2 Lymph ABS# 2.42 K/ul 06/15/2015 Cbc With Differential Ord2 [place] ABS# 0.6 K/ul 06/15/2015 Cbc With Differential Ord2 Eos ABS# 0.3 K/ul 06/15/2015 Cbc With Differential Ord2 Baso ABS# 0.0 K/ul 06/15/2015 Cbc With Differential Ord2 New Analyzer Notice Please note new ref ranges starting 06-06-2015 due to implemntation of new five part differential hematolgy analyzer. 06/15/2015 Comp Metabolic Fdd094 NA 136 mEq/L 06/15/2015 Comp Metabolic Phn928 K 4.1 mEq/L 06/15/2015 Comp Metabolic Wfg070 CL 103 mEq/L 06/15/2015 Comp Metabolic Cet222 CO2 23.0 mEq/L 06/15/2015 Comp Metabolic Mvd384 ANION GAP 14 06/15/2015 Comp Metabolic Sxm040 GLUCOSE 88 mg/dL 06/15/2015 Comp Metabolic Nmk499 Creat 0.6 mg/dL 06/15/2015 Comp Metabolic Fcj803 eGFR 114 ml/min/1.73m2 06/15/2015 Comp Metabolic Cdy280 BUN 10 mg/dL 06/15/2015 Comp Metabolic Hoq310 B/C Ratio 16.1 Ratio 06/15/2015 Comp Metabolic Tum990 CALCIUM 8.7 mg/dL 06/15/2015 Comp Metabolic Axd587 ALK PHOS 98 U/L 06/15/2015 Comp Metabolic Xco799 AST(SGOT) 20 U/L 06/15/2015 Comp Metabolic Leb268 ALT(SGPT) 21 U/L 06/15/2015 Comp Metabolic Xem523 BILI T 0.5 mg/dL 06/15/2015 Comp Metabolic Iru285 ALBUMIN 4.1 g/dL 06/15/2015 Comp Metabolic Act636 TPRO 7.0 g/dL 06/15/2015 Comp Metabolic Xdo046 GLOB 2.9 g/dL 06/15/2015 Comp Metabolic Ymb292 A/G Ratio 1.4 Ratio 06/15/2015 Comp Metabolic Tfx530 Osmo 270 mOsmo 06/15/2015 Review of Systems System Result Effective Dates Constitutional recent illness 01/05/2018 Constitutional No anorexia 01/05/2018 Constitutional No night sweats 2017 Constitutional No chills 01/05/2018 Constitutional No diaphoresis 01/05/2018 Constitutional fatigue 01/05/2018 Constitutional No fever 01/05/2018 Constitutional insomnia 01/05/2018 Constitutional malaise 01/05/2018 Ears/Nose/Throat/Neck No dizziness 2017 Ears/Nose/Throat/Neck No headache 2017 Cardiovascular No chest pain/pressure Respiratory No cough 01/05/2018 Gastrointestinal abdominal pain 2017 Gastrointestinal constipation 01/05/2018 Gastrointestinal No diarrhea 01/05/2018 Genitourinary/Nephrology No dysuria 01/05 Musculoskeletal back pain 01/05/2018 Neurologic No alteration of consciousness 01/05/2018 Psychiatric anxiety 01/05/2018 Psychiatric depression 01/05/2018 Psychiatric disturbances of emotion 01/05 Constitutional No recent illness 2017 Constitutional No anorexia 12/23/2017 Constitutional No night sweats 2017 Constitutional No chills 12/23/2017 Constitutional No diaphoresis 12/23/2017 Constitutional fatigue 12/23/2017 Constitutional No fever 12/23/2017 Constitutional insomnia 12/23/2017 Constitutional malaise 12/23/2017 Ears/Nose/Throat/Neck No dizziness 2017 Ears/Nose/Throat/Neck No headache 2017 Cardiovascular No chest pain/pressure 05/2017 Respiratory No cough 12/23/2017 Gastrointestinal No abdominal pain 2017 Gastrointestinal No constipation 2017 Gastrointestinal No diarrhea 12/23/2017 Genitourinary/Nephrology No dysuria 12/23 Musculoskeletal back pain 12/23/2017 Neurologic No alteration of consciousness 12/23/2017 Psychiatric anxiety 12/23/2017 Psychiatric depression 12/23/2017 Psychiatric disturbances of emotion 12/23 Constitutional No recent illness 2017 Constitutional No anorexia 11/30/2017 Constitutional No night sweats 2017 Constitutional No chills 11/30/2017 Constitutional No diaphoresis 11/30/2017 Constitutional No fatigue 11/30/2017 Constitutional No fever 11/30/2017 Constitutional No insomnia 11/30/2017 Constitutional No malaise 11/30/2017 Ears/Nose/Throat/Neck No dizziness 2017 Ears/Nose/Throat/Neck No headache 2017 Cardiovascular No chest pain/pressure 01/2018 Respiratory No cough 11/30/2017 Gastrointestinal No abdominal pain 2017 Gastrointestinal No constipation 2017 Gastrointestinal No diarrhea 11/30/2017 Genitourinary/Nephrology No dysuria 11/30 Musculoskeletal back pain 11/30/2017 Neurologic No alteration of consciousness 11/30/2017 Psychiatric depression 11/30/2017 Psychiatric anxiety 11/30/2017 Constitutional No recent illness 2017 Constitutional No anorexia 11/12/2017 Constitutional No night sweats 2017 Constitutional No chills 11/12/2017 Constitutional No diaphoresis 11/12/2017 Constitutional No fatigue 11/12/2017 Constitutional No fever 11/12/2017 Constitutional No insomnia 11/12/2017 Constitutional No malaise 11/12/2017 Eyes No eye discharge 11/12/2017 Eyes No eye erythema 11/12/2017 Ears/Nose/Throat/Neck No dizziness 2017 Ears/Nose/Throat/Neck No headache 2017 Cardiovascular No chest pain/pressure Respiratory No cough 11/12/2017 Gastrointestinal No abdominal pain 2017 Gastrointestinal No constipation 2017 Gastrointestinal No diarrhea 11/12/2017 Genitourinary/Nephrology No dysuria 11/12 Musculoskeletal back pain 11/12/2017 Dermatologic No rash 11/12/2017 Neurologic No alteration of consciousness 11/12/2017 Neurologic neck pain 11/12/2017 Psychiatric No anxiety 11/12/2017 Psychiatric No depression 11/12/2017 Constitutional No recent illness 2017 Constitutional No anorexia 07/16/2017 Constitutional No night sweats 2017 Constitutional No chills 07/16/2017 Constitutional No diaphoresis 07/16/2017 Constitutional No fatigue 07/16/2017 Constitutional No fever 07/16/2017 Constitutional No insomnia 07/16/2017 Constitutional No malaise 07/16/2017 Eyes No eye discharge 07/16/2017 Eyes No eye erythema 07/16/2017 Ears/Nose/Throat/Neck No dizziness 2017 Ears/Nose/Throat/Neck No headache 2017 Cardiovascular No chest pain/pressure Respiratory No cough 07/16/2017 Gastrointestinal No abdominal pain 2017 Gastrointestinal No constipation 2017 Gastrointestinal No diarrhea 07/16/2017 Genitourinary/Nephrology No dysuria 07/16 Musculoskeletal back pain 07/16/2017 Dermatologic No rash 07/16/2017 Neurologic No alteration of consciousness 07/16/2017 Neurologic neck pain 07/16/2017 Neurologic paresthesia 07/16/2017 Psychiatric No anxiety 07/16/2017 Psychiatric No depression 07/16/2017 Musculoskeletal shoulder pain 07/16/2017 Constitutional No recent illness 2016 Constitutional No [...] 1994 Constitutional general appearance Development: well developed 01/05/2018 None Full Exam - General 1994 Constitutional general appearance Development: appears stated age 0801/05/2018 None Full Exam - General 1994 Constitutional general appearance Overall: well developed 01/05/2018 None Full Exam - General 1994 Constitutional general appearance Overall: well nourished 01/05/2018 None Full Exam - General 1994 Constitutional general appearance Evidence of Distress: anxious 01/05/2018 None Full Exam - General 1994 Constitutional general appearance Evidence of Distress: tearful 01/05/2018 None Full Exam - General 1994 Constitutional general appearance Hygiene/Attention to Grooming: good hygiene 01/05/2018 None Full Exam - General 1994 Eyes conjunctiva /eyelids Overall: conjunctiva clear 01/05/2018 None Full Exam - General 1994 Eyes conjunctiva /eyelids Overall: cornea clear 01/05/2018 None Full Exam - General 1994 Eyes conjunctiva /eyelids Overall: eyelids normal 01/05/2018 None Full Exam - General 1994 Respiratory auscultation Overall: breath sounds clear bilaterally 01/05/2018 None Full Exam - General 1994 Respiratory respiratory effort/rhythm Overall: no retractions 01/05/2018 None Full Exam - General 1994 Respiratory respiratory effort/rhythm Overall: normal rate 01/05/2018 None Full Exam - General 1994 Cardiovascular extremities Overall: no clubbing 01/05/2018 None Full Exam - General 1994 Cardiovascular auscultation of heart Overall: regular rate 01/05/2018 None Full Exam - General 1994 Cardiovascular auscultation of heart Overall: normal heart sounds 01/05/2018 None Full Exam - General 1994 Musculoskeletal gait and station Overall: normal gait 01/05/2018 None Full Exam - General 1994 Musculoskeletal gait and station Overall: normal station 01/05/2018 None Full Exam - General 1994 Psychiatric orientation/consciousness Overall: oriented to person, place and time 01/05/2018 None Full Exam - General 1994 Psychiatric mood and affect Mood: depressed 01/05/2018 None Full Exam - General 1994 Psychiatric mood and affect Affect: mood congruent 01/05/2018 None Full Exam - General 1994 Abdomen abdominal exam Bowel sounds: hypoactive 01/05/2018 mildly ttp over lower abdomen Full Exam - General 1994 Constitutional general appearance Development: well developed 12/23/2017 None Full Exam - General 1994 Constitutional general appearance Development: appears stated age 0812/23/2017 None Full Exam - General 1994 Constitutional general appearance Overall: well developed 12/23/2017 None Full Exam - General 1994 Constitutional general appearance Overall: well nourished 12/23/2017 None Full Exam - General 1994 Constitutional general appearance Hygiene/Attention to Grooming: good hygiene 12/23/2017 None Full Exam - General 1994 Eyes conjunctiva /eyelids Overall: conjunctiva clear 12/23/2017 None Full Exam - General 1994 Eyes conjunctiva /eyelids Overall: cornea clear 12/23/2017 None Full Exam - General 1994 Eyes conjunctiva /eyelids Overall: eyelids normal 12/23/2017 None Full Exam - General 1994 Respiratory auscultation Overall: breath sounds clear bilaterally 12/23/2017 None Full Exam - General 1994 Respiratory respiratory effort/rhythm Overall: no retractions 12/23/2017 None Full Exam - General 1994 Respiratory respiratory effort/rhythm Overall: normal rate 12/23/2017 None Full Exam - General 1994 Cardiovascular extremities Overall: no clubbing 12/23/2017 None Full Exam - General 1994 Cardiovascular auscultation of heart Overall: regular rate 12/23/2017 None Full Exam - General 1994 Cardiovascular auscultation of heart Overall: normal heart sounds 12/23/2017 None Full Exam - General 1994 Musculoskeletal gait and station Overall: normal gait 12/23/2017 None Full Exam - General 1994 Musculoskeletal gait and station Overall: normal station 12/23/2017 None Full Exam - General 1994 Psychiatric orientation/consciousness Overall: oriented to person, place and time 12/23/2017 None Full Exam - General 1994 Constitutional general appearance Evidence of Distress: anxious 12/23/2017 None Full Exam - General 1994 Constitutional general appearance Evidence of Distress: tearful 12/23/2017 None Full Exam - General 1994 Psychiatric mood and affect Mood: depressed 12/23/2017 None Full Exam - General 1994 Psychiatric mood and affect Affect: mood congruent 12/23/2017 None Full Exam - General 1994 Constitutional general appearance Development: well developed 11/30/2017 None Full Exam - General 1994 Constitutional general appearance Development: appears stated age 0711/30/2017 None Full Exam - General 1994 Constitutional general appearance Overall: well developed 11/30/2017 None Full Exam - General 1994 Constitutional general appearance Overall: in no acute distress 11/30/2017 None Full Exam - General 1994 Constitutional general appearance Overall: well nourished 11/30/2017 None Full Exam - General 1994 Constitutional general appearance Hygiene/Attention to Grooming: good hygiene 11/30/2017 None Full Exam - General 1994 Eyes conjunctiva /eyelids Overall: conjunctiva clear 11/30/2017 None Full Exam - General 1994 Eyes conjunctiva /eyelids Overall: cornea clear 11/30/2017 None Full Exam - General 1994 Eyes conjunctiva /eyelids Overall: eyelids normal 11/30/2017 None Full Exam - General 1994 Respiratory auscultation Overall: breath sounds clear bilaterally 11/30/2017 None Full Exam - General 1994 Respiratory respiratory effort/rhythm Overall: no retractions 11/30/2017 None Full Exam - General 1994 Respiratory respiratory effort/rhythm Overall: normal rate 11/30/2017 None Full Exam - General 1994 Cardiovascular extremities Overall: no clubbing 11/30/2017 None Full Exam - General 1994 Cardiovascular auscultation of heart Overall: regular rate 11/30/2017 None Full Exam - General 1994 Cardiovascular auscultation of heart Overall: normal heart sounds 11/30/2017 None Full Exam - General 1994 Musculoskeletal gait and station Overall: normal gait 11/30/2017 None Full Exam - General 1994 Musculoskeletal gait and station Overall: normal station 11/30/2017 None Full Exam - General 1994 Psychiatric orientation/consciousness Overall: oriented to person, place and time 11/30/2017 None Full Exam - General 1994 Psychiatric mood and affect Overall: normal mood and affect 11/30/2017 None Full Exam - General 1994 Constitutional general appearance Development: well developed 11/12/2017 None Full Exam - General 1994 Constitutional general appearance Development: appears stated age 0611/12/2017 None Full Exam - General 1994 Constitutional general appearance Overall: well developed 11/12/2017 None Full Exam - General 1994 Constitutional general appearance Overall: in no acute distress 11/12/2017 None Full Exam - General 1994 Constitutional general appearance Overall: well nourished 11/12/2017 None Full Exam - General 1994 Constitutional general appearance Hygiene/Attention to Grooming: good hygiene 11/12/2017 None Full Exam - General 1994 Eyes conjunctiva /eyelids Overall: conjunctiva clear 11/12/2017 None Full Exam - General 1994 Eyes conjunctiva /eyelids Overall: cornea clear 11/12/2017 None Full Exam - General 1994 Eyes conjunctiva /eyelids Overall: eyelids normal 11/12/2017 None Full Exam - General 1994 Eyes pupils and irises Overall: pupils equal, round, reactive to light and accomodation 11/12/2017 None Full Exam - General 1994 Ears/Nose/Throat otoscopic exam Overall: external auditory canals clear 11/12/2017 None Full Exam - General 1994 Ears/Nose/Throat otoscopic exam Overall: tympanic membranes clear 11/12/2017 None Full Exam - General 1994 Ears/Nose/Throat lips/teeth/gingiva Overall: benign lips 11/12/2017 None Full Exam - General 1994 Ears/Nose/Throat lips/teeth/gingiva Overall: normal dentition 11/12/2017 None Full Exam - General 1994 Ears/Nose/Throat oral cavity/pharynx/larynx Overall: oral mucosa clear 11/12/2017 None Full Exam - General 1994 Ears/Nose/Throat oral cavity/pharynx/larynx Overall: oropharyngeal mucosa clear 11/12/2017 None Full Exam - General 1994 Ears/Nose/Throat oral cavity/pharynx/larynx Overall: hypopharynx benign 11/12/2017 None Full Exam - General 1994 Ears/Nose/Throat oral cavity/pharynx/larynx Overall: no masses 11/12/2017 None Full Exam - General 1994 Respiratory auscultation Overall: breath sounds clear bilaterally 11/12/2017 None Full Exam - General 1994 Respiratory respiratory effort/rhythm Overall: no retractions 11/12/2017 None Full Exam - General 1994 Respiratory respiratory effort/rhythm Overall: normal rate 11/12/2017 None Full Exam - General 1994 Cardiovascular extremities Overall: no clubbing 11/12/2017 None Full Exam - General 1994 Cardiovascular auscultation of heart Overall: regular rate 11/12/2017 None Full Exam - General 1994 Cardiovascular auscultation of heart Overall: normal heart sounds 11/12/2017 None Full Exam - General 1994 Abdomen abdominal exam Overall: no tenderness 11/12/2017 None Full Exam - General 1994 Abdomen abdominal exam Overall: normal bowel sounds 11/12/2017 None Full Exam - General 1994 Musculoskeletal lower extremity Palpation - knee: no effusion 11/12/2017 None Full Exam - General 1994 Musculoskeletal lower extremity Inspection - lower leg: normal appearance 11/12/2017 None Full Exam - General 1994 Musculoskeletal lower extremity Palpation - lower leg: normal on palpation 11/12/2017 None Full Exam - General 1994 Musculoskeletal spine, ribs and pelvis Posture: kyphosis 11/12/2017 None Full Exam - General 1994 Musculoskeletal spine, ribs and pelvis Spine: tender @ cervical spine 11/12/2017 None Full Exam - General 1994 Musculoskeletal gait and station Overall: normal gait 11/12/2017 None Full Exam - General 1994 Musculoskeletal gait and station Overall: normal station 11/12/2017 None Full Exam - General 1994 Integument inspection of skin Overall: few scattered moles, no gross abnormalities 11/12/2017 None Full Exam - General 1994 Neurologic deep tendon reflexes Overall: deep tendon reflexes intact 11/12/2017 None Full Exam - General 1994 Neurologic cranial nerves Overall: crainial nerves 2 - 12 grossly intact 11/12/2017 None Full Exam - General 1994 Psychiatric orientation/consciousness Overall: oriented to person, place and time 11/12/2017 None Full Exam - General 1994 Psychiatric mood and affect Overall: normal mood and affect 11/12/2017 None Full Exam - General 1994 Constitutional general appearance Development: well developed 07/16/2017 None Full Exam - General 1994 Constitutional general appearance Development: appears stated age 0207/16/2017 None Full Exam - General 1994 Constitutional general appearance Overall: well developed 07/16/2017 None Full Exam - General 1994 Constitutional general appearance Overall: in no acute distress 07/16/2017 None Full Exam - General 1994 Constitutional general appearance Overall: well nourished 07/16/2017 None Full Exam - General 1994 Constitutional general appearance Hygiene/Attention to Grooming: good hygiene 07/16/2017 None Full Exam - General 1994 Eyes conjunctiva /eyelids Overall: conjunctiva clear 07/16/2017 None Full Exam - General 1994 Eyes conjunctiva /eyelids Overall: cornea clear 07/16/2017 None Full Exam - General 1994 Eyes conjunctiva /eyelids Overall: eyelids normal 07/16/2017 None Full Exam - General 1994 Eyes pupils and irises Overall: pupils equal, round, reactive to light and accomodation 07/16/2017 None Full Exam - General 1994 Ears/Nose/Throat otoscopic exam Overall: external auditory canals clear 07/16/2017 None Full Exam - General 1994 Ears/Nose/Throat otoscopic exam Overall: tympanic membranes clear 07/16/2017 None Full Exam - General 1994 Ears/Nose/Throat lips/teeth/gingiva Overall: benign lips 07/16/2017 None Full Exam - General 1995 Ears/Nose/Throat lips/teeth/gingiva Overall: normal dentition 07/16/2017 None Full Exam - General 1994 Ears/Nose/Throat oral cavity/pharynx/larynx Overall: oral mucosa clear 07/16/2017 None Full Exam - General 1994 Ears/Nose/Throat oral cavity/pharynx/larynx Overall: oropharyngeal mucosa clear 07/16/2017 None Full Exam - General 1994 Ears/Nose/Throat oral cavity/pharynx/larynx Overall: hypopharynx benign 07/16/2017 None Full Exam - General 1994 Ears/Nose/Throat oral cavity/pharynx/larynx Overall: no masses 07/16/2017 None Full Exam - General 1994 Respiratory auscultation Overall: breath sounds clear bilaterally 07/16/2017 None Full Exam - General 1994 Respiratory respiratory effort/rhythm Overall: no retractions 07/16/2017 None Full Exam - General 1994 Respiratory respiratory effort/rhythm Overall: normal rate 07/16/2017 None Full Exam - General 1994 Cardiovascular extremities Overall: no clubbing 07/16/2017 None Full Exam - General 1994 Cardiovascular auscultation of heart Overall: regular rate 07/16/2017 None Full Exam - General 1994 Cardiovascular auscultation of heart Overall: normal heart sounds 07/16/2017 None Full Exam - General 1994 Abdomen abdominal exam Overall: no tenderness 07/16/2017 None Full Exam - General 1994 Abdomen abdominal exam Overall: normal bowel sounds 07/16/2017 None Full Exam - General 1994 Musculoskeletal lower extremity Palpation - knee: no effusion 07/16/2017 None Full Exam - General 1994 Musculoskeletal lower extremity Inspection - lower leg: normal appearance 07/16/2017 None Full Exam - General 1994 Musculoskeletal lower extremity Palpation - lower leg: normal on palpation 07/16/2017 None Full Exam - General 1994 Musculoskeletal spine, ribs and pelvis Posture: kyphosis 07/16/2017 None Full Exam - General 1994 Musculoskeletal spine, ribs and pelvis Spine: tender @ cervical spine 07/16/2017 None Full Exam - General 1994 Musculoskeletal gait and station Overall: normal gait 07/16/2017 None Full Exam - General 1994 Musculoskeletal gait and station Overall: normal station 07/16/2017 None Full Exam - General 1994 Integument inspection of skin Overall: few scattered moles, no gross abnormalities 07/16/2017 None Full Exam - General 1994 Neurologic deep tendon reflexes Overall: deep tendon reflexes intact 07/16/2017 None Full Exam - General 1994 Neurologic cranial nerves Overall: crainial nerves 2 - 12 grossly intact 07/16/2017 None Full Exam - General 1994 Psychiatric orientation/consciousness Overall: oriented to person, place and time 07/16/2017 None Full Exam - General 1994 Psychiatric mood and affect Overall: normal mood and affect 07/16/2017 None Full Exam - General 1994 Musculoskeletal upper extremity Palpation - shoulder: pain with resisted abduction 07/16/2017 None Full Exam - General 1994 Musculoskeletal upper extremity Palpation - shoulder: pain with resisted internal rotation 07/16/2017 None Full Exam - General 1994 Constitutional [...] lips 05/27/2016 None Full Exam - General 1994 Ears/Nose/Throat lips/teeth/gingiva Overall: normal dentition 05/27/2016 None [...] NO PRSV 4 SAMANTHA 3 YRS+ CPT-4: 50187 03/11/2017 ADMIN INFLUENZA VIRUS VAC CPT-4: G0008 03/11/2017 TRIAMCINOLONE ACET INJ NOS CPT-4: J3301 10/23/2015 THER/PROPH/DIAG INJ SC/IM CPT-4: 71666 10/23/2015 Vital Signs Date Vital 01/05/2018 Blood Pressure 1: 104/70 Code : 8480-6 BMI: 23.9 Code : 86235-8 Heart Rate 1 : 72 bpm Height: 5'3" SpO2: 95% Weight: 135 lbs 12/23/2017 Blood Pressure 1: 124/64 Code : 8480-6 BMI: 23.6 Code : 61638-0 Heart Rate 1 : 84 bpm Height: 5'3" SpO2: 97% Weight: 133 lbs 11/30/2017 Blood Pressure 1: 98/62 Code : 8480-6 BMI: 24.6 Code : 26937-2 Heart Rate 1 : 61 bpm Height: 5'3" SpO2: 98% Weight: 139 lbs 11/12/2017 Blood Pressure 1: 106/68 Code : 8480-6 BMI: 24.4 Code : 22429-4 Heart Rate 1 : 64 bpm Height: 5'3" SpO2: 98% Weight: 138 lbs 07/16/2017 Blood Pressure 1: 116/78 Code : 8480-6 BMI: 25.9 Code : 89732-2 Heart Rate 1 : 81 bpm Height: 5'3" SpO2: 98% Weight: 146 lbs 03/11/2017 Blood Pressure 1: 110/66 Code : 8480-6 BMI: 25.7 Code : 95798-1 Heart Rate 1 : 81 bpm Height: 5'3" SpO2: 97% Weight: 145 lbs 11/10/2016 Blood Pressure 1: 124/70 Code : 8480-6 BMI: 25.2 Code : 37370-1 Heart Rate 1 : 87 bpm Height: 5'3" SpO2: 97% Weight: 142 lbs 05/27/2016 Blood Pressure 1: 160/94 Code : 8480-6 Blood Pressure 1: 136/74 Code: 8480-6 BMI: 25.5 Code: 11845-5 Heart Rate 1: 80 bpm Height: 5'3" SpO2: 98% Weight: 144 lbs 04/23/2016 Blood Pressure 1: 122/78 Code : 8480-6 BMI: 25.9 Code : 28343-0 Heart Rate 1 : 107 bpm Height: 5'3" SpO2: 98% Weight: 146 lbs 04/18/2016 Height: Weight: 03/26/2016 Blood Pressure 1: 112/68 Code : 8480-6 BMI: 26.7 Code : 17903-8 Heart Rate 1 : 62 bpm Height: 5'3" SpO2: 94% Weight: 151 lbs 03/19/2016 Blood Pressure 1: 120/64 Code : 8480-6 BMI: 26.7 Code : 33295-7 Heart Rate 1 : 77 bpm Height: 5'3" SpO2: 97% Temperature: 36.7 (C) / 98.1 (F) Weight: 151 lbs 01/23/2016 Blood Pressure 1: 118/80 Code : 8480-6 BMI: 27.8 Code : 11451-7 Heart Rate 1 : 80 bpm Height: 5'3" SpO2: 98% Weight: 157 lbs 11/22/2015 Blood Pressure 1: 180/106 Code: 8480-6 BMI: 27.1 Code: 23379-0 Heart Rate 1: 98 bpm Height: 5'3" SpO2: 98% Weight: 153 lbs 10/23/2015 Blood Pressure 1: 132/88 Code : 8480-6 BMI: 31.0 Code : 54279-7 Heart Rate 1 : 75 bpm Height: 5' SpO2: 97% Weight: 158 lbs 8 oz 07/23/2015 Blood Pressure 1: 136/80 Code : 8480-6 BMI: 32.1 Code : 18514-3 Heart Rate 1 : 78 bpm Height: 5' SpO2: 97% Weight: 164 lbs 8 oz 06/15/2015 Blood Pressure 1: 142/94 Code : 8480-6 BMI: 32.4 Code : 07355-8 Heart Rate 1 : 100 bpm Height: 5' SpO2: 98% Weight: 166 lbs 04/26/2015 Blood Pressure 1: 120/80 Code : 8480-6 BMI: 34.2 Code : 10287-9 Heart Rate 1 : 68 bpm Height: 5' SpO2: 98% Weight: 175 lbs 03/29/2015 Blood Pressure 1: 138/70 Code : 8480-6 BMI: 34.4 Code : 92499-3 Heart Rate 1 : 61 bpm Height: 5' SpO2: 97% Weight: 176 lbs 01/19/2015 Blood Pressure 1: 122/82 Code : 8480-6 BMI: 34.6 Code : 85302-4 Heart Rate 1 : 62 bpm Height: 5' SpO2: 96% Weight: 177 lbs 10/26/2014 Blood Pressure 1: 132/88 Code : 8480-6 BMI: 32.1 Code : 24332-2 Heart Rate 1 : 68 bpm Height: 5'3" SpO2: 97% Weight: 181 lbs Functional Status No Functional Status data History of Present Illness Symptom Name Status Result Effective Date Notes depression Quality chronic 01/05/2018 None depression Quality worsening 01/05/2018 None depression Onset and Resolution ongoing 01/05/2018 None depression Frequency of Episodes increasing 01/05/2018 None depression Alleviating Factors medication 01/05/2018 None depression Pertinent Findings anxiety 01/05/2018 None depression Pertinent Findings depressed mood 01/05/2018 None abdominal pain Location diffusely 01/05/2018 None abdominal pain Quality intermittent 01/05/2018 None abdominal pain Onset of Symptom 2 weeks ago 01/05/2018 None abdominal pain Pertinent Findings abdominal distension 01/05/2018 None abdominal pain Pertinent Findings Denies weight loss 01/05/2018 None depression Quality chronic 12/23/2017 None depression Quality worsening 12/23/2017 None depression Onset and Resolution ongoing 12/23/2017 None depression Frequency of Episodes increasing 12/23/2017 None depression Alleviating Factors medication 12/23/2017 None depression Pertinent Findings anxiety 12/23/2017 None depression Pertinent Findings depressed mood 12/23/2017 None depression Quality chronic 11/30/2017 None depression Onset and Resolution ongoing 11/30/2017 None depression Quality worsening 11/30/2017 None depression Alleviating Factors medication 11/30/2017 None depression Pertinent Findings anxiety 11/30/2017 None depression Pertinent Findings depressed mood 11/30/2017 None depression Frequency of Episodes increasing 11/30/2017 None back pain Location thoracic spine 11/12/2017 None back pain Location Cervical spine 11/12/2017 as the day goes on back pain Quality constant 11/12/2017 None back pain Onset and Resolution ongoing 11/12/2017 None back pain Onset of Symptom years ago 11/12/2017 None back pain Limitation on Activities moderately limits activities 11/12/2017 None back pain Severity severe 11/12/2017 None back pain Pertinent Findings extremity numbness 11/12/2017 None back pain Pertinent Findings extremity weakness 11/12/2017 None back pain Pertinent Findings sleep disturbance 11/12/2017 None back pain Pertinent Findings weakness 11/12/2017 None hypertension Quality primary hypertension 11/12/2017 None hypertension Quality stable 11/12/2017 None hypertension Onset and Resolution ongoing 11/12/2017 None hypertension Onset of Symptom during adulthood 11/12/2017 None hypertension Blood Pressure Values not checking blood pressure at home 11/12/2017 None hypertension Alleviating Factors medication 11/12/2017 None hypertension Pertinent Findings Denies dizziness 11/12/2017 None hypertension Pertinent Findings Denies dyspnea 11/12/2017 None hypertension Pertinent Findings edema 11/12/2017 if she eats salty foods shoulder pain Quality aching 11/12/2017 None shoulder pain Quality dull 11/12/2017 None shoulder pain Quality intermittent 11/12/2017 None shoulder pain Quality tenderness 11/12/2017 None shoulder pain Onset of Symptom 2-3 weeks ago 11/12/2017 None shoulder pain Triggers activity 11/12/2017 None shoulder pain Triggers no known associated factors 11/12/2017 None shoulder pain Alleviating Factors activity 11/12/2017 None shoulder pain Alleviating Factors medication 11/12/2017 None shoulder pain Exacerbating Factors exertion 11/12/2017 None shoulder pain Exacerbating Factors lifting 11/12/2017 None shoulder pain Exacerbating Factors pulling 11/12/2017 None shoulder pain Exacerbating Factors activity 11/12/2017 None shoulder pain Exacerbating Factors extension 11/12/2017 None shoulder pain Exacerbating Factors abduction/external rotation 11/12/2017 None shoulder pain Exacerbating Factors throwing 11/12/2017 None shoulder pain Pertinent Findings point tenderness 11/12/2017 None shoulder pain Pertinent Findings Denies loss of range of motion 11/12/2017 None shoulder pain Pertinent Findings Denies loss of strength 11/12/2017 None shoulder pain Onset and Resolution resolved 11/12/2017 None back pain Location thoracic spine 07/16/2017 None back pain Location Cervical spine 07/16/2017 as the day goes on back pain Quality constant 07/16/2017 None back pain Onset and Resolution ongoing 07/16/2017 None back pain Onset of Symptom years ago 07/16/2017 None back pain Limitation on Activities moderately limits activities 07/16/2017 None back pain Severity severe 07/16/2017 None back pain Pertinent Findings extremity numbness 07/16/2017 None back pain Pertinent Findings extremity weakness 07/16/2017 None back pain Pertinent Findings sleep disturbance 07/16/2017 None back pain Pertinent Findings weakness 07/16/2017 None hypertension Quality primary hypertension 07/16/2017 None hypertension Quality stable 07/16/2017 None hypertension Onset and Resolution ongoing 07/16/2017 None hypertension Onset of Symptom during adulthood 07/16/2017 None hypertension Blood Pressure Values not checking blood pressure at home 07/16/2017 None hypertension Alleviating Factors medication 07/16/2017 None hypertension Pertinent Findings Denies dizziness 07/16/2017 None hypertension Pertinent Findings Denies dyspnea 07/16/2017 None hypertension Pertinent Findings edema 07/16/2017 if she eats salty foods shoulder pain Quality aching 07/16/2017 None shoulder pain Onset and Resolution sudden in onset 07/16/2017 None shoulder pain Quality dull 07/16/2017 None shoulder pain Quality intermittent 07/16/2017 None shoulder pain Quality tenderness 07/16/2017 None shoulder pain Onset of Symptom 2-3 weeks ago 07/16/2017 None shoulder pain Triggers activity 07/16/2017 None shoulder pain Triggers no known associated factors 07/16/2017 None shoulder pain Alleviating Factors activity 07/16/2017 None shoulder pain Alleviating Factors medication 07/16/2017 None shoulder pain Exacerbating Factors exertion 07/16/2017 None shoulder pain Exacerbating Factors activity 07/16/2017 None shoulder pain Exacerbating Factors lifting 07/16/2017 None shoulder pain Exacerbating Factors pulling 07/16/2017 None shoulder pain Exacerbating Factors extension 07/16/2017 None shoulder pain Exacerbating Factors abduction/external rotation 07/16/2017 None shoulder pain Exacerbating Factors throwing 07/16/2017 None shoulder pain Pertinent Findings point tenderness 07/16/2017 None shoulder pain Pertinent Findings Denies loss of range of motion 07/16/2017 None shoulder pain Pertinent Findings Denies loss of strength 07/16/2017 None back pain Location thoracic spine 03/11/2017 None [...] event 10/26/2014 last seizure in February around [facility]. Seizures started as a teenager-[employer] in [employer] Onset and Resolution ongoing 10/26/2014 None [...] data Encounters Encounter Performer Location Codes Date ([id number]) 67070 EST. PATIENT, LEVEL III Diagnosis: Slow transit constipation[ICD10: K59.01] Diagnosis: Bipolar disorder, current episode depressed, severe, without psychotic features[ICD10: F31.4] Libby Gibson MD, [facility] CPT-4: 91757 01/05/2018 ([id number]) 85214 EST. PATIENT, LEVEL IV Diagnosis: Bipolar disorder, current episode depressed, severe, without psychotic features[ICD10: F31.4] Libby Gibson MD, [facility] CPT-4: 23895 12/23/2017 ([id number]) [id number] EST. PATIENT, LEVEL III Diagnosis: Generalized anxiety disorder[ICD10: F41.1] Diagnosis: Major depressive disorder, single episode, moderate[ICD10: F32.1] Libby Gibson MD, [facility] CPT-4: 38937 11/30/2017 ([id number]) 14695 EST. PATIENT, LEVEL IV Diagnosis: Essential (primary) hypertension[ICD10: I10] Diagnosis: Generalized anxiety disorder[ICD10: F41.1] Diagnosis: Major depressive disorder, single episode, moderate[ICD10: F32.1] Libby Gibson MD, [facility] CPT-4: 50478 11/12/2017 ([id number]) 62361 EST. 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 PATIENT, LEVEL IV Diagnosis: Essential (primary) hypertension[ICD10: I10] Diagnosis: Generalized anxiety disorder[ICD10: F41.1] Diagnosis: Low back pain[ICD10: M54.5] Diagnosis: Pain in thoracic spine[ICD10: M54.6] Diagnosis: Encounter for screening mammogram for malignant neoplasm of breast[ ICD10: Z12.31] [facility] CPT-4: 96986 11/10/2016 [id number] EST. PATIENT, LEVEL III Diagnosis: Essential (primary) hypertension[ICD10: I10] Diagnosis: Generalized anxiety disorder[ICD10: F41.1] [facility] CPT-4: 28038 05/27/2016 [id number]) 31110 EST. 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 PATIENT, LEVEL IV Diagnosis: Generalized anxiety disorder[ICD10: F41.1] Diagnosis: Other depressive episodes[ICD10: F32.8] Diagnosis: Restlessness and agitation[ICD10: R45.1] Rosario Gibson MD [facility] CPT-4: 23987 04/18/2016 ([id number]) 36758 EST. PATIENT, LEVEL III Diagnosis: Localized swelling, mass and lump, trunk[ICD10: R22.2] Libby Gibson MD [facility] CPT-4: 55798 03/26/2016 80371 EST. PATIENT, LEVEL III Diagnosis: Pleurisy[ICD10: R09.1] Diagnosis: Cough[ICD10: R05] Rosario Gibson MD, [facility] CPT-4: 00870 03/19/2016 ([id number]) 80056 EST. PATIENT, LEVEL IV Diagnosis: Essential (primary) hypertension[ICD10: I10] Diagnosis: Cervicalgia[ICD10: M54.2] Diagnosis: Radiculopathy, cervicothoracic region[ICD10: M54.13] Libby Gibson MD, [facility] CPT-4: 57939 01/23/2016 14017 EST. PATIENT, LEVEL III Diagnosis: Essential (primary) hypertension[ICD10: I10] Rosario Gibson MD [facility] CPT-4: 47622 11/22/2015 ([id number]) 78155 EST. PATIENT, LEVEL III Diagnosis: Essential (primary) hypertension[ICD10: I10] Libby Gibson MD, [facility] CPT-4: 36529 10/23/2015 ([id number]) 12542 EST. PATIENT, LEVEL IV Diagnosis: Essential (primary) hypertension[ICD10: I10] Diagnosis: Low back pain[ICD10: M54.5] Diagnosis: Other depressive episodes[ICD10: F32.8] Libby Gibson MD, [facility] CPT-4: 25996 07/23/2015 ([id number]) 73566 EST. 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 PATIENT, LEVEL IV Diagnosis: Cervicalgia[ICD10: M54.2] Diagnosis: Radiculopathy, cervicothoracic region[ICD10: M54.13] Diagnosis: Pain in thoracic spine[ICD10: M54.6] Libby Gibson MD, [facility] CPT-4: 70572 04/26/2015 ([id number]) 54576 EST. PATIENT, LEVEL III Diagnosis: Cervicalgia[ICD10: M54.2] Diagnosis: Pain in thoracic spine[ICD10: M54.6] Diagnosis: Radiculopathy, cervicothoracic region[ICD10: M54.13] Diagnosis: Low back pain[ICD10: M54.5] Virginia Gibson MD, [facility] CPT-4: 94103 03/29/2015 ([id number]) 70392 EST. PATIENT, LEVEL III Diagnosis: Plantar fasciitis of right foot[ICD9: 728.71] Diagnosis: Lumbar spine pain[ICD9: 724.2] Diagnosis: Right knee pain[ICD9: 719.46] [facility] CPT-4: 62482 01/19/2015 ([id number]) OFFICE VISIT, NEW - LEVEL 4 Diagnosis: ESSENTIAL HYPERTENSION[ICD9: 401.9] Diagnosis: Seizure disorder[ICD9: 345.90] Diagnosis: Factor 5 Leiden mutation, heterozygous[ICD9: 289.81] Diagnosis: Anxiety[ICD9: 300.00] Diagnosis: Depression[ICD9: 311] Virginia Gibson MD, [facility] CPT-4: 42340 10/26/2014 Plan of Care Planned Activity Notes Codes Status Date Referral: External, Ordering Provider Patient's mother informed. Referral info faxed to [phone]. Appt scheduled with intake couselor to do an in house referral. Completed 01/18/2018 Visit Plan: Constipation - sample of relistor 150mg daily x 3 days then every other day as needed for constipation. Bipolar mood disorder with Depression - improved symptoms on lexapro to 10mg daily and keep on luvox 50mg bid. 01/05/2018 Appointment: Libby Gibson WPtel: [address] [place], [place] [id number] (15 min) Moderate 01/05/2018 Patient Education: Patient Medication Summary Completed 01/05/2018 Visit Plan: Bipolar mood disorder with Depression - uncontrolled - Pt has been counseled about the diagnosis of bipolar depression, the potential causes, and risks associated with the diagnosis. The pt denies suicidal ideation, or plans. The patient has been counseled about treatment options, and understands the risks associated with treatment of depression, as well as the risks associated with NOT treating the depression. I believe the pt will benefit from medical intervention and an antidepressant has been appropriately prescribed for this patient. I have recommended that we pursue a referral to the psychiatrist at [facility]. Her medication is being changed as follows: lexapro 20mg daily x 1 week - luvox 50mg daily x 1 week then lexapro 20mg daily x 1 week and luvox 50mg bid x 1 week then decrease lexapro to 10mg daily and keep on luvox 50mg bid then decrease lexapro to 5mg daily and keep on luvox 50mg bid then stop lexapro and keep on luvox 12/23/2017 Appointment: [facility] [phone] [facility] (15 min) Moderate 12/23/2017 Patient Education: Patient Medication Summary Completed 12/23/2017 Care Plan: Referral Order SNOMED-CT : [id number] Pending 12/23/2017 Visit Plan: Anxiety and depression - not well controlled - stop the lexapro and start on fluvoxamine 1 tab twice daily - RTC in about 2-3 weeks 11/30/2017 Visit Plan: Anxiety and depression - not well controlled - stop the lexapro and start on fluvoxamine 1 tab twice daily - RTC in about 2-3 weeks 11/30/2017 Appointment: Lib[facility] Gibson [facility]Ptel[facility] [phone] [facility] (15 min) Moderate 11/30/2017 Patient Education: Patient Medication Summary Completed 11/30/2017 Visit Plan: Hypertension - well controlled - continue with current medications, continue with no added salt diet. Pt has been encouraged to exercise daily. The pt has been advised to call the office if there are any acute concerns about change in blood pressure readings at home. Anxiety - the patient has uncontrolled anxiety and will benefit from an SSRI on a daily basis to attempt control of the symptoms of anxiety (tachycardia, overwhelming sensations, stress, insomnia, etc). I also believe that the patient will benefit from very low dose of prn benzodiazepine. Pt is aware of the risks and benefits of treatment with the above medications. 11/12/2017 Visit Plan: Hypertension - well controlled - continue with current medications, continue with no added salt diet. Pt has been encouraged to exercise daily. The pt has been advised to call the office if there are any acute concerns about change in blood pressure readings at home. Anxiety - the patient has uncontrolled anxiety and will benefit from an SSRI on a daily basis to attempt control of the symptoms of anxiety (tachycardia, overwhelming sensations, stress, insomnia, etc). I also believe that the patient will benefit from very low dose of prn benzodiazepine. Pt is aware of the risks and benefits of treatment with the above medications. 11/12/2017 Appointment: Lib[facility] Gibson [facility]el[facility] [phone] [facility] (15 min) Moderate 11/12/2017 Patient Education: Patient Medication Summary Completed 11/12/2017 Appointment: Nurse Visit 10/13/2017 Patient Education: Patient Medication Summary Completed 10/13/2017 Visit Plan: Hypertension - well controlled - continue with current medications, continue with no added salt diet. Pt has been encouraged to exercise daily. The pt has been advised to call the office if there are any acute concerns about change in blood pressure readings at home. Pain - chronic of low back - Chronic Depression and anxiety - the pt has symptoms of chronic anxiety and depression that have been fairly well controlled since the last office visit. The pt has expected periods of exacerbation with abatement of the symptoms with change in situational exposure. No change in current medications. Left shoulder pain - referral to [facility] - 07/16/2017 Appointment: [facility] Gibson [facility]el[facility] [phone] [id number] (15 min) Moderate 07/16/2017 Patient Education: Patient Medication Summary Completed 07/16/2017 Care Plan: Referral Order SNOMED-CT : [id number] Pending 07/16/2017 Appointment: [facility] Gibson [facility]el[facility] [phone] [id number] (30 min) Complex 07/13/2017 Visit Plan: Hypertension - well controlled - [...] shot today 03/11/2017 Appointment: [facility] Gibson [facility]Ptel[facility] [phone] [facility] (15 min) Moderate 03/11/2017 Patient Education: Patient Medication Summary Completed 03/11/2017 Patient Education: Obesity Completed 03/11/2017 Care Plan: Referral Order SNOMED-CT : [id number] Pending 03/11/2017 Visit Plan: Hypertension - well [...] current medications. 11/10/2016 Appointment: Lib[facility] Gibson WPtel[facility] [phone] [facility] [place] (15 min) Moderate 11/10/2016 Patient Education: Patient Medication Summary Completed 11/10/2016 Patient Education: Obesity Completed 11/10/2016 Care Plan: [facility]CREENINGMAMMOGRAPHYDIGITAL [facility] : 48768-9 Pending 11/10/2016 Appointment: Lib[facility] Gibson WPtel[facility] [phone] [facility] [place] (30 min) Complex 10/07/2016 Visit Plan: Hypertension [...] patient report 05/27/2016 Appointment: Lib[facility] Gibson [facility]Ptel[facility] [phone] [id number] (30 min) Complex 05/27/2016 Patient Education: Patient [...] to be seen by a psychiatrist at [facility] and we are making a referral [...] and would like to be seen in [place]. I have recommended Dr. New at [facility] for further evaluation and to establish care. They understand that it will most-likely be several months before she is seen by neurology. 04/23/2016 Appointment: Angela Gibsony WPtel: [phone] [facility] [place] (15 min) Moderate 04/23/2016 Patient Education: Patient [...] Dr. Escobedo 03/26/2016 Appointment: Libby Gibson WPtel: [phone] [facility] (15 min) Moderate 03/26/2016 Patient Education: Patient Medication Summary Completed 03/26/2016 Patient Education: Obesity Completed 03/26/2016 Visit Plan: Chest pain, cough - lung sounds clear, but diminished, will check chest x-ray - will treat as indicated. Pt is to notify clinic if symptoms do not improve, if they worsen, or with any questions or concerns. 03/19/2016 Appointment: Virginia [facility]il[facility] [phone] [id number] (30 min) Complex 03/19/2016 Patient Education: Patient [...] 11/22/2015 Appointment: Rosario De La Rosa WPtel: [address] [place], [place] [id number] (30 min) [facility] 11/22/2015 Patient Education: Patient Medication Summary Completed [...] neck/upper back. 04/26/2015 Appointment: Libby Gibson WPtel: [address] [place], [place] [id number] (15 min) Moderate 04/26/2015 Patient Education: Patient Medication Summary Completed 04/26/2015 Patient Education: .Cervicalgia Neck Pain Completed 04/26/2015 Care Plan: Referral Order SNOMED-CT : [id number] Ordered 04/26/2015 Visit Plan: Cervical, thoracic, and lumbar back pain- worsening-numbness and tingling down right arm-will xray cervical and thoracic spine-plan for MRI of cervical, thoracic and lumbar spine if indicated and refer to pharmacy retail support specialist-patient wants to see Dr Hirsch if [...] Care Plan: COMPLETE CBC AUTOMATED LOINC : 85782-3 Ordered 10/26/2014 Referral: [facility] Referral info faxed. They will call the patient to set up date/time. Completed Referral: [facility] WPtel: Referral Appointment Requested Referral: External, Ordering Provider Referral Appointment Requested Referral: External, Ordering Provider Referral Appointment Requested Referral: [facility] Referral Appointment Requested Instructions Comment talk [...] to be seen by a psychiatrist at [facility] and we are making a referral [...] and would like to be seen in [place]. I have recommended Dr. New at [facility] for further evaluation and to establish care. [...] physical therapy/manipulation of her neck/upper back. . Hypertension - well controlled - continue with current medications, continue with no added salt diet. Pt has been encouraged to exercise daily. The pt has been advised to call the office if there are any acute concerns about change in blood pressure readings at home. Pain - chronic of low back - Chronic Depression and anxiety - the pt has symptoms of chronic anxiety and depression that have been fairly well controlled since the last office visit. The pt has expected periods of exacerbation with abatement of the symptoms with change in situational exposure. No change in current medications. Left shoulder pain - referral to [facility] - lexapro 20mg daily x 1 week - luvox 50mg daily x 1 week then lexapro 20mg daily x 1 week and luvox 50mg bid x 1 week then decrease lexapro to 10mg daily and keep on luvox 50mg bid then decrease lexapro to 5mg daily and keep on luvox 50mg bid then stop lexapro and keep on luvox . Bipolar mood disorder with Depression - uncontrolled - Pt has been counseled about the diagnosis of bipolar depression, the potential causes, and risks associated with the diagnosis. The pt denies suicidal ideation, or plans. The patient has been counseled about treatment options, and understands the risks associated with treatment of depression, as well as the risks associated with NOT treating the depression. I believe the pt will benefit from medical intervention and an antidepressant has been appropriately prescribed for this patient. I have recommended that we pursue a referral to the psychiatrist at [facility]. Her medication is being changed as follows: lexapro 20mg daily x 1 week - luvox 50mg daily x 1 week then lexapro 20mg daily x 1 week and luvox 50mg bid x 1 week then decrease lexapro to 10mg daily and keep on luvox 50mg bid then decrease lexapro to 5mg daily and keep on luvox 50mg bid then stop lexapro and keep on luvox . Abdominal pain-mild and improved-likely due to [...] and understands the consequences of over-medication. . Constipation - sample of relistor 150mg daily x 3 days then every other day as needed for constipation. Bipolar mood disorder with Depression - improved symptoms on lexapro to 10mg daily and keep on luvox 50mg bid. . Cervical, thoracic, and lumbar back pain-worsening- numbness and tingling down right arm-will xray cervical and thoracic spine-plan for MRI of cervical, thoracic and lumbar spine if indicated and refer to pharmacy retail support specialist-patient wants to see Dr Hirsch if [...] continued to be monitored by Dr. Escobedo stop lexapro start on fluvoxamine 1 tab twice daily . Anxiety and depression - not well controlled - stop the lexapro and start on fluvoxamine 1 tab twice daily - RTC in about 2-3 weeks stop lexapro start on fluvoxamine 1 tab twice daily . Anxiety and depression - not well controlled - stop the lexapro and start on fluvoxamine 1 tab twice daily - RTC in about 2-3 weeks . Hypertension - well controlled - continue with current medications, continue with no added salt diet. Pt has been encouraged to exercise daily. The pt has been advised to call the office if there are any acute concerns about change in blood pressure readings at home. Anxiety - the patient has uncontrolled anxiety and will benefit from an SSRI on a daily basis to attempt control of the symptoms of anxiety (tachycardia, overwhelming sensations, stress, insomnia, etc). I also believe that the patient will benefit from very low dose of prn benzodiazepine. Pt is aware of the risks and benefits of treatment with the above medications. . Hypertension - well controlled - continue with current medications, continue with no added salt diet. Pt has been encouraged to exercise daily. The pt has been advised to call the office if there are any acute concerns about change in blood pressure readings at home. Anxiety - the patient has uncontrolled anxiety and will benefit from an SSRI on a daily basis to attempt control of the symptoms of anxiety (tachycardia, overwhelming sensations, stress, insomnia, etc). I also believe that the patient will benefit from very low dose of prn benzodiazepine. Pt is aware of the risks and benefits of treatment with the above medications. . Hypertension - well controlled - [...]
--- OUTSIDE RECORDS SUMMARY | 2018-02-04 13:58 | XMS REPORT | Continuity of Care Document ---
Author Author Formerly [facility] Address Unknown Phone Unavailable Allergies Active Description Code Type Severity Reaction Onset Reported/Identified Relationship to Patient Clinical Status Yes prochlorperazine [id number] Drug Allergy Severe TONGUE SWELLS 07/10/2006 Yes metoclopramide [id number] Drug Allergy Unknown N/A 01/29/2009 Yes Topamax Drug Allergy N/A N/A 10/31/2010 Yes Topamax Drug Allergy 10/31/2010 Yes Compazine Drug Allergy N/A N/A 06/20/2011 Yes Compazine Drug Allergy 06/20/2011 Yes Geodon Drug Allergy N/A N/A 10/04/2013 Yes topiramate [id number] Drug Allergy Unknown N/A 11/18/2015 Yes aripiprazole [id number] Drug Allergy Unknown N/A 12/10/2017 Yes levetiracetam [id number] Drug Allergy Unknown N/A 12/10/2017 Medications There is no data. 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 01/19/2008 AYSHA SAINI DO 307.47 SI DYSSOMNIA NOS 01/19/2008 AYSHA SAINI DO F 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 01/19/2008 AYSHA SAINI DO 307.47 SI DYSSOMNIA NOS 01/19/2008 JAC CORTES KATYA MCKEON 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 01/19/2008 JAC LUCIABobby KATYA MCKEON 307.47 SI DYSSOMNIA NOS 01/19/2008 NATHAN DIE FITTER, KATYA MCKEON 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 01/19/2008 JAC LUCIABobby KATYA MCKEON 307.47 SI DYSSOMNIA NOS 01/19/2008 ROBIN SAINI DO K 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 01/19/2008 ROBIN SIANI DO K 307.47 SI DYSSOMNIA NOS 03/21/2008 AYSHA SAINI DO V58.69 MEDICATION HIGH RISK 03/21/2008 AYSHA SAINI DO V58.69 MEDICATION HIGH RISK 03/21/2008 JAC CORTES KATYA MIKE V58.69 MEDICATION HIGH RISK 03/21/2008 JAC CORTES KATYA URIBEH V58.69 MEDICATION HIGH RISK 03/21/2008 ROBIN SAINI DO K V58.69 MEDICATION HIGH RISK 05/23/2008 AYSHA SAINI DO F 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 05/23/2008 AYSHA SAINI DO F 300.23 AN SOCIAL PHOBIA 05/23/2008 AYSHA SAINI DO 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 05/23/2008 AYSHA SAINI DO [place] 300.23 AN SOCIAL PHOBIA 05/23/2008 JAC CORTES KATYA MCKEON 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 05/23/2008 NATHAN SOPHIA KATYA MCKEON 300.23 AN SOCIAL PHOBIA 05/23/2008 NATHAN SOPHIA KATYA MCKEON 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 05/23/2008 JAC LUCIABobby KATYA MCKEON 300.23 AN SOCIAL PHOBIA 05/23/2008 ROBIN SAINI DO K 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 05/23/2008 ROBIN SAINI DO K 300.23 AN SOCIAL PHOBIA 10/19/2008 AYSHA SAINI DO 300.4 MO DYSTHYMIC DISORDER 10/19/2008 AYSHA SAINI DO [place] 300.4 MO DYSTHYMIC DISORDER 10/19/2008 JAC CORTES KATYA MIKE 300.4 MO DYSTHYMIC DISORDER 10/19/2008 JAC CORTES KATYA MIKE 300.4 MO DYSTHYMIC DISORDER 10/19/2008 ROBIN SAINI DO 300.4 MO DYSTHYMIC DISORDER 05/16/2009 AYSHA SAINI DO [place] 301.6 PD DEPENDENT 05/16/2009 AYSHA SAINI DO 301.6 PD DEPENDENT 05/16/2009 JAC CORTES KATYA MIKE 301.6 PD DEPENDENT 05/16/2009 JAC CORTES KATYA MIKE 301.6 PD DEPENDENT 05/16/2009 ROBIN SAINI DO 301.6 PD DEPENDENT 08/21/2009 Ot V58.61 08/21/2009 Ot V58.69 08/21/2009 Ot V58.83 11/15/2009 AYSHA SAINI DO 296.32 MO DEPRESSIVE RECURRENT MODERATE 11/15/2009 AYSHA SAINI DO F 296.32 MO DEPRESSIVE RECURRENT MODERATE 11/15/2009 JAC CORTES KATYA MIKE 296.32 MO DEPRESSIVE RECURRENT MODERATE 11/15/2009 JAC CORTES KATYA MIKE 296.32 MO DEPRESSIVE RECURRENT MODERATE 11/15/2009 ROBIN SAINI DO K 296.32 MO DEPRESSIVE RECURRENT MODERATE 02/11/2010 Ot [...] FREED MD Ot 414.01 CORONARY ATHEROSCLEROSIS OF [place] CORON 04/16/2013 NIKKY FREED MD Ot 620.1 [...] PEDROZA, NIKKY [place] Ot 272.4 10/23/2014 ABDIAZIZ PEDORZA, NIKKY [place] Ot 401.9 10/23/2014 NHUNG GAN Ot 272.4 10/23/2014 ABDIAZIZ PEDROZA, NIKKY [place] Ot 789.00 10/23/2014 ABDIAZIZ PEDROZA, NIKKY Parish Ot 789.03 10/23/2014 JESSICA PEDROZA, ARIEL Farnsworth Ot V58.61 10/23/2014 JESSICA PEDROZA, ARIEL J Ot V58.69 10/23/2014 JESSICA PEDROZA, ARIEL J Ot V58.83 10/23/2014 JESSICA PEDROZA, ARIEL Farnsworth Ot V58.61 10/23/2014 JESSICA PEDROZA, ARIEL Farnsworth Ot V58.69 10/23/2014 JESSICA PEDROZA, ARIEL J Ot V58.83 10/23/2014 JESSICA PEDROZA, ARIEL Farnsworth Ot V58.61 10/23/2014 JESSICA PEDROZA, ARIEL Farnsworth Ot V58.69 10/23/2014 JESSICA PEDROZA, ARIEL J Ot V58.83 10/23/2014 JESSICA PEDROZA, ARIEL J Ot V58.61 10/23/2014 JESSICA PEDROZA, ARIEL J Ot V58.69 10/23/2014 JESSICA PEDROZA, ARIEL J Ot V58.83 10/24/2014 JESSICA PEDROZA, ARIEL J Ot V58.61 10/24/2014 JESSICA PEDROZA, ARIEL J Ot V58.69 10/24/2014 JESSICA PEDROZA, ARIEL J Ot V58.83 10/26/2014 JESSICA PEDROZA, ARIEL Farnsworth Ot V58.61 10/26/2014 JESSICA PEDROZA, BASHAR J Ot V58.69 10/26/2014 ARIEL LOPEZ MD Ot V58.83 12/14/2014 ARIEL LOPEZ MD Ot V58.61 12/14/2014 ARIEL LOPEZ MD Ot V58.69 12/14/2014 ARIEL LOPEZ MD Ot V58.83 12/25/2014 ARIEL LOPEZ MD Ot V58.61 12/25/2014 ARIEL LOPEZ MD Ot V58.69 12/25/2014 ARIEL LOPEZ MD Ot V58.83 01/21/2015 ARIEL LOPEZ MD Ot V58.61 ANTICOAGULANTS,LT,CURRENT USE 01/21/2015 ARIEL LOPEZ MD Ot V58.69 OT MED,LT,CURRENT USE 01/21/2015 ARIEL LOPEZ MD Ot [...] 01/25/2015 NIKKY FREED MD Ot 272.4 01/25/2015 MATT FREED MDHLEEN M Ot 401.9 01/25/2015 MANUEL BERTRAND [place]UN[place] Ot 272.4 01/25/2015 ABDIAZIZ PEDROZA, NIKKY [place] Ot 789.00 01/25/2015 ABDIAZIZ PEDROZA, NIKKY [place] Ot 789.03 01/25/2015 JESSICA PEDROZA, ARIEL Farnsworth Ot V58.61 01/25/2015 JESSICA PEDROZA, ARIEL Farnsworth Ot V58.69 01/25/2015 JESSICA PEDROZA, ARIEL Farnsworth Ot V58.83 01/25/2015 JESSICA PEDROZA, ARIEL Farnsworth Ot V58.61 01/25/2015 JESSICA PEDROZA, ARIEL Farnsworth Ot V58.69 01/25/2015 JESSICA PEDROZA, ARIEL Farnsworth Ot V58.83 01/26/2015 JESSICA PEDROZA, ARIEL Farnsworth Ot V58.61 01/26/2015 JESSICA PEDROZA, ARIEL Farnsworth Ot V58.69 01/26/2015 JESSICA PEDROZA, ARIEL Farnsworth Ot V58.83 01/30/2015 JESSICA PEDROZA, ARIEL Farnsworth Ot V58.61 01/30/2015 JESSICA PEDROZA, ARIEL J Ot V58.69 01/30/2015 JESSICA PEDROZA, ARIEL Farnsworth Ot V58.83 02/14/2015 ADELAIDA BOOKER MD Ot 719.46 02/14/2015 ADELAIDA BOOKER MD Ot 724.5 02/14/2015 ADELAIDA BOOKER MD Ot 729.5 02/21/2015 ARIEL LOPEZ MD Ot V58.61 ANTICOAGULANTS,LT,CURRENT USE 02/21/2015 ARIEL LOPEZ MD Ot V58.69 OT MED,LT,CURRENT USE 02/21/2015 ARIEL LOPEZ MD Ot V58.83 ENCOUNTER FOR THERAPEUTIC DRUG MONITORIN 02/27/2015 ADELAIDA BOOKER MD Ot 719.46 02/27/2015 ADELAIDA BOOKER MD Ot 724.5 02/27/2015 ADELAIDA BOOKER MD Ot 729.5 04/23/2015 CRYSTAL GARCIA Ot M54.2 04/23/2015 CRYSTAL GARCIA RESIDENCY COORDINATOR Ot M54.6 04/26/2015 CRYSTAL GARCIAP Ot M50.20 04/26/2015 RADHA CRYSTAL MCDONNELL Ot M51.24 04/26/2015 Ot 272.4 04/26/2015 Ot [...] 401.9 04/26/2015 NHUNG GAN Ot 272.4 04/26/2015 NIKKY FREED MD Ot 789.00 04/26/2015 NIKKY FREED MD Ot 789.03 04/26/2015 ADE PEDROZA, ADELAIDA Gaines Ot 719.46 04/26/2015 ADE PEDROZA, ADELAIDA Gaines Ot 724.5 04/26/2015 ADELAIDA BOOKER MD Ot 729.5 04/26/2015 ARIEL LOPEZ MD Ot V58.61 04/26/2015 ARIEL LOPEZ MD Ot V58.69 04/26/2015 ARIEL LOPEZ MD Ot V58.83 04/26/2015 ARIEL LOPEZ MD Ot E78.2 04/26/2015 ARIEL LOPEZ MD Ot I10 04/26/2015 ARIEL LOPEZ MD Ot I25.10 04/26/2015 ARIEL LOPEZ MD Ot I65.23 04/26/2015 CRYSTAL GARCIAP Ot M54.2 04/26/2015 CRYSTAL GARCIA RESIDENCY COORDINATOR Ot M54.6 04/26/2015 CRYSTAL GARCIA RESIDENCY COORDINATOR Ot M50.20 04/26/2015 CRYSTAL GARCIA RESIDENCY COORDINATOR Ot M51.24 05/02/2015 ARIEL LOPEZ MD Ot E78.2 05/02/2015 ARIEL LOPEZ MD Ot I10 05/02/2015 ARIEL LOPEZ MD Ot I25.10 05/02/2015 ARIEL LOPEZ MD Ot I65.23 05/07/2015 CRYSTAL AGRCIA RESIDENCY COORDINATOR Ot M54.2 05/07/2015 CRYSTAL GARCIA RESIDENCY COORDINATOR Ot M54.6 05/07/2015 CRYSTAL GARCIA RESIDENCY COORDINATOR Ot M50.20 05/07/2015 CRYSTAL GARCIAP Ot M51.24 [...] ABDIAZIZ PEDROZA, NIKKY [place] Ot 401.9 05/22/2015 NHUNG GAN Ot 272.4 05/22/2015 ABDIAZIZ PEDROZA, NIKKY Parish Ot 789.00 05/22/2015 ABDIAZIZ PEDROZA, NIKKY Parish Ot 789.03 05/22/2015 ADE PEDROZA, ADELAIDA Gaines Ot 719.46 05/22/2015 ADE PEDROZA, ADELAIDA Gaines Ot 724.5 05/22/2015 ADELAIDA BOOKER MD Ot 729.5 05/22/2015 JESSICA PEDROZA, ARIEL Farnsworth Ot V58.61 05/22/2015 JESSICA PEDROZA, ARIEL Farnsworth Ot V58.69 05/22/2015 JESSICA PEDROZA, ARIEL Farnsworth Ot V58.83 05/22/2015 JESSICA PEDROZA, ARIEL Farnsworth Ot E78.2 05/22/2015 JESSICA PEDROZA, ARIEL Farnsworth Ot I10 05/22/2015 JESSICA PEDROZA, ARIEL Farnsworth Ot I25.10 05/22/2015 JESSICA PEDROZA, ARIEL Farnsworth Ot I65.23 05/22/2015 CRYSTAL GARCIA RESIDENCY COORDINATOR Ot M54.2 05/22/2015 CRYSTAL GARCIA RESIDENCY COORDINATOR Ot M54.6 05/22/2015 CRYSTAL GARCIA RESIDENCY COORDINATOR Ot M50.20 05/22/2015 CRYSTAL GARCIA RESIDENCY COORDINATOR Ot M51.24 05/24/2015 ADELAIDA BOOKER MD Ot M40.204 05/24/2015 ADELAIDA BOOKER MD Ot M54.10 05/24/2015 ADELAIDA BOOKER MD Ot M54.2 05/24/2015 ADE PEDROZA, ADELAIDA Gaines Ot M54.6 06/20/2015 ADE PEDROZA, ADELAIDA Gaines Ot M40.204 06/20/2015 ADE PEDROZA, ADELAIDA Gaines Ot M54.10 06/20/2015 ADE PEDROZA, ADELAIDA Gaines [...] [place] Ot 789.00 07/24/2015 ABDIAZIZ PEDROZA, NIKKY [place] Ot 789.03 07/24/2015 ADE PEDROZA, ADELAIDA Gianes Ot 719.46 07/24/2015 ADE PEDROZA, ADELAIDA Gaines Ot 724.5 07/24/2015 ADE PEDROZA, ADELAIDA Gaines Ot 729.5 07/24/2015 JESSICA PEDROZA, ARIEL Farnswroth Ot V58.61 07/24/2015 JESSICA PEDROZA, ARIEL Farnsworth Ot V58.69 07/24/2015 JESSICA PEDROZA, ARIEL Farnsworth Ot V58.83 07/24/2015 JESSICA PEDROZA, ARIEL J Ot E78.2 07/24/2015 JESSICA PEDROZA, ARIEL J Ot I10 07/24/2015 JESSICA PEDROZA, ARIEL Farnsworth Ot I25.10 07/24/2015 JESSICA PEDROZA, ARIEL Farnsworth Ot I65.23 07/24/2015 CRYSTAL GARCIA RESIDENCY COORDINATOR Ot M54.2 07/24/2015 CRYSTAL GARCIA RESIDENCY COORDINATOR Ot M54.6 07/24/2015 CRYSTAL GARCIA RESIDENCY COORDINATOR Ot M50.20 07/24/2015 CRYSTAL GARCIA RESIDENCY COORDINATOR Ot M51.24 07/24/2015 ADE PEDROZA, ADELAIDA Gaines [...] Gaines Ot M54.10 RADICULOPATHY, SITE UNSPECIFIED 07/25/2015 ADELAIDA BOOKER MD Ot M54.2 CERVICALGIA 07/25/2015 ADE PEDROZAADELAIDA Ot M54.6 PAIN IN THORACIC SPINE 07/25/2015 ARIEL LOPEZ MD Ot V58.61 07/25/2015 ARIEL LOPEZ MD, Ot V58.69 07/25/2015 ARIEL LOPEZ MD, Ot V58.83 08/14/2015 SHANAE ROSE DO S Ot N94.9 08/27/2015 SHANAE ROSE DO S Ot N94.9 09/14/2015 ARIEL LOPEZ MD, Ot 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 09/14/2015 ARIEL LOPEZ MD, Ot Z79.01 [employer]IC (CURRENT) USE OF ANTICOAGULANT 09/14/2015 ARIEL LOPEZ MD, Ot Z79.899 OTHER SNF (CURRENT) DRUG THERAPY 09/28/2015 ARIEL LOPEZ MD, Ot 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 09/28/2015 ARIEL LOPEZ MD, Ot Z79.01 [employer] (CURRENT) USE OF ANTICOAGULANT 09/28/2015 ARIEL LOPEZ MD, Ot Z79.899 OTHER SNF (CURRENT) DRUG THERAPY 10/22/2015 ARIEL LOPEZ MD, Ot 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 10/22/2015 ARIEL LOPEZ MD Ot Z79.01 [employer]IC (CURRENT) USE OF ANTICOAGULANT 10/22/2015 ARIEL LOPEZ MD, Ot Z79.899 OTHER [employer] MECH[employer]IC (CURRENT) DRUG THERAPY 10/24/2015 NHUNG GAN Ot 272.4 HYPERLIPIDEMIA NEC/NOS 10/28/2015 ARIEL LOPEZ MD Ot 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 10/28/2015 ARIEL LOPEZ MD Ot Z79.01 SNF (CURRENT) USE OF ANTICOAGULANT 10/28/2015 ARIEL LOPEZ MD Ot Z79.899 OTHER [employer]CH[employer]IC (CURRENT) DRUG THERAPY 11/18/2015 Ot V58.61 ANTICOAGULANTS,LT,CURRENT USE 11/18/2015 Ot V58.83 ENCOUNTER FOR THERAPEUTIC DRUG MONITORIN 11/18/2015 Ot V58.61 ANTICOAGULANTS,LT,CURRENT USE 11/18/2015 Ot V58.69 OTH MED,LT, CURRENT USE 11/18/2015 Ot V58.83 ENCOUNTER FOR THERAPEUTIC DRUG MONITORIN 11/18/2015 ARIEL LOPEZ MD, Ot 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 11/18/2015 ARIEL LOPEZ MD, Ot Z79.01 SNF (CURRENT) USE OF ANTICOAGULANT 11/18/2015 ARIEL LOPEZ MD, Ot Z79.899 OTHER SNF (CURRENT) DRUG THERAPY 11/18/2015 WILLIAM SHELTON MD, Ot F17.210 NICOTINE DEPENDENCE, CIGARETTES, UNCOMPL 11/18/2015 WILLIAM SHELTON MD Ot I10 ESSENTIAL (PRIMARY) HYPERTENSION 11/18/2015 WILLIAM SHELTON MD Ot R11.2 NAUSEA WITH VOMITING, UNSPECIFIED 11/18/2015 WILLIAM SHELTON MD Ot R51 HEADACHE 11/20/2015 WILLIAM SHELTON MD, Ot I10 ESSENTIAL (PRIMARY) HYPERTENSION 11/20/2015 WILLIAM SHELTON MD Ot R11.2 NAUSEA WITH VOMITING, UNSPECIFIED 11/20/2015 WILLIAM SHELTON MD Ot R51 HEADACHE 11/20/2015 WILLIAM SHELTON MD, Ot F17.210 NICOTINE DEPENDENCE, CIGARETTES, UNCOMPL 11/20/2015 WILLIAM SHELTON MD Ot I10 ESSENTIAL (PRIMARY) HYPERTENSION 11/20/2015 WILLIAM SHELTON MD Ot R11.2 NAUSEA WITH VOMITING, UNSPECIFIED 11/20/2015 WILLIAM SHELTON MD Ot R51 HEADACHE 11/22/2015 ARIEL LOPEZ MD, Ot 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 11/22/2015 ARIEL LOPEZ MD, Ot Z79.01 SNF (CURRENT) USE OF ANTICOAGULANT 11/22/2015 ARIEL LOPEZ MD, Ot Z79.899 OTHER [employer] (CURRENT) DRUG THERAPY 11/22/2015 TERESA SHETTY APRN Ot R63.4 ABNORMAL WEIGHT LOSS 11/23/2015 ARIEL LOPEZ MD, Ot 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 11/23/2015 ARIEL LOPEZ MD, Ot Z79.01 [employer]IC (CURRENT) USE OF ANTICOAGULANT 11/23/2015 ARIEL LOPEZ MD, Ot Z79.899 OTHER [employer] MECH[employer]IC (CURRENT) DRUG THERAPY 11/23/2015 ARIEL LOPEZ MD, Ot 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 11/23/2015 ARIEL LOPEZ MD, Ot Z79.01 [employer]IC (CURRENT) USE OF ANTICOAGULANT 11/23/2015 ARIEL LOPEZ MD Ot Z79.899 OTHER SNF (CURRENT) DRUG THERAPY 11/23/2015 TERESA SHETTY DIE FITTER Ot R07.9 CHEST PAIN, UNSPECIFIED 11/23/2015 TERESA SHETTY DIE FITTER Ot R63.4 ABNORMAL WEIGHT LOSS 12/13/2015 TERESA SHETTY DIE FITTER Ot R07.9 CHEST PAIN, UNSPECIFIED 12/13/2015 TERESA SHETTY DIE FITTER Ot R63.4 ABNORMAL WEIGHT LOSS 12/21/2015 TERESA SHETTY DIE FITTER Ot R07.9 CHEST PAIN, UNSPECIFIED 12/21/2015 TERESA SHETTY DIE FITTER Ot R63.4 ABNORMAL WEIGHT LOSS 02/05/2016 Ot D68.51 ACTIVATED PROTEIN C RESISTANCE 02/05/2016 Ot E78.2 MIXED HYPERLIPIDEMIA 02/05/2016 Ot I10 ESSENTIAL ( PRIMARY) HYPERTENSION 02/05/2016 Ot I25.10 ATHSCL HEART DISEASE OF [place] CORONARY 02/05/2016 Ot I65.23 OCCLUSION AND STENOSIS [...] ADELAIDA Gaines Ot 719.46 JOINT PAIN-L/LEG 02/06/2016 ADE PEDROZA, ADELAIDA Gaines Ot 724.5 BACKACHE NOS 02/06/2016 ADELAIDA BOOKER MD Ot 729.5 PAIN IN LIMB 02/06/2016 ARIEL LOPEZ MD Ot E78.2 MIXED HYPERLIPIDEMIA 02/06/2016 ARIEL LOPEZ MD Ot I10 ESSENTIAL (PRIMARY) HYPERTENSION 02/06/2016 ARIEL LOPEZ MD Ot I25.10 ATHSCL HEART DISEASE OF [place] CORONARY 02/06/2016 ARIEL LOPEZ MD Ot I65.23 OCCLUSION AND STENOSIS OF [place] 02/06/2016 CRYSTAL GARCIA Ot M54.2 CERVICALGIA 02/06/2016 CRYSTAL GARCIA Ot M54.6 PAIN IN THORACIC SPINE 02/06/2016 CRYSTAL GARCIA Ot M50.20 OTHER CERVICAL DISC DISPLACEMENT, UNSP C 02/06/2016 CRYSTAL GARCIA Ot 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, 02/06/2016 Ot R31.9 HEMATURIA, UNSPECIFIED 02/06/2016 SHANAE ROSE DO S Ot 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 02/06/2016 AIREL LOPEZ MD Ot 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 02/06/2016 ARIEL LOPEZ MD, Ot Z79.01 SNF (CURRENT) USE OF ANTICOAGULANT 02/06/2016 RAIEL LOPEZ MD, Ot Z79.899 OTHER [employer] (CURRENT) DRUG THERAPY 02/06/2016 TERESA SHETTY APRN Ot R07.9 CHEST PAIN, UNSPECIFIED 02/06/2016 TERESA SHETTY APRN Ot R63.4 ABNORMAL WEIGHT LOSS 02/06/2016 Ot D68.51 ACTIVATED PROTEIN C RESISTANCE 02/06/2016 Ot E78.2 MIXED HYPERLIPIDEMIA 02/06/2016 Ot I10 ESSENTIAL ( PRIMARY) HYPERTENSION 02/06/2016 Ot I25.10 ATHSCL HEART DISEASE OF [place] CORONARY 02/06/2016 Ot I65.23 OCCLUSION AND STENOSIS [...] CLOTTING 02/20/2016 ARIEL LOPEZ MD Ot Z79.01 [employer] (CURRENT) USE OF ANTICOAGULANT 02/20/2016 ARIEL LOPEZ MD, Ot Z79.899 OTHER [employer]CH[employer] (CURRENT) DRUG THERAPY 02/21/2016 ARIEL LOPEZ MD, Ot 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 02/21/2016 ARIEL LOPEZ MD, Ot Z79.01 SNF (CURRENT) USE OF ANTICOAGULANT 02/21/2016 ARIEL LOPEZ MD, Ot Z79.899 OTHER SNF (CURRENT) DRUG THERAPY 02/25/2016 Ot D68.51 ACTIVATED PROTEIN C RESISTANCE 02/25/2016 Ot E78.2 MIXED HYPERLIPIDEMIA 02/25/2016 Ot I10 ESSENTIAL ( PRIMARY) HYPERTENSION 02/25/2016 Ot I25.10 ATHSCL HEART DISEASE OF [place] CORONARY 02/25/2016 Ot I65.23 OCCLUSION AND STENOSIS OF [place] 02/26/2016 JESSICA MD, BASHAR J Ot 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 02/26/2016 ARIEL LOPEZ MD Ot Z79.01 SNF (CURRENT) USE OF ANTICOAGULANT 02/26/2016 ARIEL LOPEZ MD Ot Z79.899 OTHER [employer] (CURRENT) DRUG THERAPY 03/07/2016 Ot D68.51 ACTIVATED PROTEIN C RESISTANCE 03/07/2016 Ot E78.2 MIXED HYPERLIPIDEMIA 03/07/2016 Ot I10 ESSENTIAL ( PRIMARY) HYPERTENSION 03/07/2016 Ot I25.10 ATHSCL HEART DISEASE OF [place] CORONARY 03/07/2016 Ot I65.23 OCCLUSION AND STENOSIS [...] Ot V58.61 ANTICOAGULANTS,LT,CURRENT USE 03/20/2016 Ot V58.69 OT MED,LT, CURRENT USE 03/20/2016 Ot V72.63 PRE- [...] FREED MD Ot 401.9 HYPERTENSION NOS 03/20/2016 NHUNG GAN Ot 272.4 HYPERLIPIDEMIA NEC/NOS 03/20/2016 ABDIAZIZ PEDROZA, NIKKY [place] Ot 789.00 ABDOMINAL PAIN, UNSPECIFIED SITE 03/20/2016 ABDIAZIZ PEDROZA, NIKKY [place] Ot 789.03 ABDOMINAL PAIN, RIGHT LOWER QUADRANT 03/20/2016 ADE PEDROZA, ADELAIDA Gaines Ot 719.46 JOINT PAIN-L/LEG 03/20/2016 ADELAIDA BOOKER MD Ot 724.5 BACKACHE NOS 03/20/2016 ADE PEDROZA, ADELAIDA Gaines Ot 729.5 PAIN IN LIMB 03/20/2016 ARIEL LOPEZ MD Ot E78.2 MIXED HYPERLIPIDEMIA 03/20/2016 ARIEL LOPEZ MD Ot I10 ESSENTIAL (PRIMARY) HYPERTENSION 03/20/2016 ARIEL LOPEZ MD Ot I25.10 ATHSCL HEART DISEASE OF [place] CORONARY 03/20/2016 ARIEL LOPEZ MD Ot I65.23 OCCLUSION AND STENOSIS OF [place] 03/20/2016 CRYSTAL GARCIA RESIDENCY COORDINATOR Ot M54.2 CERVICALGIA 03/20/2016 CRYSTAL GARCIA RESIDENCY COORDINATOR Ot M54.6 PAIN IN THORACIC SPINE 03/20/2016 CRYSTAL GARCIA RESIDENCY COORDINATOR Ot M50.20 OTHER CERVICAL DISC DISPLACEMENT, UNSP C 03/20/2016 CRYSTAL GARCIA RESIDENCY COORDINATOR Ot 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, 03/20/2016 Ot R31.9 HEMATURIA, UNSPECIFIED 03/20/2016 MILTON DO, SHANAE S Ot 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 03/20/2016 TERESA SHETTY DIE FITTER Ot R07.9 CHEST PAIN, UNSPECIFIED 03/20/2016 TERESA SHETTY APRN Ot R63.4 ABNORMAL WEIGHT LOSS 03/20/2016 Ot D68.51 ACTIVATED PROTEIN C RESISTANCE 03/20/2016 Ot E78.2 MIXED HYPERLIPIDEMIA 03/20/2016 Ot I10 ESSENTIAL ( PRIMARY) HYPERTENSION 03/20/2016 Ot I25.10 ATHSCL HEART DISEASE OF [place] CORONARY 03/20/2016 Ot I65.23 OCCLUSION AND STENOSIS OF [place] 03/20/2016 ARIEL LOPEZ MD, Ot 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 03/20/2016 ARIEL LOPEZ MD, Ot Z79.01 [employer] (CURRENT) USE OF ANTICOAGULANT 03/20/2016 ARIEL LOPEZ MD, Ot Z79.899 OTHER SNF (CURRENT) DRUG THERAPY 03/20/2016 ADELAIDA BOOKER MD Ot R05 COUGH 03/20/2016 ADELAIDA BOOKER MD Ot R06.02 SHORTNESS OF BREATH 03/21/2016 ADELAIDA BOOKER MD, Ot 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 03/21/2016 ADELAIDA BOOKER MD Ot F17.210 NICOTINE DEPENDENCE, CIGARETTES, UNCOMPL 03/21/2016 ADELAIDA BOOKER MD Ot F32.9 MAJOR DEPRESSIVE DISORDER, SINGLE EPISOD 03/21/2016 ADELAIDA BOOKER MD Ot F41.9 ANXIETY DISORDER, UNSPECIFIED 03/21/2016 ADELAIDA BOOKER MD Ot G40.909 EPILEPSY, UNSP, NOT INTRACTABLE, WITHOUT 03/21/2016 ADELAIDA BOOKER MD Ot I10 ESSENTIAL (PRIMARY) HYPERTENSION 03/21/2016 ADELAIDA BOOKER MD Ot I25.2 OLD MYOCARDIAL INFARCTION 03/21/2016 ADELAIDA BOOKER MD Ot J18.9 PNEUMONIA, UNSPECIFIED ORGANISM 03/21/2016 ADELAIDA BOOKER MD Ot R07.2 PRECORDIAL PAIN 03/21/2016 AEDLAIDA BOOKER MD Ot R10.13 EPIGASTRIC PAIN 03/21/2016 ADELAIDA BOOKER MD Ot R91.8 OTHER NONSPECIFIC ABNORMAL FINDING OF [place] 03/21/2016 ADELAIDA BOOKER MD Ot Z86.718 PERSONAL HISTORY OF OTHER VENOUS THROMBO 03/25/2016 ARIEL LOPEZ MD, Ot 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 03/25/2016 ARIEL LOPEZ MD, Ot Z79.01 [employer] (CURRENT) USE OF ANTICOAGULANT 03/25/2016 ARIEL LOPEZ MD, Ot Z79.899 OTHER [employer] (CURRENT) DRUG THERAPY 04/01/2016 ARIEL LOPEZ MD, Ot 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 04/01/2016 ARIEL LOPEZ MD, Ot Z79.01 [employer] (CURRENT) USE OF ANTICOAGULANT 04/01/2016 ARIEL LOPEZ MD, Ot Z79.899 OTHER [employer] (CURRENT) DRUG THERAPY 04/01/2016 ARIEL LOPEZ MD, Ot 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 04/01/2016 ARIEL LOPEZ MD, Ot Z79.01 SNF (CURRENT) USE OF ANTICOAGULANT 04/01/2016 ARIEL LOPEZ MD, Ot Z79.899 OTHER SNF (CURRENT) DRUG THERAPY 04/08/2016 ADELAIDA BOOKER MD Ot R05 COUGH 04/08/2016 ADELAIDA BOOKER MD, Ot R06.02 SHORTNESS OF BREATH 04/09/2016 ADELAIDA BOOKER MD Ot R91.8 OTHER NONSPECIFIC ABNORMAL FINDING OF [place] 04/15/2016 ADELAIDA BOOKER MD, Ot 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 04/15/2016 ADELAIDA BOOKER MD, Ot 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 04/15/2016 ADELAIDA BOOKER MD, Ot E28.2 POLYCYSTIC OVARIAN SYNDROME 04/15/2016 ADELAIDA BOOKER MD Ot F41.9 ANXIETY DISORDER, UNSPECIFIED 04/15/2016 ADELAIDA BOOKER MD, Ot G40.909 EPILEPSY, UNSP, NOT INTRACTABLE, WITHOUT 04/15/2016 ADELAIDA BOOKER MD, Ot I25.2 OLD MYOCARDIAL INFARCTION 04/15/2016 ADELAIDA BOOKER MD, Ot I95.9 HYPOTENSION, UNSPECIFIED 04/15/2016 ADELAIDA BOOKER MD, Ot K21.9 GASTRO-ESOPHAGEAL REFLUX DISEASE WITHOUT 04/15/2016 ADELAIDA BOOKER MD Ot R10.31 RIGHT LOWER QUADRANT PAIN 04/15/2016 ADELAIDA BOOKER MD, Ot R10.32 LEFT LOWER QUADRANT PAIN 04/15/2016 ADELAIDA BOOKER MD, Ot R11.2 NAUSEA WITH VOMITING, UNSPECIFIED 04/15/2016 ADELAIDA BOOKER MD, Ot T45.515A ADVERSE EFFECT OF ANTICOAGULANTS, INITIA 04/15/2016 ADELAIDA BOOKER MD, Ot Z86.718 PERSONAL HISTORY OF OTHER VENOUS THROMBO 04/15/2016 ADELAIDA BOOKER MD, Ot Z87.01 PERSONAL HISTORY OF PNEUMONIA (RECURRENT 04/16/2016 KINGS FITZGERALD DO Ot D68.51 ACTIVATED PROTEIN C RESISTANCE 04/16/2016 KINGS FITZGERALD DO Ot F17.210 NICOTINE DEPENDENCE, CIGARETTES, UNCOMPL 04/16/2016 KINGS FITZGERALD DO Ot R20.2 PARESTHESIA OF SKIN 04/16/2016 KINGS FITZGERALD DO Ot Z79.899 OTHER SNF (CURRENT) DRUG THERAPY 04/21/2016 ADELAIDA BOOKER MD Ot R05 COUGH 04/21/2016 ADELAIDA BOOKER MD Ot R06.02 SHORTNESS OF BREATH 04/22/2016 ADELAIDA BOOKER MD Ot D64.9 ANEMIA, UNSPECIFIED 04/23/2016 ARIEL LOPEZ MD, Ot 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 04/23/2016 ARIEL LOPEZ MD Ot Z79.01 [employer] (CURRENT) USE OF ANTICOAGULANT 04/23/2016 ARIEL LOPEZ MD, Ot Z79.899 OTHER [employer] (CURRENT) DRUG THERAPY 04/24/2016 ADELAIDA BOOKER MD Ot D64.9 ANEMIA, UNSPECIFIED 04/25/2016 ARIEL LOPEZ MD, Ot 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 04/25/2016 ARIEL LOPEZ MD Ot Z79.01 SNF (CURRENT) USE OF ANTICOAGULANT 04/25/2016 ARIEL LOPEZ MD, Ot Z79.899 OTHER SNF (CURRENT) DRUG THERAPY 04/29/2016 ADELAIDA BOOKER MD Ot R91.8 OTHER NONSPECIFIC ABNORMAL FINDING OF [place] 05/09/2016 ADELAIDA BOOKER MD Ot D64.9 ANEMIA, UNSPECIFIED 05/09/2016 ADELAIDA BOOKER MD Ot R91.8 OTHER NONSPECIFIC ABNORMAL FINDING OF [place] 05/16/2016 ADELAIDA BOOEKR MD Ot D64.9 ANEMIA, UNSPECIFIED 06/22/2016 ARIEL LOPEZ MD, Ot 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 06/22/2016 ARIEL LOPEZ MD Ot Z79.01 SNF (CURRENT) USE OF ANTICOAGULANT 06/22/2016 ARIEL LOPEZ MD Ot Z79.899 OTHER SNF (CURRENT) DRUG THERAPY 08/03/2016 KINGS FITZGERALD DO Ot F17.210 NICOTINE DEPENDENCE, CIGARETTES, UNCOMPL 08/03/2016 KINGS FITZGERALD DO Ot I10 ESSENTIAL (PRIMARY) HYPERTENSION 08/03/2016 AMILCAR DO, KINGS K Ot I25.10 ATHSCL HEART DISEASE OF [place] CORONARY 08/03/2016 AMILCAR DO, KINGS K Ot I25.2 OLD MYOCARDIAL INFARCTION 08/03/2016 AMILCAR DO, KINGS K Ot R11.2 NAUSEA WITH VOMITING, UNSPECIFIED 08/03/2016 AMILCAR DO, KINGS K Ot R51 HEADACHE 08/03/2016 AMILCAR DO, KINGS K Ot Z79.899 OTHER SNF (CURRENT) DRUG THERAPY 08/05/2016 AMILCAR DO, KINGS K Ot F17.210 NICOTINE DEPENDENCE, CIGARETTES, UNCOMPL 08/05/2016 AMILCAR DO, KINGS K Ot I10 ESSENTIAL (PRIMARY) HYPERTENSION 08/05/2016 AMILCAR DO, KINGS K Ot I25.10 ATHSCL HEART DISEASE OF [place] CORONARY 08/05/2016 AMILCAR DO, KINGS K Ot I25.2 OLD MYOCARDIAL INFARCTION 08/05/2016 AMILCAR DO, KINGS K Ot R11.2 NAUSEA WITH VOMITING, UNSPECIFIED 08/05/2016 AMILCAR DO, KINGS K Ot R51 HEADACHE 08/05/2016 AMILCAR DO, KINGS K Ot Z79.899 OTHER SNF (CURRENT) DRUG THERAPY 09/05/2016 ARIEL LOPEZ MD Ot D68.51 ACTIVATED PROTEIN C RESISTANCE 09/05/2016 ARIEL LOPEZ MD Ot E78.2 MIXED HYPERLIPIDEMIA 09/05/2016 ARIEL LOPEZ MD Ot I10 ESSENTIAL (PRIMARY) HYPERTENSION 09/05/2016 ARIEL LOPEZ MD Ot I25.10 ATHSCL HEART DISEASE OF [place] CORONARY 09/05/2016 ARIEL LOPEZ MD Ot I65.23 OCCLUSION AND STENOSIS OF [place] 09/09/2016 ARIEL LOPEZ MD Ot D68.51 ACTIVATED PROTEIN C RESISTANCE 09/09/2016 ARIEL LOPEZ MD Ot E78.2 MIXED HYPERLIPIDEMIA 09/09/2016 ARIEL LOPEZ MD Ot I10 ESSENTIAL (PRIMARY) HYPERTENSION 09/09/2016 ARIEL LOPEZ MD Ot I25.10 ATHSCL HEART DISEASE OF [place] CORONARY 09/09/2016 ARIEL LOPEZ MD Ot I65.23 OCCLUSION AND STENOSIS OF [place] 10/13/2016 ARIEL LOPEZ MD Ot D68.51 ACTIVATED PROTEIN C RESISTANCE 10/13/2016 ARIEL LOPEZ MD Ot E78.2 MIXED HYPERLIPIDEMIA 10/13/2016 ARIEL LOPEZ MD Ot I10 ESSENTIAL (PRIMARY) HYPERTENSION 10/13/2016 ARIEL LOPEZ MD Ot I25.10 ATHSCL HEART DISEASE OF [place] CORONARY 10/13/2016 ARIEL LOPEZ MD Ot I65.23 OCCLUSION AND STENOSIS OF [place] 10/22/2016 ARIEL LOPEZ MD Ot D68.51 ACTIVATED PROTEIN C RESISTANCE 10/22/2016 ARIEL LOPEZ MD Ot E78.2 MIXED HYPERLIPIDEMIA 10/22/2016 ARIEL LOPEZ MD Ot I10 ESSENTIAL (PRIMARY) HYPERTENSION 10/22/2016 ARIEL LOPEZ MD Ot I25.10 ATHSCL HEART DISEASE OF [place] CORONARY 10/22/2016 ARIEL LOPEZ MD Ot I65.23 OCCLUSION AND STENOSIS OF [place] 12/04/2016 ADE PEDROZA, ADELAIDA Gaines Ot M54.5 LOW BACK PAIN 12/04/2016 ADE PEDROZA, ADELAIDA Gaines Ot M54.6 PAIN IN THORACIC SPINE 12/16/2016 ADE PEDROZA, ADELAIDA Gaines Ot M54.5 LOW BACK PAIN 12/16/2016 ADE PEDROZA, ADELAIDA Gaines Ot M54.6 PAIN IN THORACIC SPINE 01/20/2017 ADE PEDROZA, ADELAIDA Gaines Ot M54.5 LOW BACK PAIN 01/20/2017 ADE [...] APRN Ot I25.10 ATHSCL HEART DISEASE OF [place] CORONARY 04/05/2017 ALESSIA ANDERS APRN Ot I25.2 [...] SMO 04/05/2017 ALESSIA ANDERS APRN Ot Z79.01 SNF (CURRENT) USE OF ANTICOAGULANT 04/05/2017 ALESSIA ANDERS [...] APRN Ot I25.10 ATHSCL HEART DISEASE OF [place] CORONARY 04/07/2017 ALESSIA ANDERS APRN Ot I25.2 [...] SMO 04/07/2017 ALESSIA ANDERS APRN Ot Z79.01 [employer] (CURRENT) USE OF ANTICOAGULANT 04/07/2017 ALESSIA ANDERS APRN Ot Z82.49 FAMILY HX OF ISCHEM HEART DIS AND OTH DI 04/07/2017 ALESSIA ANDERS APRN Ot Z86.718 PERSONAL HISTORY OF OTHER VENOUS THROMBO 04/07/2017 ALESSIA ANDERS APRN Ot Z87.01 PERSONAL HISTORY OF PNEUMONIA (RECURRENT 04/07/2017 ALESSIA ANDERS APRN Ot Z87.19 PERSONAL HISTORY OF OTHER DISEASES OF TH 04/07/2017 ALESSIA ANDERS APRN Ot Z87.448 PERSONAL HISTORY OF OTHER DISEASES OF UR 04/07/2017 ALESSIA ANDERS APRN Ot Z90.89 ACQUIRED ABSENCE OF OTHER ORGANS 04/08/2017 ADELAIDA BOOKER MD Ot I10 ESSENTIAL (PRIMARY) HYPERTENSION 04/08/2017 ADELAIDA BOOKER MD Ot Z79.899 OTHER SNF (CURRENT) DRUG THERAPY 04/20/2017 ADELAIDA BOOKER MD Ot I10 ESSENTIAL (PRIMARY) HYPERTENSION 04/20/2017 ADELAIDA BOOKER MD Ot Z79.899 OTHER [employer] (CURRENT) DRUG THERAPY 08/11/2017 ADELAIDA BOOKER MD Ot M25.512 PAIN IN LEFT SHOULDER 09/16/2017 SHANAE ROSE DO S Ot Z12.31 ENCNTR SCREEN MAMMOGRAM FOR MALIGNANT NE 09/17/2017 SHANAE ROSE DO S Ot Z12.31 ENCNTR SCREEN MAMMOGRAM FOR MALIGNANT NE 09/18/2017 SHANAE ROSE DO S Ot N92.1 EXCESSIVE AND FREQUENT MENSTRUATION WITH 09/18/2017 SHANAE ROSE DO S Ot Z12.31 ENCNTR SCREEN MAMMOGRAM FOR MALIGNANT NE 10/07/2017 SHANAE ROSE DO S Ot N92.1 EXCESSIVE AND FREQUENT MENSTRUATION WITH 10/07/2017 SHANAE ROSE DO S Ot Z12.31 ENCNTR SCREEN MAMMOGRAM FOR MALIGNANT NE 10/08/2017 MILTON KUMAR SHANAE Armijo Ot N63.11 UNSPECIFIED LUMP IN THE RIGHT BREAST, UP 10/16/2017 MILTON SHANAE KUMAR Ot N92.1 EXCESSIVE AND FREQUENT MENSTRUATION WITH 10/16/2017 MILTON SHANAE KUMAR Ot Z12.31 ENCNTR SCREEN MAMMOGRAM FOR MALIGNANT NE 10/27/2017 [place] SHANAE KUMAR Aleksander Ot N63.11 UNSPECIFIED LUMP IN THE RIGHT BREAST, UP 11/06/2017 MILTON KUMARSHANAE Ot N63.11 UNSPECIFIED LUMP IN THE RIGHT BREAST, UP 12/02/2017 MILTON KUMARSHANAE Ot Z01.818 ENCOUNTER FOR OTHER PREPROCEDURAL EXAMIN 12/07/2017 MILTON SHANAE KUMAR Ot Z01.818 ENCOUNTER FOR OTHER PREPROCEDURAL EXAMIN 12/10/2017 Ot V58.61 ANTICOAGULANTS,LT,CURRENT USE 12/10/2017 Ot V58.83 ENCOUNTER FOR THERAPEUTIC DRUG MONITORIN 12/10/2017 Ot V58.61 ANTICOAGULANTS,LT,CURRENT USE 12/10/2017 Ot V58.69 OTH MED,LT, CURRENT USE 12/10/2017 Ot V58.83 ENCOUNTER FOR THERAPEUTIC DRUG MONITORIN 12/10/2017 ARIEL LOPEZ MD Ot 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 12/10/2017 ARIEL LOPEZ MD Ot Z79.01 [employer] (CURRENT) USE OF ANTICOAGULANT 12/10/2017 ARIEL LOPEZ MD Ot Z79.899 OTHER [employer] (CURRENT) DRUG THERAPY 12/10/2017 SHANAE ROSE DO Ot 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 12/10/2017 SHANAE ROSE DO Ot F17.210 NICOTINE DEPENDENCE, CIGARETTES, UNCOMPL 12/10/2017 SHANAE ROSE DO Ot I10 ESSENTIAL (PRIMARY) HYPERTENSION 12/10/2017 SHANAE ROSE DO Ot N72 INFLAMMATORY DISEASE OF CERV[place] 12/10/2017 SHANAE ROSE DO Ot N92.0 EXCESSIVE AND FREQUENT MENSTRUATION WITH 12/10/2017 SHANAE ROSE DO Ot R10.2 PELVIC AND PERINEAL PAIN 12/10/2017 SHANAE ROSE DO Ot R56.9 UNSPECIFIED CONVULSIONS 12/10/2017 SHANAE ORSE DO Ot Z79.01 SNF (CURRENT) USE OF ANTICOAGULANT 12/10/2017 SHANAE ROSE DO Ot Z79.899 OTHER SNF (CURRENT) DRUG THERAPY 12/14/2017 AMILCAR KINGS Rubén Ot E78.00 PURE HYPERCHOLESTEROLEMIA, UNSPECIFIED 12/14/2017 AMILCAR DO KINGS K Ot F32.9 MAJOR DEPRESSIVE DISORDER, SINGLE EPISOD 12/14/2017 AMILCAR KUMAR KINGS K Ot F41.9 ANXIETY DISORDER, UNSPECIFIED 12/14/2017 AMILCAR KUMAR KINGS Rubén Ot G40.909 EPILEPSY, UNSP, NOT INTRACTABLE, WITHOUT 12/14/2017 AMILCAR KINGS Rubén Ot G89.18 OTHER ACUTE POSTPROCEDURAL PAIN 12/14/2017 AMILCAR KUMAR KINGS K Ot I10 ESSENTIAL (PRIMARY) HYPERTENSION 12/14/2017 AMILCAR KINGS K Ot I25.10 ATHSCL HEART DISEASE OF [place] CORONARY 12/14/2017 AMILCAR KUMAR KINGS K Ot I25.2 OLD MYOCARDIAL INFARCTION 12/14/2017 AMILCARPan KUMAR KINGS K Ot K21.9 GASTRO-ESOPHAGEAL REFLUX DISEASE WITHOUT 12/14/2017 AMILCAR KINGS Rubén Ot N39.0 URINARY TRACT INFECTION, SITE NOT SPECIF 12/14/2017 AMILCAR KUMAR KINGS K Ot R50.9 FEVER, UNSPECIFIED 12/14/2017 AMILCARPan KUMAR KINGS K Ot Z77.22 CNTCT W AND EXPSR TO ENVIRON TOBACCO SMO 12/14/2017 AMILCARPan KUMAR KINGS K Ot Z79.01 [employer] (CURRENT) USE OF ANTICOAGULANT 12/14/2017 AMILCARPan KUMAR KINGS K Ot Z82.49 FAMILY HX OF [place]HE[place] HEART DIS AND OTH DI 12/14/2017 AMILCARKINGS Perla DO Ot Z86.718 PERSONAL HISTORY OF OTHER VENOUS THROMBO 12/14/2017 KINGS FITZGERALD DO Ot Z87.01 PERSONAL HISTORY OF PNEUMONIA (RECURRENT 12/14/2017 KINGS FITZGERALD DO Ot Z87.19 PERSONAL HISTORY OF OTHER DISEASES OF TH 12/14/2017 KINGS FITZGERALD DO Ot Z87.448 PERSONAL HISTORY OF OTHER DISEASES OF UR 12/14/2017 KINGS FITZGERALD DO Ot Z88.8 ALLERGY STATUS TO OT DRUG/MEDS/BIOL SUB 12/14/2017 KINGS FITZGERALD DO Ot Z90.710 ACQUIRED ABSENCE OF BOTH CERVIX AND UTER 12/14/2017 AMILCAR KINGS Rubén Ot Z90.89 ACQUIRED ABSENCE OF OTHER ORGANS 12/15/2017 AMILCAR KINGS Rubén Ot E78.00 PURE HYPERCHOLESTEROLEMIA, UNSPECIFIED 12/15/2017 AMILCAR KINGS K Ot F32.9 MAJOR DEPRESSIVE DISORDER, SINGLE EPISOD 12/15/2017 AMILCAR KINGS K Ot F41.9 ANXIETY DISORDER, UNSPECIFIED 12/15/2017 AMILCAR KINGS Rubén Ot G40.909 EPILEPSY, UNSP, NOT INTRACTABLE, WITHOUT 12/15/2017 AMILCAR KINGS Rubén Ot G89.18 OTHER ACUTE POSTPROCEDURAL PAIN 12/15/2017 AMILCAR KUMAR KINGS K Ot I10 ESSENTIAL (PRIMARY) HYPERTENSION 12/15/2017 AMILCAR KINGS Rubén Ot I25.10 ATHSCL HEART DISEASE OF [place] CORONARY 12/15/2017 AMILCAR DO KINGS K Ot I25.2 OLD MYOCARDIAL INFARCTION 12/15/2017 AMILCAR KUMAR KINGS K Ot K21.9 GASTRO-ESOPHAGEAL REFLUX DISEASE WITHOUT 12/15/2017 AMILCAR KUMAR KINGS Rubén Ot N39.0 URINARY TRACT INFECTION, SITE NOT SPECIF 12/15/2017 AMILCAR KUMAR KINGS K Ot R50.9 FEVER, UNSPECIFIED 12/15/2017 AMILCAR KUMAR KINGS K Ot Z77.22 CNTCT W AND EXPSR TO ENVIRON TOBACCO SMO 12/15/2017 KINGS FITZGERALD DO Ot Z79.01 SNF (CURRENT) USE OF ANTICOAGULANT 12/15/2017 KINGS FITZGERALD DO Ot Z82.49 FAMILY HX OF [place] HEART DIS AND OTH DI 12/15/2017 KINGS FITZGERALD DO Ot Z86.718 PERSONAL HISTORY OF OTHER VENOUS THROMBO 12/15/2017 KINGS FITZGERALD DO Ot Z87.01 PERSONAL HISTORY OF PNEUMONIA (RECURRENT 12/15/2017 KINGS FITZGERALD DO Ot Z87.19 PERSONAL HISTORY OF OTHER DISEASES OF TH 12/15/2017 KINGS FITZGERALD DO Ot Z87.448 PERSONAL HISTORY OF OTHER DISEASES OF UR 12/15/2017 KINGS FITZGERALD DO Ot Z88.8 ALLERGY STATUS TO OTH DRUG/MEDS/BIOL SUB 12/15/2017 KINGS FITZGERALD DO Ot Z90.710 ACQUIRED ABSENCE OF BOTH CERVIX AND UTER 12/15/2017 KINGS FITZGERALD DO Ot Z90.89 ACQUIRED ABSENCE OF OTHER ORGANS Procedures Code Description Performed By Performed On [...] detection in urine sediment by light microscopy 03-18 NRG Crystals detection in urine sediment by [...] ABO+Rh group AP NRG Transfusion band number [id number] NRG Blood group antibody screen NEGATIVE NRG [...] Staphylococcus aureus (MRSA) screening culture NEG NRG Whole blood hemoglobin and hematocrit panel [...] ABO+Rh group AP NRG Transfusion band number [id number] NRG Blood group antibody screen NEGATIVE NRG Complete blood count (CBC) with automated white blood cell (WBC) differential - 12/13/17 22:00 Blood leukocytes automated count (number/volume) 10.8 10*3/uL 4.3-11.0 Blood erythrocytes automated count (number/volume) 3.93 10*6/uL 4.35-5.85 Venous blood hemoglobin measurement (mass/volume) 13.8 g/dL 11.5-16.0 Blood hematocrit (volume fraction) 38 % 35-52 Automated erythrocyte mean corpuscular volume 96 [foz_us] 80-99 Automated erythrocyte mean corpuscular hemoglobin (mass per erythrocyte) 35 pg 25-34 Automated erythrocyte mean corpuscular hemoglobin concentration measurement ( mass/volume) 37 g/dL 32-36 Automated erythrocyte distribution width ratio 11.4 % 10.0-14.5 Automated blood platelet count (count/volume) 209 10*3/uL 130-400 Automated blood platelet mean volume measurement 10.3 [foz_us] 7.4-10.4 Automated blood neutrophils/100 leukocytes 73 % 42-75 Automated blood lymphocytes/100 leukocytes 16 % 12-44 Blood monocytes/100 leukocytes 10 % 0-12 Automated blood eosinophils/100 leukocytes 1 % 0-10 Automated blood basophils/100 leukocytes 0 % 0-10 Blood neutrophils automated count (number/volume) 7.9 10*3 1.8-7.8 Blood lymphocytes automated count (number/volume) 1.8 10*3 1.0-4.0 Blood monocytes automated count (number/volume) 1.1 10*3 0.0-1.0 Automated eosinophil count 0.1 10*3/uL 0.0-0.3 Automated blood basophil count (count/volume) 0.0 10*3/uL 0.0-0.1 Comprehensive metabolic panel - 12/13/17 22:00 Serum or plasma sodium measurement (moles/volume) 136 mmol/L 135-145 Serum or plasma potassium measurement (moles/volume) 3.8 mmol/L 3.6-5.0 Serum or plasma chloride measurement (moles/volume) 105 mmol/L 98-107 Carbon dioxide 20 mmol/L 21-32 Serum or plasma anion gap determination (moles/volume) 11 mmol/L 5-14 Serum or plasma urea nitrogen measurement (mass/volume) 12 mg/dL 7-18 Serum or plasma creatinine measurement (mass/volume) 0.82 mg/dL 0.60-1.30 Serum or plasma urea nitrogen/creatinine mass ratio 15 NRG Serum or plasma creatinine measurement with calculation of estimated glomerular filtration rate > NRG Serum or plasma glucose measurement (mass/volume) 94 mg/dL 70-105 Serum or plasma calcium measurement (mass/volume) 9.2 mg/dL 8.5-10.1 Serum or plasma total bilirubin measurement (mass/volume) 1.1 mg/dL 0.1-1.0 Serum or plasma alkaline phosphatase measurement (enzymatic activity/volume) 51 U/L 40-136 Serum or plasma aspartate aminotransferase measurement (enzymatic activity/ volume) 11 U/L 5-34 Serum or plasma alanine aminotransferase measurement (enzymatic activity/volume ) 6 U/L 0-55 Serum or plasma protein measurement (mass/volume) 6.7 g/dL 6.4-8.2 Serum or plasma albumin measurement (mass/volume) 3.9 g/dL 3.2-4.5 Complete urinalysis with reflex to culture - 12/14/17 00:29 Urine color determination YELLOW NRG Urine clarity determination CLEAR NRG Urine pH measurement by test strip 7 5-9 Specific gravity of urine by test strip 1.010 1.016- 1.022 Urine protein assay by test strip, semi-quantitative 2+ NEGATIVE Urine glucose detection by automated test strip NEGATIVE NEGATIVE Erythrocytes detection in urine sediment by light microscopy 2+ NEGATIVE Urine ketones detection by automated test strip NEGATIVE NEGATIVE Urine nitrite detection by test strip NEGATIVE NEGATIVE Urine total bilirubin detection by test strip NEGATIVE NEGATIVE Urine urobilinogen measurement by automated test strip (mass/volume) NORMAL NORMAL Urine leukocyte esterase detection by dipstick 1+ NEGATIVE Automated urine sediment erythrocyte count by microscopy (number/high power field) [HPF] NRG Automated urine sediment leukocyte count by microscopy (number/high power field ) RARE NRG Bacteria detection in urine sediment by light microscopy TRACE NRG Squamous epithelial cells detection in urine sediment by light microscopy 2-5 NRG Crystals detection in urine sediment by light microscopy NONE NRG Casts detection in urine sediment by light microscopy NONE NRG Mucus detection in urine sediment by light microscopy NEGATIVE NRG Complete urinalysis with reflex to culture NO NRG Bacterial urine culture - 12/14/17 00:29 Bacterial urine culture RML NRG COLONY COUNT . NRG Encounters ACCT No. Visit Date/Time Discharge Status Pt. Type Provider Facility Loc./Unit Complaint [id number] 06/06/2014 09:18:00 06/06/2014 23:59:59 CLS Outpatient ROBIN SAINI DO [id number] 01/04/2014 14:55:00 01/04/2014 23:59:59 CLS Outpatient JAC LUCIANKATYA [id number] 08/03/2013 11:44:00 08/03/2013 23:59:59 CLS Outpatient JAC SOPHIAKATYA [id number] 01/27/2013 16:02:00 01/27/2013 23:59:59 CLS Outpatient PARVEEN DO AYSHA F [id number] 02/26/2012 13:57:00 02/26/2012 23:59:59 CLS Outpatient AYSHA SAINI DO [id number] 04/08/2017 14:51:17 04/08/2017 23:59:59 CLS Outpatient [facility] 01/26/2015 04:44:40 ACT Document Registration [id number] 01/22/2018 14:41:00 01/22/2018 23:59:59 CLS Preadmit TERESA SHETTY APRN [facility] RAD CONFUSION,HX OF TIAS [id number] 12/13/2017 21:21:00 12/14/2017 01:23:00 DIS Emergency KINGS FITZGERALD DO [facility] ER FEVER,HYSTERECTOMY THURSDAY,PAIN,BLOOD THINNERS [id number] 12/10/2017 06:02:00 12/10/2017 17:00:00 DIS Outpatient SHANAE ROSE DO [facility] SDC CHRONIC PELVIC PAIN, FACTOR V LEIDEN [id number] 12/01/2017 09:05:00 12/01/2017 10:00:00 DIS Outpatient SHANAE ROSE DO [facility] PREOP CHRONIC PELVIC PAIN ,FACTOR V LEIDEN [id number] 10/07/2017 14:09:00 10/07/2017 23:59:59 CLS Outpatient SHANAE ROSE DO [facility] RAD R92.8 ABN MAMMO [id number] 09/17/2017 14:27:00 09/17/2017 23:59:59 CLS Outpatient SHANAE ROSE DO [facility] RAD SCREENING [id number] 08/11/2017 14:15:00 08/11/2017 16:23:00 DIS Outpatient ADELAIDA BOOKER MD [facility] REHAB L SHOULDER PAIN WITH ROTATOR CUFF INFLAMMATION [id number] 04/05/2017 13:16:00 04/05/2017 15:42:00 DIS Emergency ANDERSALESSIA DIE FITTER [facility] ER L SIDE ABD PAIN [id number] 03/18/2017 09:59:00 03/18/2017 23:59:59 CLS Outpatient ADELAIDA BOOKER MD [facility] LAB I10, Z79.899 [id number] 12/29/2016 11:15:00 02/05/2017 11:59:00 DIS Outpatient ADELAIDA BOOKER MD [facility] REHAB LBP; THORACIC PAIN [id number] 11/10/2016 11:49:00 11/10/2016 23:59:59 CLS Preadmit ADELAIDA BOOKER MD [facility] RAD SCREENING Z12.31 [id number] 09/03/2016 08:35:00 09/03/2016 23:59:59 CLS Outpatient ARIEL LOPEZ MD [facility] CARD CAD,CAROTID STENOSIS [id number] 08/03/2016 09:40:00 08/03/2016 11:56:00 DIS Emergency KINGS FITZGERALD DO [facility] ER HEADACHE/NAUSEA [id number] 06/23/2016 00:09:00 06/23/2016 23:59:59 CLS Preadmit ARIEL LOPEZ MD [facility] LAB COUMIDIN,THERAPY,MED MGMT [id number] 03/24/2016 10:02:00 06/22/2016 00:01:00 DIS Outpatient ARIEL LOPEZ MD [facility] LAB COUMIDIN,THERAPY,MED MGMT [id number] 04/18/2016 15:27:00 04/18/2016 23:59:59 CLS Outpatient ADELAIDA BOOKER MD [facility] LAB ANEMIA [id number] 04/16/2016 20:47:00 04/16/2016 22:28:00 DIS Emergency KINGS FITZGERALD DO [facility] ER FACIAL NUMBNESS [id number] 04/13/2016 16:25:00 04/15/2016 09:20:00 DIS Inpatient ADELAIDA BOOKER MD [facility] ICU SUPRATHERAPRUTIC INR; HEMATURIA; HEMATEMESIS [id number] 04/07/2016 08:51:00 04/07/2016 23:59:59 CLS Outpatient ADELAIDA BOOKER MD [facility] RAD LUNG MASS [id number] 03/20/2016 08:51:00 03/21/2016 10:40:00 DIS Inpatient ADELAIDA BOOKER MD [facility] 4TH POST OBSTRUCTIVE PNA LLL [id number] 03/19/2016 09:36:00 03/19/2016 23:59:59 CLS Outpatient ADELAIDA BOOKER MD [facility] RAD SOB,COUGH [id number] 02/12/2016 10:51:00 02/20/2016 00:01:00 DIS Outpatient ARIEL LOPEZ MD [facility] LAB COUMIDIN,THERAPY,MED MGMT [id number] 02/14/2016 11:16:00 02/14/2016 12:09:00 DIS Outpatient ADELAIDA BOOKER MD [facility] REHAB MID BACK/NECK/ SHOULDER PAIN AND STIFFNESS [id number] 11/22/2015 13:32:00 11/22/2015 23:59:59 CLS Outpatient TERESA SHETTY APRN [facility] LAB CHEST PAIN, ABN WEIGHT LOSS [id number] 11/18/2015 20:25:00 11/18/2015 22:38:00 DIS Emergency WILLIAM SHELTON MD [facility] ER HEADACHE/ELEVATED BP/ LOW HEART RATE [id number] 07/24/2015 12:20:00 10/22/2015 00:01:00 DIS Outpatient ARIEL LOPEZ MD [facility] LAB COUMIDIN,THERAPY,MED MGMT [id number] 07/25/2015 08:59:00 07/25/2015 10:05:00 DIS Outpatient ADELAIDA BOOKER MD [facility] REHAB NECK AND UPPER BACK PAIN,KYPHOSIS,RADICULOPATHY [id number] 07/24/2015 11:41:00 07/24/2015 23:59:59 CLS Outpatient SHANAE ROSE DO S [facility] RAD ACUTE PELVIC PAIN [id number] 04/09/2015 07:47:00 04/09/2015 23:59:59 CLS Outpatient ARIEL LOPEZ MD [facility] CARD CAD,LEIF,HLP,HTN [id number] 04/06/2015 14:31:00 04/06/2015 23:59:59 CLS Outpatient CRYSTAL GARCIAP [facility] RAD NECK THORACIC LUMBAR BACK PAIN [id number] 03/29/2015 15:06:00 03/29/2015 23:59:59 CLS Outpatient CRYSTAL GARCIA RESIDENCY COORDINATOR [facility] RAD NECK PAIN,THORACIC BACK PAIN [id number] 01/25/2015 10:17:00 02/21/2015 00:01:00 DIS Outpatient ARIEL LOPEZ MD [facility] LAB COUMIDIN,THERAPY,MED MGMT [id number] 01/25/2015 10:22:00 01/25/2015 23:59:59 CLS Outpatient ADELAIDA BOOKER MD [facility] RAD KNEE PAIN,BACK PAIN, HEEL PAIN [id number] 11/27/2014 09:14:00 01/21/2015 00:01:00 DIS Outpatient ARIEL LOPEZ MD [facility] LAB COUMIDIN,THERAPY,MED MGMT [id number] 03/21/2014 09:51:00 04/25/2014 00:01:00 DIS Outpatient ARIEL LOPEZ MD [facility] LAB COUMIDIN,THERAPY,MED MGMT [id number] 03/29/2014 12:56:00 03/29/2014 23:59:59 CLS Outpatient NIKKY FREED MD [facility] RAD RLQ PAIN [id number] 01/25/2014 11:41:00 01/25/2014 23:59:59 CLS Outpatient NIKKY FREED MD [facility] RAD ABD PAIN [id number] 08/24/2013 09:10:00 11/22/2013 00:01:00 DIS Outpatient ARIEL LOPEZ MD [facility] LAB COUMIDIN,THERAPY,MED MGMT [id number] 04/14/2013 10:39:00 04/16/2013 12:00:00 DIS Inpatient NIKKY FREED MD [facility] SURGICAL ABD PAIN [id number] 03/14/2013 08:42:00 03/15/2013 00:01:00 DIS Outpatient ARIEL LOPEZ MD [facility] LAB COUMIDIN,THERAPY,MED MGMT [id number] 03/14/2013 08:38:00 03/14/2013 23:59:59 CLS Outpatient NHUNG GAN [facility] LAB HYPERLIPIDEMIA [id number] 03/14/2013 08:32:00 03/14/2013 23:59:59 CLS Outpatient NIKKY FREED MD [facility] LAB [id number] 09/21/2012 10:10:00 11/15/2012 00:01:00 DIS Outpatient ARIEL LOPEZ MD [facility] LAB MED MANGEMENT [id number] 02/04/2018 11:51:00 ACT Emergency ALESSIA ANDERS APRN [facility] ER LOW BP/DIZZY [id number] 01/30/2017 16:55:00 Document Registration [id number] 01/30/2016 07:48:00 Document Registration [id number] 06/21/2015 16:15:00 Document Registration [id number] 10/23/2014 08:43:00 Document Registration [id number] 10/23/2014 08:42:00 Document Registration [id number] 10/23/2014 08:42:00 Document Registration [id number] 10/23/2014 08:42:00 Document Registration [id number] 10/23/2014 08:42:00 Document Registration [id number] 10/23/2014 08:42:00 Document Registration [id number] 08/17/2012 00:00:00 Document Registration [id number] 04/11/2012 14:28:00 Document Registration [id number] 09/22/2011 12:16:00 Document Registration [id number] 03/13/2011 21:26:00 Document Registration [id number] 02/13/2011 13:07:00 Document Registration [id number] 01/13/2011 14:34:00 Document Registration [id number] 12/10/2010 07:00:00 Document Registration [id number] 12/09/2010 08:57:00 Document Registration [id number] 12/03/2010 06:20:00 Document Registration [id number] 11/28/2010 09:10:00 Document Registration [id number] 10/28/2010 20:45:00 Document Registration [id number] 07/09/2010 13:30:00 Document Registration [id number] 03/13/2010 06:22:00 Document Registration [id number] 03/13/2010 06:16:00 Document Registration [id number] 03/13/2010 06:12:00 Document Registration [id number] 01/07/2010 13:51:00 Document Registration [id number] 08/08/2009 13:32:00 Document Registration [id number] 07/10/2009 08:12:00 Document Registration
== END 2018-02-04 13:35 | disposition home or self-care (01) ==
LOC: EDUNIT# 11:50 → ER 11:51
DX: R55 Syncope and collapse (principal); I25.10 Atherosclerotic heart disease of native coronary artery without angina pectoris; I25.2 Old myocardial infarction; E78.00 Pure hypercholesterolemia, unspecified; I10 Essential (primary) hypertension; F41.9 Anxiety disorder, unspecified; F32.9 Major depressive disorder, single episode, unspecified; G40.909 Epilepsy, unspecified, not intractable, without status epilepticus; F12.10 Cannabis abuse, uncomplicated; F17.210 Nicotine dependence, cigarettes, uncomplicated; Z88.8 Allergy status to other drugs, medicaments and biological substances; Z79.01 Long term (current) use of anticoagulants; Z82.49 Family history of ischemic heart disease and other diseases of the circulatory system; Z86.718 Personal history of other venous thrombosis and embolism; Z86.19 Personal history of other infectious and parasitic diseases; Z90.710 Acquired absence of both cervix and uterus; Z87.448 Personal history of other diseases of urinary system; Z87.19 Personal history of other diseases of the digestive system; Z87.01 Personal history of pneumonia (recurrent); Z90.89 Acquired absence of other organs
CPT/HCPCS: 36415; 71045; 80053; 80306; 81000; 84484; 85025; 93005

== ENCOUNTER 2018-05-27 13:15 | Outpatient (RCR) | payer MEDICARE, MEDICAID ==
[~2018-05-27 13:15] MED LIST changes: -AMLO5TAB7 PO; +AMLO5TAB9 PO
== END 2018-06-30 | disposition home or self-care (01) ==
PROVIDERS: ATTEND Nurse Practitioner Family
DX: M54.5 Low back pain (principal)

== ENCOUNTER 2019-02-27 11:43 | Emergency (ER) | payer MEDICARE, MEDICAID ==
[~2019-02-27] VITALS: Ht 157 cm; Wt 75.0 kg
[2019-02-27] MEDS ORDERED: CYCLOBENZAPRINE 10 MG (FLEXERIL) TAB PO STA (12:22)
[2019-02-27] MEDS ORDERED: LIDOCAINE/EPI 2% 1:100,00 (XYLOCAINE) 20 ML VIAL INJ ONE (12:30)
[2019-02-27] MEDS ORDERED: BUPIVACAINE 0.5% 30 ML (SENSORCAINE) VIAL INJ ONE (12:30)
--- NOTE | 2019-02-27 12:34 | ED EENT ---
History of Present Illness General Chief Complaint: Dental Problems/Pain Stated Complaint: DENTAL PAIN Nursing Triage Note: DENTAL PAIN AND SWELLING TO RIGHT LOWER JAW STARTING ON THURSDAY. HAS BEEN TAKING MOMS ABX OF ERYTHROMYCIN THAT IS NOT HELPING. Source: patient, other (mom) Exam Limitations: no limitations History of Present Illness Date Seen by Provider: Feb 27, 2019 Time Seen by Provider: 12:15 Initial Comments Patient presents ER by private conveyance with chief complaint of right dental pain on the right lower mandible as well as swelling starting about 2 days ago on Thursday. She called the dentist appointment for next Thursday. She starting some azithromycin she had left over. She says the pain and swelling kept her from sleeping. No fever chills nausea vomiting diarrhea. She cannot take NSAIDs due to being on Eliquis for factor V Leiden. Allergies and Home Medications Allergies Coded Allergies: prochlorperazine (Unverified Allergy, Severe, TONGUE SWELLS, 07/10/06) metoclopramide (Verified Allergy, Unknown, 01/29/09) topiramate (Unverified Allergy, Unknown, 11/18/15) causes metabolic acidosis aripiprazole (Unverified Adverse Reaction, Unknown, 12/10/17) levetiracetam (Unverified Adverse Reaction, Unknown, 12/10/17) Home Medications Amlodipine Besylate 5 Mg Tablet, 5 MG PO DAILY, (Reported) Amoxicillin 500 Mg Capsule, 500 MG PO TID Prescribed by: AR ROONEY on 02/27/19 1235 Apixaban 2.5 Mg Tablet, 2.5 MG PO BID, (Reported) Atorvastatin Calcium 20 Mg Tablet, 20 MG PO HS, (Reported) Docusate Sodium 100 Mg Capsule, 100 MG PO BID PRN for CONSTIPATION-1ST LINE Prescribed by: SHANAE ROSE on 12/10/17 0839 Escitalopram Oxalate 20 Mg Tablet, 20 MG PO DAILY, (Reported) Famotidine 20 Mg Tablet, 20 MG PO HS, (Reported) Hydrocodone Bit/Acetaminophen 1 Ea Tablet, 2 EA PO Q6H PRN for Pain-See Instructions Prescribed by: SHANAE ROSE on 12/10/17 0839 Ibuprofen 600 Mg Tablet, 600 MG PO Q6H PRN for PAIN-MODERATE Prescribed by: SHANAE ROSE on 12/10/17 0839 Lamotrigine 100 Mg Tab.er.24, 100 MG PO HS, (Reported) Lisinopril 10 Mg Tablet, 10 MG PO DAILY, (Reported) Lorazepam 2 Mg Tablet, 2-4 MG PO TID PRN for ANXIETY, (Reported) TAKE 1-2 (2MG) TABS Nitrofurantoin Monohyd/M-Cryst 100 Mg Capsule, 100 MG PO BID Prescribed by: KINGS FITZGERALD on 12/14/17106 Phenazopyridine HCl 200 Mg Tablet, 1 TAB PO TID Prescribed by: KINGS FITZGERALD on 12/14/17106 Simethicone 80 Mg Tab.chew, 40 MG PO TID PRN for INDIGESTION 2ND LINE Prescribed by: SHANAE ROSE on 12/10/17 0839 Patient Home Medication List Home Medication List Reviewed: Yes Review of Systems Review of Systems Constitutional: No chills, No diaphoresis Eyes: Denies Blindness, Denies Drainage Ears: Denies Dizziness, Denies Pain Nose: denies clots, denies congestion Mouth: see HPI Past [id number] Hx Patient Social History Alcohol Use: Denies Use Recreational Drug Use: No Drug of Choice: MARIJUANA Smoking Status: Current Everyday Smoker Type Used: Cigarettes 2nd Hand Smoke Exposure: Yes Recent Foreign Travel: No Contact w/Someone Who Travel: No Recent Infectious Disease Expo: No Recent Hopitalizations: No Immunizations Up To Date Tetanus Booster (TDap): Less than 5yrs Seasonal Allergies Seasonal Allergies: No Past Medical History Surgeries: Yes Abdominal, Adenoidectomy, Cardiac, Hysterectomy, Oophorectomy, Tonsillectomy Respiratory: Yes Pneumonia Currently Using CPAP: No Currently Using BIPAP: No Cardiac: Yes Coronary Artery Disease, Deep Vein Thrombosis, Heart Attack, High Cholesterol, Hypertension Neurological: Yes ("NON-EPILEPTIC SEIZURES" PER PT) Seizure Disorder : No Reproductive Disorders: Yes (HPV; OVARIAN TORSION/LEFT S.O.) Female Reproductive Disorders: Menstrual Problems, Ovarian Cyst, Polycystic Ovarian Dis NATUROPATH History: Hysterectomy Sexually Transmitted Disease: Yes (HPV) Genitourinary: Yes Bladder Infection Gastrointestinal: Yes (GI BLEED 04/13/16, ALL OTHER DISORDERS A CHILD) Abdominal Hernia, Gastroesophageal Reflux, Gastrointestinal Bleed, Hepatitis Musculoskeletal: Yes (STENOSIS) Scoliosis, Chronic Back Pain Endocrine: No Loss of Vision: Denies Hearing Impairment: Denies Cancer: No Psychosocial: Yes Anxiety, Depression Integumentary: No (BRUISING) Blood Disorders: Yes (DVT; FACTOR 5 LEIDEN) Family Medical History Family history: Cardiovascular disease 03 FATHER Family history: Coronary thrombosis 03 FATHER Family history: Diabetes mellitus 03 MOTHER Heart disease 03 FATHER History of - disorder 03 FATHER (FACTOR FIVE LEIDEN) Psychotic disorder 03 MOTHER (DEPRESSION) Heart Disease, Cancer, Hypertension Physical Exam Vital Signs Vital Signs - First Documented 02/27/19 11:56 Temp 36.3 Pulse 70 Resp 16 B/P (MAP) 159/87 (111) Pulse Ox 98 O2 Delivery Room Air Height, Weight, BMI Height: 5'5.00" Weight: 175lbs. 0.0oz. [id number]; 30.00 BMI Method:Stated General Appearance: WD/WN, mild distress Eyes: bilateral eye normal inspection, bilateral eye PERRL, bilateral eye EOMI Ears: bilateral ear auricle normal, bilateral ear canal normal, bilateral ear TM normal Nose: normal inspection; No active bleeding Mouth/Throat: dental tenderness (right mandibular); No foreign body; maxillary swelling (right), other (no area of fluctuance to be lanced) Neck: non-tender, full range of motion, normal inspection Cardiovascular: normal peripheral pulses, regular rate, rhythm Procedures/Interventions Progress Using usual technique and a 25-gauge 1/2 inch needle we injected the infra-alveolar nerve with a 50-50 solution of half percent Marcaine and 2% lidocaine with epinephrine. A total of 2.5 cc were injected. The patient tolerated procedure well. Progress/Results/Core Measures Results/Orders My Orders Orders - AR ROONEY Bupivacaine 0.5% Injection (Sensorcaine (02/27/19 12:30) Lidocaine/Epi 2% 1:100,000 (Xylocaine/Ep (02/27/19 12:30) Vital Signs/I&O 02/27/19 11:56 Temp 36.3 Pulse 70 Resp 16 B/P (MAP) 159/87 (111) Pulse Ox 98 O2 Delivery Room Air Blood Pressure Mean: 111 Progress Progress Note : Time: 12:30 Progress Note Decided upon Marcaine/lidocaine inferior alveolar nerve block, viscous lidocaine, amoxicillin and follow up Thursday with dentist. Departure Impression Primary Impression: Dental abscess Disposition: HOME, SELF-CARE Condition: Stable Departure-Patient Inst. Decision time for Depature: 12:45 Referrals: ADELAIDA BOOKER MD (PCP/Family) Primary Care Physician Patient Instructions: Dental Pain (DC) Add. Discharge Instructions: Heating pads, Tylenol and your prescribed pain medicine as ordered. Viscous lidocaine 5-10 cc applied to gauze directly over the tooth that hurts every 2-4 hours as needed for pain relief. Keep your follow-up appointment with the dentist. Amoxicillin one capsule 3 times a day for the next week. All discharge instructions reviewed with patient and/or family. Voiced understanding. Scripts Amoxicillin (Amoxicillin) 500 Mg Capsule 500 MG PO TID, #21 CAP 0 Refills Prov: AR ROONEY 02/27/19 AR ROONEY Feb 27, 2019 12:34
[2019-02-27] MEDS ORDERED: AMOX500C2 PO (12:35)
[2019-02-27 12:55] VITALS: BP 159/87
== END 2019-02-27 12:55 | disposition home or self-care (01) ==
LOC: EDUNIT# 11:43 → ER 11:44
DX: K04.7 Periapical abscess without sinus (principal); I10 Essential (primary) hypertension; E78.00 Pure hypercholesterolemia, unspecified; I25.2 Old myocardial infarction; I25.10 Atherosclerotic heart disease of native coronary artery without angina pectoris; G40.909 Epilepsy, unspecified, not intractable, without status epilepticus; F41.9 Anxiety disorder, unspecified; F32.9 Major depressive disorder, single episode, unspecified; K21.9 Gastro-esophageal reflux disease without esophagitis; F17.210 Nicotine dependence, cigarettes, uncomplicated; Z90.89 Acquired absence of other organs; Z86.718 Personal history of other venous thrombosis and embolism; Z90.710 Acquired absence of both cervix and uterus; Z88.8 Allergy status to other drugs, medicaments and biological substances; Z79.01 Long term (current) use of anticoagulants; Z82.49 Family history of ischemic heart disease and other diseases of the circulatory system
CPT/HCPCS: 99282

== ENCOUNTER 2021-02-13 11:12 | Outpatient (RCR) | payer MEDICARE, MEDICAID ==
[~2021-02-13 11:12] MED LIST changes: +AMLO-250 PO; -AMLO5TAB9 PO; +AMOX500C2 PO; +ASPI-1238 PO; -ASPI-983 PO; +ESCI20TA39 PO; -ESCI20TA45 PO; -LISI-552 PO; -LISI10TA2 PO; +LISI10TA25 PO; +LISI20TA26 PO; -OXYC-471 PO; +OXYC1TAB11 PO; -SULF1TAB35 PO; +SULF1TAB38 PO
== END 2021-04-07 | disposition home or self-care (01) ==
PROVIDERS: ATTEND Family Medicine
DX: M54.2 Cervicalgia (principal); M54.6 Pain in thoracic spine; R20.0 Anesthesia of skin